=== PATIENT | female | born 1950 | race Hispanic/Latino ===

== ENCOUNTER 2019-05-23 19:40 | Emergency (ER) | payer OTHER ==
--- OUTSIDE RECORDS SUMMARY | 2019-05-23 19:45 | XMS REPORT | Summary of Care ---
:1950 Author Organization [facility] - Health Address [address] [place] [address] Care Team Providers Name Role Phone Clifford Quinones Primary Care Provider Reason for Referral (DALY) Status Reason Specialty Diagnoses / Referred By Referred To Procedures Contact Contact Closed Vascular Sonography Diagnoses Renal artery stenosis Essential hypertension Carotid stenosis, asymptomatic, bilateral I70.1 (ICD-10-CM) - Renal artery stenosis I10 (ICD-10-CM) - Essential hypertension I65.23 (ICD-10-CM) - Carotid stenosis, asymptomatic, bilateral Consuelo, Trina, Procedures RENAL ARTERY DUPLEX BY VASCULAR LAB [id number] - RENAL ARTERY DUPLEX BY VASCULAR LAB [address] [place] [phone] (DALY) Status Reason Specialty Diagnoses / Referred By Referred To Procedures Contact Contact Closed Vascular Sonography Diagnoses Renal artery stenosis Essential hypertension Carotid stenosis, asymptomatic, bilateral I70.1 (ICD-10-CM) - Renal artery stenosis I10 (ICD-10-CM) - Essential hypertension I65.23 (ICD-10-CM) - Carotid stenosis, asymptomatic, bilateral Kelly Corderofer, Procedures RENAL ARTERY DUPLEX BY VASCULAR LAB [id number] - RENAL ARTERY DUPLEX BY VASCULAR LAB [address] [place] [phone] Reason for Visit (DALY) Status Reason Specialty Diagnoses / Referred By Referred To Procedures Contact Contact Closed Vascular Sonography Diagnoses Renal artery stenosis Essential hypertension Carotid stenosis, asymptomatic, bilateral I70.1 (ICD-10-CM) - Renal artery stenosis I10 (ICD-10-CM) - Essential hypertension I65.23 (ICD-10-CM) - Carotid stenosis, asymptomatic, bilateral Trina Cordero, Procedures RENAL ARTERY DUPLEX BY VASCULAR LAB [id number] - RENAL ARTERY DUPLEX BY VASCULAR LAB [address] [place] [phone] Encounter Details Date Type Department Care Team Description 02/01/2019 Hospital Encounter [facility] Henna Marquis MD [address] [place] [address] [facility], [facility] Cardio Vascular [address] [facility] [place] [address] Allergies Active Allergy Reactions Severity Noted Date Comments Atorvastatin Calcium Unknown - See comments 12/07/2016 myalgia documented as of this encounter (statuses as of 02/02/2019) Medications Medication Sig Dispensed Refills Start Date End Date Status DEXILANT 60 mg CpDM Take 60 mg by 0 01/27/2015 Active mouth daily. nitroglycerin Place 1 Tab under 1 Bottle 3 10/06/2015 Active (NITROSTAT) 0.4 mg the tongue every sublingual tablet 5 (five) minutes as needed for Chest pain. ALPRAZolam (XANAX) 0.25 Take 0.25 mg by 0 Active mg tablet mouth at bedtime. Insulin Asp Prt-Insulin inject 20 Units 45 mL 1 01/09/2017 Active Aspart (NOVOLOG MIX under the skin 2 70-30) 100 unit/mL (two) times (70-30) injection daily. temazepam (RESTORIL) 15 Take 15 mg by 0 Active mg capsule mouth at bedtime. TRAMADOL HCL (TRAMADOL Take by mouth as 0 Active ORAL) needed. aspirin 81 mg EC tablet Take 1 tablet by 0 06/07/2017 Active mouth daily. losartan 50 mg Take 1 tablet by 30 tablet 2 11/07/2018 Active tabletIndications: mouth daily. Fluctuating blood pressure carvedilol 25 mg tablet Take 1 tablet by 180 tablet 1 11/07/2018 Active mouth 2 (two) times daily with meals. topiramate 50 mg tablet Take 50 mg by 0 Active mouth. hydroCHLOROthiazide 12.5 0 10/23/2018 Active mg tablet gabapentin 300 mg 0 09/21/2018 Active capsule dextromethorphan Nuedexta 0 Active Hbr/quinidine (NUEDEXTA ORAL) pantoprazole 40 mg EC pantoprazole 40 0 Active tablet mg tablet,delayed release insulin degludec Tresiba FlexTouch 0 Active (TRESIBA FLEXTOUCH U-100 U-100 SC) nitroglycerin 0.[address] 1 tablet 1 Bottle 1 12/18/2018 Active sublingual tablet under the tongue every 5 (five) minutes as needed for Chest pain. evolocumab (REPATHA inject 140 mg 4 Syringe 3 01/12/2019 Active SURECLICK) 140 mg/mL under the skin PnIjIndications: every 2 (two) Coronary artery disease weeks. involving [place] coronary artery of [place] heart without angina pectoris, Hyperlipidemia, unspecified hyperlipidemia type documented as of this encounter (statuses as of 02/02/2019) Active Problems Problem Noted Date History of stroke 07/14/2015 History of total hysterectomy with bilateral salpingo-oophorectomy (BSO) 07/14 Decreased libido 07/14/2015 Essential hypertension 02/18/2015 HLD (hyperlipidemia) 02/18/2015 Postmenopause 02/18/2015 Diabetes mellitus type 2, uncontrolled, without complications 02/18/2015 Overview: ICD10 Diagnosis Term Cleaner And Trimmer Utility Neuropathy 02/18/2015 documented as of this encounter (statuses as of 02/02/2019) Social History Tobacco Use Types Packs/Day Years Used Date Former Smoker Smokeless Tobacco: Never Used Alcohol Use Drinks/Week oz/Week Comments No 0 Standard drinks or equivalent 0.0 Sex Assigned at Date Recorded Not on file Job Start Date Occupation Industry Not on file Not on file Not on file Travel History Travel Start Travel End No recent travel history available. documented as of this encounter Last Filed Vital Signs Not on filedocumented in this encounter Plan of Treatment Date Type Specialty Care Team Description 02/26/2019 Office Visit Vascular Surgery Trina Cordero MD [address] [place] [phone] 04/09/2019 Office Visit Cardiology Henna Marquis MD [address] [place] [address] [address] [place] [address] [phone] Health Maintenance Due Date Last Done Comments HEPATITIS C (HCV) SCREEN 1950 EYE EXAM 1959 DTaP,Tdap,and Td Vaccines (1 - 1968 Tdap) COLONOSCOPY 1999 Zoster Recombinant Vaccine 1999 (SHINGRIX) (1 of 2) LUNG CANCER SCREEN: Recommended 2004 for age 55-80 with 30 + pack year history Medicare Wellness Visit 2014 Osteoporosis Screening 2014 PNEUMOCOCCAL VACCINES 65+ (1 of 2 2014 - PCV13) URINE MICROALBUMIN 03/30/2016 03/30/2015 MAMMOGRAM 07/16/2016 07/16/2015 FOOT EXAM 01/04/2018 01/04/2017, 01/04/2017 INFLUENZA VACCINE 03/03/2019 HgA1C 06/15/2019 12/14/2018, 01/04/2017, 09/28/2015, Additional history exists CREATININE (SERUM) 01/08/2020 01/07/2019, 12/14/2018, 10/28/2016, Additional history exists LDL-C 01/08/2020 01/07/2019, 03/30/2015 documented as of this encounter Implants Implanted Type Area Director Of Strategic Communications Device Shelf Model / Serial Identifier Expiration / Lot Date Lens LENS Right: Raúl 06/01/2020 [id number] / Implanted: Qty: 1 on 09/24/2015 by Ramesh Martinez MD at [facility] Eye [id number] / [id number] Lens LENS Left: Eye Raúl 08/02/2020 [id number] / Implanted: Qty: 1 on 11/12/2015 by Ramesh Martinez MD at [facility] [id number] / [id number] documented as of this encounter Procedures Procedure Name Priority Date/Time Associated Diagnosis Comments RENAL ARTERY DUPLEX BY DALY 02/01/2019 10:06 AM Renal artery stenosis VASCULAR LAB CDT Essential hypertension Carotid stenosis, asymptomatic, bilateral documented in this encounter Results Not on filedocumented in this encounter Visit Diagnoses Diagnosis Renal artery stenosis Atherosclerosis of renal artery Essential hypertension Unspecified essential hypertension Carotid stenosis, asymptomatic, bilateral documented in this encounter Insurance Payer Benefit Plan / Subscriber ID Effective Dates Phone Address Type Group MEDICARE MEDICARE PART xxxxxxxxxxx 2014-Tova [phone] [id number] [place] [address] documented as of this encounter
--- OUTSIDE RECORDS SUMMARY | 2019-05-23 19:45 | XMS REPORT | Summary of Care ---
:1950 Author Organization [facility] - [facility] Address [address] [place] [address] Care Team Providers Name Role Phone Clifford Quinones Primary Care Provider Reason for Visit Reason Comments Results Encounter Details Date Type Department Care Team Description 02/26/2019 Office Visit [facility] Vascular Trina Cordero, Renal artery stenosis Surgery- Ct MATIAS (Primary Dx) [address] [address] [place], [place] [phone] [address] [phone] Allergies Active Allergy Reactions Severity Noted Date Comments Atorvastatin Calcium Unknown - See comments 12/07/2016 myalgia documented as of this encounter (statuses as of 02/26/2019) Medications Medication Sig Dispensed Refills Start Date [...] tablet by 0 06/07/2017 Active mouth daily. carvedilol 25 mg tablet Take 1 tablet [...] 2 (two) Coronary artery disease weeks. involving [place] coronary artery of [place] heart without angina pectoris, Hyperlipidemia, unspecified hyperlipidemia type losartan 50 mg Take 1 tablet by 30 tablet 2 02/07/2019 Active tabletIndications: mouth daily. Fluctuating blood pressure documented as of this encounter (statuses as of 02/26/2019) Active Problems Problem Noted Date History of stroke 07/14/2015 History of total hysterectomy with bilateral salpingo-oophorectomy (BSO) 07/14 Decreased libido 07/14/2015 Essential hypertension 02/18/2015 HLD (hyperlipidemia) 02/18/2015 Postmenopause 02/18/2015 Diabetes mellitus type 2, uncontrolled, without complications 02/18/2015 Overview: ICD10 Diagnosis Term Lead Recreation Assistant Utility Neuropathy 02/18/2015 documented as of this encounter (statuses as of 02/26/2019) Social History Tobacco Use Types Packs/Day Years [...] of this encounter Last Filed Vital Signs Vital Sign Reading Time Taken Comments Blood Pressure 151/82 02/26/2019 10:44 Took BP Rx not long AM CDT ago. Pulse 78 02/26/2019 10:44 AM CDT Temperature 36 C (96.8 F) 02/26/2019 10:44 AM CDT Respiratory Rate - - Oxygen Saturation - - Inhaled Oxygen - - Concentration Weight 81.4 kg (179 lb 6.4 02/26/2019 10:44 oz) AM CDT Height 152.4 cm (5') 02/26/2019 10:44 AM CDT Body Mass Index 35.04 02/26/2019 10:44 AM CDT documented in this encounter Progress Notes Trina Cordero MD - 02/26/2019 10:30 AM CDT Vascular Surgery Clinic Note Date of Service: 02/26/2019 HISTORY OF PRESENT ILLNESS: This 68 year old year old female patient presents for follow-up of renal artery stenosis, carotid artery stenosis s/p left carotid stenting in 2016, and left thigh pain. Since last visit, she was started on losartan with much improved HTN control. She continues on aspirin and beta flor and has an allergy to statin. Her carotid duplex is WNL and the right CHARITO is 0.93 with left CHARITO of 0.95. She ntoes that the left thigh pain is mainly over the previous GSV harvest site for her CABG and started around that time. She also has a history of sciatica which was treated by her pain doctor in the past buthas not seen a back surgeon. She is otherwise doing well. Interval update (02/26/2019): Patient is doing well and states that her BP is much better controlled with the losartan. She reports a UTI about 3 weeks ago which resolved with antibiotics. PAST MEDICAL HISTORY: Past Medical History: Diagnosis Date Abnormal uterine bleeding Bilateral carotid artery stenosis L stent 10/2014 in [facility] CVA (cerebral infarction) 10/2014 Depression DM2 (diabetes mellitus, type 2) age 45 HLD (hyperlipidemia) Hypertension Leiomyoma of uterus Wears dentures non-contributory for this patient presenting symptoms Past Surgical History: Procedure Laterality Date CAROTID STENTING SECTION COLONOSCOPY HYSTERECTOMY MYOMECTOMY (SHX) PHACOEMULSIFICATION OF CATARACT WITH INTRAOCULAR LENS IMPLANT Right 2015 Surgeon: Ramesh Martinez MD; Location: [facility] OR [facility] PHACOEMULSIFICATION OF CATARACT WITH INTRAOCULAR LENS IMPLANT Left 11/12/2015 Surgeon: Ramesh Martinez MD; Location: [facility] OR Location STENT PLACEMENT (SHX) Medications: Current Outpatient Medications on File Prior to Visit Medication Sig Dispense Refill evolocumab (REPATHA SURECLICK) 140 mg/mL PnIj inject 140 mg under the skin every 2 (two) weeks. 4 Syringe 3 nitroglycerin 0.[address] 1 tablet under the tongue every 5 (five) minutes as needed for Chest pain. 1 Bottle 1 dextromethorphan Hbr/quinidine (NUEDEXTA ORAL) Nuedexta gabapentin 300 mg capsule 0 hydroCHLOROthiazide 12.5 mg tablet 0 insulin degludec (TRESIBA FLEXTOUCH U-100 SC) Tresiba FlexTouch U-100 pantoprazole 40 mg EC tablet pantoprazole 40 mg tablet,delayed release topiramate 50 mg tablet Take 50 mg by mouth. carvedilol 25 mg tablet Take 1 tablet by mouth 2 (two) times daily with meals. 180 tablet 1 losartan 50 mg tablet Take 1 tablet by mouth daily. 30 tablet 2 aspirin 81 mg EC tablet Take 1 tablet by mouth daily. temazepam (RESTORIL) 15 mg capsule Take 15 mg by mouth at bedtime. TRAMADOL HCL (TRAMADOL ORAL) Take by mouth as needed. Insulin Asp Prt-Insulin Aspart (NOVOLOG MIX 70-30) 100 unit/mL (70-30) injection inject 20 Unitsunder the skin 2 (two) times daily. 45 mL 1 ALPRAZolam (XANAX) 0.25 mg tablet Take 0.25 mg by mouth at bedtime. nitroglycerin (NITROSTAT) 0.[address] 1 Tab under the tongue every 5 (five) minutes as needed for Chest pain. 1 Bottle 3 DEXILANT 60 mg CpDM Take 60 mg by mouth daily. No current facility-administered medications on file prior to visit. I have reviewed the social history, it is non-contributory. I have reviewed the family history, it is non-contributory. Allergies: Allergies Allergen Reactions Lipitor [Atorvastatin Calcium] Unknown - See comments myalgia Make sure patient is not allergic to Contrast (Iodine): No Review of Systems: (-)=Negative,(+)=Positive Constitutional: (-) fever, (-) chills Eyes: (-) Amarosis fugax Mouth/Throat: (-) facial droop Cardiovascular: (-) chest pain, (-) palpitations Respiratory: (-) cough, (-) shortness of breath, (-) dyspnea on exertion Endocrine: (+) diabetes, (+) renal insufficiency Musculoskeletal: (-) claudication Integumentary: (-) swelling Hematologic: (-) DVT Infectious Disease: (-) Neuro: (-) TIAs/ Stroke Physical Exam: BP: (151)/(82) Temp: [36 C (96.8 F)] Temp source: -- Pulse: [78] Resp: -- SpO2: -- Height: [152.4 cm (5')] Weight: [81.4 kg (179 lb 6.4 oz)] BMI (calculated): [35.04] Constitutional: alert, healthy and no acute distress Facial Droop: No Eyes: extra ocular movements intact Head: normal Respiratory: breathing comfortably on room air Cardio: regular rate Extremities: no clubbing, cyanosis, or edema Neurologic: alert and oriented x 3 Psychiatric: alert, with appropriate affect Hematologic: (-) bruises and (-) hematoma Labs: No new labs. Imaging: No new Radiology. Vascular Labs: See HPI for results Diagnosis: Isidra Neff is a 68 year old female with possible left renal artery stenosis. Her left kidney is smaller than the right, around 9 cm and there were no EDV recorded to calculate resistive indexes. Her HTN is now better controlled. Again there were no EDVs recorded on the duplex scan therefore will see if BP controlled prior to considering intervention. Renal artery stenosis - Continue current medications but will need to record her home BPs - return in 3-4 weeks with new BMP and home BP recordings HTN - management per cardiology Leg/back pain - Ambulation as tolerated - Would consider referral to Neurosurgery if her sciatica worsens Carotid artery stenosis - Repeat carotid duplex in 1 year - Continue aspirin Trina Cordero MD, [facility] Vascular Surgery Radha Hilliard - 02/26/2019 10:30 AM CDT Isidra Neff is a 68 year old female Chief Complaint Patient presents with Results Vitals: 02/26/19 1044 BP: (!) 151/82 Pulse: 78 Temp: 36 C (96.8 F) Weight: 81.4 kg (179 lb 6.4 oz) Height: 60" (152.4 cm) [facility] [address] [place] [address] [address] [facility] FOLLOW-UP for US results on kidney - available in chart. All Vitals taken, allergies and all medications reviewed, fall risk assessed. Pain level 8. Radha Huff 02/26/2019 10:45 AM documented in this encounter Plan of Treatment Date Type Specialty Care Team Description 03/26/2019 Office Visit Vascular Surgery Trina Cordero MD [address] [place] [phone] 04/09/2019 Office Visit Cardiology Henna Marquis MD [address] [place] [address] [place] [address] Name Type Priority Associated Diagnoses Order Schedule BASIC METABOLIC PANEL LAB Routine Renal artery stenosis Expected: 2018, Expires: 06/28/2019 Health Maintenance Due Date Last Done Comments [...] FOOT EXAM 01/04/2018 01/04/2017, 01/04/2017 INFLUENZA VACCINE (#1) 2019 04/23/2017 HgA1C 06/15/2019 12/14/2018, 01/04/2017, 09/28/2015, Additional history exists CREATININE (SERUM) 01/08/2020 01/07/2019, 12/14/2018, 10/28/2016, Additional history exists LDL-C 01/08/2020 01/07/2019, 03/30/2015 documented as of this encounter Implants Implanted Type Area Supervisor Prep Device Shelf Model / Serial Identifier Expiration / Lot Date Lens LENS Right: Raúl 06/01/2020 SN60WF / Implanted: Qty: 1 on 09/24/2015 by Ramesh Martinez MD at [facility] [id number] / [id number] Lens LENS Left: Eye Raúl 08/02/2020 [id number] / Implanted: Qty: 1 on 11/12/2015 by Ramesh Martinez MD at [facility] [id number] / [id number] documented as of this encounter Results Not on filedocumented in this encounter Visit Diagnoses Diagnosis Renal artery stenosis - Primary Atherosclerosis of renal artery documented in this encounter Insurance Payer Benefit Plan / Subscriber ID Effective Dates Phone Address Type Group MEDICARE MEDICARE PART xxxxxxxxxxx 2014-Tova [phone] Medicare A [place] [address] [place] [id number] [place] [id number] documented as of this encounter
--- OUTSIDE RECORDS SUMMARY | 2019-05-23 19:45 | XMS REPORT | Summary of Care ---
:1950 Author Organization [address] [address] Care Team Providers Name Role Phone Clifford Quinones Primary Care Provider Reason for Visit Reason Comments Results Vascular Study Encounter Details Date Type Department Care Team Description 02/05/[address] [facility] Vascular Trina Cordero MD Results (Vascular Surgery- [address]) [address] [place], [place] [address] [address] [place], [place] [phone] [address] [phone] Allergies Active Allergy Reactions Severity Noted Date Comments Atorvastatin Calcium Unknown - See comments 12/07/2016 myalgia documented as of this encounter (statuses as of 02/05/2019) Medications Medication Sig Dispensed Refills Start Date [...] 2 (two) Coronary artery disease weeks. involving [place] coronary artery of [place] heart without angina pectoris, Hyperlipidemia, unspecified hyperlipidemia type documented as of this encounter (statuses as of 02/05/2019) Active Problems Problem Noted Date History of stroke 07/14/2015 History of total hysterectomy with bilateral salpingo-oophorectomy (BSO) 07/14 Decreased libido 07/14/2015 Essential hypertension 02/18/2015 HLD (hyperlipidemia) 02/18/2015 Postmenopause 02/18/2015 Diabetes mellitus type 2, uncontrolled, without complications 02/18/2015 Overview: ICD10 Diagnosis Term Automatic Wheel Line Operator Utility Neuropathy 02/18/2015 documented as of this encounter (statuses as of 02/05/2019) Social History Tobacco Use Types Packs/Day Years [...] Office Visit Vascular Surgery Trina Cordero MD [address] [place] [phone] 04/09/2019 Office Visit Cardiology Henna Marquis MD [address] [place] [address] [address] [place] [address] Health Maintenance Due Date Last Done Comments [...] EXAM 01/04/2018 01/04/2017, 01/04/2017 INFLUENZA VACCINE 03/03/2019 04/23/2017 HgA1C 06/15/2019 12/14/2018, 01/04/2017, 09/28/2015, Additional history exists CREATININE (SERUM) 01/08/2020 01/07/2019, 12/14/2018, 10/28/2016, Additional history exists LDL-C 01/08/2020 01/07/2019, 03/30/2015 documented as of this encounter Implants Implanted Type Area Granulator Operator Device Shelf Model / Serial Identifier Expiration / Lot Date Lens LENS Right: Raúl 06/01/2020 SN60WF / Implanted: Qty: 1 on 09/24/2015 by Ramesh Martinez MD at [facility] [id number] / [id number] Lens LENS Left: Eye Raúl 08/02/2020 [id number] / Implanted: Qty: 1 on 11/12/2015 by Ramesh Martinez MD at [facility] [id number] / [id number] documented as of this encounter Results Not on filedocumented in this encounter Insurance Payer Benefit Plan / Subscriber ID Effective Dates Phone Address Type Group MEDICARE MEDICARE PART xxxxxxxxxxx 2014-Tova [phone] [address] Medicare A & B nt [id number] [place] [phone] documented as of this encounter
--- OUTSIDE RECORDS SUMMARY | 2019-05-23 19:45 | XMS REPORT ---
:1950 [facility] Address [address] [place] [address] Care Team Providers Name Role Phone VANDA PALMA Unavailable Unavailable Problems This patient has no known problems. Allergies, Adverse Reactions, Alerts This patient has no known allergies or adverse reactions. Medications This patient has no known medications. Results Test Description Test Time Test Comments Text Results Atomic Results Result Comments POCT-GLUCOSE METER 2017-09-06 12:41:00 Test Item Value Reference Range Comments POC-GLUCOSE METER (BEAKER) (test 181 mg/dL 70-110 TESTED AT [address] ceox=0688) [facility] [address] POCT-GLUCOSE [id number] 07:49:00 Test Item Value Reference Range Comments POC-GLUCOSE METER (BEAKER) 231 mg/dL 70-110 TESTED AT [address] (test koye=9052) [facility] [address] POCT-GLUCOSE [id number] 21:02:00 Test Item Value Reference Range Comments POC-GLUCOSE METER (BEAKER) 181 mg/dL 70-110 TESTED AT [address] (test bhfn=9723) [facility] [address] POCT-GLUCOSE [id number] 17:48:00 Test Item Value Reference Range Comments POC-GLUCOSE METER (BEAKER) 111 mg/dL 70-110 TESTED AT [address] (test asmy=4438) [facility] [address] POCT-GLUCOSE [id number] 11:51:00 Test Item Value Reference Range Comments POC-GLUCOSE METER (BEAKER) 222 mg/dL 70-110 TESTED AT [address] (test tnyb=2905) [facility] [address] POCT-GLUCOSE [id number] 08:42:00 Test Item Value Reference Range Comments POC-GLUCOSE METER (BEAKER) 193 mg/dL 70-110 TESTED AT [address] (test ybtq=6924) [facility] [address] BASIC METABOLIC [id number] 04:35:00 Test Item Value Reference Range Comments SODIUM (BEAKER) (test 140 meq/L 136-145 lmth=964) POTASSIUM (BEAKER) (test 4.2 meq/L 3.5-5.1 dhsr=033) CHLORIDE (BEAKER) (test 104 meq/L 98-107 klur=598) CO2 (BEAKER) (test 28 meq/L 22-29 ubkv=234) BLOOD UREA NITROGEN 17 mg/dL 7-21 (BEAKER) (test tsad=180) CREATININE (BEAKER) (test 0.83 mg/dL 0.57-1.25 ldnp=574) GLUCOSE RANDOM (BEAKER) 138 mg/dL 70-105 (test yytj=633) CALCIUM (BEAKER) (test 8.5 mg/dL 8.4-10.2 xshs=307) EGFR (BEAKER) (test mL/min/1.73 sq m INSUFFICIENT CLINICAL DATA mgjm=5351) TO CALCULATE ESTIMATED GFR. [id number] 04:34:00 Test Item Value Reference Range Comments MAGNESIUM (BEAKER) (test lfuf=589) 1.9 mg/dL 1.6-2.6 POCT-GLUCOSE [id number] 21:13:00 Test Item Value Reference Range Comments POC-GLUCOSE METER (BEAKER) 184 mg/dL 70-110 TESTED AT [address] (test lagy=5221) [facility] [address] POCT-GLUCOSE [id number] 17:13:00 Test Item Value Reference Range Comments POC-GLUCOSE METER (BEAKER) 110 mg/dL 70-110 TESTED AT [address] (test afxq=8675) [facility] [address] POCT-GLUCOSE [id number] 12:35:00 Test Item Value Reference Range Comments POC-GLUCOSE METER (BEAKER) 186 mg/dL 70-110 TESTED AT [address] (test hvbx=4260) [facility] [address] POCT-GLUCOSE [id number] 07:40:00 Test Item Value Reference Range Comments POC-GLUCOSE METER (BEAKER) 140 mg/dL 70-110 TESTED AT [address] (test jgfa=0830) [place] [address] POCT-GLUCOSE [id number] 21:16:00 Test Item Value Reference Range Comments POC-GLUCOSE METER (BEAKER) 140 mg/dL 70-110 TESTED AT [address] (test iycu=3143) [place] [address] POCT-GLUCOSE [id number] 17:20:00 Test Item Value Reference Range Comments POC-GLUCOSE METER (BEAKER) 188 mg/dL 70-110 TESTED AT [address] (test lbbb=9140) [place] [address] POCT-GLUCOSE [id number] 11:50:00 Test Item Value Reference Range Comments POC-GLUCOSE METER (BEAKER) 173 mg/dL 70-110 TESTED AT [address] (test fubi=3942) [place] [address] POCT-GLUCOSE [id number] 08:52:00 Test Item Value Reference Range Comments POC-GLUCOSE METER (BEAKER) 203 mg/dL 70-110 TESTED AT [address] (test nstu=9896) [place] [address] RAD, CHEST, 1 VIEW, NON [id number] 08:42:00Reason for exam:->eval pulmonary congestionShould this be performed at the bedside?->YesFINAL REPORT Chest dated 09/03/2017 COMPARISON: September 02, 2017 Clinical Information: eval pulmonary congestion Comment: Since proximal impression, there is interval removal of the mediastinal tube and left chest tube. No pneumothorax is noted. Heart is comment size. Pulmonary vasculature is indistinct. Interstitial disease is seen bilaterally suggestive of vascular congestion or pulmonary edema. No pleural effusion is seen. Signed: María Taveraseport Verified Date/Time: 09/03/2017 08:42:41 Reading Location: [facility] B1 C013Y CT Body Reading Room POCT-GLUCOSE [id number] 07:51:00 Test Item Value Reference Range Comments POC-GLUCOSE METER (BEAKER) 209 mg/dL 70-110 TESTED AT [address] (test mohy=3081) [place] [address] BASIC METABOLIC [id number] 06:14:00 Test Item Value Reference Range Comments SODIUM (BEAKER) (test 138 meq/L 136-145 sqbj=971) POTASSIUM (BEAKER) (test 3.7 meq/L 3.5-5.1 msrr=735) CHLORIDE (BEAKER) (test 101 meq/L 98-107 dtzu=722) CO2 (BEAKER) (test 26 meq/L 22-29 xmov=213) BLOOD UREA NITROGEN 22 mg/dL 7-21 (BEAKER) (test eljp=572) CREATININE (BEAKER) (test 0.92 mg/dL 0.57-1.25 htzl=271) GLUCOSE RANDOM (BEAKER) 141 mg/dL 70-105 (test qich=278) CALCIUM (BEAKER) (test 8.3 mg/dL 8.4-10.2 gkre=542) EGFR (BEAKER) (test mL/min/1.73 sq m INSUFFICIENT CLINICAL DATA uflf=3975) TO CALCULATE ESTIMATED GFR. CBC W/PLT COUNT & AUTO [id number] 05:51:00 Test Item Value Reference Range Comments WHITE BLOOD CELL COUNT (BEAKER) (test hajs=006) 8.9 K/ L 3.5-10.5 RED BLOOD CELL COUNT (BEAKER) (test erix=871) 3.31 M/ L 3.93-5.22 HEMOGLOBIN (BEAKER) (test bpub=553) 9.5 GM/DL 11.2-15.7 HEMATOCRIT (BEAKER) (test uuht=119) 29.5 % 34.1-44.9 MEAN CORPUSCULAR VOLUME (BEAKER) (test ifgc=213) 89.1 fL 79.4-94.8 MEAN CORPUSCULAR HEMOGLOBIN (BEAKER) (test 28.7 pg 25.6-32.2 rtai=898) MEAN CORPUSCULAR HEMOGLOBIN CONC (BEAKER) (test 32.2 GM/DL 32.2-35.5 wvdg=747) RED CELL DISTRIBUTION WIDTH (BEAKER) (test 14.6 % 11.7-14.4 ssqa=743) PLATELET COUNT (BEAKER) (test nfrv=028) 233 K/CU MM 150-450 MEAN PLATELET VOLUME (BEAKER) (test xawd=617) 10.8 fL 9.4-12.3 NUCLEATED RED BLOOD CELLS (BEAKER) (test 0 /100 WBC 0-0 miij=957) NEUTROPHILS RELATIVE PERCENT (BEAKER) (test 68 % nhcn=119) LYMPHOCYTES RELATIVE PERCENT (BEAKER) (test 19 % buaq=541) MONOCYTES RELATIVE PERCENT (BEAKER) (test 12 % ffzo=720) EOSINOPHILS RELATIVE PERCENT (BEAKER) (test 1 % uzaa=044) BASOPHILS RELATIVE PERCENT (BEAKER) (test 0 % tlvp=000) NEUTROPHILS ABSOLUTE COUNT (BEAKER) (test 5.99 K/ L 1.56-6.13 rilu=544) LYMPHOCYTES ABSOLUTE COUNT (BEAKER) (test 1.72 K/ L 1.18-3.74 gmyz=718) MONOCYTES ABSOLUTE COUNT (BEAKER) (test 1.07 K/ L 0.24-0.36 twbl=699) EOSINOPHILS ABSOLUTE COUNT (BEAKER) (test 0.05 K/ L 0.04-0.36 yjka=124) BASOPHILS ABSOLUTE COUNT (BEAKER) (test 0.02 K/ L 0.01-0.08 knab=719) IMMATURE GRANULOCYTES-RELATIVE PERCENT (BEAKER) 0 % 0-1 (test ckhu=1581) POCT-GLUCOSE [id number] 22:29:00 Test Item Value Reference Range Comments POC-GLUCOSE METER (BEAKER) 124 mg/dL 70-110 TESTED AT [address] (test yqbs=8903) [place] [address] POCT-GLUCOSE [id number] 21:47:00 Test Item Value Reference Range Comments POC-GLUCOSE METER (BEAKER) 51 mg/dL 70-110 Notified ARYAN MATIAS/TESTED AT [facility] (test wzlr=7466) [address] [place] [address] POCT-GLUCOSE [id number] 17:23:00 Test Item Value Reference Range Comments POC-GLUCOSE METER (BEAKER) 86 mg/dL 70-110 TESTED AT [address] (test ftwm=9992) [place] [address] [id number] 16:25:00 Test Item Value Reference Range Comments MAGNESIUM (BEAKER) (test 2.3 mg/dL 1.6-2.6 Specimen slightly hemolyzed whhj=754) [id number] 16:25:00 Test Item Value Reference Range Comments POTASSIUM (BEAKER) (test 4.4 meq/L 3.5-5.1 Specimen slightly hemolyzed zsam=500) POCT-GLUCOSE [id number] 12:44:00 Test Item Value Reference Range Comments POC-GLUCOSE METER (BEAKER) 95 mg/dL 70-110 TESTED AT [facility] [address] [facility] (test sczb=7346) [facility] [address] POCT-LACTIC ACID, [id number] 12:35:00 Test Item Value Reference Range Comments POC-LACTIC ACID, VENOUS 1.1 mmol/L 0.9-1.7 TESTED AT [place] [id number] [facility] (BEAKER) (test bfxy=0990) [place] [address] BASIC METABOLIC [id number] 10:55:00 Test Item Value Reference Range Comments SODIUM (BEAKER) (test 142 meq/L 136-145 hlsz=841) POTASSIUM (BEAKER) (test 3.4 meq/L 3.5-5.1 mfpk=050) CHLORIDE (BEAKER) (test 105 meq/L 98-107 iwbr=441) CO2 (BEAKER) (test 27 meq/L 22-29 cbin=172) BLOOD UREA NITROGEN 16 mg/dL 7-21 (BEAKER) (test iawi=914) CREATININE (BEAKER) (test 0.83 mg/dL 0.57-1.25 dcqh=579) GLUCOSE RANDOM (BEAKER) 121 mg/dL 70-105 (test mmtc=534) CALCIUM (BEAKER) (test 8.4 mg/dL 8.4-10.2 htjg=703) EGFR (BEAKER) (test mL/min/1.73 sq m INSUFFICIENT CLINICAL DATA lrnz=0399) TO CALCULATE ESTIMATED GFR. [id number] 10:48:00 Test Item Value Reference Range Comments MAGNESIUM (BEAKER) (test lnko=632) 1.5 mg/dL 1.6-2.6 RAD, CHEST, 1 VIEW, NON [id number] 08:27:00Reason for exam:->eval pulmonary congestionShould this be performed at the bedside?->YesFINAL REPORT Chest one view compared to September 01 Discussion: Mild pulmonary congestion is again noted. Drainage tubes in place. No effusion or pneumothorax. IMPRESSIONS: Unchangedcardiopulmonary appearance. Signed: Lorraine Lane Verified Date/Time: 09/02/2017 08:27:08 Reading Location : [address] Reading Room POCT-GLUCOSE [id number] 07:39:00 Test Item Value Reference Range Comments POC-GLUCOSE METER (BEAKER) 135 mg/dL 70-110 TESTED AT [facility] [address] [facility] (test zfhb=3965) [facility] [address] CBC W/PLT COUNT & AUTO [id number] 05:35:00 Test Item Value Reference Range Comments WHITE BLOOD CELL COUNT (BEAKER) (test vcic=047) 10.5 K/ L 3.5-10.5 RED BLOOD CELL COUNT (BEAKER) (test fflf=505) 3.59 M/ L 3.93-5.22 HEMOGLOBIN (BEAKER) (test wbmn=487) 10.2 GM/DL 11.2-15.7 HEMATOCRIT (BEAKER) (test gndy=778) 31.1 % 34.1-44.9 MEAN CORPUSCULAR VOLUME (BEAKER) (test pflg=154) 86.6 fL 79.4-94.8 MEAN CORPUSCULAR HEMOGLOBIN (BEAKER) (test 28.4 pg 25.6-32.2 skph=079) MEAN CORPUSCULAR HEMOGLOBIN CONC (BEAKER) (test 32.8 GM/DL 32.2-35.5 gacd=462) RED CELL DISTRIBUTION WIDTH (BEAKER) (test 14.7 % 11.7-14.4 ttdw=783) PLATELET COUNT (BEAKER) (test wwqo=106) 291 K/CU MM 150-450 MEAN PLATELET VOLUME (BEAKER) (test jlia=380) 11.0 fL 9.4-12.3 NUCLEATED RED BLOOD CELLS (BEAKER) (test 0 /100 WBC 0-0 zxnl=949) NEUTROPHILS RELATIVE PERCENT (BEAKER) (test 64 % isdz=973) LYMPHOCYTES RELATIVE PERCENT (BEAKER) (test 20 % pauy=512) MONOCYTES RELATIVE PERCENT (BEAKER) (test 15 % blzt=361) EOSINOPHILS RELATIVE PERCENT (BEAKER) (test 1 % zffq=196) BASOPHILS RELATIVE PERCENT (BEAKER) (test 0 % gsiv=050) NEUTROPHILS ABSOLUTE COUNT (BEAKER) (test 6.73 K/ L 1.56-6.13 huwz=590) LYMPHOCYTES ABSOLUTE COUNT (BEAKER) (test 2.14 K/ L 1.18-3.74 vkpu=115) MONOCYTES ABSOLUTE COUNT (BEAKER) (test 1.55 K/ L 0.24-0.36 nvbm=736) EOSINOPHILS ABSOLUTE COUNT (BEAKER) (test 0.05 K/ L 0.04-0.36 qkfd=526) BASOPHILS ABSOLUTE COUNT (BEAKER) (test 0.03 K/ L 0.01-0.08 vwfa=509) IMMATURE GRANULOCYTES-RELATIVE PERCENT (BEAKER) 0 % 0-1 (test jvpx=7771) POCT-GLUCOSE [id number] 01:26:00 Test Item Value Reference Range Comments POC-GLUCOSE METER (BEAKER) 117 mg/dL 70-110 TESTED AT [address] (test sxit=3101) [place] [address] POCT-GLUCOSE [id number] 20:32:00 Test Item Value Reference Range Comments POC-GLUCOSE METER (BEAKER) 238 mg/dL 70-110 TESTED AT [address] (test amyl=2629) [place] [address] POCT-GLUCOSE [id number] 20:23:00 Test Item Value Reference Range Comments POC-GLUCOSE METER (BEAKER) 211 mg/dL 70-110 TESTED AT [address] (test wlxi=2927) [place] [address] POCT-GLUCOSE [id number] 18:41:00 Test Item Value Reference Range Comments POC-GLUCOSE METER (BEAKER) 197 mg/dL 70-110 TESTED AT [address] (test yufz=0099) [facility] [address] CBC W/PLT COUNT & AUTO [id number] 10:27:00 Test Item Value Reference Range Comments WHITE BLOOD CELL COUNT (BEAKER) (test ddjr=134) 11.0 K/ L 3.5-10.5 RED BLOOD CELL COUNT (BEAKER) (test zqzv=559) 3.50 M/ L 3.93-5.22 HEMOGLOBIN (BEAKER) (test hzyq=817) 10.1 GM/DL 11.2-15.7 HEMATOCRIT (BEAKER) (test qkkf=885) 29.9 % 34.1-44.9 MEAN CORPUSCULAR VOLUME (BEAKER) (test ikqi=994) 85.4 fL 79.4-94.8 MEAN CORPUSCULAR HEMOGLOBIN (BEAKER) (test 28.9 pg 25.6-32.2 pgfb=741) MEAN CORPUSCULAR HEMOGLOBIN CONC (BEAKER) (test 33.8 GM/DL 32.2-35.5 morj=990) RED CELL DISTRIBUTION WIDTH (BEAKER) (test 14.6 % 11.7-14.4 silg=318) PLATELET COUNT (BEAKER) (test abzz=035) 296 K/CU MM 150-450 MEAN PLATELET VOLUME (BEAKER) (test uokf=000) 11.1 fL 9.4-12.3 NUCLEATED RED BLOOD CELLS (BEAKER) (test 0 /100 WBC 0-0 myci=891) NEUTROPHILS RELATIVE PERCENT (BEAKER) (test 76 % rcih=018) LYMPHOCYTES RELATIVE PERCENT (BEAKER) (test 9 % plic=489) MONOCYTES RELATIVE PERCENT (BEAKER) (test 14 % fdoh=193) EOSINOPHILS RELATIVE PERCENT (BEAKER) (test 0 % iyia=873) BASOPHILS RELATIVE PERCENT (BEAKER) (test 0 % rwxk=426) NEUTROPHILS ABSOLUTE COUNT (BEAKER) (test 8.36 K/ L 1.56-6.13 eyky=199) LYMPHOCYTES ABSOLUTE COUNT (BEAKER) (test 1.00 K/ L 1.18-3.74 zxew=562) MONOCYTES ABSOLUTE COUNT (BEAKER) (test 1.50 K/ L 0.24-0.36 tofy=806) EOSINOPHILS ABSOLUTE COUNT (BEAKER) (test 0.01 K/ L 0.04-0.36 bpkv=837) BASOPHILS ABSOLUTE COUNT (BEAKER) (test 0.03 K/ L 0.01-0.08 ycef=668) IMMATURE GRANULOCYTES-RELATIVE PERCENT (BEAKER) 1 % 0-1 (test kfik=2552) BASIC METABOLIC [id number] 09:52:00 Test Item Value Reference Range Comments SODIUM (BEAKER) (test 145 meq/L 136-145 zqkd=157) POTASSIUM (BEAKER) (test 3.4 meq/L 3.5-5.1 zysz=967) CHLORIDE (BEAKER) (test 109 meq/L 98-107 qrkk=211) CO2 (BEAKER) (test 25 meq/L 22-29 giug=215) BLOOD UREA NITROGEN 8 mg/dL 7-21 (BEAKER) (test zdcr=117) CREATININE (BEAKER) (test 0.71 mg/dL 0.57-1.25 ueqk=793) GLUCOSE RANDOM (BEAKER) 123 mg/dL 70-105 (test pyjv=685) CALCIUM (BEAKER) (test 8.4 mg/dL 8.4-10.2 wvtk=833) EGFR (BEAKER) (test mL/min/1.73 sq m INSUFFICIENT CLINICAL DATA hfej=1681) TO CALCULATE ESTIMATED GFR. [id number] 09:47:00 Test Item Value Reference Range Comments PHOSPHORUS (BEAKER) (test kqtw=001) 3.2 mg/dL 2.3-4.7 [id number] 09:47:00 Test Item Value Reference Range Comments MAGNESIUM (BEAKER) (test oacf=297) 1.5 mg/dL 1.6-2.6 CALCIUM, [id number] 09:29:00 Test Item Value Reference Range Comments CALCIUM IONIZED (BEAKER) (test fxbr=307) 1.07 mmol/L 1.12-1.27 PH, BLOOD (BEAKER) (test xomz=2984) 7.46 BLOOD GAS, [id number] 09:29:00 Test Item Value Reference Range Comments PH ARTERIAL (BEAKER) (test nnig=177) 7.44 7.35-7.45 PCO2 ARTERIAL (BEAKER) (test lavl=924) 42 mmHg 35-45 PO2 ARTERIAL (BEAKER) (test paac=423) 118 mmHg 80-90 O2 SATURATION ARTERIAL (BEAKER) (test veph=066) 98.2 % 96.0-97.0 HCO3 ARTERIAL (BEAKER) (test olbp=115) 28 mmol/L 21-29 BASE EXCESS ARTERIAL (BEAKER) (test jgcn=768) 3.6 mmol/L -2.0-3.0 PATIENT TEMPERATURE (BEAKER) (test zfyf=9767) 38.2 C FIO2 (BEAKER) (test mfvg=9845) 40.0 % PLATELET AGGREGATION: FUNCTION [id number] 09:27:00 Test Item Value Reference Range Comments WEAK ADP RESULT(BEAKER) (test 90 % 60-91 wqlk=2937) PLATELET FUNCTION SCREEN 60-100% indicates normal INTERP (BEAKER) (test platelet function sotr=6999) [id number] (BEAKER) Silvia Marquez MD (test wigw=5309) (electronic signature) PLATELET COUNT AGG (BEAKER) 204 K/CU MM 150-450 (test mhti=4376) CALCIUM, [id number] 08:58:00 Test Item Value Reference Range Comments CALCIUM IONIZED (BEAKER) (test ifcy=418) 1.09 mmol/L 1.12-1.27 PH, BLOOD (BEAKER) (test zpqg=9449) 7.40 OXYGEN SATURATION, [id number] 08:57:00 Test Item Value Reference Range Comments O2 SATURATION (MEASURED) (BEAKER) (test arbz=0195) 70.2 % POCT-GLUCOSE [id number] 07:53:00 Test Item Value Reference Range Comments POC-GLUCOSE METER (BEAKER) 133 mg/dL 70-110 TESTED AT [facility] [address] [facility] (test hvpg=5763) [facility] [address] LACTIC ACID, ARTERIAL, WHOLE [id number] 07:50:00 Test Item Value Reference Range Comments LACTATE BLOOD ARTERIAL (2) (BEAKER) (test 0.9 mmol/L 0.5-2.2 qmtr=7395) Effective 11/04/2015: Units/Reference Range ChangeNew: 0.5-2.2 mmol/L Previous: 5 -20 mg/dLRAD, CHEST, 1 VIEW, NON [id number] 07:36:00Reason for exam:-> eval pulmonary congestionShould this be performed at the bedside?->YesFINAL REPORT HISTORY : eval pulmonary congestion. Comparison: Comment: Single portable view of the chest was obtained. The cardiac silhouette size is enlarged. There iswidening of the mediastinum. There has been interval removal of the endotracheal and nasogastric tubes. The remainder of the support lines and tubes are otherwise unchanged. There are findings of pulmonary venous congestion. There is some interstitial prominence that may represent interstitial edema. There is some left basilar airspace disease. There may be a small left-sided pleural effusion. There is a tiny suspected right apical pneumothorax. Signed: Sarna, Achal MDReport Verified Date/Time: 07:36:22 Reading Location: [facility] Diagnostic Imaging Reading Room - [place] [address] 1120 07 :36 AMPOCT-GLUCOSE [id number] 07:25:00 Test Item Value Reference Range Comments POC-GLUCOSE METER (BEAKER) 158 mg/dL 70-110 TESTED AT [address] (test yktq=9288) [facility] [address] POCT-GLUCOSE [id number] 07:14:00 Test Item Value Reference Range Comments POC-GLUCOSE METER (BEAKER) 120 mg/dL 70-110 TESTED AT [address] (test utkn=7616) [facility] [address] POCT-GLUCOSE [id number] 07:14:00 Test Item Value Reference Range Comments POC-GLUCOSE METER (BEAKER) 106 mg/dL 70-110 TESTED AT [address] (test wjkq=7422) [facility] [address] POCT-GLUCOSE [id number] 07:14:00 Test Item Value Reference Range Comments POC-GLUCOSE METER (BEAKER) 116 mg/dL 70-110 TESTED AT [address] (test jmaf=0404) [place] [address] POCT-GLUCOSE [id number] 02:19:00 Test Item Value Reference Range Comments POC-GLUCOSE METER (BEAKER) 108 mg/dL 70-110 TESTED AT [address] (test yhac=6546) [facility] [address] POCT-GLUCOSE [id number] 02:19:00 Test Item Value Reference Range Comments POC-GLUCOSE METER (BEAKER) 178 mg/dL 70-110 TESTED AT [address] (test dqrr=9884) [place] [address] POCT-GLUCOSE [id number] 02:19:00 Test Item Value Reference Range Comments POC-GLUCOSE METER (BEAKER) 176 mg/dL 70-110 TESTED AT [address] (test askj=6472) [facility] [address] BLOOD GAS, [id number] 00:14:00 Test Item Value Reference Range Comments PH ARTERIAL (BEAKER) (test zrny=518) 7.44 7.35-7.45 PCO2 ARTERIAL (BEAKER) (test bijc=921) 40 mmHg 35-45 PO2 ARTERIAL (BEAKER) (test qqqj=079) 87 mmHg 80-90 O2 SATURATION ARTERIAL (BEAKER) (test gtkf=076) 96.4 % 96.0-97.0 HCO3 ARTERIAL (BEAKER) (test giee=089) 26 mmol/L 21-29 BASE EXCESS ARTERIAL (BEAKER) (test aoip=742) 2.0 mmol/L -2.0-3.0 PATIENT TEMPERATURE (BEAKER) (test zwxd=1115) 38.2 C FIO2 (BEAKER) (test wosi=1338) 40.0 % POCT-GLUCOSE [id number] 23:18:00 Test Item Value Reference Range Comments POC-GLUCOSE METER (BEAKER) 164 mg/dL 70-110 TESTED AT [address] (test egvg=2384) [place] [address] POCT-GLUCOSE [id number] 23:18:00 Test Item Value Reference Range Comments POC-GLUCOSE METER (BEAKER) 169 mg/dL 70-110 TESTED AT [address] (test glpu=8226) [place] [address] POCT-GLUCOSE [id number] 23:18:00 Test Item Value Reference Range Comments POC-GLUCOSE METER (BEAKER) 162 mg/dL 70-110 TESTED AT [address] (test laan=1950) [facility] [id number] THROMBOELASTOGRAPH (TEG)2017-08-31 19:02:00 Test Item Value Reference Range Comments TEG ACTIVATED CLOTTING TIME (BEAKER) (test 5.6 minutes 4.0-7.0 xkjg=6621) TEG FIBRINOGEN ACTIVITY (BEAKER) (test 73.5 degrees 61.0-73.0 rhou=1072) TEG PLT. AGGREGATION (BEAKER) (test agpf=7274) 69.4 MM 55.0-65.0 TEG FIBRINOLYSIS (BEAKER) (test cwpd=8915) 0.0 % 0.0-5.0 [facility] ACTIVATED CLOTTING TIME (BEAKER) (test 5.8 minutes 4.0-7.0 xkcm=4719) [facility] FIBRINOGEN ACTIVITY (BEAKER) (test 72.2 degrees 61.0-73.0 qnwq=9792) [facility] PLT. AGGREGATION (BEAKER) (test ojsj=1981) 61.4 MM 55.0-65.0 [facility] FIBRINOLYSIS (BEAKER) (test smft=2017) 0.0 % 0.0-5.0 POCT-GLUCOSE [id number] 18:54:00 Test Item Value Reference Range Comments POC-GLUCOSE METER (BEAKER) 184 mg/dL 70-110 TESTED AT [facility] [address] (test uzdl=3555) [facility] [address] RAD, CHEST, 1 VIEW, NON [id number] 18:42:00Reason for exam:->sp cardiac surgeryShould this be performed at the bedside?->YesFINAL REPORT INDICATION: sp cardiac surgery COMPARISON: August 29, 2017 TECHNIQUE: Chest radiograph, single view, portable technique. FINDINGS / IMPRESSION: Endotracheal tube terminates in low position 1.5 cm above the jacek. Recommend withdrawing the tube 2 cm. Multilumen right internal jugular line terminates in the mid SVC. One left apical chest tube and one left mediastinal versus second pleural tube. Nasogastric tube noted. Surgical clips project over the descending thoracic aorta and heart. There is moderate pulmonary venous congestion. No apical cap or pneumothorax.Median sternotomy wires are intact. In summary, postoperative pulmonary venous congestion and low position of endotracheal tube. Signed: N[facility] Woody [facility] Ver[facility] Date/ Time: 08/31/2017 18:42:27 Reading Location: [facility] C013W Consult Reading Room THROMBOELASTOGRAPH (TEG)2017-08-31 18:37:00 Test Item Value Reference Range Comments TEG ACTIVATED CLOTTING TIME (BEAKER) (test 6.2 minutes 4.0-7.0 vtlg=4956) TEG FIBRINOGEN ACTIVITY (BEAKER) (test 68.9 degrees 61.0-73.0 xgcg=9142) TEG PLT. AGGREGATION (BEAKER) (test cbym=4813) 65.5 MM 55.0-65.0 TEG FIBRINOLYSIS (BEAKER) (test vqou=3383) 0.0 % 0.0-5.0 [facility] ACTIVATED CLOTTING TIME (BEAKER) (test 6.0 minutes 4.0-7.0 fnzp=7121) [facility] FIBRINOGEN ACTIVITY (BEAKER) (test 73.3 degrees 61.0-73.0 bgih=2311) [facility] PLT. AGGREGATION (BEAKER) (test cgch=3529) 67.0 MM 55.0-65.0 [facility] FIBRINOLYSIS (BEAKER) (test ylvu=3921) 0.0 % 0.0-5.0 BASIC METABOLIC [id number] 18:21:00 Test Item Value Reference Range Comments SODIUM (BEAKER) (test 142 meq/L 136-145 kucv=940) POTASSIUM (BEAKER) (test 3.7 meq/L 3.5-5.1 pmkc=635) CHLORIDE (BEAKER) (test 108 meq/L 98-107 hihv=396) CO2 (BEAKER) (test 27 meq/L 22-29 yfvc=765) BLOOD UREA NITROGEN 9 mg/dL 7-21 (BEAKER) (test sepc=012) CREATININE (BEAKER) (test 0.72 mg/dL 0.57-1.25 xaob=388) GLUCOSE RANDOM (BEAKER) 179 mg/dL 70-105 (test qkfp=889) CALCIUM (BEAKER) (test 10.0 mg/dL 8.4-10.2 rase=210) EGFR (BEAKER) (test mL/min/1.73 sq m INSUFFICIENT CLINICAL DATA aulg=2410) TO CALCULATE ESTIMATED GFR. [id number] 18:20:00 Test Item Value Reference Range Comments POTASSIUM (BEAKER) (test jkyq=827) 3.7 meq/L 3.5-5.1 [id number] 18:20:00 Test Item Value Reference Range Comments MAGNESIUM (BEAKER) (test wnsi=762) 1.7 mg/dL 1.6-2.6 [id number] 18:20:00 Test Item Value Reference Range Comments GLUCOSE RANDOM (BEAKER) (test ddxp=927) 179 mg/dL 70-105 LACTIC ACID, ARTERIAL, WHOLE [id number] 18:19:00 Test Item Value Reference Range Comments LACTATE BLOOD ARTERIAL (2) 1.1 mmol/L 0.5-2.2 Specimen slightly hemolyzed (BEAKER) (test fpcz=9184) Effective 11/04/2015: Units/Reference Range ChangeNew: 0.5-2.2 mmol/L Previous: 5 -20 mg/dLPROTHROMBIN [id number] 18:12:00 Test Item Value Reference Range Comments PROTIME (BEAKER) (test dwmv=353) 16.4 seconds 11.7-14.7 INR (BEAKER) (test mtol=005) 1.3 <=5.9 RECOMMENDED COUMADIN/WARFARIN INR THERAPY RANGESSTANDARD DOSE: 2.0 - 3.0 Includes: PROPHYLAXIS forvenous thrombosis, systemic embolization; TREATMENT for venous thrombosis and/or pulmonary embolus.HIGH RISK: Target INR is 2.5-3.5 for patients with mechanical heart valves.[id number] 18:12:00 Test Item Value Reference Range Comments FIBRINOGEN LEVEL (BEAKER) (test brfu=541) 409 mg/dl 225-434 [id number] 18:12:00 Test Item Value Reference Range Comments PARTIAL THROMBOPLASTIN TIME (BEAKER) (test 30.6 seconds 22.5-36.0 fhek=166) PLATELET [id number] 17:57:00 Test Item Value Reference Range Comments PLATELET COUNT (BEAKER) (test lsdd=224) 268 K/CU MM 150-450 CBC (HEMOGRAM ONLY)2017-08-31 17:57:00 Test Item Value Reference Range Comments WHITE BLOOD CELL COUNT (BEAKER) (test tuoo=035) 9.8 K/ L 3.5-10.5 RED BLOOD CELL COUNT (BEAKER) (test gpzq=222) 3.29 M/ L 3.93-5.22 HEMOGLOBIN (BEAKER) (test hfxx=686) 9.6 GM/DL 11.2-15.7 HEMATOCRIT (BEAKER) (test nsbv=999) 27.7 % 34.1-44.9 MEAN CORPUSCULAR VOLUME (BEAKER) (test dbrj=540) 84.2 fL 79.4-94.8 MEAN CORPUSCULAR HEMOGLOBIN (BEAKER) (test 29.2 pg 25.6-32.2 hlib=191) MEAN CORPUSCULAR HEMOGLOBIN CONC (BEAKER) (test 34.7 GM/DL 32.2-35.5 vdzx=925) RED CELL DISTRIBUTION WIDTH (BEAKER) (test 13.8 % 11.7-14.4 uqdx=372) PLATELET COUNT (BEAKER) (test xlfu=323) 268 K/CU MM 150-450 MEAN PLATELET VOLUME (BEAKER) (test rwfd=730) 9.5 fL 9.4-12.3 NUCLEATED RED BLOOD CELLS (BEAKER) (test 0 /100 WBC 0-0 gztl=627) OXYGEN SATURATION, [id number] 17:53:00 Test Item Value Reference Range Comments O2 SATURATION (MEASURED) (BEAKER) (test plve=4542) 74.6 % BLOOD GAS, [id number] 17:52:00 Test Item Value Reference Range Comments PH ARTERIAL (BEAKER) (test fjkb=319) 7.45 7.35-7.45 PCO2 ARTERIAL (BEAKER) (test ggdp=813) 41 mmHg 35-45 PO2 ARTERIAL (BEAKER) (test lwzm=000) 140 mmHg 80-90 O2 SATURATION ARTERIAL (BEAKER) (test lfce=005) 98.9 % 96.0-97.0 HCO3 ARTERIAL (BEAKER) (test mnpq=974) 27 mmol/L 21-29 BASE EXCESS ARTERIAL (BEAKER) (test qozg=374) 3.0 mmol/L -2.0-3.0 PATIENT TEMPERATURE (BEAKER) (test qzgj=5928) 37.0 C GLUCOSE-STAT [id number] 17:52:00 Test Item Value Reference Range Comments GLUCOSE RANDOM (BEAKER) (test mdek=888) 172 mg/dL 70-110 HGB/HCT (H&H) - STAT [id number] 17:52:00 Test Item Value Reference Range Comments HEMOGLOBIN (BEAKER) (test hizf=277) 10.3 g/dL 12.0-15.0 HEMATOCRIT (BEAKER) (test pvyv=599) 30.0 % 36.0-45.0 SODIUM NA-STAT [id number] 17:51:00 Test Item Value Reference Range Comments SODIUM (BEAKER) (test pihc=056) 140 meq/L 135-148 POTASSIUM-STAT [id number] 17:51:00 Test Item Value Reference Range Comments POTASSIUM (BEAKER) (test bbfi=475) 3.6 meq/L 3.6-5.5 CALCIUM, [id number] 17:51:00 Test Item Value Reference Range Comments CALCIUM IONIZED (BEAKER) (test rcml=978) 1.22 mmol/L 1.12-1.27 PH, BLOOD ([facility]) (test lyiw=5882) 7.45 [id number] 17:48:00 Test Item Value Reference Range Comments ACTIVATED CLOTTING TIME 109 sec TESTED AT [address] ([facility]) (test ulmg=689) [place] [address] [id number] 17:48:00 Test Item Value Reference Range Comments ACTIVATED CLOTTING TIME 538 sec TESTED AT [address] ([facility]) (test bfsy=907) [place] [address] [id number] 17:48:00 Test Item Value Reference Range Comments ACTIVATED CLOTTING TIME 516 sec TESTED AT [address] ([facility]) (test bzce=349) [place] [address] [id number] 17:48:00 Test Item Value Reference Range Comments ACTIVATED CLOTTING TIME 450 sec TESTED AT [address] ([facility]) (test eskv=182) [place] [address] [id number] 17:17:00 Test Item Value Reference Range Comments FIBRINOGEN LEVEL ([facility]) (test gtey=631) 290 mg/dl 225-434 [id number] 17:17:00 Test Item Value Reference Range Comments PARTIAL THROMBOPLASTIN TIME ([facility]) (test 32.4 seconds 22.5-36.0 ertu=132) PROTHROMBIN [id number] 17:16:00 Test Item Value Reference Range Comments PROTIME ([facility]) (test xfjq=726) 18.3 seconds 11.7-14.7 INR ([facility]) (test xuju=781) 1.5 <=5.9 RECOMMENDED COUMADIN/WARFARIN INR THERAPY RANGESSTANDARD DOSE: 2.0 - 3.0 Includes: PROPHYLAXIS forvenous thrombosis, systemic embolization; TREATMENT for venous thrombosis and/or pulmonary embolus.HIGH RISK: Target INR is 2.5-3.5 for patients with mechanical heart valves.PLATELET [id number] 16:56:00 Test Item Value Reference Range Comments PLATELET COUNT ([facility]) (test rynz=391) 260 K/CU MM 150-450 CALCIUM, [id number] 16:47:00 Test Item Value Reference Range Comments CALCIUM IONIZED (BEAKER) (test xdwc=925) 1.15 mmol/L 1.12-1.27 PH, BLOOD (BEAKER) (test viis=5793) 7.44 SODIUM NA-STAT [id number] 16:46:00 Test Item Value Reference Range Comments SODIUM (BEAKER) (test rvwi=757) 139 meq/L 135-148 POTASSIUM-STAT [id number] 16:46:00 Test Item Value Reference Range Comments POTASSIUM (BEAKER) (test evtb=625) 3.5 meq/L 3.6-5.5 BLOOD GAS, [id number] 16:46:00 Test Item Value Reference Range Comments PH ARTERIAL (BEAKER) (test nbtv=564) 7.44 7.35-7.45 PCO2 ARTERIAL (BEAKER) (test mnpd=972) 41 mmHg 35-45 PO2 ARTERIAL (BEAKER) (test kufe=010) 307 mmHg 80-90 O2 SATURATION ARTERIAL (BEAKER) (test rddh=117) 99.7 % 96.0-97.0 HCO3 ARTERIAL (BEAKER) (test ncrz=331) 28 mmol/L 21-29 BASE EXCESS ARTERIAL (BEAKER) (test wqzp=925) 2.6 mmol/L -2.0-3.0 PATIENT TEMPERATURE (BEAKER) (test yvwi=8826) 35.1 C FIO2 (BEAKER) (test lmaz=4328) 100.0 % GLUCOSE-STAT [id number] 16:46:00 Test Item Value Reference Range Comments GLUCOSE RANDOM (BEAKER) (test jwdr=566) 185 mg/dL 70-110 HGB/HCT (H&H) - STAT [id number] 16:46:00 Test Item Value Reference Range Comments HEMOGLOBIN (BEAKER) (test jhws=242) 9.3 g/dL 12.0-15.0 HEMATOCRIT (BEAKER) (test trhw=043) 27.0 % 36.0-45.0 [id number] 16:33:00 Test Item Value Reference Range Comments FIBRINOGEN LEVEL (BEAKER) (test avdo=139) 163 mg/dl 225-434 THROMBOELASTOGRAPH (TEG)[id number] 16:22:00 Test Item Value Reference Range Comments TEG ACTIVATED CLOTTING TIME (BEAKER) (test 7.4 minutes 4.0-7.0 jsbn=4821) TEG FIBRINOGEN ACTIVITY (BEAKER) (test 63.1 degrees 61.0-73.0 oxlu=6414) TEG PLT. AGGREGATION (BEAKER) (test jutm=9345) 53.7 MM 55.0-65.0 TEG FIBRINOLYSIS (BEAKER) (test bpip=6814) 0.0 % 0.0-5.0 TGH ACTIVATED CLOTTING TIME (BEAKER) (test 7.5 minutes 4.0-7.0 wscm=7564) TGH FIBRINOGEN ACTIVITY (BEAKER) (test 59.5 degrees 61.0-73.0 kthr=3249) TGH PLT. AGGREGATION (BEAKER) (test lmxn=9814) 47.1 MM 55.0-65.0 TGH FIBRINOLYSIS (BEAKER) (test zwow=5329) 0.0 % 0.0-5.0 SODIUM NA-STAT [id number] 16:07:00 Test Item Value Reference Range Comments SODIUM (BEAKER) (test kgsc=123) 138 meq/L 135-148 POTASSIUM-STAT [id number] 16:07:00 Test Item Value Reference Range Comments POTASSIUM (BEAKER) (test wnos=471) 3.7 meq/L 3.6-5.5 BLOOD GAS, [id number] 16:07:00 Test Item Value Reference Range Comments PH ARTERIAL (BEAKER) (test chbf=619) 7.43 7.35-7.45 PCO2 ARTERIAL (BEAKER) (test sgnj=307) 38 mmHg 35-45 PO2 ARTERIAL (BEAKER) (test mlnz=442) 228 mmHg 80-90 O2 SATURATION ARTERIAL (BEAKER) (test mrjt=399) 99.5 % 96.0-97.0 HCO3 ARTERIAL (BEAKER) (test ebuq=638) 25 mmol/L 21-29 BASE EXCESS ARTERIAL (BEAKER) (test swql=122) 0.2 mmol/L -2.0-3.0 PATIENT TEMPERATURE (BEAKER) (test chco=5669) 34.9 C FIO2 (BEAKER) (test uxfb=9694) 100.0 % GLUCOSE-STAT [id number] 16:07:00 Test Item Value Reference Range Comments GLUCOSE RANDOM (BEAKER) (test cbzo=722) 182 mg/dL 70-110 HGB/HCT (H&H) - STAT [id number] 16:07:00 Test Item Value Reference Range Comments HEMOGLOBIN (BEAKER) (test fpfr=796) 8.5 g/dL 12.0-15.0 HEMATOCRIT (BEAKER) (test bkzv=523) 25.0 % 36.0-45.0 PROTHROMBIN [id number] 15:59:00 Test Item Value Reference Range Comments PROTIME (BEAKER) (test glam=133) 27.3 seconds 11.7-14.7 INR (BEAKER) (test xvqm=193) 2.5 <=5.9 RECOMMENDED COUMADIN/WARFARIN INR THERAPY RANGESSTANDARD DOSE: 2.0 - 3.0 Includes: PROPHYLAXIS forvenous thrombosis, systemic embolization; TREATMENT for venous thrombosis and/or pulmonary embolus.HIGH RISK: Target INR is 2.5-3.5 for patients with mechanical heart valves.[id number] 15:59:00 Test Item Value Reference Range Comments PARTIAL THROMBOPLASTIN TIME (BEAKER) (test 31.4 seconds 22.5-36.0 vdko=680) PLATELET [id number] 15:54:00 Test Item Value Reference Range Comments PLATELET COUNT (BEAKER) (test lxym=245) 73 K/CU MM 150-450 BLOOD GAS, [id number] 15:41:00 Test Item Value Reference Range Comments PH ARTERIAL (BEAKER) (test otlk=553) 7.40 7.35-7.45 PCO2 ARTERIAL (BEAKER) (test nndr=654) 37 mmHg 35-45 PO2 ARTERIAL (BEAKER) (test fbus=301) 172 mmHg 80-90 O2 SATURATION ARTERIAL (BEAKER) (test vdde=821) 99.2 % 96.0-97.0 HCO3 ARTERIAL (BEAKER) (test kblg=760) 23 mmol/L 21-29 BASE EXCESS ARTERIAL (BEAKER) (test ejes=692) -2.2 mmol/L -2.0-3.0 PATIENT TEMPERATURE (BEAKER) (test fjar=8420) 35.3 C FIO2 (BEAKER) (test esaf=0350) 100.0 % GLUCOSE-STAT [id number] 15:41:00 Test Item Value Reference Range Comments GLUCOSE RANDOM (BEAKER) (test ourq=632) 174 mg/dL 70-110 HGB/HCT (H&H) - STAT [id number] 15:41:00 Test Item Value Reference Range Comments HEMOGLOBIN (BEAKER) (test zxhc=838) 8.5 g/dL 12.0-15.0 HEMATOCRIT (BEAKER) (test fgoo=932) 25.0 % 36.0-45.0 CALCIUM, [id number] 15:41:00 Test Item Value Reference Range Comments CALCIUM IONIZED (BEAKER) (test pcgm=151) 0.90 mmol/L 1.12-1.27 PH, BLOOD (BEAKER) (test mcxy=1888) 7.40 SODIUM NA-STAT [id number] 15:40:00 Test Item Value Reference Range Comments SODIUM (BEAKER) (test zwxd=910) 136 meq/L 135-148 POTASSIUM-STAT [id number] 15:40:00 Test Item Value Reference Range Comments POTASSIUM (BEAKER) (test fnsg=325) 3.9 meq/L 3.6-5.5 SODIUM NA-STAT [id number] 15:05:00 Test Item Value Reference Range Comments SODIUM (BEAKER) (test ynbi=366) 137 meq/L 135-148 POTASSIUM-STAT [id number] 15:05:00 Test Item Value Reference Range Comments POTASSIUM (BEAKER) (test sbdb=455) 4.3 meq/L 3.6-5.5 BLOOD GAS, [id number] 15:05:00 Test Item Value Reference Range Comments PH ARTERIAL (BEAKER) (test kxgx=405) 7.42 7.35-7.45 PCO2 ARTERIAL (BEAKER) (test ihnr=292) 42 mmHg 35-45 PO2 ARTERIAL (BEAKER) (test bamw=552) 444 mmHg 80-90 O2 SATURATION ARTERIAL (BEAKER) (test tlhg=086) 99.8 % 96.0-97.0 HCO3 ARTERIAL (BEAKER) (test kwim=047) 29 mmol/L 21-29 BASE EXCESS ARTERIAL (BEAKER) (test uixr=231) 2.4 mmol/L -2.0-3.0 PATIENT TEMPERATURE (BEAKER) (test ehst=1043) 31.7 C FIO2 (BEAKER) (test eona=7839) 80.0 % GLUCOSE-STAT [id number] 15:05:00 Test Item Value Reference Range Comments GLUCOSE RANDOM (BEAKER) (test nptt=646) 203 mg/dL 70-110 HGB/HCT (H&H) - STAT [id number] 15:05:00 Test Item Value Reference Range Comments HEMOGLOBIN (BEAKER) (test pxaf=423) 7.1 g/dL 12.0-15.0 HEMATOCRIT (BEAKER) (test hadb=961) 21.0 % 36.0-45.0 HGB/HCT (H&H) - STAT [id number] 14:55:00 Test Item Value Reference Range Comments HEMOGLOBIN (BEAKER) (test vmxe=257) 5.0 g/dL 12.0-15.0 HEMATOCRIT (BEAKER) (test duvm=079) 15.0 % 36.0-45.0 BLOOD GAS, [id number] 14:50:00 Test Item Value Reference Range Comments PH ARTERIAL (BEAKER) (test ywch=820) 7.43 7.35-7.45 PCO2 ARTERIAL (BEAKER) (test qhzz=229) 31 mmHg 35-45 PO2 ARTERIAL (BEAKER) (test jeme=113) 425 mmHg 80-90 O2 SATURATION ARTERIAL (BEAKER) (test qoie=326) 99.8 % 96.0-97.0 HCO3 ARTERIAL (BEAKER) (test rief=750) 22 mmol/L 21-29 BASE EXCESS ARTERIAL (BEAKER) (test kgqw=168) -4.2 mmol/L -2.0-3.0 PATIENT TEMPERATURE (BEAKER) (test atqy=6350) 29.6 C FIO2 (BEAKER) (test bdqj=1764) 80.0 % SODIUM NA-STAT [id number] 14:50:00 Test Item Value Reference Range Comments SODIUM (BEAKER) (test ihra=317) 132 meq/L 135-148 GLUCOSE-STAT [id number] 14:50:00 Test Item Value Reference Range Comments GLUCOSE RANDOM (BEAKER) (test grvw=614) 187 mg/dL 70-110 POTASSIUM-STAT [id number] 14:49:00 Test Item Value Reference Range Comments POTASSIUM (BEAKER) (test qbam=134) 3.9 meq/L 3.6-5.5 SODIUM NA-STAT [id number] 12:51:00 Test Item Value Reference Range Comments SODIUM (BEAKER) (test kvbw=851) 135 meq/L 135-148 POTASSIUM-STAT [id number] 12:51:00 Test Item Value Reference Range Comments POTASSIUM (BEAKER) (test ydnb=654) 4.1 meq/L 3.6-5.5 HGB/HCT (H&H) - STAT [id number] 12:51:00 Test Item Value Reference Range Comments HEMOGLOBIN (BEAKER) (test noli=551) 12.7 g/dL 12.0-15.0 HEMATOCRIT (BEAKER) (test lemb=921) 37.0 % 36.0-45.0 BLOOD GAS, [id number] 12:51:00 Test Item Value Reference Range Comments PH ARTERIAL (BEAKER) (test ceeg=420) 7.47 7.35-7.45 PCO2 ARTERIAL (BEAKER) (test azlb=896) 32 mmHg 35-45 PO2 ARTERIAL (BEAKER) (test gqbf=156) 419 mmHg 80-90 O2 SATURATION ARTERIAL (BEAKER) (test akvl=852) 99.9 % 96.0-97.0 HCO3 ARTERIAL (BEAKER) (test qrzj=549) 23 mmol/L 21-29 BASE EXCESS ARTERIAL (BEAKER) (test rdej=572) 0.0 mmol/L -2.0-3.0 PATIENT TEMPERATURE (BEAKER) (test vmyx=8427) 36.0 C FIO2 (BEAKER) (test zeil=6069) 100.0 % GLUCOSE-STAT [id number] 12:51:00 Test Item Value Reference Range Comments GLUCOSE RANDOM (BEAKER) (test ejes=992) 268 mg/dL 70-110 CALCIUM, [id number] 12:51:00 Test Item Value Reference Range Comments CALCIUM IONIZED (BEAKER) (test cfmo=012) 1.06 mmol/L 1.12-1.27 PH, BLOOD (BEAKER) (test frfh=3627) 7.46 POCT-GLUCOSE [id number] 09:19:00 Test Item Value Reference Range Comments POC-GLUCOSE METER (BEAKER) 277 mg/dL 70-110 TESTED AT [address] (test taga=5995) [facility] [address] POCT-GLUCOSE [id number] 09:02:00 Test Item Value Reference Range Comments POC-GLUCOSE METER (BEAKER) 273 mg/dL 70-110 TESTED AT [address] (test pguc=3884) [facility] [address] [id number] 06:23:00 Test Item Value Reference Range Comments PARTIAL THROMBOPLASTIN TIME (BEAKER) (test 25.8 seconds 22.5-36.0 jybk=837) PROTHROMBIN TIME/[id number] 06:22:00 Test Item Value Reference Range Comments PROTIME (BEAKER) (test tllp=916) 18.0 seconds 11.7-14.7 INR (BEAKER) (test shzw=661) 1.5 <=5.9 RECOMMENDED COUMADIN/WARFARIN INR THERAPY RANGESSTANDARD DOSE: 2.0 - 3.0 Includes: PROPHYLAXIS forvenous thrombosis, systemic embolization; TREATMENT for venous thrombosis and/or pulmonary embolus.HIGH RISK: Target INR is 2.5-3.5 for patients with mechanical heart valves.[id number] 06:22:00 Test Item Value Reference Range Comments FIBRINOGEN LEVEL (BEAKER) (test nkds=340) 453 mg/dl 225-434 PLATELET [id number] 06:03:00 Test Item Value Reference Range Comments PLATELET COUNT (BEAKER) (test icrl=199) 204 K/CU MM 150-450 POCT-GLUCOSE [id number] 21:04:00 Test Item Value Reference Range Comments POC-GLUCOSE METER (BEAKER) 246 mg/dL 70-110 TESTED AT [address] (test mian=7017) [facility] [address] HEMOGLOBIN [id number] 20:48:00 Test Item Value Reference Range Comments HEMOGLOBIN A1C (BEAKER) (test bnej=403) 9.6 % 4.3-6.1 POCT-GLUCOSE [id number] 17:25:00 Test Item Value Reference Range Comments POC-GLUCOSE METER (BEAKER) 283 mg/dL 70-110 TESTED AT [address] (test geju=7271) [facility] [address] PLATELET AGGREGATION: FUNCTION [id number] 12:48:00 Test Item Value Reference Range Comments WEAK ADP RESULT(BEAKER) (test 42 % 60-91 cora=8831) PLATELET FUNCTION SCREEN 40-49% indicates moderate INTERP (BEAKER) (test platelet dysfunction xcgn=3725) [id number] Jose Roberto Tavares MD (electronic (BEAKER) (test tkzj=5043) signature) PLATELET COUNT AGG (BEAKER) 217 K/CU MM 150-450 (test rkuf=5388) PLATELET AGGREGATION: FUNCTION [id number] 12:48:00 Test Item Value Reference Range Comments WEAK ADP RESULT(BEAKER) (test 46 % 60-91 nbvj=7408) PLATELET FUNCTION SCREEN 40-49% indicates moderate INTERP (BEAKER) (test platelet dysfunction wjuc=6028) [id number] Jose Roberto Tavares MD (electronic (BEAKER) (test jmhe=0987) signature) PLATELET COUNT AGG (BEAKER) 212 K/CU MM 150-450 (test cewf=2174) for patients on clopidogrel in past two weeksPOCT-GLUCOSE [id number] 11:53: 00 Test Item Value Reference Range Comments POC-GLUCOSE METER (BEAKER) 288 mg/dL 70-110 TESTED AT [address] (test njgg=5605) [place] [id number] POCT-GLUCOSE [id number] 08:01:00 Test Item Value Reference Range Comments POC-GLUCOSE METER (BEAKER) 277 mg/dL 70-110 TESTED AT [address] (test nojh=9599) [place] [id number] HEMOGLOBIN [id number] 06:48:00 Test Item Value Reference Range Comments HEMOGLOBIN A1C (BEAKER) (test vwwa=530) 10.0 % 4.3-6.1 COMPREHENSIVE METABOLIC [id number] 00:44:00 Test Item Value Reference Range Comments TOTAL PROTEIN (BEAKER) 6.8 gm/dL 6.0-8.3 (test lpca=547) ALBUMIN (BEAKER) (test 3.8 g/dL 3.5-5.0 ksjy=9302) ALKALINE PHOSPHATASE 134 U/L 40-150 (BEAKER) (test gmbv=667) BILIRUBIN TOTAL (BEAKER) 0.4 mg/dL 0.2-1.2 (test miqy=151) SODIUM (BEAKER) (test 139 meq/L 136-145 tgqr=812) POTASSIUM (BEAKER) (test 4.0 meq/L 3.5-5.1 wejt=146) CHLORIDE (BEAKER) (test 105 meq/L 98-107 pfaf=868) CO2 (BEAKER) (test 23 meq/L 22-29 fuzc=821) BLOOD UREA NITROGEN 9 mg/dL 7-21 (BEAKER) (test ikwc=382) CREATININE (BEAKER) (test 0.82 mg/dL 0.57-1.25 vebu=415) GLUCOSE RANDOM (BEAKER) 225 mg/dL 70-105 (test ndsx=680) CALCIUM (BEAKER) (test 8.8 mg/dL 8.4-10.2 xdom=070) AST (SGOT) (BEAKER) (test 19 U/L 5-34 tmwa=995) ALT (SGPT) (BEAKER) (test 15 U/L 6-55 zeaq=636) EGFR (BEAKER) (test mL/min/1.73 sq m INSUFFICIENT CLINICAL DATA qvve=4978) TO CALCULATE ESTIMATED GFR. PROTHROMBIN [id number] 00:34:00 Test Item Value Reference Range Comments PROTIME (BEAKER) (test tooi=261) 18.0 seconds 11.7-14.7 INR (BEAKER) (test ppgg=118) 1.5 <=5.9 RECOMMENDED COUMADIN/WARFARIN INR THERAPY RANGESSTANDARD DOSE: 2.0 - 3.0 Includes: PROPHYLAXIS forvenous thrombosis, systemic embolization; TREATMENT for venous thrombosis and/or pulmonary embolus.HIGH RISK: Target INR is 2.5-3.5 for patients with mechanical heart valves.[id number] 00:34:00 Test Item Value Reference Range Comments PARTIAL THROMBOPLASTIN TIME (BEAKER) (test 28.0 seconds 22.5-36.0 fwdq=936) CBC W/PLT COUNT & AUTO [id number] 00:14:00 Test Item Value Reference Range Comments WHITE BLOOD CELL COUNT (BEAKER) (test qkhz=139) 5.6 K/ L 3.5-10.5 RED BLOOD CELL COUNT (BEAKER) (test ojpp=296) 4.48 M/ L 3.93-5.22 HEMOGLOBIN (BEAKER) (test yfjo=130) 12.0 GM/DL 11.2-15.7 HEMATOCRIT (BEAKER) (test slnd=521) 37.6 % 34.1-44.9 MEAN CORPUSCULAR VOLUME (BEAKER) (test tdlm=164) 83.9 fL 79.4-94.8 MEAN CORPUSCULAR HEMOGLOBIN (BEAKER) (test 26.8 pg 25.6-32.2 wqln=026) MEAN CORPUSCULAR HEMOGLOBIN CONC (BEAKER) (test 31.9 GM/DL 32.2-35.5 grir=384) RED CELL DISTRIBUTION WIDTH (BEAKER) (test 13.5 % 11.7-14.4 rzxj=932) PLATELET COUNT (BEAKER) (test yptc=005) 216 K/CU MM 150-450 MEAN PLATELET VOLUME (BEAKER) (test kgyg=738) 10.5 fL 9.4-12.3 NUCLEATED RED BLOOD CELLS (BEAKER) (test 0 /100 WBC 0-0 pqqn=424) NEUTROPHILS RELATIVE PERCENT (BEAKER) (test 58 % kuth=323) LYMPHOCYTES RELATIVE PERCENT (BEAKER) (test 31 % nikx=392) MONOCYTES RELATIVE PERCENT (BEAKER) (test 11 % igiu=350) EOSINOPHILS RELATIVE PERCENT (BEAKER) (test 1 % xrgj=611) BASOPHILS RELATIVE PERCENT (BEAKER) (test 1 % swlc=527) NEUTROPHILS ABSOLUTE COUNT (BEAKER) (test 3.21 K/ L 1.56-6.13 isny=837) LYMPHOCYTES ABSOLUTE COUNT (BEAKER) (test 1.70 K/ L 1.18-3.74 yizr=872) MONOCYTES ABSOLUTE COUNT (BEAKER) (test 0.59 K/ L 0.24-0.36 wbda=519) EOSINOPHILS ABSOLUTE COUNT (BEAKER) (test 0.03 K/ L 0.04-0.36 hgcq=928) BASOPHILS ABSOLUTE COUNT (BEAKER) (test 0.03 K/ L 0.01-0.08 fdhf=122) IMMATURE GRANULOCYTES-RELATIVE PERCENT (BEAKER) 0 % 0-1 (test vnkw=7764) POCT-GLUCOSE [id number] 00:06:00 Test Item Value Reference Range Comments POC-GLUCOSE METER (BEAKER) 229 mg/dL 70-110 TESTED AT [facility] [address] (test ussa=3117) [place] [address] RAD, CHEST, 2 [id number] 22:50:00Reason for exam:->pre opShould this be performed at the bedside?->YesFINAL REPORT HISTORY : pre op. Comparison: None Comment: Two views of the chest, PA and lateral, were obtained. The cardiac silhouette is within normal limits. No pneumothorax orpleural effusion is seen. There is some minimal patchy right basilar airspace disease that may represent atelectasis. Pneumonitis or aspiration cannot be excluded. No lytic or blastic abnormalities. Multilevel degenerative disc changes of the thoracic spine are seen. There is a tortuous/ectatic thoracic aorta. Signed: Faby Ackerman [facility] Verified Date/Time: 08/29/2017 22:50:48 Reading Location: [facility] C0[facility] Consult Reading Room
--- OUTSIDE RECORDS SUMMARY | 2019-05-23 19:45 | XMS REPORT | Summary of Care ---
:1950 Author Organization [facility] - Health Address [address] [place] [address] Care Team Providers Name Role Phone Clifford Quinones Primary Care Provider Encounter Details Date Type Department Care Team Description 02/01/2019 Orders Only [facility] Doctor Unassigned, No [address] [facility] [place] [address] Allergies Active Allergy Reactions Severity Noted Date Comments Atorvastatin Calcium Unknown - See comments 12/07/2016 myalgia documented as of this encounter (statuses as of 02/01/2019) Medications Medication Sig Dispensed Refills Start Date [...] 2 (two) Coronary artery disease weeks. involving [place] coronary artery of [place] heart without angina pectoris, Hyperlipidemia, unspecified hyperlipidemia type documented as of this encounter (statuses as of 02/01/2019) Active Problems Problem Noted Date History of stroke 07/14/2015 History of total hysterectomy with bilateral salpingo-oophorectomy (BSO) 07/14 Decreased libido 07/14/2015 Essential hypertension 02/18/2015 HLD (hyperlipidemia) 02/18/2015 Postmenopause 02/18/2015 Diabetes mellitus type 2, uncontrolled, without complications 02/18/2015 Overview: ICD10 Diagnosis Term Supervisor Shearing Utility Neuropathy 02/18/2015 documented as of this encounter (statuses as of 02/01/2019) Social History Tobacco Use Types Packs/Day Years [...] Office Visit Vascular Surgery Trina Cordero MD [address] [place] [phone] 04/09/2019 Office Visit Cardiology Henna Marquis MD [address] [place] [address] [address] [place] [address] Health Maintenance Due Date Last [...] of this encounter Implants Implanted Type Area Supplier Quality Device Shelf Model / Serial Identifier Expiration / Lot Date Lens LENS Right: Raúl 06/01/2020 [id number] / Implanted: Qty: 1 on 09/24/2015 by Ramesh Martinez MD at [facility] [id number] / [id number] Lens LENS Left: Eye Raúl 08/02/2020 [id number] / Implanted: Qty: 1 on 11/12/2015 by Ramesh Martinez MD at [facility] [id number] / [id number] documented as of this encounter Procedures Procedure Name Priority Date/Time Associated Diagnosis Comments ASSIGNMENT OF BENEFITS Routine 02/01/2019 9:20 AM CDT documented in this encounter Results Not on filedocumented in this encounter Insurance Payer Benefit Plan / Subscriber ID Effective Dates Phone Address Type Group MEDICARE MEDICARE PART xxxxxxxxxxx 2014-Tova [phone] [address] Medicare A & B nt [id number] [id number] documented as of this encounter
--- OUTSIDE RECORDS SUMMARY | 2019-05-23 19:45 | XMS REPORT | Summary of Care ---
:1950 Author Organization [facility] - [facility] Address [address] [place] [address] Care Team Providers Name Role Phone Clifford Quinones Primary Care Provider Reason for Visit Reason Comments Refill Request losartan Encounter Details Date Type Department Care Team Description 02/07/2019 Telephone [facility] Henna Marquis MD Refill Request Cardiology- [address] (losartan) [address] [place] [address], [address] [place] [phone] Allergies Active Allergy Reactions Severity Noted Date Comments Atorvastatin Calcium Unknown - See comments 12/07/2016 myalgia documented as of this encounter (statuses as of 02/07/2019) Medications Medication Sig Dispensed Refills Start End Status Date Date DEXILANT 60 mg CpDM Take 60 mg by 0 01/28/20 Active mouth daily. [address] 1 Tab 1 Bottle 3 10/06/19 Active (NITROSTAT) 0.4 mg under the 16 sublingual tablet tongue every 5 (five) minutes as needed for Chest pain. ALPRAZolam (XANAX) 0.25 Take 0.25 mg by 0 Active mg tablet mouth at bedtime. Insulin Asp Prt-Insulin inject 20 Units 45 mL 1 01/10/20 Active Aspart (NOVOLOG MIX under the skin 17 70-30) 100 unit/mL 2 (two) times (70-30) injection daily. temazepam (RESTORIL) 15 Take 15 mg by 0 Active mg capsule mouth at bedtime. TRAMADOL HCL (TRAMADOL Take by mouth 0 Active ORAL) as needed. aspirin 81 mg EC tablet Take 1 tablet 0 06/07/20 Active by mouth daily. 17 carvedilol 25 mg tablet Take 1 tablet 180 tablet 1 11/08/19 Active by mouth 2 19 (two) times daily with meals. topiramate 50 mg tablet Take 50 mg by 0 Active mouth. hydroCHLOROthiazide 0 10/24/19 Active 12.5 mg tablet 19 gabapentin 300 mg 0 09/22/19 Active capsule 19 dextromethorphan Nuedexta 0 Active Hbr/quinidine (NUEDEXTA ORAL) pantoprazole 40 mg EC pantoprazole 40 0 Active tablet mg tablet,delayed release insulin degludec Tresiba 0 Active (TRESIBA FLEXTOUCH FlexTouch U-100 U-100 SC) nitroglycerin 0.[address] 1 tablet 1 Bottle 1 12/19/19 Active sublingual tablet under the 19 tongue every 5 (five) minutes as needed for Chest pain. evolocumab (REPATHA inject 140 mg 4 Syringe 3 01/13/20 Active SURECLICK) 140 mg/mL under the skin 19 PnIjIndications: every 2 (two) Coronary artery disease weeks. involving [place] coronary artery of [place] heart without angina pectoris, Hyperlipidemia, unspecified hyperlipidemia type losartan 50 mg Take 1 tablet 30 tablet 2 02/08/20 Active tabletIndications: by mouth daily. 19 Fluctuating blood pressure losartan 50 mg Take 1 tablet 30 tablet 2 11/08/19 Discontinued tabletIndications: by mouth daily. 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 Neuropathy 02/18/2015 documented as of this encounter (statuses as of 02/07/2019) Social History Tobacco Use Types Packs/Day Years [...] Office Visit Vascular Surgery Trina Cordero MD [address] [place] [phone] 04/09/2019 Office Visit Cardiology Henna Marquis MD [address] [place] [address] [place] [phone] Health Maintenance Due Date Last Done [...] of this encounter Implants Implanted Type Area Foreign Languages Department Chair Device Shelf Model / Serial Identifier Expiration / Lot Date Lens LENS Right: Raúl 06/01/2020 [id number] / Implanted: Qty: 1 on 09/24/2015 by Ramesh Martinez MD at [facility] [id number] / [id number] Lens LENS Left: Eye Raúl 08/02/2020 [id number] / Implanted: Qty: 1 on 11/12/2015 by Ramesh Martinez MD at [facility] [id number] / [id number] documented as of this encounter Results Not on filedocumented in this encounter Visit Diagnoses Diagnosis Fluctuating blood pressure Other abnormal clinical finding documented in this encounter Insurance Payer Benefit Plan / Subscriber ID Effective Dates Phone Address Type Group MEDICARE MEDICARE PART xxxxxxxxxxx 2014-Tova [phone] Medicare A & B [place] 2 [id number] [place] [id number] documented as of this encounter
--- OUTSIDE RECORDS SUMMARY | 2019-05-23 19:46 | XMS REPORT | Summary of Care ---
:1950 Author Organization [facility] - [facility] Address [address] [place] [address] Care Team Providers Name Role Phone Clifford Quinones Primary Care Provider Reason for Visit Reason Comments Results Encounter Details Date Type Department Care Team Description 02/26/2019 Office Visit [facility] Vascular Trina Cordero, Renal artery stenosis Surgery- Ct [facility] (Primary Dx) [phone] [place], [place] [phone] [phone] Allergies Active Allergy Reactions Severity Noted Date [...] 2 (two) Coronary artery disease weeks. 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 Neuropathy 02/18/2015 documented as of this [...] carotid artery stenosis L stent 10/2014 in [facility] CVA (cerebral infarction) 10/2014 Depression DM2 (diabetes mellitus, type 2) age 45 HLD (hyperlipidemia) Hypertension Leiomyoma of uterus Wears dentures non-contributory for this patient presenting symptoms Past Surgical History: Procedure Laterality Date CAROTID STENTING SECTION COLONOSCOPY HYSTERECTOMY MYOMECTOMY (SHX) PHACOEMULSIFICATION OF CATARACT WITH INTRAOCULAR LENS IMPLANT Right 2015 Surgeon: Ramesh Martinez MD; Location: [facility] OR [facility] PHACOEMULSIFICATION OF CATARACT WITH INTRAOCULAR LENS IMPLANT Left 11/12/2015 Surgeon: Ramesh Martinez MD; Location: [facility] OR Location STENT PLACEMENT (SHX) Medications: Current [...] - Continue aspirin Trina Cordero MD, VI [facility] Vascular Surgery Radha Hilliard - 02/26/2019 10:30 AM CDT Isidra Neff is a 68 year old female Chief Complaint Patient presents with Results Vitals: 02/26/19 1044 BP: (!) 151/82 Pulse: 78 Temp: 36 C (96.8 F) Weight: 81.4 kg (179 lb 6.4 oz) Height: 60" (152.4 cm) [facility] [address] [place] [address] [address] [facility] FOLLOW-UP for US results on kidney - available in chart. All Vitals taken, allergies and all medications reviewed, fall risk assessed. Pain level 8. Radha Huff 02/26/2019 10:45 AM documented in this encounter Plan of Treatment Date Type Specialty Care Team Description 03/26/2019 Office Visit Vascular Surgery Trina Cordero MD [address] [place] [phone] 04/09/2019 Office Visit Cardiology Henna Marquis MD [address] [place] [address] [place] [address] Name Type Priority Associated Diagnoses Order [...] of this encounter Implants Implanted Type Area Steam Table Associate Device Shelf Model / Serial Identifier Expiration / Lot Date Lens LENS Right: Raúl 06/01/2020 SN60WF / Implanted: Qty: 1 on 09/24/2015 by Ramesh Martinez MD at [facility] [id number] / [id number] Lens LENS Left: Eye Raúl 08/02/2020 SN60WF / Implanted: Qty: 1 on 11/12/2015 by Ramesh Martinez MD at [facility] [id number] / [id number] documented as of this encounter Results Not on filedocumented in this encounter Visit Diagnoses Diagnosis Renal artery stenosis - Primary Atherosclerosis of renal artery documented in this encounter Insurance Payer Benefit Plan / Subscriber ID Effective Dates Phone Address Type Group MEDICARE MEDICARE PART xxxxxxxxxxx 2014-[employer]ova [phone] [address] Medicare A & B nt 2 [id number] [place] [id number] documented as of this encounter
--- NOTE | 2019-05-23 20:29 | RAD REPORT ---
EXAM DESCRIPTION: CT - Head Brain Wo Cont - 05/23/2019 8:23 pm CLINICAL HISTORY: CVA/weakness COMPARISON: 2018 TECHNIQUE: Computed axial tomography of the head was obtained. IV contrast was not requested. All CT scans are performed using dose optimization technique as appropriate and may include automated exposure control or mA/KV adjustment according to patient size. FINDINGS: An intracranial bleed is not seen . Low-density area within the left thalamus is compatib le with an old infarct. The ventricles are normal in caliber. No extra-axial fluid collection is noted. Mild to moderate low-density areas within periventricular, deep and subcortical white matter likely r epresent ischemic changes secondary to small vessel disease. Fluid within the sinuses/ mastoids is not seen. IMPRESSION: No acute intracranial abnormality is seen. If patient's symptoms persist MRI of the bra in would be recommended.
[2019-05-23] MEDS ORDERED: NA CHLORIDE 0.9% 1,000 ML ONE (20:41)
[2019-05-23 20:48] LABS: Absolute Lymphocytes (CBC) 1.6 K/uL (0.7-4.9); Basophils % 0.2 % (0-1.3); Lymphocytes % 19.3 % (15.3-44.8); MPV 9.4 fL (7.6-11.3); RBC Red Blood Cell Count 4.34 M/uL (3.86-4.86)
[2019-05-23 20:50] LABS: Protime INR 1.77
--- NOTE | 2019-05-23 20:55 | ER ---
Nurse's Notes [facility] Name: Isidra Neff Age: 69 yrs Sex: Female : 1950 Arrival Date: 05/23/2019 Time: 19:44 Bed 24 Private MD: Diagnosis: Cholelithiasis-choledocholithiasis;Weakness;Type 2 diabetes mellitus;Abdominal tenderness Presentation: 05/23 20:14 Presenting complaint: Family members states patient was last acting like herself the ae4 previous day at about 1600, and today "wasn't acting like herself today" Patient fell and struck her head on the counter. Transition of care: patient was not received from another setting of care. Onset of symptoms was May 22, 2019 at 16:30. Risk Assessment: Do you want to hurt yourself or someone else? Patient reports no desire to harm self or others. 20:14 Method Of Arrival: Wheelchair ae4 20:14 Acuity: CL 2 ae4 23:17 No acute neurological deficit is noted. Pre-hospital glucose is not applicable to this mg2 patient. Initial Sepsis Screen: Does the patient meet any 2 criteria? No. Patient's initial sepsis screen is negative. Does the patient have a suspected source of infection? No. Patient's initial sepsis screen is negative. Care prior to arrival: None. Triage Assessment: 05/24 00:27 The onset of the patients symptoms was. General: Appears in no apparent distress. mg2 comfortable, Behavior is calm, cooperative. Stroke Activation: Physician: Stroke Attending; Name: ; Notified At: ; Arrived At: Physician: Chief Stroke Resident; Name: ; Notified At: ; Arrived At: Physician: Stroke Resident; Name: ; Notified At: ; Arrived At: Physician: ED Attending; Name: ; Notified At: ; Arrived At: Physician: ED Resident; Name: ; Notified At: ; Arrived At: 05/23 20:14 LSN was the previous day at about 1600 ae4 Historical: - Allergies: 05/24 00:26 NKA; mg2 - Home Meds: 00:26 carvedilol 6.25 mg Oral tab 1 tab 2 times per day [Active]; Nuedexta 20-10 mg Oral cap mg2 1 cap daily [Active]; novalog [Active]; trazeba [Active]; gabapentin oral oral [Active]; losartan oral oral [Active]; - PMHx: 00:26 CVA; Diabetes; Hypertension; mg2 - PSHx: 00:26 ; Hysterectomy; mg2 00:31 triple bypass; mg2 - Immunization history:: Flu vaccine status is unknown. - Family history:: not pertinent. - Social history:: Smoking status: unknown. - Ebola Screening: : No symptoms or risks identified at this time. Screenin/21 23:16 Abuse screen: Denies threats or abuse. Denies injuries from another. Nutritional mg2 screening: No deficits noted. Tuberculosis screening: No symptoms or risk factors identified. Fall Risk IV access (20 points). Assessment: 23:09 VAN Scoring: Arm Drift: Patients demonstrates NO arm weakness. Patient is VAN Negative. mg2 Patient has been NPO before screening. The patient is alert, and able to follow commands. The patient does not exhibit slurred or garbled speech. The patient is not exhibiting difficulty speaking. The patient is exhibiting difficulty understanding words. The patient is able to swallow own secretions with no drooling or need for suction. Patient tolerated one teaspoon of water. No drooling, immediate coughing, gurgling, or clearing of the throat was noted. The patient tolerated 90mL of water. No drooling, immediate coughing, gurgling, or clearing of the throat was noted. The patient passed the bedside swallow screening. Oral medications may be given as ordered. Contact Physician for further diet orders. Provider notified of bedside swallow screening results: Vinod Pedro MD. Pain: Denies pain. Neuro: Level of Consciousness is awake, alert, obeys commands, Oriented to person, place, situation, Engine Cleaner are equal bilaterally. Cardiovascular: Capillary refill < 3 seconds Patient's skin is warm and dry. Respiratory: Airway is patent Respiratory effort is even, unlabored, Respiratory pattern is regular, symmetrical. GI: No signs and/or symptoms were reported involving the gastrointestinal system. : No signs and/or symptoms were reported regarding the genitourinary system. EENT: No signs and/or symptoms were reported regarding the EENT system. Derm: Skin is intact, is healthy with good turgor, Skin is pink, warm \\T\\ dry. normal. Musculoskeletal: Circulation, motion, and sensation intact. Capillary refill < 3 seconds. 05/24 00:26 T-PA (Activase) Screening: Contraindications: Rapidly improving condition or minor mg2 deficit:. 00:45 Reassessment: Patient appears in no apparent distress at this time. No changes from aj1 previously documented assessment. Patient and/or family updated on plan of care and expected duration. Pain level reassessed. Patient is alert, oriented x 3, equal unlabored respirations, skin warm/dry/pink. 01:42 Reassessment: Patient appears in no apparent distress at this time. No changes from aj1 previously documented assessment. Patient and/or family updated on plan of care and expected duration. Pain level reassessed. Patient is alert, oriented x 3, equal unlabored respirations, skin warm/dry/pink. Vital Signs: 05/23 20:13 BP 120 / 51; Pulse 76; Resp 17; Temp 98.36; Pulse Ox 99% on R/A; ae4 21:00 BP 119 / 72; Pulse 70; Resp 18; Pulse Ox 100% on R/A; mg2 22:00 BP 147 / 82; Pulse 70; Resp 18; Pulse Ox 100% on R/A; mg2 23:13 BP 154 / 97; Pulse 71; Resp 18; Pulse Ox 99% on R/A; mg2 05/24 00:29 Pulse 72; Resp 18; Pulse Ox 100% on R/A; mg2 00:45 BP 133 / 87; Pulse 72; Resp 18; Pulse Ox 99% on R/A; aj1 01:43 BP 121 / 64; Pulse 68; Resp 14; Pulse Ox 97% on R/A; aj1 02:19 BP 114 / 54; Pulse 70; Resp 16; Pulse Ox 97% on R/A; aj1 NIH Stroke Scale Scores: 00:26 NIHSS Score: 0 mg2 ED Course: 05/23 19:44 Patient arrived in ED. cl3 19:52 Vinod Pedro MD is Attending Physician. lily 20:07 Grover Romero, ARYAN is Primary Nurse. mg2 20:10 Inserted saline lock: 20 gauge in right antecubital area, using aseptic technique. jp3 Blood collected. Patient maintains SpO2 saturation greater than 95% on room air. 20:10 Initial lab(s) drawn, by me, sent to lab. jp3 20:17 Triage completed. ae4 20:19 Placed in gown. Bed in low position. Call light in reach. Side rails up X 1. Verbal jp3 reassurance given. Pulse ox on. NIBP on. 20:23 CT Head Brain wo Cont In Process Unspecified. EDMS 20:31 XRAY Chest (1 view) In Process Unspecified. EDMS 20:35 C Spine Wo Con In Process Unspecified. EDMS 20:50 Rosibel Zarate MD is Hospitalizing Provider. lily 22:55 US Abdomen Limited In Process Unspecified. EDMS 23:00 AMMONIA Sent. jp3 23:00 Lipase Sent. jp3 23:00 Lipase Sent. jp3 05/24 00:23 CT Abd/Pelvis - Without Cont (PO Contrast Only) In Process Unspecified. EDMS 00:28 No provider procedures requiring assistance completed. Patient admitted, IV remains in mg2 place. 00:28 Arm band placed on. mg2 00:30 Report received from ARYAN Ness. aj1 02:18 Report given to ARYAN Tran at [facility]. aj1 Administered Medications: 05/23 20:58 Drug: NS 0.9% 500 ml Route: IV; Rate: bolus; Site: right antecubital; mg2 21:26 Follow up: Response: No adverse reaction; IV Status: Completed infusion; IV Intake: mg2 500ml 21:26 Drug: NS 0.9% 1000 ml Route: IV; Rate: 125 ml/hr; Site: right antecubital; mg2 05/24 01:48 Follow up: IV Status: Completed infusion; IV Intake: 500ml aj1 05/23 21:26 Drug: foLIC Acid 1 mg Route: IVPB; Site: right antecubital; mg2 23:16 Follow up: Response: No adverse reaction; IV Status: Completed infusion mg2 21:27 Drug: Aspirin Chewable Tablet 324 mg Route: PO; mg2 23:15 Follow up: Response: No adverse reaction mg2 05/24 00:22 Drug: Rocephin 1 grams Route: IV; Rate: per protocol; Site: right antecubital; mg2 01:47 Follow up: Response: No adverse reaction; IV Status: Completed infusion aj1 Point of Care Testing: Blood Glucose: 05/23 20:13 Blood Glucose: 107 mg/dL; ae4 Ranges: Intake: 21:26 IV: 500ml; Total: 500ml. mg2 05/24 01:48 IV: 500ml; Total: 1000ml. aj1 Outcome: 05/23 20:53 Decision to Hospitalize by Provider. [facility] 05/24 01:01 ER care complete, transfer ordered by . [facility] 02:45 Transferred by ground EMS to [facility], Transfer form completed. aj1 02:45 Condition: stable 02:45 Discharge instructions given to patient, family, Instructed on the need for transfer, Demonstrated understanding of instructions. 02:46 Patient left the ED. aj1 NIH Stroke Scale - NIH Stroke Score Date: 05/24/2019 Time: 00:26 Total Score = 0 1a. Level of Consciousness (LOC) - 0(Alert) 1b. Level of Consciousness (LOC) (Year \\T\\ Age) - 0(Both) 1c. LOC Commands (Open \\T\\ Closes Eyes/Drum Maker) - 0(Both) 2. Best Gaze (Lateral Gaze Paresis) - 0(Normal) 3. Visual Field Loss - 0(No visual loss) 4. Facial Palsy - 0(Normal) 5a. Left Arm: Motor (10-second hold) - 0(No drift) 5b. Right Arm: Motor (10-second hold) - 0(No drift) 6a. Left Leg: Motor (5-second hold - always test supine) - 0(No drift) 6b. Right Leg: Motor (5-second hold - always test supine) - 0(No drift) 7. Limb Ataxia (finger/nose \\T\\ heel/ribeiro - test with eyes open) - 0(Absent) 8. Sensory Loss (pinprick arms/legs/face) - 0(Normal) 9. Best Language: Aphasia (description/naming/reading) - 0(No aphasia) 10. Dysarthria (speech clarity - read or repeat words) - 0(Normal) 11. Extinction and Inattention (visual/tactile/auditory/spatial/personal) - 0(No abnormality) Initials: mg2 Signatures: Dispatcher [employer] Jordyn Sandhu RN RN aj1 Vinod Pedro MD MD cha Gardose, Michele RN RN mg2 Alvaro Mcgill jp3 Peter Watson RN RN ae4 Manny Garcia cl3
--- NOTE | 2019-05-23 20:55 | EDPHYS ---
Physician Documentation [facility] Name: Isidra Neff Age: 69 yrs Sex: Female : 1950 Arrival Date: 05/23/2019 Time: 19:44 Bed 24 Private MD: ED Physician Vinod Pedro HPI: 05/23 20:21 This 69 yrs old Female presents to ER via Wheelchair with complaints of S/S of lily Possible Stroke. 20:21 The patient's problem is reported as weakness. Onset: The symptoms/episode lily began/occurred yesterday, 1 day(s) ago. Duration: The episode is continuous. Context: the episode(s) was witnessed, by family. Historical: - Allergies: 05/24 00:26 NKA; mg2 - Home Meds: 00:26 carvedilol 6.25 mg Oral tab 1 tab 2 times per day [Active]; Nuedexta 20-10 mg Oral cap mg2 1 cap daily [Active]; novalog [Active]; trazeba [Active]; gabapentin oral oral [Active]; losartan oral oral [Active]; - PMHx: 00:26 CVA; Diabetes; Hypertension; mg2 - PSHx: 00:26 ; Hysterectomy; mg2 00:31 triple bypass; mg2 - Immunization history:: Flu vaccine status is unknown. - Family history:: not pertinent. - Social history:: Smoking status: unknown. - Ebola Screening: : No symptoms or risks identified at this time. ROS: 05/23 20:24 Constitutional: Negative for fever, chills, and weight loss, Eyes: Negative for injury, lily pain, redness, and discharge, ENT: Negative for injury, pain, and discharge, Neck: Negative for injury, pain, and swelling, Cardiovascular: Negative for chest pain, palpitations, and edema, Respiratory: Negative for shortness of breath, cough, wheezing, and pleuritic chest pain, Abdomen/GI: Negative for abdominal pain, nausea, vomiting, diarrhea, and constipation, Back: Negative for injury and pain, : Negative for injury, bleeding, discharge, and swelling, MS/Extremity: Negative for injury and deformity, Skin: Negative for injury, rash, and discoloration, Psych: Negative for depression, anxiety, suicide ideation, homicidal ideation, and hallucinations, Allergy/Immunology: Negative for hives, rash, and allergies, Endocrine: Negative for neck swelling, polydipsia, polyuria, polyphagia, and marked weight changes, Hematologic/Lymphatic: Negative for swollen nodes, abnormal bleeding, and unusual bruising. Neuro: Positive for headache, weakness. Exam: 20:24 Constitutional: This is a well developed, well nourished patient who is awake, alert, lily and in no acute distress. Head/Face: Normocephalic, atraumatic. Eyes: Pupils equal round and reactive to light, extra-ocular motions intact. Lids and lashes normal. Conjunctiva and sclera are non-icteric and not injected. Cornea within normal limits. Periorbital areas with no swelling, redness, or edema. ENT: Nares patent. No nasal discharge, no septal abnormalities noted. Tympanic membranes are normal and external auditory canals are clear. Oropharynx with no redness, swelling, or masses, exudates, or evidence of obstruction, uvula midline. Mucous membranes moist. Neck: Trachea midline, no thyromegaly or masses palpated, and no cervical lymphadenopathy. Supple, full range of motion without nuchal rigidity, or vertebral point tenderness. No Meningismus. Chest/axilla: Normal chest wall appearance and motion. Nontender with no deformity. No lesions are appreciated. Cardiovascular: Regular rate and rhythm with a normal S1 and S2. No gallops, murmurs, or rubs. Normal PMI, no JVD. No pulse deficits. Respiratory: Lungs have equal breath sounds bilaterally, clear to auscultation and percussion. No rales, rhonchi or wheezes noted. No increased work of breathing, no retractions or nasal flaring. Abdomen/GI: Soft, non-tender, with normal bowel sounds. No distension or tympany. No guarding or rebound. No evidence of tenderness throughout. Back: No spinal tenderness. No costovertebral tenderness. Full range of motion. Skin: Warm, dry with normal turgor. Normal color with no rashes, no lesions, and no evidence of cellulitis. MS/ Extremity: Pulses equal, no cyanosis. Neurovascular intact. Full, normal range of motion. Neuro: Awake and alert, GCS 15, oriented to person, place, time, and situation. Cranial nerves II-XII grossly intact. Motor strength 5/5 in all extremities. Sensory grossly intact. Cerebellar exam normal. Normal gait. Psych: Awake, alert, with orientation to person, place and time. Behavior, mood, and affect are within normal limits. 20:26 Radiologist reports: see report [facility] Vital Signs: 20:13 BP 120 / 51; Pulse 76; Resp 17; Temp 98.36; Pulse Ox 99% on R/A; ae4 21:00 BP 119 / 72; Pulse 70; Resp 18; Pulse Ox 100% on R/A; mg2 22:00 BP 147 / 82; Pulse 70; Resp 18; Pulse Ox 100% on R/A; mg2 23:13 BP 154 / 97; Pulse 71; Resp 18; Pulse Ox 99% on R/A; mg2 05/24 00:29 Pulse 72; Resp 18; Pulse Ox 100% on R/A; mg2 00:45 BP 133 / 87; Pulse 72; Resp 18; Pulse Ox 99% on R/A; aj1 01:43 BP 121 / 64; Pulse 68; Resp 14; Pulse Ox 97% on R/A; aj1 02:19 BP 114 / 54; Pulse 70; Resp 16; Pulse Ox 97% on R/A; aj1 NIH Stroke Scale Scores: 00:26 NIHSS Score: 0 mg2 MDM: 05/23 19:52 Patient medically screened. [facility] 20:26 Data reviewed: vital signs, nurses notes, lab test result(s), EKG, radiologic studies, [facility] CT scan, plain films. 05/23 20:06 Order name: Basic Metabolic Panel; Complete Time: 22:11 [facility] 05/23 20:06 Order name: CBC with Diff; Complete Time: 22:11 [facility] 05/23 20:06 Order name: LFT's; Complete Time: 22:11 [facility] 05/23 20:06 Order name: Magnesium; Complete Time: 22:11 [facility] 05/23 20:06 Order name: NT PRO-BNP; Complete Time: 22:11 [facility] 05/23 20:06 Order name: PT-INR; Complete Time: 22:11 [facility] 05/23 20:06 Order name: Troponin (emerg Dept Use Only); Complete Time: 22:11 [facility] 05/23 20:06 Order name: Urine Culture [facility] 05/23 20:06 Order name: Sed Rate; Complete Time: 22:11 [facility] 05/23 20:06 Order name: CRP; Complete Time: 22:11 [facility] 05/23 20:16 Order name: Glucose, Ancillary Testing; Complete Time: 20:49 EDMS 05/23 22:12 Order name: AMMONIA; Complete Time: 23:47 [facility] 05/23 22:15 Order name: Lipase [facility] 05/23 22:16 Order name: Lipase; Complete Time: 23:47 EDMS 05/23 20:06 Order name: XRAY Chest (1 view); Complete Time: 22:11 [facility] 05/23 20:06 Order name: EKG; Complete Time: 20:07 [facility] 05/23 20:06 Order name: Cardiac monitoring; Complete Time: 00:36 [facility] 05/23 20:06 Order name: EKG - Nurse/Tech; Complete Time: 00:36 [facility] 05/23 20:06 Order name: CT Head Brain wo Cont; Complete Time: 20:49 [facility] 05/23 20:30 Order name: C Spine Wo Con; Complete Time: 22:11 EDMS 05/23 22:15 Order name: CT Abd/Pelvis - Without Cont (PO Contrast Only) [facility] 05/23 22:32 Order name: US Abdomen Limited [facility] 05/23 23:44 Order name: Urine Dipstick--Ancillary (enter results); Complete Time: 01:01 [facility] 05/23 20:06 Order name: IV Saline Lock; Complete Time: 20:19 [facility] 05/23 20:06 Order name: Labs collected and sent; Complete Time: 20:19 [facility] 05/23 20:06 Order name: O2 Per Protocol; Complete Time: 20:19 [facility] 05/23 20:06 Order name: O2 Sat Monitoring; Complete Time: 01:16 [facility] 05/23 20:06 Order name: Urine Dipstick-Ancillary (obtain specimen); Complete Time: 00:41 [facility] Administered Medications: 20:58 Drug: NS 0.9% 500 ml Route: IV; Rate: bolus; Site: right antecubital; mg2 21:26 Follow up: Response: No adverse reaction; IV Status: Completed infusion; IV Intake: mg2 500ml 21:26 Drug: NS 0.9% 1000 ml Route: IV; Rate: 125 ml/hr; Site: right antecubital; mg2 05/24 01:48 Follow up: IV Status: Completed infusion; IV Intake: 500ml aj1 05/23 21:26 Drug: foLIC Acid 1 mg Route: IVPB; Site: right antecubital; mg2 23:16 Follow up: Response: No adverse reaction; IV Status: Completed infusion mg2 21:27 Drug: Aspirin Chewable Tablet 324 mg Route: PO; mg2 23:15 Follow up: Response: No adverse reaction mg2 05/24 00:22 Drug: Rocephin 1 grams Route: IV; Rate: per protocol; Site: right antecubital; mg2 01:47 Follow up: Response: No adverse reaction; IV Status: Completed infusion aj1 Point of Care Testing: Blood Glucose: 05/23 20:13 Blood Glucose: 107 mg/dL; ae4 Ranges: Critical Glucose Levels:Adult <50 mg/dl or >400 mg/dl <40 mg/dl or >180 mg/dl Disposition: 05/24/19 01:01 Transfer ordered to [facility]. Diagnosis are Cholelithiasis - choledocholithiasis, Weakness, Type 2 diabetes mellitus, Abdominal tenderness. - Reason for transfer: Higher level of care. - Accepting physician is to [facility]. - Condition is Fair. - Problem is new. - Symptoms have improved. NIH Stroke Scale - NIH Stroke Score Date: 05/24/2019 Time: 00:26 Total Score = 0 1a. Level of Consciousness (LOC) - 0(Alert) 1b. Level of Consciousness (LOC) (Year \T\ Age) - 0(Both) 1c. LOC Commands (Open \T\ Closes Eyes/Shear Assembler) - 0(Both) 2. Best Gaze (Lateral Gaze Paresis) - 0(Normal) 3. Visual Field Loss - 0(No visual loss) 4. Facial Palsy - 0(Normal) 5a. Left Arm: Motor (10-second hold) - 0(No drift) 5b. Right Arm: Motor (10-second hold) - 0(No drift) 6a. Left Leg: Motor (5-second hold - always test supine) - 0(No drift) 6b. Right Leg: Motor (5-second hold - always test supine) - 0(No drift) 7. Limb Ataxia (finger/nose \T\ heel/ribeiro - test with eyes open) - 0(Absent) 8. Sensory Loss (pinprick arms/legs/face) - 0(Normal) 9. Best Language: Aphasia (description/naming/reading) - 0(No aphasia) 10. Dysarthria (speech clarity - read or repeat words) - 0(Normal) 11. Extinction and Inattention (visual/tactile/auditory/spatial/personal) - 0(No abnormality) Initials: mg2 Signatures: Dispatcher [employer] EDCO Jordyn Martin RN RN aj1 Vinod Pedro MD MD cha Gardose, Michele, RN RN mg2 Corrections: (The following items were deleted from the chart) 20:29 20:28 Head C Spine Mpr Wo Con ordered. EDCO EDCO 20:30 20:27 Head C Spine MPR Wo Con+CT.RAD.BRZ ordered. [facility] EDCO 05/24 00:59 05/23 20:53 Hospitalization Ordered by Rosibel Zarate MD for Observation. [facility] Preliminary diagnosis is Weakness; Altered mental status, unspecified. Bed requested for Telemetry/MedSurg (observation). Status is Observation. Condition is Stable. Problem is new. Symptoms have improved. UTI on Admission? No. [facility] 05/24 01:03 01:01 05/24/2019 01:01 Transfer ordered to [facility]. [facility] Diagnosis is Cholelithiasis - choledocholithiasis; Weakness. Reason for transfer: Higher level of care. Accepting physician is to [facility]. Condition is Fair. Problem is new. Symptoms have improved. [facility] 01:05 01:03 05/24/2019 01:01 Transfer ordered to [facility]. lily Diagnosis is Cholelithiasis - choledocholithiasis; Weakness; Type 2 diabetes mellitus. Reason for transfer: Higher level of care. Accepting physician is to [facility]. Condition is Fair. Problem is new. Symptoms have improved. [facility] 02:46 01:05 05/24/2019 01:01 Transfer ordered to [facility]. aj1 Diagnosis is Cholelithiasis - choledocholithiasis; Weakness; Type 2 diabetes mellitus; Abdominal tenderness. Reason for transfer: Higher level of care. Accepting physician is to [facility]. Condition is Fair. Problem is new. Symptoms have improved. lily
--- NOTE | 2019-05-23 20:56 | RAD REPORT ---
EXAM DESCRIPTION: CT - C Spine Wo Con - 05/23/2019 8:33 pm CLINICAL HISTORY: Radiculopathy COMPARISON: 2017 TECHNIQUE: Computed axial tomography of the cervical spine were obtained with sagittal and coronal r econstruction images generated and reviewed. All CT scans are performed using dose optimization technique as appropriate and may include automated exposure control or mA/KV adjustment according to patient size. FINDINGS: A cervical fracture is not seen. Slight anterior subluxation C3 on C4. Spondylosis results in mild narrowing of the left neural forami na Spondylosis C4-5 results in mild right foraminal stenosis. A small left posterior-lateral disc hernia tion suspected Spondylosis C5-6 results in mild central spinal stenosis. Mild to moderate right foraminal stenosis Small left paracentral disc herniation suspected C6-7 A left carotid stent is in place IMPRESSION: A cervical fracture is not seen. Small left posterior-lateral disc herniation C4-5 Spondylosis C5-6 resulting in mild central spinal stenosis and mild to moderate right foraminal steno sis Spondylosis C3-4 and C4-5 resulting in mild foraminal stenosis. Small left paracentral disc herniation suspected C6-7 If the patient continues have symptoms to suggest spinal cord/spinal canal pathology then MRI would b e recommended.
--- NOTE | 2019-05-23 21:07 | RAD REPORT ---
EXAM DESCRIPTION: Elaine Single View05/23/2019 8:30 pm CLINICAL HISTORY: Chest pain COMPARISON: 2018 FINDINGS: The lungs appear clear of acute infiltrate. The heart is mildly enlarged. Postsurgical changes involve the chest. IMPRESSION: No acute abnormalities displayed
[2019-05-23 21:18] LABS: AST/SGOT 287 U/L (15-37); Albumin 3.3 g/dL (3.4-5.0); Alkaline Phosphatase 244 U/L (45-117); BUN Blood Urea Nitrogen 30 mg/dL (7-18); Bicarbonate 26 mmol/L (21-32); Bilirubin Direct 3.5 mg/dL (0-0.2); Bilirubin Total 4.1 mg/dL (0.2-1.0); Glucose Level 107 mg/dL (74-106); Magnesium 2.4 mg/dL (1.8-2.4); NT PRO-BNP 1233 pg/mL (<125); Potassium 4.2 mmol/L (3.5-5.1); Protein, Total 6.8 g/dL (6.4-8.2); Sodium Level 137 mmol/L (136-145); Troponin (Emerg Dept Use Only) < 0.02 ng/mL (0.0-0.045)
[2019-05-23] MEDS ORDERED: ASPIRIN 81 MG CHEWABLE TABLET ONE (21:22)
[2019-05-23] MEDS ORDERED: FOLIC ACID 5 MG/ML VIAL ONE (21:23)
[2019-05-23 21:28] LABS: ALT/SGPT 415 U/L (12-78)
[2019-05-24] MEDS ORDERED: CEFTRIAXONE/SWI 1gm 1 GM/10 ML SYR ONE (00:08)
[2019-05-24 00:38] LABS: Urine Blood NEGATIVE (NEG); Urine Glucose NEGATIVE (NEG); Urine Protein NEGATIVE (NEG); Urine Specific Gravity <1.005 (1.005-1.030); Urine pH 5.5 (5.0-7.0)
[2019-05-24 03:42] VITALS: O2SAT 97
[2019-05-24 03:43] VITALS: BP 114/54
--- NOTE | 2019-05-24 09:44 | RAD REPORT ---
EXAM DESCRIPTION: US - Abdomen Exam Limited - 05/23/2019 10:54 pm CLINICAL HISTORY: Abdominal pain. COMPARISON: 2017 FINDINGS: Small amount of echogenic material is present within the gallbladder. Posterior shadowing is not visualized. The gallbladder wall is normal thickness Common bile duct measures 7 millimeters IMPRESSION: Small amount of echogenic material within the gallbladder probably represents sludge. Borderline dilatation of the common bile duct could be secondary to debris within the duct, a small s tone or be normal finding for this patient
--- NOTE | 2019-05-24 11:47 | RAD REPORT ---
EXAM DESCRIPTION: CT - Abdomen Pelvis Wo Contrast - 05/24/2019 1:32 am CLINICAL HISTORY: ABD PAIN TECHNIQUE: Contiguous axial images obtained through the abdomen and pelvis without IV contrast. Harshad nal and sagittal reformatted images were provided. This exam was performed according to our departmental dose-optimization program, which includes autom ated exposure control, adjustment of the mA and/or kV according to patient size and/or use of iterati ve reconstruction technique. COMPARISON: None available for comparison. FINDINGS: Lung bases: Bibasilar subsegmental atelectasis/pleural parenchymal scar. The heart is mild ly enlarged. Coronary artery calcification. Liver: Scattered parenchymal calcifications compatible with remote granulomatous organism exposure. Gallbladder and biliary system: Gallstones within a distended gallbladder. The gallbladder wall is to p normal in thickness. Mild extrahepatic biliary dilatation. The common duct measures 8 mm in maximum diameter. Subtle hyperdense foci in the region of the distal common bile duct (series 202 image 43). Pancreas: Mild to moderate pancreatic parenchymal atrophy. Spleen: Grossly unremarkable Adrenals: Unremarkable Kidneys: Mild bilateral perinephric stranding. Mild right hydroureteronephrosis. No renal or ureteral calculi. Bowel: No obstruction. No appreciable mucosal thickening. Appendix: Normal caliber appendix. No findings to suggest acute appendicitis. Urinary bladder: Unremarkable Reproductive: There has been a hysterectomy. No adnexal cysts or masses are identified. Lymph nodes: No pathologically enlarged lymph nodes. Peritoneum: No focal fluid collection. No free air. Vessels: Moderate atherosclerotic disease. No abdominal aortic aneurysm. Abdominal wall: Small fat-containing umbilical hernia. Bones: Prior median sternotomy. Multilevel spondylosis. No acute fracture. IMPRESSION: 1. Cholelithiasis. Top normal gallbladder wall thickness. Suggestion for choledocholit hiasis. 2. Mild right hydroureteronephrosis. No renal, ureteral or bladder calculi. A recently passed calcu jaja may be considered. Please correlate clinically for urinary tract infection. 3. Other findings as above. Electronically signed by: Terry Avalos MD 05/24/2019 12:36 AM BULK COOLER INSTALLER Due to temporary technical issues with the PACS/Fluency reporting system, reports are being signed by the in house radiologist as a courtesy to ensure prompt reporting. The interpreting radiologist is f ully responsible for the content of the report.
--- NOTE | 2019-05-24 11:58 | EKG ---
Test Date: 2019-05-23 Test Time: 20:45:48 Luncheonette Operator: MEASUREMENT RESULTS: Intervals: Rate: 70 DC: 176 QRSD: 88 QT: 406 QTc: 438 [place]: P: 15 DC: 176 QRS: -24 T: 38 INTERPRETIVE STATEMENTS: Normal sinus rhythm Anterior infarct, age undetermined Abnormal ECG Compared to ECG 08/28/2017 14:11:02 Myocardial infarct finding now present Electronically Signed On 05-24-19 11:56:54 [employer] HELPER by Michoacano Sharif
== END 2019-05-24 02:46 | disposition short-term general hospital (02) ==
LOC: ER 19:40
DX: K80.50 Calculus of bile duct without cholangitis or cholecystitis without obstruction (principal); E11.9 Type 2 diabetes mellitus without complications; R10.819 Abdominal tenderness, unspecified site; I10 Essential (primary) hypertension; Z95.1 Presence of aortocoronary bypass graft
CPT/HCPCS: 96365; 96367; 96361; 93005; 87088; 85025; 87086; 80048; 36415; 82140; 83735; 85610; 82947; 80076; 85652; 81003; 84484; 83690; 83880; 86140; 70450; 72125; 74176; 71045; 76705; 99285; 96366; J0696; J7030

== ENCOUNTER 2020-05-02 15:48 | Observation (INO) | payer OTHER ==
--- OUTSIDE RECORDS SUMMARY | 2020-05-02 15:53 | XMS REPORT | Clinical Summary ---
:1950 Author Organization [facility] Address [address] [place] [address] Care Team Providers Name Role Phone Sharpless Primary Care Provider Pcp Primary Care Provider Unavailable Allergies No Known Allergies Medications Medication Sig Dispensed Refills Start Date End Date Status temazepam (RESTORIL) Take 30 mg by mouth 0 Active 30 mg capsule every night as needed for Sleep. folic acid (FOLVITE) Take 1 mg by mouth 0 Active 1 MG tablet daily. atorvastatin Take 20 mg by mouth 0 Active (LIPITOR) 20 MG daily. tablet ezetimibe (ZETIA) 10 Take 10 mg by mouth 0 Active mg tablet daily. dexlansoprazole 60 mg Take 60 mg by mouth 0 Active capsule daily. topiramate (TOPAMAX) Take 50 mg by mouth 0 Active 50 MG tablet daily. aspirin 81 MG EC Take 81 mg by mouth 0 Active tablet daily. enoxaparin (LOVENOX) Inject 0.4 mLs (40 0 09/06/2017 Active 40 mg/0.4 mL Syrg mg total) subcutaneously daily. insulin detemir Inject 24 Units 10 mL 2 09/06/2017 Active (LEVEMIR) 100 unit/mL subcutaneously injection nightly. gabapentin Take 300 mg by 0 Acti ve (NEURONTIN) 300 MG mouth daily. capsule carvedilol (COREG) 25 Take 25 mg by mouth 0 Active MG tablet 2 (two) times daily with breakfast and dinner. losartan (COZAAR) 50 Take 50 mg by mouth 0 Active MG tablet nightly. insulin degludec Inject 40 Units 0 Active (TRESIBA FLEXTOUCH subcutaneously U-100) 100 unit/mL (3 nightly. mL) InPn insulin aspart U-100 Inject 10 Units 0 Active (NOVOLOG) 100 unit/mL subcutaneously 3 (3 mL) InPn (three) times daily before meals. evolocumab (REPATHA Inject 140 mg 0 Active SURECLICK) 140 mg/mL subcutaneously once PnIjIndications: take every 2 weeks. at nite ALPRAZolam (XANAX) Take 0.25 mg by 0 Active 0.25 MG tablet mouth every night as needed for Anxiety. Missing or Take 20 mg by mouth 0 Active Non-Formulary daily. MedicationIndications : nudexta 20 mg daily traMADol (ULTRAM) 50 Take 1 tablet (50 60 tablet 0 06/07/2019 Active mg tablet mg total) by mouth 0 every 6 (six) hours as needed for Pain. Max Daily Amount: 200 mg fluconazole Take 2 tablets (200 14 tablet 0 06/07/2019 01 (DIFLUCAN) 100 MG mg total) by mouth 9 tablet daily for 10 days. amoxicillin-clavulana Take 1 tablet by 20 tablet 0 06/07/2019 te (AUGMENTIN) mouth every 12 9 875-125 mg per tablet (twelve) hours for 10 days. traMADol (ULTRAM) 50 Take 1 tablet (50 20 tablet 0 06/07/2019 mg tablet mg total) by mouth 0 every 6 (six) hours as needed for Pain for up to 40 days. Max Daily Amount: 200 mg Active Problems Problem Noted Date Choledocholithiasis 05/24/2019 Common bile duct (CBD) obstruction 05/24/2019 Overview: Added automatically from request for alysha dickersony [id number] S/P coronary artery bypass graft x 3 09/06/2017 Respiratory insufficiency 09/01/2017 DM2 (diabetes mellitus, type 2) 08/31/2017 HTN (hypertension) 08/31/2017 HLD (hyperlipidemia) 08/31/2017 H/O: CVA (cerebrovascular accident) 08/31/2017 Coronary artery disease 08/29/2017 Encounters Date Type Specialty Care Team Description 06/03/2019 Anesthesia Event Earl Jacome MD 06/03/2019 Surgery Rj, LAPAROSCOPY,CHO ALEXIA Jiménez MD 05/27/2019 Anesthesia Event Earl Jacome MD 05/27/2019 Surgery Mina Greene MD 05/24/2019 - Hospital Encounter General Internal Rainer Trevizo mmon bile duct 06/07/2019 Medicine MD Margy (CBD) obstruct ion 05/24/2019 Travel 05/24/2019 Orders Only Pedro Turner RN after 05/02/2019 Family History Medical History Relation Name Comments Heart disease Brother Stroke Brother Diabetes Mother Heart disease Mother Hypertension Mother Heart disease Sister Relation Name Status Comments Brother Mother Sister Social History Tobacco Use Types Packs/Day Years Used Date Never Smoker Smokeless Tobacco: Never Used Alcohol Use Drinks/Week oz/Week Comments No Sex Assigned at Date Recorded Not on file Last Filed Vital Signs Vital Sign Reading Time Taken Comments Blood Pressure 102/60 06/07/2019 4:59 PM [employer] Pulse 81 06/07/2019 4:59 PM [employer] Temperature 36.3 C (97.4 F) 06/07/2019 4:59 PM [employer] Respiratory Rate 18 06/07/2019 4:59 PM [employer] Oxygen Saturation 99% 06/07/2019 4:59 PM [employer] Inhaled Oxygen Concentration 21% 06/04/2019 8:10 AM [employer] Weight 77.3 kg (170 lb 6.4 oz) 06/05/2019 5:41 AM [employer] Height 152.4 cm (5') 05/24/2019 4:51 AM [employer] Body Mass Index 33.28 05/24/2019 4:51 AM [employer] Plan of Treatment Health Maintenance Due Date Last Done Comments BREAST CANCER SCREENING 1950 COLON CANCER SCREENING COLONOSCOPY 1950 DIABETIC EYE EXAM 1959 DIABETIC FOOT EXAM 1959 URINE MICROALBUMIN 1959 PNEUMOCOCCAL 65+ YRS (1 of 1 - 2014 [id number]) MEDICARE ANNUAL WELLNESS (YEAR 2 or 04/03/2015 FIRST YEAR if no IPPE) HEMOGLOBIN A1C 11/23/2019 05/25/2019, 08/30/2017, 08/30/2017 INFLUENZA VACCINE (#1) 2020 04/09/2019, 04/23/2017 Procedures Procedure Name Priority Date/Time Associated Comments Diagnosis REPORT OF PROCEDURE - 06/11/2019 10:00 ENDOSCOPY SCAN AM [employer] RHYTHM STRIP - SCAN 06/11/2019 10:00 AM [employer] RHYTHM STRIP - SCAN 06/11/2019 10:00 AM [employer] CARDIAC CATH REPORT - 06/11/2019 10:00 SCAN AM [employer] POCT-GLUCOSE METER Routine 06/07/2019 4:58 Resul ts for this PM [employer] procedure are i n the results section. POCT-GLUCOSE METER Routine 06/07/2019 12:55 Resul ts for this PM [employer] procedure are i n the results section. CBC W/PLT COUNT & AUTO Routine 06/07/2019 8:30 R esults for this DIFFERENTIAL AM [employer] procedure are i n the results section. CBC W/PLT COUNT & AUTO Routine 06/07/2019 8:30 R esults for this DIFFERENTIAL AM [employer] procedure are i n the results section. PHOSPHORUS Routine 06/07/2019 8:29 Results for this AM [employer] procedure are i n the results section. MAGNESIUM Routine 06/07/2019 8:29 Results for this AM [employer] procedure are i n the results section. COMPREHENSIVE METABOLIC Routine 06/07/2019 8:29 Results for this PANEL AM [employer] procedure are i n the results section. POCT-GLUCOSE METER Routine 06/07/2019 8:06 Resul ts for this AM [employer] procedure are i n the results section. POCT-GLUCOSE METER Routine 06/07/2019 6:20 Resul ts for this AM [employer] procedure are i n the results section. POCT-GLUCOSE METER Routine 06/06/2019 11:37 Resul ts for this PM [employer] procedure are i n the results section. CBC (HEMOGRAM ONLY) Routine 06/06/2019 5:41 Resu lts for this AM [employer] procedure are i n the results section. PHOSPHORUS Routine 06/06/2019 5:41 Results for this AM [employer] procedure are i n the results section. MAGNESIUM Routine 06/06/2019 5:41 Results for this AM [employer] procedure are i n the results section. HEPATIC FUNCTION PANEL Routine 06/06/2019 5:41 R esults for this AM [employer] procedure are i n the results section. BASIC METABOLIC PANEL Routine 06/06/2019 5:41 Re sults for this (7) AM [employer] procedure are i n the results section. POCT-GLUCOSE METER Routine 06/06/2019 5:19 Resul ts for this AM [employer] procedure are i n the results section. POCT-GLUCOSE METER Routine 06/06/2019 12:15 Resul ts for this AM [employer] procedure are i n the results section. POCT-GLUCOSE METER Routine 06/05/2019 4:44 Resul ts for this PM [employer] procedure are i n the results section. RHYTHM STRIP - SCAN 06/05/2019 1:41 PM [employer] POCT-GLUCOSE METER Routine 06/05/2019 10:55 Resul ts for this AM [employer] procedure are i n the results section. CBC (HEMOGRAM ONLY) Routine 06/05/2019 5:39 Resu lts for this AM [employer] procedure are i n the results section. PHOSPHORUS Routine 06/05/2019 5:39 Results for this AM [employer] procedure are i n the results section. MAGNESIUM Routine 06/05/2019 5:39 Results for this AM [employer] procedure are i n the results section. HEPATIC FUNCTION PANEL Routine 06/05/2019 5:39 R esults for this AM [employer] procedure are i n the results section. BASIC METABOLIC PANEL Routine 06/05/2019 5:39 Re sults for this (7) AM [employer] procedure are i n the results section. POCT-GLUCOSE METER Routine 06/05/2019 5:24 Resul ts for this AM [employer] procedure are i n the results section. POCT-GLUCOSE METER Routine 06/04/2019 11:22 Resul ts for this PM [employer] procedure are i n the results section. ECHOCARDIOGRAM REPORT - 06/04/2019 9:22 SCAN PM [employer] POCT-GLUCOSE METER Routine 06/04/2019 4:41 Resul ts for this PM [employer] procedure are i n the results section. POCT-GLUCOSE METER Routine 06/04/2019 12:06 Resul ts for this PM [employer] procedure are i n the results section. CBC (HEMOGRAM ONLY) Routine 06/04/2019 6:04 Resu lts for this AM [employer] procedure are i n the results section. PHOSPHORUS Routine 06/04/2019 6:04 Results for this AM [employer] procedure are i n the results section. MAGNESIUM Routine 06/04/2019 6:04 Results for this AM [employer] procedure are i n the results section. HEPATIC FUNCTION PANEL Routine 06/04/2019 6:04 R esults for this AM [employer] procedure are i n the results section. BASIC METABOLIC PANEL Routine 06/04/2019 6:04 Re sults for this (7) AM [employer] procedure are i n the results section. POCT-GLUCOSE METER Routine 06/04/2019 4:47 Resul ts for this AM [employer] procedure are i n the results section. POCT-GLUCOSE METER Routine 06/03/2019 11:49 Resul ts for this PM [employer] procedure are i n the results section. POCT-GLUCOSE METER Routine 06/03/2019 3:15 Resul ts for this PM [employer] procedure are i n the results section. POCT-GLUCOSE METER Routine 06/03/2019 12:16 Resul ts for this PM [employer] procedure are i n the results section. LAPAROSCOPY,CHOLECYSTEC 06/03/2019 10:47 Gall stones RANDA AM [employer] ECG 12-LEAD Routine 06/03/2019 9:25 AM [employer] Procedure Note - Interface, External Ris In - 07/15/2019 1:16 PM [employer] Ventricular Rate 72 BPM Atrial Rate 72 BPM P-R Interval 170 ms QRS Duration 88 ms Q-T Interval 400 ms QTC Calculation(Bazett) 438 ms P Avenel 37 degrees R Avenel 37 degrees T Avenel 40 degrees Normal sinus rhythm Possible Left atrial enlarge ment Anterolateral infarct , age undetermined Abnormal ECG No previous ECGs available TISSUE EXAM AP Routine 06/03/2019 9:23 Results for this AM [employer] procedure are i n the results section. POCT-GLUCOSE METER Routine 06/03/2019 6:55 Resul ts for this AM [employer] procedure are i n the results section. CBC W/PLT COUNT & Routine 06/03/2019 5:43 Result s for this AUTO DIFFERENTIAL AM [employer] procedure are in the results section. PHOSPHORUS Routine 06/03/2019 5:43 Results for this AM [employer] procedure are i n the results section. MAGNESIUM Routine 06/03/2019 5:43 Results for this AM [employer] procedure are i n the results section. CBC W/PLT COUNT & Routine 06/03/2019 5:43 Result s for this AUTO DIFFERENTIAL AM [employer] procedure are in the results section. COMPREHENSIVE Routine 06/03/2019 5:43 Results fo r this METABOLIC PANEL AM [employer] procedure ar e in the results section. POCT-GLUCOSE METER Routine 06/03/2019 12:39 Resul ts for this AM [employer] procedure are i n the results section. POCT-GLUCOSE METER Routine 06/02/2019 6:32 Resul ts for this PM [employer] procedure are i n the results section. POCT-GLUCOSE METER Routine 06/02/2019 11:36 Resul ts for this AM [employer] procedure are i n the results section. POCT-GLUCOSE METER Routine 06/02/2019 5:51 Resul ts for this AM [employer] procedure are i n the results section. POCT-GLUCOSE METER Routine 06/02/2019 12:49 Resul ts for this AM [employer] procedure are i n the results section. POCT-GLUCOSE METER Routine 06/01/2019 7:35 Resul ts for this PM [employer] procedure are i n the results section. POCT-GLUCOSE METER Routine 06/01/2019 6:25 Resul ts for this PM [employer] procedure are i n the results section. POCT-GLUCOSE METER Routine 06/01/2019 11:55 Resul ts for this AM [employer] procedure are i n the results section. CBC W/PLT COUNT & Routine 06/01/2019 5:11 Result s for this AUTO DIFFERENTIAL AM [employer] procedure are in the results section. PHOSPHORUS Routine 06/01/2019 5:11 Results for this AM [employer] procedure are i n the results section. MAGNESIUM Routine 06/01/2019 5:11 Results for this AM [employer] procedure are i n the results section. CBC W/PLT COUNT & Routine 06/01/2019 5:11 Result s for this AUTO DIFFERENTIAL AM [employer] procedure are in the results section. BASIC METABOLIC PANEL Routine 06/01/2019 5:11 Re sults for this (7) AM [employer] procedure are i n the results section. POCT-GLUCOSE METER Routine 05/31/2019 8:29 Resul ts for this PM [employer] procedure are i n the results section. POCT-GLUCOSE METER Routine 05/31/2019 4:28 Resul ts for this PM [employer] procedure are i n the results section. POCT-GLUCOSE METER Routine 05/31/2019 12:41 Resul ts for this PM [employer] procedure are i n the results section. CT ABDOMEN/PELVIS Routine 05/31/2019 9:51 Result s for this WITHOUT IV CONTRAST AM [employer] procedur e are in the results section. POCT-GLUCOSE METER Routine 05/31/2019 6:17 Resul ts for this AM [employer] procedure are i n the results section. CBC W/PLT COUNT & Routine 05/31/2019 4:43 Result s for this AUTO DIFFERENTIAL AM [employer] procedure are in the results section. PHOSPHORUS Routine 05/31/2019 4:43 Results for this AM [employer] procedure are i n the results section. MAGNESIUM Routine 05/31/2019 4:43 Results for this AM [employer] procedure are i n the results section. CBC W/PLT COUNT & Routine 05/31/2019 4:43 Result s for this AUTO DIFFERENTIAL AM [employer] procedure are in the results section. BASIC METABOLIC PANEL Routine 05/31/2019 4:43 Re sults for this (7) AM [employer] procedure are i n the results section. POCT-GLUCOSE METER Routine 05/30/2019 11:26 Resul ts for this PM [employer] procedure are i n the results section. POCT-GLUCOSE METER Routine 05/30/2019 6:19 Resul ts for this PM [employer] procedure are i n the results section. POCT-GLUCOSE METER Routine 05/30/2019 11:56 Resul ts for this AM [employer] procedure are i n the results section. XR CHEST 1 VIEW Routine 05/30/2019 6:11 Results for this PORTABLE/BEDSIDE AM [employer] procedure a re in the results section. XR ABDOMEN / KUB 1 Routine 05/30/2019 6:11 Resul ts for this VIEW AM [employer] procedure are i n the results section. CBC W/PLT COUNT & Routine 05/30/2019 5:48 Result s for this AUTO DIFFERENTIAL AM [employer] procedure are in the results section. CBC W/PLT COUNT & Routine 05/30/2019 5:48 Result s for this AUTO DIFFERENTIAL AM [employer] procedure are in the results section. POCT-GLUCOSE METER Routine 05/30/2019 5:17 Resul ts for this AM [employer] procedure are i n the results section. PHOSPHORUS Routine 05/30/2019 5:12 Results for this AM [employer] procedure are i n the results section. MAGNESIUM Routine 05/30/2019 5:12 Results for this AM [employer] procedure are i n the results section. BASIC METABOLIC PANEL Routine 05/30/2019 5:12 Re sults for this (7) AM [employer] procedure are i n the results section. POCT-GLUCOSE METER Routine 05/29/2019 11:45 Resul ts for this PM [employer] procedure are i n the results section. POCT-GLUCOSE METER Routine 05/29/2019 5:59 Resul ts for this PM [employer] procedure are i n the results section. POCT-GLUCOSE METER Routine 05/29/2019 11:41 Resul ts for this AM [employer] procedure are i n the results section. CBC W/PLT COUNT & Routine 05/29/2019 5:25 Result s for this AUTO DIFFERENTIAL AM [employer] procedure are in the results section. LIPASE Add-On 05/29/2019 5:25 Results for this AM [employer] procedure are i n the results section. AMYLASE Add-On 05/29/2019 5:25 Results for this AM [employer] procedure are i n the results section. PHOSPHORUS Routine 05/29/2019 5:25 Results for this AM [employer] procedure are i n the results section. MAGNESIUM Routine 05/29/2019 5:25 Results for this AM [employer] procedure are i n the results section. BASIC METABOLIC PANEL Routine 05/29/2019 5:25 Re sults for this (7) AM [employer] procedure are i n the results section. CBC W/PLT COUNT & Routine 05/29/2019 5:25 Result s for this AUTO DIFFERENTIAL AM [employer] procedure are in the results section. XR ABDOMEN / KUB 1 Routine 05/29/2019 4:46 Resul ts for this VIEW AM [employer] procedure are i n the results section. POCT-GLUCOSE METER Routine 05/28/2019 9:29 Resul ts for this PM [employer] procedure are i n the results section. IR PICC LINE Routine 05/28/2019 10:55 Results for this PLACEMENT OLDER THAN AM [employer] procedu re are in 5 YRS the results section. CBC W/PLT COUNT & Routine 05/28/2019 5:49 Result s for this AUTO DIFFERENTIAL AM [employer] procedure are in the results section. HEPATIC FUNCTION Routine 05/28/2019 5:49 Results for this PANEL AM [employer] procedure are i n the results section. AMYLASE Routine 05/28/2019 5:49 Results for this AM [employer] procedure are i n the results section. LIPASE Routine 05/28/2019 5:49 Results for this AM [employer] procedure are i n the results section. PHOSPHORUS Routine 05/28/2019 5:49 Results for this AM [employer] procedure are i n the results section. MAGNESIUM Routine 05/28/2019 5:49 Results for this AM [employer] procedure are i n the results section. BASIC METABOLIC PANEL Routine 05/28/2019 5:49 Re sults for this (7) AM [employer] procedure are i n the results section. CBC W/PLT COUNT & Routine 05/28/2019 5:49 Result s for this AUTO DIFFERENTIAL AM [employer] procedure are in the results section. XR ABDOMEN / KUB 1 STAT 05/28/2019 1:47 Resul ts for this VIEW AM [employer] procedure are i n the results section. CT ABDOMEN/PELVIS STAT 05/27/2019 10:25 Result s for this WITHOUT IV CONTRAST PM [employer] procedur e are in the results section. POCT-GLUCOSE METER Routine 05/27/2019 8:37 Resul ts for this PM [employer] procedure are i n the results section. XR ABDOMEN / KUB 1 STAT 05/27/2019 6:30 Resul ts for this VIEW PM [employer] procedure are i n the results section. HEMOGLOBIN AND Routine 05/27/2019 4:58 Results f or this HEMATOCRIT PM [employer] procedure are i n the results section. POCT-GLUCOSE METER Routine 05/27/2019 11:57 Resul ts for this AM [employer] procedure are i n the results section. FL ERCP Routine 05/27/2019 10:33 Results for this AM [employer] procedure are i n the results section. ERCP 05/27/2019 9:48 Common bile duct AM [employer] (CBD) obstruction CBC W/PLT COUNT & Routine 05/27/2019 5:05 Result s for this AUTO DIFFERENTIAL AM [employer] procedure are in the results section. VANCOMYCIN LEVEL, Timed 05/27/2019 5:05 Result s for this TROUGH AM [employer] procedure are i n the results section. PT/APTT Routine 05/27/2019 5:05 Results for this AM [employer] procedure are i n the results section. AMYLASE Routine 05/27/2019 5:05 Results for this AM [employer] procedure are i n the results section. HEPATIC FUNCTION Routine 05/27/2019 5:05 Results for this PANEL AM [employer] procedure are i n the results section. BASIC METABOLIC PANEL Routine 05/27/2019 5:05 Re sults for this (7) AM [employer] procedure are i n the results section. CBC W/PLT COUNT & Routine 05/27/2019 5:05 Result s for this AUTO DIFFERENTIAL AM [employer] procedure are in the results section. POCT-GLUCOSE METER Routine 05/27/2019 12:01 Resul ts for this AM [employer] procedure are i n the results section. POCT-GLUCOSE METER Routine 05/26/2019 6:01 Resul ts for this PM [employer] procedure are i n the results section. POCT-GLUCOSE METER Routine 05/26/2019 11:54 Resul ts for this AM [employer] procedure are i n the results section. AMYLASE Routine 05/26/2019 5:15 Results for this AM [employer] procedure are i n the results section. HEPATIC FUNCTION Routine 05/26/2019 5:15 Results for this PANEL AM [employer] procedure are i n the results section. BASIC METABOLIC PANEL Routine 05/26/2019 5:15 Re sults for this (7) AM [employer] procedure are i n the results section. CBC W/PLT COUNT & Routine 05/26/2019 5:13 Result s for this AUTO DIFFERENTIAL AM [employer] procedure are in the results section. CBC W/PLT COUNT & Routine 05/26/2019 5:13 Result s for this AUTO DIFFERENTIAL AM [employer] procedure are in the results section. CT/CTA CAROTID STAT 05/25/2019 11:10 Results f or this PM [employer] procedure are i n the results section. CTA BRAIN STAT 05/25/2019 11:10 Results for this PM [employer] procedure are i n the results section. POCT-GLUCOSE METER Routine 05/25/2019 8:05 Resul ts for this PM [employer] procedure are i n the results section. ECHO W CONTRAST & Routine 05/25/2019 2:30 Result s for this DOPPLER PM [employer] procedure are i n the results section. MRA NECK WITHOUT IV STAT 05/25/2019 12:43 Resu lts for this CONTRAST PM [employer] procedure are i n the results section. MRA HEAD WITHOUT IV STAT 05/25/2019 12:43 Resu lts for this CONTRAST PM [employer] procedure are i n the results section. MR BRAIN WITHOUT IV STAT 05/25/2019 12:20 Resu lts for this CONTRAST PM [employer] procedure are i n the results section. CT UPPER EXTREMITY STAT 05/25/2019 10:38 Resul ts for this WITHOUT IV CONTRAST AM [employer] procedur e are in RIGHT the results section. CBC W/PLT COUNT & Routine 05/25/2019 5:45 Result s for this AUTO DIFFERENTIAL AM [employer] procedure are in the results section. TSH/FREE T4 IF Routine 05/25/2019 5:45 Results f or this INDICATED AM ASSOCIATE [employer]OR [employer] ENGLISH procedure are i n the results section. LIPID PANEL Routine 05/25/2019 5:45 Results for this AM [employer]OCIATE [employer]OR [employer] ENGLISH procedure are i n the results section. HEMOGLOBIN A1C Routine 05/25/2019 5:45 Results f or this AM [employer]GL[employer] procedure are i n the results section. AMYLASE Routine 05/25/2019 5:45 Results for this AM [employer]GL[employer] procedure are i n the results section. HEPATIC FUNCTION Routine 05/25/2019 5:45 Results for this PANEL AM [employer]IATE [employer] ENGLISH procedure are i n the results section. BASIC METABOLIC PANEL Routine 05/25/2019 5:45 Re sults for this (7) AM [employer]IATE [employer] ENGLISH procedure are i n the results section. CBC W/PLT COUNT & Routine 05/25/2019 5:45 Result s for this AUTO DIFFERENTIAL AM [employer]OCIATE [employer] ENGLISH procedure are in the results section. CT BRAIN WITHOUT IV STAT 05/25/2019 12:17 Resu lts for this CONTRAST AM [employer] ENGLISH procedure are i n the results section. POCT-GLUCOSE METER Routine 05/24/2019 11:55 Resul ts for this PM [employer]GL[employer] procedure are i n the results section. POCT-GLUCOSE METER Routine 05/24/2019 8:31 Resul ts for this PM [employer]GL[employer] procedure are i n the results section. MR ABDOMEN WO STAT 05/24/2019 5:26 Results fo r this CONTRAST MRCP PM [employer] ENGL[employer] procedure are in the results section. POCT-GLUCOSE METER Routine 05/24/2019 4:12 Resul ts for this PM [employer] ENGLISH procedure are i n the results section. POCT-GLUCOSE METER Routine 05/24/2019 12:37 Resul ts for this PM [employer]GL[employer] procedure are i n the results section. CBC W/PLT COUNT & STAT 05/24/2019 11:29 Result s for this AUTO DIFFERENTIAL AM [employer] ENGL[employer] procedure are in the results section. CBC W/PLT COUNT & STAT 05/24/2019 11:29 Result s for this AUTO DIFFERENTIAL AM [employer]IATE [employer] ENGL[employer] procedure are in the results section. HEPATIC FUNCTION STAT Add-on 05/24/2019 8:54 Results for this PANEL AM [employer]OCIATE [employer] ENGLISH procedure are i n the results section. BASIC METABOLIC PANEL Routine 05/24/2019 8:54 Re sults for this (7) AM [employer]OCIATE [employer] ENGLISH procedure are i n the results section. POCT-GLUCOSE METER Routine 05/24/2019 5:43 Resul ts for this AM [employer]IATE [employer] ENGLISH procedure are i n the results section. after 05/02/2019 Results EKG-SCANNED (06/11/2019 10:00 AM ASSOCIATE PROFESSOR [employer] ENGLISH) Narrative Performed At This result has an attachment that is no t available. RHYTHM STRIP - SCAN (06/11/2019 10:00 AM ASSOCIATE PROFESSOR [employer] ENGLISH)Only the most recent of3 results within the time period is included. Narrative Performed At This result has an attachment that is no t available. CARDIAC CATH REPORT - SCAN (06/11/2019 10:00 AM ASSOCIATE PROFESSOR OF ENGLISH) Narrative Performed At This result has an attachment that is no t available. POC-Glucose meter (06/07/2019 4:58 PM ASSOCIATE PROFESSOR [employer] ENGLISH)Only the most recent of49 results within the time period is included. POC-Glucose Meter 134 (H)Comment: : 70 - [address] [facility] AT [facility] mg/dL [facility] [address] [facility] [id number]: Document Examiner/Technicia n ID = [id number] for Gee Pop Specimen Blood Performing Organization Address City/State/Zipcode Phone Number [facility] [address] [place] [address] CENTER CBC with platelet count + automated diff (06/07/2019 8:30 AM ASSOCIATE PROFESSOR OF ENGLISH)Only the most recent of11 resultswithin the time period is included. Pathologist Sig nature WBC 6.9 4.0 - 10.0 [place] K/L [facility] RBC 3.72 (L) 4.00 - 5.00 [place] M/L [facility] Hemoglobin 10.8 (L) 12.0 - 15.5 [place] GM/DL LAB[facility] Hematocrit 32.7 (L) 36.0 - 46.0 % [place] [facility] MCV 87.9 82.0 - 99.0 fL [place] [facility] MCH 29.0 27.0 - 33.0 pg [place] [facility] MCHC 33.0 32.0 - 36.0 [place] GM/DL LAB[facility] RDW 13.6 12.0 - 15.0 % [place] [facility] Platelets 352 150 - 430 K/CU [place] MM [facility] MPV 10.4 6.0 - 11.5 fL [place] [facility] nRBC 0 0 - 0 /100 WBC [place] [facility] % Neutros 57 % [place] [facility] % Lymphs 24 % [place] [facility] % Monos 14 % [place] [facility] % Eos 5 % [place] [facility] % Baso 1 % [place] [facility] # Neutros 3.90 1.80 - 8.00 [place] K/L LAB[facility] # Lymphs 1.66 1.48 - 4.50 [place] K/L [facility] # Monos 0.94 0.00 - 1.30 [place] K/L [facility] # Eos 0.32 0.00 - 0.50 [place] K/L LAB[facility] # Baso 0.05 0.00 - 0.20 [place] K/L [facility] Immature 0 0 - 0 % [place] Granulocytes-Relativ LABORATORY e Specimen Blood Performing Organization Address City/State/Zipcode Phone Number [facility] [address] [place], [place] [address] Phosphorus (06/07/2019 8:29 AM ASSOCIATE PROFESSOR OF ENGLISH)Only the most recent of10 resultswithin the time period is included. Pathologist Sig nature Phosphorus 3.0 2.5 - 4.5 mg/dL [place] [facility] Specimen Blood Performing Organization Address City/[facility]/Zipcode Phone Number [facility] [address] [place], [place] [address] Magnesium (06/07/2019 8:29 AM ASSOCIATE PROFESSOR OF ENGLISH)Only the most recent of10 resultswithin the time period is included. Pathologist Sig nature Magnesium 1.8 1.5 - 3.0 mg/dL [facility] LABORATORY Specimen Blood Performing Organization Address City/[facility] Phone Number [facility] [address] [place], [place] [address] Comprehensive metabolic panel (06/07/2019 8:29 AM ASSOCIATE PROFESSOR OF ENGLISH)Only the most recent of2 resultswithin the time period is included. Protein, Total 6.5 6.0 - 8.5 [place] gm/dL LAB[facility] Albumin 3.4 (L) 3.5 - 5.0 [place] g/dL [facility] Alkaline 123 (H) 30 - 115 U/L [place] Phosphatase LABORATORY Total Bilirubin 0.4 0.1 - 1.2 [place] mg/dL LAB[facility] Sodium 142 135 - 148 [place] meq/L LAB[facility] Potassium 3.7 3.6 - 5.5 [place] meq/L [facility] Chloride 109 (H) 98 - 106 [place] meq/L [facility] CO2 23 20 - 29 [place] meq/L [facility] BUN 20 10 - 26 [place] mg/dL [facility] Creatinine 1.48 (H) 0.50 - 1.20 [place] mg/dL [facility] Glucose 82 70 - 110 [place] mg/dL LAB[facility]ORY Calcium 9.1 8.5 - 10.5 [place] mg/dL LAB[facility]ORY AST 22 5 - 40 U/L [place] [facility] ALT 33 5 - 50 U/L [place] [facility] EGFR Comment: [place] INSUFFICIENT LAB[facility]ATORY CLINICAL DATA TO CALCULATE ESTIMATED GFR. Specimen Blood Performing Organization Address City/[facility]/Zipcode Phone Number [facility] [address] [place], [place] [address] CBC (Hemogram only) (06/06/2019 5:41 AM ASSOCIATE PROFESSOR OF ENGLISH)Only the most recent of3 results within the time period is included. Pathologist Sig nature WBC 4.7 4.0 - 10.0 K/L [facility] LABORATORY RBC 2.87 (L) 4.00 - 5.00 M/L [facility] LAB[facility] Hemoglobin 8.3 (L) 12.0 - 15.5 GM/DL [facility] Hematocrit 25.5 (L) 36.0 - 46.0 % [facility] MCV 88.9 82.0 - 99.0 fL [facility] MCH 28.9 27.0 - 33.0 pg [facility] MCHC 32.5 32.0 - 36.0 GM/DL [facility] RDW 13.2 12.0 - 15.0 % [facility] Platelets 241 150 - 430 K/CU MM [facility] MPV 10.9 6.0 - 11.5 fL [facility] nRBC 0 0 - 0 /100 WBC [facility] Specimen Blood Performing Organization Address City/[facility] Phone Number [facility] [address] [place], [place] [address] Hepatic function panel (06/06/2019 5:41 AM ASSOCIATE PROFESSOR OF ENGLISH)Only the most recent of8 results within the time period is included. Pathologist Sig nature Protein, Total 4.7 (L) 6.0 - 8.5 gm/dL [facility] Albumin 2.5 (L) 3.5 - 5.0 g/dL [facility] Total Bilirubin 0.3 0.1 - 1.2 mg/dL [facility] Bilirubin, Direct 0.3 0.0 - 0.4 mg/dL [facility] Alkaline Phosphatase 91 30 - 115 U/L [facility] AST 17 5 - 40 U/L [facility] ALT 29 5 - 50 U/L [facility] Specimen Blood Performing Organization Address City/[facility] Phone Number [facility] [address] [place], [place] [address] Basic Metabolic Panel (06/06/2019 5:41 AM ASSOCIATE PROFESSOR OF ENGLISH)Only the most recent of12 results within the time period is included. Sodium 144 135 - 148 [facility] meq/L LABORATORY Potassium 2.8 (L) 3.6 - 5.5 [facility] meq/L LABORATORY Chloride 116 (H) 98 - 106 meq/L [facility] CO2 21 20 - 29 meq/L [facility] LABOR[facility]ORY BUN 18 10 - 26 mg/dL [facility] Creatinine 0.98 0.50 - 1.20 [facility] mg/dL [facility] Glucose 156 (H) 70 - 110 mg/dL [facility] LABOR[facility]ORY Calcium 6.9 (L) 8.5 - 10.5 [place] mg/dL LAB[facility]ATORY EGFR Comment: INSUFFICIENT [facility] CLINICAL DATA TO LABORATORY CALCULATE ESTIMATED GFR. Specimen Blood Performing Organization Address City/State/Zipcode Phone Number [facility] [address] [place], [place] [address] ECHOCARDIOGRAM REPORT - SCAN (06/04/2019 9:22 PM ASSOCIATE PROFESSOR OF ENGLISH) Narrative Performed At This result has an attachment that is no t available. Tissue Exam (06/03/2019 9:23 AM ASSOCIATE PROFESSOR OF ENGLISH) Case Report Surgical Pathology Report Case: [id number] [facility] Authorizing Provider: Ramesh Adkins, Collected: 06/03/2019 0923 LABORATORY MD Ordering Location: [facility] Med Surg 5th Floor Received: 06/03/2019 1311 Pathologist: Lilian Arce MD Specimen: Gallbladder DIAGNOSIS GALLBLADDER, CHOLECYSTECTOMY: [facility] Electronically - CHRONIC CHOLECYSTITIS LABORATORY si gned by Claude, - CHOLELITHIASIS Lilian kent MD on 06/04/2019 at Signing Pathologist Direct Phone Line: 11:09 AM CPT Code(s) MG/ew [facility] [id number] LABORATORY CLINICAL HISTORY Gallstones [facility] SPECIMEN SOURCE Gallbladder [facility] GROSS DESCRIPTION Specimen is received [facility] without fixative and LABORATORY designated as "gallbladder", consists of a pink-gupta cholecystectomy specimen (6.5 x 3.5 x 3.0 cm). The gallbladder is filled with yellow-brown viscous bile and contains a few gallstones and gallstone fragments ranging in size from 0.5 to 0.7 cm in greatest dimension. The gallbladder mucosa is gupta and velvety with no discrete lesions identified. [employer] sections of the gallbladder mucosa and cystic duct are submitted into A1. MG/ew MICROSCOPIC Performed [facility] DESCRIPTION LABORATORY Gross assessment [facility] [place] was performed at [facility], Department LABORATORY of Pathology, [address] [place] [id number], Technical [facility] was [facility] [place], LABORATORY performed at Department of Pathology, [address] [place] [id number], [facility] [place] component was Hospital, Department LABORATORY performed at of Pathology, [address] [facility], [place] [address], Specimen Tissue - Gallbladder structure (body str ucture) Narrative Performed At This result has an attachment that is no t available. Performing Organization Address City/State/Zipcode Phone Number [facility] LABORATORY [address] [facility], [place] [address] CT abdomen/pelvis without iv contrast (05/31/2019 9:51 AM ASSOCIATE PROFESSOR OF ENGLISH)Only the most recent of2 resultswithin the time period is included. Specimen Narrative Performed At FINAL REPORT [facility] abdomen and pelvis without contrast History: Duodenal perforation Comparison: 05/27/2019 Technique: serial axial imaging was perf ormed without intravenous contrast as per departmental protocol. Multiplanar images are reconstructed and reviewed when indicate d. This CT examination is performed using o ne or more of the following dose reduction techniques: Automated exposure control, adjustment o f the mA and /or kV according to patient size, and/or use of iterative reconstruction technique. Findings: Evaluation limited by lack of intravenou s contrast. Interval placement of nasogastric tube, which terminates within the stomach. Again seen is significant right-sided pe ritoneal and retroperitoneal free air, with modest decrease from prio r examination. Again seen is pneumobilia, without gallb ladder wall thickening, pericholecystic fluid, or calcified gall stone. This is suggestive of recent sphincterotomy. Grossly unremarkable appearance of unenh anced liver, pancreas, spleen, and adrenal glands. No urinary calculus. No hydronephrosis . Leon catheter decompresses the bladder. No small or large bowel obstruction is d emonstrated. Contrast opacifies the entire colon as well as po rtions of the distal small bowel. No contrast extravasation is seen . No findings to indicate acute appendicitis. No free fluid or adenopathy. No aggressive osseous lesion. Impression: 1. The degree of right-sided peritoneal and retroperitoneal free air has modestly decreased from prior examin ation. 2. No extravasation of gastrointestinal tract contrast. Signed: Ant Mcclellan MD Report Verified Date/Time: 05/31/2019 10:15:21 Reading Location: [facility] Reading Room - [facility] F1 1129 Procedure Note Interface, External Ris In - 05/31/2019 10:17 AM ASSOCIATE PROFESSOR OF ENGLISH FINAL REPORT CT abdomen and pelvis without contrast History: Duodenal perforation Comparison: 05/27/2019 Technique: serial axial imaging was perf ormed without intravenous contrast as per departmental protocol. Multiplanar images are reconstructed and reviewed when indicate d. This CT examination is performed using o ne or more of the following dose reduction techniques: Automated exposure control, adjustment o f the mA and /or kV according to patient size, and/or use of iterative reconstruction technique. Findings: Evaluation limited by lack of intravenou s contrast. Interval placement of nasogastric tube, which terminates within the stomach. Again seen is significant right-sided pe ritoneal and retroperitoneal free air, with modest decrease from prio r examination. Again seen is pneumobilia, without gallb ladder wall thickening, pericholecystic fluid, or calcified gall stone. This is suggestive of recent sphincterotomy. Grossly unremarkable appearance of unenh anced liver, pancreas, spleen, and adrenal glands. No urinary calculus. No hydronephrosis. Leon catheter decompresses the bladder. No small or large bowel obstruction is d emonstrated. Contrast opacifies the entire colon as well as po rtions of the distal small bowel. No contrast extravasation is seen . No findings to indicate acute appendicitis. No free fluid or adenopathy. No aggressive osseous lesion. Impression: 1. The degree of right-sided peritoneal and retroperitoneal free air has modestly decreased from prior examin ation. 2. No extravasation of gastrointestinal tract contrast. Signed: Ant Mcclellan MD Report Verified Date/Time: 05/31/2019 1 0:15:21 Reading Location: [facility] Diagnostic Imagin g Reading Room - [facility] F1 1129 Performing Organization Address City/State/Zipcode Phone Number [facility] XR chest 1 view portable / bedside (05/30/2019 6:11 AM ASSOCIATE PROFESSOR OF ENGLISH) Specimen Narrative Performed At FINAL REPORT [facility] History: History of perforated viscus. Comparison: 09/03/2017 Findings: A single view of the chest is submitted. There is lucency at the inferior heart b order which may reflect free air under the diaphragm or pneumopericar dium. The cardiac silhouette is at the upper limits of normal for siz e but magnified by portable technique. Sternotomy wires are in place . The right hemidiaphragm is elevated. Patchy retrocardiac opacity in the left lung may reflect atelectasis but pneumonitis should be excluded clini lm. There is no acute bony abnormality. An enteric tube traverses examination to the upper abdomen. A right PICC line is in place. Signed: Virgilio Leggett MD Report Verified Date/Time: 05/30/2019 07:00:06 Procedure Note Interface, External Ris In - 05/30/2019 7:02 AM ASSOCIATE PROFESSOR OF ENGLISH FINAL REPORT History: History of perforated viscus. Comparison: 09/03/2017 Findings: A single view of the chest is submitted. There is lucency at the inferior heart b order which may reflect free air under the diaphragm or pneumopericar dium. The cardiac silhouette is at the upper limits of normal for siz e but magnified by portable technique. Sternotomy wires are in place . The right hemidiaphragm is elevated. Patchy retrocardiac opacity in the left lung may reflect atelectasis but pneumonitis should be excluded clini lm. There is no acute bony abnormality. An enteric tube traverses examination to the upper abdomen. A right PICC line is in place. Signed: Virgilio Leggett MD Report Verified Date/Time: 05/30/2019 0 7:00:06 Performing Organization Address City/State/Zipcode Phone Number [facility] XR abdomen / KUB 1 view (05/30/2019 6:11 AM ASSOCIATE PROFESSOR OF ENGLISH)Only the most recent of4 resultswithin the time period is included. Specimen Narrative Performed At FINAL REPORT [facility] CLINICAL HISTORY: Perforation of viscus COMPARISON: 05/29/2019 FINDINGS: 3 supine views of the abdomen are submit lanre. There is redemonstrated patchy free air overlying the right abdomen and epigastrium, similar to previous. Rosemary cency extends to the lower midline of the chest, possibly under the diaphragm or extending into the mediastinum/pericardial space. An enteric tube tip overlies the left up per quadrant. The abdominal bowel gas pattern is nonsp ecific. Signed: Virgilio Leggett MD Report Verified Date/Time: 05/30/2019 07:02:16 Procedure Note Interface, External Ris In - 05/30/2019 7:04 AM ASSOCIATE PROFESSOR OF ENGLISH FINAL REPORT CLINICAL HISTORY: Perforation of viscus COMPARISON: 05/29/2019 FINDINGS: 3 supine views of the abdomen are submit lanre. There is redemonstrated patchy free air overlying the right abdomen and epigastrium, similar to previous. Rosemary cency extends to the lower midline of the chest, possibly under the diaphragm or extending into the mediastinum/pericardial space. An enteric tube tip overlies the left up per quadrant. The abdominal bowel gas pattern is nonsp ecific. Signed: Virgilio Leggett MD Report Verified Date/Time: 05/30/2019 0 7:02:16 Performing Organization Address City/[facility]/Zipcode Phone Number [facility] Lipase (05/29/2019 5:25 AM ASSOCIATE PROFESSOR OF ENGLISH)Only the most recent of2 resultswithin the time period is included. Pathologist Sig nature Lipase 23 6 - 51 U/L [place] [facility] Specimen Blood Performing Organization Address [facility] Phone Number [facility] [address] [place], [place] [address] Amylase (05/29/2019 5:25 AM ASSOCIATE PROFESSOR OF ENGLISH)Only the most recent of5 resultswithin the time period is included. Pathologist Sig nature Amylase 36 30 - 110 U/L [place] [facility] Specimen Blood Performing Organization Address City/[facility]/Zipcode Phone Number [facility] [address] [place], [place] [address] IR PICC line placement older than 5 yrs (05/28/2019 10:55 AM ASSOCIATE PROFESSOR OF ENGLISH) Specimen Narrative Performed At FINAL REPORT [facility] PROCEDURE: PICC Placement CLINICAL HISTORY: long termed TPN MACHINE STRIPPER CUTTER: Lucas Interiano DO, JD ANESTHESIA: Local lidocaine. DEVICE: 5 Sinhala dual lumen power PICC DOSE INFORMATION - Ka,r: 17 mGy Estimated Blood Loss: < 5cc Samples: None. PROCEDURE: The risks, benefits, and alte rnatives to the procedure were discussed with the patient. All q uestions were answered and written informed consent was obtained. A universal timeout was performed prior to starting the procedur e. For Prevention of Central Venous Catheter (CVC)-Related Bloodstrea m Infections all elements of maximal sterile barrier technique, hand hygiene, skin preparation and sterile techniques were followed. Ultrasound of the right basilic vein dem onstrated a patent and compressible vessel. An ultrasound image of the vessel was obtained. After local anesthesia lidocaine, the ve in was accessed with a micropuncture needle under sonographic g uidance. Access needle was exchanged for a peel-away sheath over a 0.018-inch marking wire, which was used to measure appropriate ca theter length. The PICC was cut to length and inserted through the s shu into the right atrium. After confirming proper placement of the catheter tip in the right atrium under fluoroscopy with contrast i njection, the peel-away sheath was removed. The lumen(s) aspirat ed blood briskly and was flushed. Catheter was secured with a Sta tLock adhesive device and covered with a sterile dressing. The pat ient tolerated the procedure well without immediate complication and was transported back to the floor in stable condition. IMPRESSION: Successful placement of right basilic PI CC. Catheter is ready for immediate use. Signed: Lucas Interiano MD Report Verified Date/Time: 05/28/2019 10:47:21 Reading Location: [facility] Procedure Note Interface, External Ris In - 05/28/2019 10:58 AM ASSOCIATE PROFESSOR OF ENGLISH FINAL REPORT PROCEDURE: PICC Placement CLINICAL HISTORY: long termed TPN MACHINE STRIPPER CUTTER: Lucas Interiano DO, JD ANESTHESIA: Local lidocaine. DEVICE: 5 Sinhala dual lumen power PICC DOSE INFORMATION - Ka,r: 17 mGy Estimated Blood Loss: < 5cc Samples: None. PROCEDURE: The risks, benefits, and alte rnatives to the procedure were discussed with the patient. All qu estions were answered and written informed consent was obtained. A universal timeout was performed prior to starting the procedur e. For Prevention of Central Venous Catheter (CVC)-Related Bloodstrea m Infections all elements of maximal sterile barrier technique, hand hygiene, skin preparation and sterile techniques were followed. Ultrasound of the right basilic vein dem onstrated a patent and compressible vessel. An ultrasound image of the vessel was obtained. After local anesthesia lidocaine, the ve in was accessed with a micropuncture needle under sonographic g uidance. Access needle was exchanged for a peel-away sheath over a 0.018-inch marking wire, which was used to measure appropriate ca theter length. The PICC was cut to length and inserted through the s shu into the right atrium. After confirming proper placement of the catheter tip in the right atrium under fluoroscopy with contrast i njection, the peel-away sheath was removed. The lumen(s) aspirat ed blood briskly and was flushed. Catheter was secured with a Sta tLock adhesive device and covered with a sterile dressing. The pat ient tolerated the procedure well without immediate complication and was transported back to the floor in stable condition. IMPRESSION: Successful placement of right basilic PI CC. Catheter is ready for immediate use. Signed: Lucas Interiano MD Report Verified Date/Time: 05/28/2019 1 0:47:21 Reading Location: [facility] Performing Organization Address City/[facility]/Zipcode Phone Number [facility] Hemoglobin and hematocrit (05/27/2019 4:58 PM ASSOCIATE PROFESSOR OF ENGLISH) Pathologist [facility] nature Hemoglobin 12.0 12.0 - 15.5 GM/DL [place] Hematocrit 38.1 36.0 - 46.0 % [facility] Specimen Blood Performing Organization Address City/[facility]/Zipcode Phone Number [facility] [address] [place], [place] [address] [place] Endoscopic Retrograde Cholangiopancreatography (05/27/2019 10:33 AM ASSOCIATE PROFESSOR OF ENGLISH) Specimen Narrative Performed At FINAL REPORT [facility] ERCP, 05/27/2019 Clinical History: ERCP. Impression: Intraoperative images are obtained. The radiologist is not present during the procedure. Fluoroscopy was no t performed by the undersigned. Images are presented for interpretation at the completion of the procedure. There is contrast opacification of the common bile duct. Please refer to the pr ocedure report for more details. See fluoroscopic images for flu oroscopic dose information. Signed: Anastacio Osei MD Report Verified Date/Time: 05/27/2019 14:17:28 Reading Location: [facility] Radiology Readin Room Procedure Note Interface, External Ris In - 05/27/2019 2:19 PM ASSOCIATE PROFESSOR OF ENGLISH FINAL REPORT ERCP, 05/27/2019 Clinical History: ERCP. Impression: Intraoperative images are obtained. The radiologist is not present during the procedure. Fluoroscopy was no t performed by the undersigned. Images are presented for i nterpretation at the completion of the procedure. There is c ontrast opacification of the common bile duct. Please refer to the pr ocedure report for more details. See fluoroscopic images for flu oroscopic dose information. Signed: Anastacio Osei MD Report Verified Date/Time: 05/27/2019 1 4:17:28 Reading Location: [facility] Performing Organization Address City/State/Zipcode Phone Number RIS PT/aPTT (05/27/2019 5:05 AM ASSOCIATE PROFESSOR OF ENGLISH) Pathologist Sig nature Protime 14.0 (H) 9.3 - 12.0 sec [facility] LABORATORY INR 1.3 <=5.9 [facility] LABORATORY PTT 26.2 23.0 - 35.0 sec [facility] 2001 LABORATORY Specimen Blood Narrative Performed At RECOMMENDED COUMADIN/WARFARIN INR THERAP Y RANGES [facility] [employer] LABORATORY STANDARD DOSE: 2.0 - 3.0 Includes: PROPHYLAXIS for venous thrombosis, systemic embolization; TREATMENT for venou s thrombosis and/or pulmonary embolus. HIGH RISK: Target INR is 2.5-3.5 for patients with mec hanical heart valves. Final Information (Auto Output) Final Information (Auto Output) Final Information (Auto Output) Performing Organization Address City/State/Zipcode Phone Number [facility] [address] [place], [place] [address] Vancomycin level, trough (05/27/2019 5:05 AM ASSOCIATE PROFESSOR OF ENGLISH) Pathologist Sig nature Vancomycin Tr 1.8 (L) 10.0 - 20.0 ug/mL [facility] Specimen Blood Performing Organization Address City/State/Zipcode Phone Number [facility] [address] [place], [place] [address] CTA carotid (05/25/2019 11:10 PM ASSOCIATE PROFESSOR OF ENGLISH) Specimen Narrative Performed At FINAL REPORT [employer] [facility] EXAM: CT, CAROTID, ANGIO, CT, CTANGIO BRAIN CLINICAL INDICATION: Neuro deficit. Abno rmal MRA. TECHNIQUE: Helical CT of the head withou t IV contrast. Postcontrast CTA of the head and CTA of the neck with IV contrast. Multiplanar reconstructed images. 3D reconstructions with MIP images were performed. This exam was performed accor ding to our departmental dose-optimization program, which include s automated exposure control, adjustment of the mA and/or kV according to patient size and/or use of iterative reconstruction technique. COMPARISON: 05/25/2019 MRA FINDINGS: CT HEAD: Parenchyma: No acute infarction. Remote left thalamic lacunar infarction. No hemorrhage. No mass or ma ss effect. Patchy areas of hypoattenuation are present in the cereb ral white matter that are nonspecific but compatible with mild chr onic microvascular ischemic changes. Extra-axial Collection: None Ventricular System: Normal Dural Venous Sinuses: Normal Osseous Structures: Normal Paranasal Sinuses: Predominantly clear Tympanomastoid Cavities: Normal Other: None CTA HEAD: Anterior Circulation: Right intracranial internal carotid krishan ry (ICA): Moderate atherosclerotic narrowing of the caverno us and supraclinoid segments. Right anterior cerebral artery (PRAVEENA): No rmal Right middle cerebral artery (MCA): Norm al Left intracranial internal carotid arter y (ICA): Moderate atherosclerotic narrowing of the caverno us and supraclinoid segments. Left anterior cerebral artery (PRAVEENA): Nor mal Left middle cerebral artery (MCA): Bekah l Anterior communicating artery (AComm): P resent Posterior communicating arteries (PComm) : Not well-visualized bilaterally. Posterior Circulation: Right posterior cerebral artery (SVP OF DIGITAL): N ormal Left posterior cerebral artery (SVP OF DIGITAL): No rmal Right vertebral artery (VA): Normal Left vertebral artery (VA): Normal Basilar artery (BA): Normal Other: Normal Dural Venous Sinuses: Normal CTA NECK: Aortic arch and proximal great vessels: There are atherosclerotic changes resulting in mild narrowing of t he left subclavian origin. Right carotid arterial system: Mild (<50 %) internal carotid artery narrowing bifurcation. Left carotid arterial system: Atheroscle rotic calcifications with mild narrowing at the origin of the comm on carotid artery. There is a stent extending from the mid common esteban tid artery to the mid ICA. Lumen is patent. Right vertebral artery: Normal Left vertebral artery: Moderate atherosc lerotic narrowing at the origin with patent flow distally. Where applicable, evaluation of internal carotid artery (ICA) stenosis was performed using NASCET-like criteria, where the site of greatest stenosis is compared to the giana meter of the ICA distal to the stenosis at a point where the ICA wa lls become parallel. Neck Soft Tissues: Unremarkable. Osseous Structures: Unremarkable. Included Lung Apices: Unremarkable. IMPRESSION: 1. No acute intracranial abnormality. 2. Left extracranial carotid stent accou nts for abnormality on MRA of the neck. No acute vascular abnormality or flow-limiting stenosis on CTA of the head and neck. Multifocal mod erate atherosclerotic narrowing, as described. Signed: María Crum MD Report Verified Date/Time: 05/26/2019 00:09:22 Procedure Note Interface, External Ris In - 05/26/2019 12:12 AM ASSOCIATE PROFESSOR OF ENGLISH FINAL REPORT EXAM: CT, CAROTID, ANGIO, CT, CTANGIO B [facility] CLINICAL INDICATION: Neuro deficit. Abno rmal MRA. TECHNIQUE: Helical CT of the head withou t IV contrast. Postcontrast CTA of the head and CTA of the neck with IV contrast. Multiplanar reconstructed images. 3D reconstructions with MIP images were performed. This exam was performed accor ding to our departmental dose-optimization program, which include s automated exposure control, adjustment of the mA and/or kV according to patient size and/or use of iterative reconstruction technique. COMPARISON: 05/25/2019 MRA FINDINGS: CT HEAD: Parenchyma: No acute infarction. Remote left thalamic lacunar infarction. No hemorrhage. No mass or ma ss effect. Patchy areas of hypoattenuation are present in the cereb ral white matter that are nonspecific but compatible with mild chr onic microvascular ischemic changes. Extra-axial Collection: None Ventricular System: Normal Dural Venous Sinuses: Normal Osseous Structures: Normal Paranasal Sinuses: Predominantly clear Tympanomastoid Cavities: Normal Other: None CTA HEAD: Anterior Circulation: Right intracranial internal carotid krishan ry (ICA): Moderate atherosclerotic narrowing of the caverno us and supraclinoid segments. Right anterior cerebral artery (PRAVEENA): No rmal Right middle cerebral artery (MCA): Norm al Left intracranial internal carotid arter y (ICA): Moderate atherosclerotic narrowing of the caverno us and supraclinoid segments. Left anterior cerebral artery (PRAVEENA): Nor mal Left middle cerebral artery (MCA): Bekah l Anterior communicating artery (AComm): P resent Posterior communicating arteries (PComm) : Not well-visualized bilaterally. Posterior Circulation: Right posterior cerebral artery (SVP OF DIGITAL): N ormal Left posterior cerebral artery (SVP OF DIGITAL): No rmal Right vertebral artery (VA): Normal Left vertebral artery (VA): Normal Basilar artery (BA): Normal Other: Normal Dural Venous Sinuses: Normal CTA NECK: Aortic arch and proximal great vessels: There are atherosclerotic changes resulting in mild narrowing of t he left subclavian origin. Right carotid arterial system: Mild (<50 %) internal carotid artery narrowing bifurcation. Left carotid arterial system: Atheroscle rotic calcifications with mild narrowing at the origin of the comm on carotid artery. There is a stent extending from the mid common esteban tid artery to the mid ICA. Lumen is patent. Right vertebral artery: Normal Left vertebral artery: Moderate atherosc lerotic narrowing at the origin with patent flow distally. Where applicable, evaluation of internal carotid artery (ICA) stenosis was performed using NASCET-like criteria, where the site of greatest stenosis is compared to the giana meter of the ICA distal to the stenosis at a point where the ICA wa lls become parallel. Neck Soft Tissues: Unremarkable. Osseous Structures: Unremarkable. Included Lung Apices: Unremarkable. IMPRESSION: 1. No acute intracranial abnormality. 2. Left extracranial carotid stent accou nts for abnormality on MRA of the neck. No acute vascular abnormality or flow-limiting stenosis on CTA of the head and neck. Multifocal mod erate atherosclerotic narrowing, as described. Signed: María Crum MD Report Verified Date/Time: 05/26/2019 0 0:09:22 Performing Organization Address City/State/Zipcode Phone Number [facility] CTA brain (05/25/2019 11:10 PM ASSOCIATE PROFESSOR OF ENGLISH) Specimen Narrative Performed At FINAL REPORT [facility] EXAM: CT, CAROTID, ANGIO, CT, CTANGIO BRAIN CLINICAL INDICATION: Neuro deficit. Abno rmal MRA. TECHNIQUE: Helical CT of the head withou t IV contrast. Postcontrast CTA of the head and CTA of the neck with IV contrast. Multiplanar reconstructed images. 3D reconstructions with MIP images were performed. This exam was performed accor ding to our departmental dose-optimization program, which include s automated exposure control, adjustment of the mA and/or kV according to patient size and/or use of iterative reconstruction technique. COMPARISON: 05/25/2019 MRA FINDINGS: CT HEAD: Parenchyma: No acute infarction. Remote left thalamic lacunar infarction. No hemorrhage. No mass or ma ss effect. Patchy areas of hypoattenuation are present in the cereb ral white matter that are nonspecific but compatible with mild chr onic microvascular ischemic changes. Extra-axial Collection: None Ventricular System: Normal Dural Venous Sinuses: Normal Osseous Structures: Normal Paranasal Sinuses: Predominantly clear Tympanomastoid Cavities: Normal Other: None CTA HEAD: Anterior Circulation: Right intracranial internal carotid krishan ry (ICA): Moderate atherosclerotic narrowing of the caverno us and supraclinoid segments. Right anterior cerebral artery (PRAVEENA): No rmal Right middle cerebral artery (MCA): Norm al Left intracranial internal carotid arter y (ICA): Moderate atherosclerotic narrowing of the caverno us and supraclinoid segments. Left anterior cerebral artery (PRAVEENA): Nor mal Left middle cerebral artery (MCA): Bekah l Anterior communicating artery (AComm): P resent Posterior communicating arteries (PComm) : Not well-visualized bilaterally. Posterior Circulation: Right posterior cerebral artery (SVP OF DIGITAL): N ormal Left posterior cerebral artery (SVP OF DIGITAL): No rmal Right vertebral artery (VA): Normal Left vertebral artery (VA): Normal Basilar artery (BA): Normal Other: Normal Dural Venous Sinuses: Normal CTA NECK: Aortic arch and proximal great vessels: There are atherosclerotic changes resulting in mild narrowing of t he left subclavian origin. Right carotid arterial system: Mild (<50 %) internal carotid artery narrowing bifurcation. Left carotid arterial system: Atheroscle rotic calcifications with mild narrowing at the origin of the comm on carotid artery. There is a stent extending from the mid common esteban tid artery to the mid ICA. Lumen is patent. Right vertebral artery: Normal Left vertebral artery: Moderate atherosc lerotic narrowing at the origin with patent flow distally. Where applicable, evaluation of internal carotid artery (ICA) stenosis was performed using NASCET-like criteria, where the site of greatest stenosis is compared to the giana meter of the ICA distal to the stenosis at a point where the ICA wa lls become parallel. Neck Soft Tissues: Unremarkable. Osseous Structures: Unremarkable. Included Lung Apices: Unremarkable. IMPRESSION: 1. No acute intracranial abnormality. 2. Left extracranial carotid stent accou nts for abnormality on MRA of the neck. No acute vascular abnormality or flow-limiting stenosis on CTA of the head and neck. Multifocal mod erate atherosclerotic narrowing, as described. Signed: María Crum MD Report Verified Date/Time: 05/26/2019 00:09:22 Procedure Note Interface, External Ris In - 05/26/2019 12:12 AM ASSOCIATE PROFESSOR OF ENGLISH FINAL REPORT EXAM: CT, CAROTID, ANGIO, CT, CTANGIO B RAIN CLINICAL INDICATION: Neuro deficit. Abno rmal MRA. TECHNIQUE: Helical CT of the head withou t IV contrast. Postcontrast CTA of the head and CTA of the neck with IV contrast. Multiplanar reconstructed images. 3D reconstructions with MIP images were performed. This exam was performed accor ding to our departmental dose-optimization program, which include s automated exposure control, adjustment of the mA and/or kV according to patient size and/or use of iterative reconstruction technique. COMPARISON: 05/25/2019 MRA FINDINGS: CT HEAD: Parenchyma: No acute infarction. Remote left thalamic lacunar infarction. No hemorrhage. No mass or ma ss effect. Patchy areas of hypoattenuation are present in the cereb ral white matter that are nonspecific but compatible with mild chr onic microvascular ischemic changes. Extra-axial Collection: None Ventricular System: Normal Dural Venous Sinuses: Normal Osseous Structures: Normal Paranasal Sinuses: Predominantly clear Tympanomastoid Cavities: Normal Other: None CTA HEAD: Anterior Circulation: Right intracranial internal carotid krishan ry (ICA): Moderate atherosclerotic narrowing of the caverno us and supraclinoid segments. Right anterior cerebral artery (PRAVEENA): No rmal Right middle cerebral artery (MCA): Norm al Left intracranial internal carotid arter y (ICA): Moderate atherosclerotic narrowing of the caverno us and supraclinoid segments. Left anterior cerebral artery (PRAVEENA): Nor mal Left middle cerebral artery (MCA): Bekah l Anterior communicating artery (AComm): P resent Posterior communicating arteries (PComm) : Not well-visualized bilaterally. Posterior Circulation: Right posterior cerebral artery (SVP OF DIGITAL): N ormal Left posterior cerebral artery (SVP OF DIGITAL): No rmal Right vertebral artery (VA): Normal Left vertebral artery (VA): Normal Basilar artery (BA): Normal Other: Normal Dural Venous Sinuses: Normal CTA NECK: Aortic arch and proximal great vessels: There are atherosclerotic changes resulting in mild narrowing of t he left subclavian origin. Right carotid arterial system: Mild (<50 %) internal carotid artery narrowing bifurcation. Left carotid arterial system: Atheroscle rotic calcifications with mild narrowing at the origin of the comm on carotid artery. There is a stent extending from the mid common esteban tid artery to the mid ICA. Lumen is patent. Right vertebral artery: Normal Left vertebral artery: Moderate atherosc lerotic narrowing at the origin with patent flow distally. Where applicable, evaluation of internal carotid artery (ICA) stenosis was performed using NASCET-like criteria, where the site of greatest stenosis is compared to the giana meter of the ICA distal to the stenosis at a point where the ICA wa lls become parallel. Neck Soft Tissues: Unremarkable. Osseous Structures: Unremarkable. Included Lung Apices: Unremarkable. IMPRESSION: 1. No acute intracranial abnormality. 2. Left extracranial carotid stent accou nts for abnormality on MRA of the neck. No acute vascular abnormality or flow-limiting stenosis on CTA of the head and neck. Multifocal mod erate atherosclerotic narrowing, as described. Signed: Maraí Crum MD Report Verified Date/Time: 05/26/2019 0 0:09:22 Performing Organization Address City/State/Zipcode Phone Number RIS ECHO W CONTRAST & DOPPLER (05/25/2019 2:30 PM ASSOCIATE PROFESSOR OF ENGLISH) Pathologist Sig nature Ejection Fraction [facility] ECHO HEARTLAB [facility] Specimen Narrative Performed At Transthoracic Echocardiography Report (T TE) [facility] ECHO HEARTLAB [facility] Demographics Patient Name NEFF, ISIDRA Date of Study 05/25/2019 BONI Gender Female Visit Number [id number] Race Unknown Room Number A515 Number Date of 1950 Referring Physician Santhosh Ji Age 69 year(s) Damascener LIZETT Dickerson Interpreting Disha Arteaga MD. Physician Procedure Type of Study TTE procedure:2DECHO W/CONTRAST & DOPPLER (Routine) Indications:Suspected cardiac source of emboli. Clinical History CAD, DM, HTN, STROKE, ARTHRITIS. Height: 60 inches Weight: 80.74 kg (178 lbs) BSA: 1.78 m^2 BMI: 34.76 kg/m^2 HR: 70 bpm BP: 163/73 mmHg Summary Normal LV systolic function with an estimated LVEF of 60-64%. Grade 1 diastolic dysfunction. There is aortic valve sclerosis without evidence of stenosis. Moderate posterior mitral annular calcification with encroachment onto the posterior mitral valve leaflet. No evidence of pulmonary hypertension; estimated PA systolic pressure of 27 mm Hg, assuming an RA pressure of 3 mm Hg. No pericardial effusion. No previous study to compare from. When compared to the previous study dated; 08/30/2017, there are no significant differences. Signature Findings Left Ventricle The left ventricle is normal in size, wall thickness, and contractility. The visual ejection fraction was estimated 60-64 %. Grade 1 diastolic dysfunction (impaired relaxati on and low-normal LA pressure). Left Atrium The left atrium is not well visualized. The left atrium appears normal. Right Ventricle The right ventricular chamber size and systolic function are within normal limits. Right Atrium RA size is normal. Aortic Valve There is aortic valve sclerosis without evidence of sten osis. There is no aortic regurgitation. Mitral Valve Moderate posterior mitral annular calcification with encroachment onto the posterior mitral v alve leaf let. Tricuspid Valve TV structure is normal. A trace of tricuspid regurgitation. Estimated peak systolic PA pressure is 27 mmHg . Pulmonic Valve No evidence of pulmonary regurgitation. Aorta Aortic root size (SInus of Valsalva diameter) is norm al . Pericardium No pericardial effusion is visualized. IVC/SVC/PA/PV/Pleural The inferior vena cava size is normal . Chambers/Structures Left Atrium LA Dimension: 2.71 cm Left Ventricle LVIDd: 3.67 cm LVEDV:57.03 m l LVIDs: 2.54 cm LVESV:23.2 ml LV Septum Diastolic: 1.38 cm LV Septum Systolic: 1.97 cm LV PW Diastolic: 1.47 cm LV FS: 30.8 % LV PW Systolic: 1.42 cm LVOT Diameter: 1.69 cm LVEF: 59.3 % Right Atrium RA Systolic Pressure: 10 mmHg Right Ventricle RV Systolic Pressure: 25. 92 mmHg Aorta Ao Root S of An.: 2.39 cm Doppler/Quantitative Measurements Mitral Valve MV Peak E-Wave: 0.8 m/s MV Peak A-Wave: 1.21 m/s P1/2t: 65.5 msec E/A Ratio: 0.67 Peak Velocity: 1.21 m/s Peak Gradient: 2.59 mmHg Mean Velocity: 0.8 m/s Deceleration Time: 226.7 msec Mean Gradient: 2.86 mmHg Area (continuity): 1.44 cm^2 MV Area (PHT): 3.36 cm^2 MV VTI: 29.19 cm MV Scott. Peak: Aortic Valve Peak Velocity: 1.25 m/s Mean Velocity: 0.85 m/s Peak Gradient: 6.25 mmHg Mean Gradient: 3.14 mmHg AV Area (continuity): 1.66 cm^2 AV VTI: 25.37 cm Cusp Separation: 1.7 cm AV DVI: 0.74 LVOT Peak Velocity: 0.97 m/s Peak Gradient: 3.77 mmHg Mean Velocity: 0.71 m/s Mean Gradient: 2.2 mmHg LVOT Diameter: 1.69 cm LVOT VTI: 18.79 cm LVOT Area: 2.24 cm^2 LVOT SV:42.13 ml LVOT CO: 2.95 l/min LVOT CI: 1.66 l/min/m^2 Tricuspid Valve Estimated RVSP: 26.43 mmHg Estimated RAP: 10 mmHg TR Velocity: 1.99 m/s TR Gradient: 15.92 mmHg Pulmonic Valve Peak Velocity: 1.15 m/s Peak Gradient: 5.33 mmHg Mean Velocity: 0.74 m/s Mean Gradient: 2.18 mmHg Estimated PASP: 25.92 mmHg Procedure Note Interface, External Ris In - 06/04/2019 1:17 PM ASSOCIATE PROFESSOR OF ENGLISH Transthoracic Echocardiography Report (TTE) Demographics Patient Name ISIDRA NEFF Date of S derrick 05/25/2019 BONI Gender Female Visit Number [id number] Race Unknown Room Numb er A515 Number Date of 1950 Referring Physician Santhosh Ji Age 69 year(s) Sonograph er Nina Vasquez [facility] Interpret ing Disha Arteaga MD. Physician Procedure Type of Study TTE procedure:2DECHO W/CONTRA ST & DOPPLER (Routine) Indications:Suspected cardiac source of emboli. Clinical History CAD, DM, HTN, STROKE, ARTHRITIS. Height: 60 inches Weight: 80.74 kg (178 lbs) BSA: 1.78 m^2 BMI: 34.76 kg/m^2 HR: 70 bpm BP: 163/73 mmHg Summary Normal LV systolic function with an est imated LVEF of 60-64%. Grade 1 diastolic dysfunction. There is aortic valve sclerosis without evidence of stenosis. Moderate posterior mitral annular calci fication with encroachment onto the posterior mitral valve leaflet. No evidence of pulmonary hypertension; estimated PA systolic pressure of 27 mm Hg, assuming an RA pressure of 3 mm Hg. No pericardial effusion. No previous study to compare from. When compared to the previous study zack ed; 08/30/2017, there are no significant differences. Signature Findings Left Ventricle The left ventric le is normal in size, wall thickness, and c ontractility. The visual eject ion fraction was estimated 60-64 %. Grade 1 diastoli c dysfunction (impaired relaxation and low-normal L A pressure). Left Atrium The left atrium is not well visualized. The left atrium appears normal. Right Ventricle The right ventri cular chamber size and systolic function are wit hin normal limits. Right Atrium RA size is bekah l. Aortic Valve There is aortic valve sclerosis without evidence of stenosis. There is no aort ic regurgitation. Mitral Valve Moderate posteri or mitral annular calcification with encroachmen t onto the posterior mitral valve leaflet. Tricuspid Valve TV structure is normal. A trace of tricu spid regurgitation. Estimated peak s ystolic PA pressure is 27 mmHg . Pulmonic Valve No evidence of p ulmonary regurgitation. Aorta Aortic root size (SInus of Valsalva diameter) is normal . Pericardium No pericardial e ffusion is visualized. IVC/SVC/PA/PV/Pleural The inferior larry a cava size is normal . Chambers/Structures Left Atrium LA Dimension: 2.71 cm Left Ventricle LVIDd: 3.67 cm LVEDV:57.03 ml LVIDs: 2.54 cm LVESV:23.2 ml LV Septum Diastolic: 1.38 cm LV Septum Systolic: 1.97 cm LV PW Diastolic: 1.47 cm LV FS: 30.8 % LV PW Systolic: 1.42 cm LVOT Diameter: 1.69 cm LVEF: 59.3 % Right Atrium RA Systolic Pressure: 10 mmHg Right Ventricle RV Systolic Pressure: 25.92 mm Hg Aorta Ao Root S of An.: 2.39 cm Doppler/Quantitative Measurements Mitral Valve MV Peak E-Wave: 0.8 m/s MV Pe ak A-Wave: 1.21 m/s P1/2t: 65.5 msec E/A R atio: 0.67 Peak Velocity: 1.21 m/s Peak Gradient: 2.59 mmHg Mean Velocity: 0.8 m/s Decel eration Time: 226.7 msec Mean Gradient: 2.86 mmHg Area (continuity): 1.44 cm^2 MV Area (PHT): 3.36 cm^2 MV VT I: 29.19 cm MV Scott. Peak: Aortic Valve Peak Velocity: 1.25 m/s Mean Velocity: 0.85 m/s Peak Gradient: 6.25 mmHg Mean Gradient: 3.14 mmHg AV Area (continuity): 1.66 cm^2 AV VTI: 25.37 cm Cusp Separation: 1.7 cm AV DVI: 0.74 LVOT Peak Velocity: 0.97 m/s Pea k Gradient: 3.77 mmHg Mean Velocity: 0.71 m/s Caitlin n Gradient: 2.2 mmHg LVOT Diameter: 1.69 cm LVO T VTI: 18.79 cm LVOT Area: 2.24 cm^2 LVO T SV:42.13 ml LVOT CO: 2.95 l/min LVO T CI: 1.66 l/min/m^2 Tricuspid Valve Estimated RVSP: 26.43 mmHg Estimated RAP: 10 mmHg TR Velocity: 1.99 m/s TR Gradient: 15.92 mmHg Pulmonic Valve Peak Velocity: 1.15 m/s Peak Gradient: 5.33 mmHg Mean Velocity: 0.74 m/s Mean Gradient: 2.18 mmHg Estim ated PASP: 25.92 mmHg Performing Organization Address City/State/[facility] Phone Number [facility] MRA neck without IV contrast (05/25/2019 12:43 PM ASSOCIATE PROFESSOR [employer] ENGLISH) Specimen Narrative Performed At FINAL REPORT [facility] MR, MRA, NECK, WITHOUT IV CONTRAST, MR, MRA, BRAIN, WITHOUT CONTRAST INDICATION: Neuro deficit, acute, stroke suspected TECHNIQUE: Multiplanar, multisequence MR images of the brain. 3-D time of flight MRA of the cranial and ce rvical circulation. 2-D time of flight MRA of the neck. 3D MIP angiog raphic post-processing was performed. Stenosis evaluation utilized NASCET criteria. COMPARISON: Noncontrast brain CT of the same date FINDINGS: MRA BRAIN: Internal carotid arteries: Normal flow r elated enhancement without flow-limiting stenosis Middle cerebral arteries: Normal flow re lated enhancement within the bilateral MCA M1-M2 segments without gail w limiting stenosis Anterior cerebral arteries: Normal flow- related enhancement within the bilateral PRAVEENA A1-A2 segments without flow limiting stenosis Basilar system: Normal flow-related enha ncement within the bilateral V4 segments and the basilar artery wit hout flow-limiting stenosis Posterior cerebral arteries: Severe foca l stenosis of the left P2 and P2 three segments with lack of robust fl ow related enhancement in the aforementioned locations. Normal flow-re lated enhancement within the bilateral SVP OF DIGITAL P1-P2 segments without f low-limiting stenosis Additional findings: None. MRA NECK: Common carotid arteries: Lack of flow re lated enhancement within the left cervical common carotid artery and proximal left internal carotid artery with apparent reconstitut ion. Bifurcations: No flow-limiting stenosis on the right. Cervical internal carotid arteries: Lack of normal flow-related enhancement within the proximal left int ernal carotid artery as per above with apparent reconstitution intra cranially. No flow limiting stenosis on the right. Vertebral arteries: Origins are not well -seen. No flow limiting stenosis within the visualized cervical vertebral arterial segments. Limited assessment of the V3 segment sec ondary to noncontrast technique. IMPRESSION: Lack of normal flow-related enhancement within the distal cervical left common carotid artery and proximal left internal carotid artery with apparent reconstitution intracrania lly. It is unclear if this represents occlusion, severe stenosis an d/or vascular dissection. Recommend dedicated contrast enhanced CT angiogram for further evaluation. Signed: Howie Jurado MD Report Verified Date/Time: 05/25/2019 13:00:10 Reading Location: [address] Procedure Note Interface, External Ris In - 05/25/2019 1:02 PM ASSOCIATE PROFESSOR [employer] ENGLISH FINAL REPORT MR, MRA, NECK, WITHOUT IV CONTRAST, MR, MRA, BRAIN, WITHOUT CONTRAST INDICATION: Neuro deficit, acute, stroke suspected TECHNIQUE: Multiplanar, multisequence MR images of the brain. 3-D time of flight MRA of the cranial and ce rvical circulation. 2-D time of flight MRA of the neck. 3D MIP angiog raphic post-processing was performed. Stenosis evaluation utilized NASCET criteria. COMPARISON: Noncontrast brain CT of the same date FINDINGS: MRA BRAIN: Internal carotid arteries: Normal flow r elated enhancement without flow-limiting stenosis Middle cerebral arteries: Normal flow re lated enhancement within the bilateral MCA M1-M2 segments without gail w limiting stenosis Anterior cerebral arteries: Normal flow- related enhancement within the bilateral PRAVEENA A1-A2 segments without flow limiting stenosis Basilar system: Normal flow-related enha ncement within the bilateral V4 segments and the basilar artery with out flow-limiting stenosis Posterior cerebral arteries: Severe foca l stenosis of the left P2 and P2 three segments with lack of robust fl ow related enhancement in the aforementioned locations. Normal flow-re lated enhancement within the bilateral SVP OF DIGITAL P1-P2 segments without fl ow-limiting stenosis Additional findings: None. MRA NECK: Common carotid arteries: Lack of flow re lated enhancement within the left cervical common carotid artery and proximal left internal carotid artery with apparent reconstitut ion. Bifurcations: No flow-limiting stenosis on the right. Cervical internal carotid arteries: Lack of normal flow-related enhancement within the proximal left int ernal carotid artery as per above with apparent reconstitution intra cranially. No flow limiting stenosis on the right. Vertebral arteries: Origins are not well -seen. No flow limiting stenosis within the visualized cervical vertebral arterial segments. Limited assessment of the V3 segment sec ondary to noncontrast technique. IMPRESSION: Lack of normal flow-related enhancement within the distal cervical left common carotid artery and proximal left internal carotid artery with apparent reconstitution intracrania lly. It is unclear if this represents occlusion, severe stenosis an d/or vascular dissection. Recommend dedicated contrast enhanced CT angiogram for further evaluation. Signed: Howie Jurado MD Report Verified Date/Time: 05/25/2019 1 3:00:10 Reading Location: [facility] [id number] [facility] Performing Organization Address City/State/Zipcode Phone Number [employer] RIS MRA head without IV contrast (05/25/2019 12:43 PM ASSOCIATE PROFESSOR OF ENGLISH) Specimen Narrative Performed At FINAL REPORT [employer] RIS MR, MRA, NECK, WITHOUT IV CONTRAST, MR, MRA, BRAIN, WITHOUT CONTRAST INDICATION: Neuro deficit, acute, stroke suspected TECHNIQUE: Multiplanar, multisequence MR images of the brain. 3-D time of flight MRA of the cranial and ce rvical circulation. 2-D time of flight MRA of the neck. 3D MIP angiog raphic post-processing was performed. Stenosis evaluation utilized NASCET criteria. COMPARISON: Noncontrast brain CT of the same date FINDINGS: MRA BRAIN: Internal carotid arteries: Normal flow r elated enhancement without flow-limiting stenosis Middle cerebral arteries: Normal flow re lated enhancement within the bilateral MCA M1-M2 segments without gail w limiting stenosis Anterior cerebral arteries: Normal flow- related enhancement within the bilateral PRAVEENA A1-A2 segments without flow limiting stenosis Basilar system: Normal flow-related enha ncement within the bilateral V4 segments and the basilar artery wit hout flow-limiting stenosis Posterior cerebral arteries: Severe foca l stenosis of the left P2 and P2 three segments with lack of robust fl ow related enhancement in the aforementioned locations. Normal flow-re lated enhancement within the bilateral SVP OF DIGITAL P1-P2 segments without f low-limiting stenosis Additional findings: None. MRA NECK: Common carotid arteries: Lack of flow re lated enhancement within the left cervical common carotid artery and proximal left internal carotid artery with apparent reconstitut ion. Bifurcations: No flow-limiting stenosis on the right. Cervical internal carotid arteries: Lack of normal flow-related enhancement within the proximal left int ernal carotid artery as per above with apparent reconstitution intra cranially. No flow limiting stenosis on the right. Vertebral arteries: Origins are not well -seen. No flow limiting stenosis within the visualized cervical vertebral arterial segments. Limited assessment of the V3 segment sec ondary to noncontrast technique. IMPRESSION: Lack of normal flow-related enhancement within the distal cervical left common carotid artery and proximal left internal carotid artery with apparent reconstitution intracrania lly. It is unclear if this represents occlusion, severe stenosis an d/or vascular dissection. Recommend dedicated contrast enhanced CT angiogram for further evaluation. Signed: Howie Jurado MD Report Verified Date/Time: 05/25/2019 13:00:10 Reading Location: [address] Procedure Note Interface, External Ris In - 05/25/2019 1:02 PM ASSOCIATE PROFESSOR OF ENGLISH FINAL REPORT MR, MRA, NECK, WITHOUT IV CONTRAST, MR, MRA, BRAIN, WITHOUT CONTRAST INDICATION: Neuro deficit, acute, stroke suspected TECHNIQUE: Multiplanar, multisequence MR images of the brain. 3-D time of flight MRA of the cranial and ce rvical circulation. 2-D time of flight MRA of the neck. 3D MIP angiog raphic post-processing was performed. Stenosis evaluation utilized NASCET criteria. COMPARISON: Noncontrast brain CT of the same date FINDINGS: MRA BRAIN: Internal carotid arteries: Normal flow r elated enhancement without flow-limiting stenosis Middle cerebral arteries: Normal flow re lated enhancement within the bilateral MCA M1-M2 segments without gail w limiting stenosis Anterior cerebral arteries: Normal flow- related enhancement within the bilateral PRAVEENA A1-A2 segments without flow limiting stenosis Basilar system: Normal flow-related enha ncement within the bilateral V4 segments and the basilar artery with out flow-limiting stenosis Posterior cerebral arteries: Severe foca l stenosis of the left P2 and P2 three segments with lack of robust fl ow related enhancement in the aforementioned locations. Normal flow-re lated enhancement within the bilateral SVP OF DIGITAL P1-P2 segments without fl ow-limiting stenosis Additional findings: None. MRA NECK: Common carotid arteries: Lack of flow re lated enhancement within the left cervical common carotid artery and proximal left internal carotid artery with apparent reconstitut ion. Bifurcations: No flow-limiting stenosis on the right. Cervical internal carotid arteries: Lack of normal flow-related enhancement within the proximal left int ernal carotid artery as per above with apparent reconstitution intra cranially. No flow limiting stenosis on the right. Vertebral arteries: Origins are not well -seen. No flow limiting stenosis within the visualized cervical vertebral arterial segments. Limited assessment of the V3 segment sec ondary to noncontrast technique. IMPRESSION: Lack of normal flow-related enhancement within the distal cervical left common carotid artery and proximal left internal carotid artery with apparent reconstitution intracrania lly. It is unclear if this represents occlusion, severe stenosis an d/or vascular dissection. Recommend dedicated contrast enhanced CT angiogram for further evaluation. Signed: Howie Jurado MD Report Verified Date/Time: 05/25/2019 1 3:00:10 Reading Location: [facility] [address] [place] [address] Performing Organization Address City/State/Zipcode Phone Number [facility] MR brain without IV contrast (05/25/2019 12:20 PM ASSOCIATE PROFESSOR OF ENGLISH) Specimen Narrative Performed At FINAL REPORT [facility] MR, BRAIN, WITHOUT CONTRAST INDICATION: Ataxia, stroke suspected Neuro deficit, acute, stroke suspected TECHNIQUE: Multiplanar, multisequence MR imaging of the brain was obtained. COMPARISON: None FINDINGS: Brain parenchyma is normal in morphology . Midline structures are normally developed. No restricted diffus ion to suggest recent ischemic insult. No abnormal susceptibil ity. Scattered T2/FLAIR hyperintense foci wit hin the periventricular and subcortical white matter are nonspecific , however, statistically represent chronic microvascular ischemic changes. No hydrocephalus. Orbits are within normal limits. No obstructive paranasal sinus disease. IMPRESSION: Unremarkable MRI of the brain. Signed: Howie Jurado MD Report Verified Date/Time: 05/25/2019 12:23:49 Reading Location: [address] Room Procedure Note Interface, External Ris In - 05/25/2019 12:25 PM ASSOCIATE PROFESSOR [employer] ENGLISH FINAL REPORT MR, BRAIN, WITHOUT CONTRAST INDICATION: Ataxia, stroke suspected Neuro deficit, acute, stroke suspected TECHNIQUE: Multiplanar, multisequence MR imaging of the brain was obtained. COMPARISON: None FINDINGS: Brain parenchyma is normal in morphology . Midline structures are normally developed. No restricted diffus ion to suggest recent ischemic insult. No abnormal susceptibil ity. Scattered T2/FLAIR hyperintense foci wit hin the periventricular and subcortical white matter are nonspecific , however, statistically represent chronic microvascular ischemic changes. No hydrocephalus. Orbits are within normal limits. No obstructive paranasal sinus disease. IMPRESSION: Unremarkable MRI of the brain. Signed: Howie Jurado MD Report Verified Date/Time: 05/25/2019 1 2:23:49 Reading Location: [facility] [address] [place] [address] Room Performing Organization Address City/State/Zipcode Phone Number [facility] CT upper extremity without contrast right (05/25/2019 10:38 AM ASSOCIATE PROFESSOR OF ENGLISH) Specimen Narrative Performed At FINAL REPORT [facility] CT OF THE RIGHT SHOULDER HISTORY: Right shoulder pain COMPARISONS: No comparison right shoulde r imaging TECHNIQUE: CT of the right shoulder was performed without contrast. Axial images were generated as were mult iplanar reformatted images in the coronal and sagittal planes. The exa mination was performed to conform to our departmental dose optimiz ation program which includes automated exposure control, adjustment o f the mA and/or kV according to patient size and/or use of iterative reconstruction techniques. FINDINGS: No fracture or dislocation are identifie d in the right shoulder. No degenerative or erosive changes are v isualized in the glenohumeral joint. Mild/moderate acromioclavicular joint os teoarthritis. Subacromial enthesophyte. There is increased attenuation in the duffy bcutaneous fat posterior to the posterior deltoid musculature. If th ere was acute trauma, this could represent subcutaneous hemorrhage. Alternatively, this could represent subcutaneous edema related to cellulitis. No well-defined fluid collection is visualized on this n oncontrast examination. No soft tissue gas or radiopaque foreign fredi dy are visualized. No intramuscular fluid collection is oralia ntified. IMPRESSION: 1. No fracture or acute bony abnormality identified in the right shoulder. 2. Nonspecific increased attenuation in the subcutaneous fat posterior to the deltoid musculature, he morrhage versus inflammatory change. No intramuscular fluid collectio n is identified. Signed: Vanda Canales MD Report Verified Date/Time: 05/25/2019 10:58:05 Reading Location: [address] Reading Room Procedure Note Interface, External Ris In - 05/25/2019 11:01 AM ASSOCIATE PROFESSOR [employer] ENGLISH FINAL REPORT CT OF THE RIGHT SHOULDER HISTORY: Right shoulder pain COMPARISONS: No comparison right shoulde r imaging TECHNIQUE: CT of the right shoulder was performed without contrast. Axial images were generated as were mult iplanar reformatted images in the coronal and sagittal planes. The exa mination was performed to conform to our departmental dose optimiz ation program which includes automated exposure control, adjustment o f the mA and/or kV according to patient size and/or use of iterative reconstruction techniques. FINDINGS: No fracture or dislocation are identifie d in the right shoulder. No degenerative or erosive changes are v isualized in the glenohumeral joint. Mild/moderate acromioclavicular joint os teoarthritis. Subacromial enthesophyte. There is increased attenuation in the duffy bcutaneous fat posterior to the posterior deltoid musculature. If th ere was acute trauma, this could represent subcutaneous hemorrhage. Alternatively, this could represent subcutaneous edema related to cellulitis. No well-defined fluid collection is visualized on this n oncontrast examination. No soft tissue gas or radiopaque foreign fredi dy are visualized. No intramuscular fluid collection is oralia ntified. IMPRESSION: 1. No fracture or acute bony abnormality identified in the right shoulder. 2. Nonspecific increased attenuation in the subcutaneous fat posterior to the deltoid musculature, he morrhage versus inflammatory change. No intramuscular fluid collectio n is identified. Signed: Vanda Canales MD Report Verified Date/Time: 05/25/2019 1 0:58:05 Reading Location: [facility] [address] [place] [address] Reading Room Performing Organization Address City/[facility] Phone Number [facility] TSH/Free T4 If Indicated (05/25/2019 5:45 AM ASSOCIATE PROFESSOR OF ENGLISH) Pathologist Sig nature TSH 2.37 0.35 - 5.50 uIU/mL [facility] Specimen Blood Performing Organization Address City/[facility] Phone Number [facility] [address] [facility] [place] [address] [phone] Hemoglobin A1c (05/25/2019 5:45 AM ASSOCIATE PROFESSOR OF ENGLISH) Pathologist Sig [facility] Hemoglobin A1C 6.9 (H) 4.3 - 6.1 % [facility] Specimen Blood Performing Organization Address [facility] Phone Number [facility] [address] [place] [address] [phone] Lipid panel (05/25/2019 5:45 AM ASSOCIATE PROFESSOR OF ENGLISH) Pathologist Sig nature Triglycerides 213 mg/dL [facility] Cholesterol 192 mg/dL [facility] HDL 34 mg/dL [facility] LDL Calculated 115 mg/dL [facility] Specimen Blood Narrative Performed At Triglyceride Reference Range: [facility] Low Risk <150 Borderline 150-199 High Risk 200-499 Very High Risk >=500 Cholesterol Reference Range: Low Risk <200 Borderline 200-239 High Risk >240 HDL Cholesterol Reference Range: Low Risk >=60 High Risk <40 LDL Cholesterol Reference Range: Optimal <100 Near Optimal 100-129 Borderline 130-159 High 160-189 Very High >=190 Performing Organization Address City/[facility] Phone Number [facility] [phone] brain without IV contrast (05/25/2019 12:17 AM ASSOCIATE PROFESSOR OF ENGLISH) Specimen Narrative Performed At FINAL REPORT [facility] EXAM: CT, BRAIN, WITHOUT CONTRAST CLINICAL INDICATION: Neuro deficit kristal rn for stroke. TECHNIQUE: CT images from skull base t o vertex without IV contrast. This exam was performed according to the departmental dose optimization program which includes auto mated exposure control, adjustment of the mA and/or kV according to the patient size, and/or use of an iterative reconstruction techn ique. COMPARISON: None. FINDINGS: Parenchyma: No evidence of acute infarct ion. Remote left thalamic lacunar infarction. No hemorrhage. No ma ss or mass effect. Patchy areas of hypoattenuation are present in the cerebral white matter and geraldine that are nonspecific but compatible with mild chronic microvascular ischemic changes. Extra-axial Collection: None Ventricular System: Normal Osseous Structures: No acute osseous a bnormality. Included Orbits: Prior bilateral lens duffy rgery. Paranasal Sinuses: Predominantly clear Tympanomastoid Cavities: Normal Other: None IMPRESSION: 1. No CT evidence of an acute osseous ab normality. 2. Remote left thalamic lacunar infarcti on and background of mild chronic white matter ischemic changes. If there is persistent clinical concern for intracranial pathology, MR examination is recommended for furthe r characterization. Signed: María Crum MD Report Verified Date/Time: 05/25/2019 00:43:10 Procedure Note Interface, External Ris In - 05/25/2019 12:45 AM ASSOCIATE PROFESSOR [employer] ENGLISH FINAL REPORT EXAM: CT, BRAIN, WITHOUT CONTRAST CLINICAL INDICATION: Neuro deficit kristal rn for stroke. TECHNIQUE: CT images from skull base to vertex without IV contrast. This exam was performed according to the departmental dose optimization program which includes auto mated exposure control, adjustment of the mA and/or kV according to the patient size, and/or use of an iterative reconstruction techn ique. COMPARISON: None. FINDINGS: Parenchyma: No evidence of acute infarct ion. Remote left thalamic lacunar infarction. No hemorrhage. No ma ss or mass effect. Patchy areas of hypoattenuation are present in the cerebral white matter and geraldine that are nonspecific but compatible with mild chronic microvascular ischemic changes. Extra-axial Collection: None Ventricular System: Normal Osseous Structures: No acute osseous ab normality. Included Orbits: Prior bilateral lens duffy rgery. Paranasal Sinuses: Predominantly clear Tympanomastoid Cavities: Normal Other: None IMPRESSION: 1. No CT evidence of an acute osseous ab normality. 2. Remote left thalamic lacunar infarcti on and background of mild chronic white matter ischemic changes. If there is persistent clinical concern for intracranial pathology, MR examination is recommended for furthe r characterization. Signed: María Crum MD Report Verified Date/Time: 05/25/2019 0 0:43:10 Performing Organization Address City/State/Zipcode Phone Number [facility] MR abdomen without IV contrast MRCP (05/24/2019 5:26 PM ASSOCIATE PROFESSOR OF ENGLISH) Specimen Narrative Performed At FINAL REPORT [facility] MRCP, 05/24/2019 Clinical History: Biliary obstruction duffy spected Technique: Multiplanar and multisequence MR images of the biliary system are obtained, with dedicated MRCP protocol and images. No intravenous contrast is administered. In addition, 3 dimensional reformatted images of the biliary system are obtained. Comparison: None Discussion: This examination is not dedicated to marco luating masses or parenchymal abnormalities of the abdominal organs. There are several stones in the dependen t gallbladder lumen extending to the gallbladder neck. The transverse dimension of the gallbladder lumen measures 4.9 cm. There is no peric holecystic fluid or stranding. There are several stones in the mid to d istal common bile duct. No intrahepatic or extrahepatic biliary coco praneeth dilatation is noted; the common bile duct measures up to 7 mm. The liver parenchyma is normal. There is no pancreatic ductal dilatation . The pancreatic parenchyma is normal. The adrenal glands, visualized bowel and mesentery are unremarkable. There is mild prominence of the right re nal collecting system without visualized obstructing stone or lesion. This could be a chronic appearance. 5 mm cyst in the anterior le ft renal midpole. There is a 1.6 cm cyst in the inferior s plenic parenchyma. There is bibasilar atelectasis. The iliana ent has undergone previous sternotomy. Impression: Cholelithiasis. If there is a persistent clinical question of cholecystitis further evaluation with he patobiliary nuclear medicine imaging can be performed. Several nonobstructing stones in the com mon bile duct. There is no biliary ductal dilatation. ERCP or intra operative cholangiogram is recommended. Mild prominence of the right renal colle cting system without identified cause of obstruction. This ca n be a chronic appearance. If there is concern for johnnie l obstruction further evaluation with nuclear medicine renal s can can be obtained to evaluate for differential function. Signed: Virgilio Leggett MD Report Verified Date/Time: 05/24/2019 21:11:28 Procedure Note Interface, External Ris In - 05/24/2019 9:13 PM ASSOCIATE PROFESSOR [employer] ENGLISH FINAL REPORT [facility], 05/24/2019 Clinical History: Biliary obstruction duffy spected Technique: Multiplanar and multisequence MR images of the biliary system are obtained, with dedicated MRCP protocol and images. No intravenous contrast is administered. In addition, 3 dimensional reformatted images of the biliary system are obtained. Comparison: None Discussion: This examination is not dedicated to marco luating masses or parenchymal abnormalities of the abdominal organs. There are several stones in the dependen t gallbladder lumen extending to the gallbladder neck. The transverse dimension of the gallbladder lumen measures 4.9 cm. There is no peric holecystic fluid or stranding. There are several stones in the mid to d istal common bile duct. No intrahepatic or extrahepatic biliary coco praneeth dilatation is noted; the common bile duct measures up to 7 mm. The liver parenchyma is normal. There is no pancreatic ductal dilatation . The pancreatic parenchyma is normal. The adrenal glands, visualized bowel and mesentery are unremarkable. There is mild prominence of the right re nal collecting system without visualized obstructing stone or lesion. This could be a chronic appearance. 5 mm cyst in the anterior le ft renal midpole. There is a 1.6 cm cyst in the inferior s plenic parenchyma. There is bibasilar atelectasis. The iliana ent has undergone previous sternotomy. Impression: Cholelithiasis. If there is a persistent clinical question of cholecystitis further evaluation with he patobiliary nuclear medicine imaging can be performed. Several nonobstructing stones in the com mon bile duct. There is no biliary ductal dilatation. ERCP or intra operative cholangiogram is recommended. Mild prominence of the right renal colle cting system without identified cause of obstruction. This ca n be a chronic appearance. If there is concern for johnnie l obstruction further evaluation with nuclear medicine renal s can can be obtained to evaluate for differential function. Signed: Virgilio Leggett MD Report Verified Date/Time: 05/24/2019 2 1:11:28 Performing Organization Address City/State/Zipcode Phone Number GE RIS after 05/02/2019 Advance Directives For more information, please contact: [phone] Code Status Date Activated Date Inactivated Comments Full Code 05/28/2019 11:32 AM 06/07/2019 10:19 PM This code status was determined by: Patient Full Code 08/29/2017 9:44 PM 09/06/2017 6:12 PM This code status was determined by: Patient
--- OUTSIDE RECORDS SUMMARY | 2020-05-02 15:58 | XMS REPORT | Summary of Care ---
:1950 Author Organization [facility] - Health Address [address] [place] [address] Care Team Providers Name Role Phone Joni Primary Care Provider Encounter Details Date Type Department Care Team Description 04/07/2020 Orders Only [facility] Doctor Unassigned, No [address] [facility] [place] [address] [address] [place] [address] Allergies Active Allergy Reactions Severity Noted Date Comments Atorvastatin Calcium Unknown - See comments 12/07/2016 myalgia documented as of this encounter (statuses as of 04/07/2020) Medications Medication Sig Dispensed Refills Start Date End Date Status nitroglycerin Place 1 Tab under 1 Bottle [...] 0 Active mg capsule mouth at bedtime. aspirin 81 mg EC tablet Take 1 tablet by 0 7 Active mouth daily. topiramate 50 mg tablet Take 50 mg by 0 Active mouth. hydroCHLOROthiazide 12.5 0 10/23/2018 Active mg tablet gabapentin 300 mg 0 09/21/2018 A ctive capsule dextromethorphan Nuedexta 0 Act vaughn Hbr/quinidine (NUEDEXTA ORAL) pantoprazole 40 mg EC pantoprazole 40 0 Active tablet mg tablet,delayed release insulin degludec Tresiba FlexTouch 0 Active (TRESIBA FLEXTOUCH U-100 U-100 SC) losartan 50 mg Take 1 tablet by 30 tablet 2 05/03/2019 Active tabletIndications: mouth daily. Fluctuating blood pressure loratadine/pseudoephedri Take by mouth 0 Active ne (CLARITIN-D 24 HOUR daily. ORAL) carvediloL 25 mg tablet Take 1 tablet by 180 tablet 3 08/26/19 20 Active mouth 2 (two) times daily with meals. isosorbide mononitrate Take 1 tablet by 60 tablet 3 09/10/2019 Active 30 mg 24 hr mouth daily. 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 involving sioux coronary artery of sioux heart with angina pectoris, Chest pain, unspecified type evolocumab (REPATHA inject 140 mg 4 Syringe 3 01/13/2020 Active SURECLICK) 140 mg/mL under the skin PnIjIndications: every 2 (two) Coronary artery disease weeks. involving sioux coronary artery of sioux heart without angina pectoris, Hyperlipidemia, unspecified hyperlipidemia type documented as of this encounter (statuses as of 04/07/2020) Active Problems Problem Noted Date History of stroke 07/14/2015 History of total hysterectomy with bilateral salpingo- oophorectomy (BSO) 07/14/2015 Decreased libido 07/14/2015 Essential hypertension 02/18/2015 HLD (hyperlipidemia) 02/18/2015 Postmenopause 02/18/2015 Diabetes mellitus type 2, uncontrolled, without compli cations 02/18/2015 Overview: ICD10 Diagnosis Term Rn Utilization Management Um Utility Neuropathy 02/18/2015 documented as of this encounter (statuses as of 04/07/2020) Immunizations Name Administration Dates Next Due Influenza High Dose 04/09/2019 documented as of this encounter Social History Tobacco Use Types Packs/Day Years Used Date Former Smoker Smokeless Tobacco: Never Used Alcohol Use Drinks/Week oz/Week Comments No 0 Standard drinks or equivalent 0.0 Sex Assigned at Date Recorded Not on file COVID-19 Exposure Response Date Recorded In the last month, have you been in contact with No / Unsure 03/12/2020 12:09 PM CDT someone who was confirmed or suspected to have Coronavirus / COVID-19? documented as of this encounter Last Filed Vital Signs Not on filedocumented in this encounter Plan of Treatment Date Type Specialty Care Team Description 04/24/2020 Office Visit Vascular Surgery Eddie Cordero MD [address] [place] [address] [phone] Health Maintenance Due Date Last Done Comments HEPATITIS C (HCV) SCREEN 1950 EYE EXAM 1959 DTaP,Tdap,and Td Vaccines (1 - 1968 Tdap) COLON CANCER SCREENING ANNUAL 1999 FIT/FOBT COLON CANCER SCREENING FIT DNA 1999 EVERY 3 YEARS COLON CANCER SCREENING 1999 SIGMOIDOSCOPY EVERY 5 YEARS COLONOSCOPY 1999 Colorectal Cancer Screening 1999 Zoster Recombinant Vaccine 1999 (SHINGRIX) (1 of 2) LUNG CANCER SCREEN: Recommended 2004 for age 55-80 with 30 + pack year history Medicare Wellness Visit 2014 Osteoporosis Screening 2014 PNEUMOCOCCAL VACCINES 65+ (1 of 1 2014 - PPSV23) URINE MICROALBUMIN 03/30/2016 03/30/2015 Breast Cancer Screening 07/16/2016 07/16/2015 (MAMMOGRAM) FOOT EXAM 01/04/2018 01/04/2017, 01/04/2017 HgA1C 06/15/2019 12/14/2018, 01/04/2017, 09/28/2015, Additional history exists INFLUENZA VACCINE (#1) 2020 04/09/2019, 04/23/2017 LDL-C 04/11/2020 04/11/2019, 01/07/2019, 03/30/2015 Depression Screening 08/09/2020 08/09/2019 CREATININE (SERUM) 09/02/2020 09/03/2019, 04/11/2019, 01/07/2019, Additional history exists documented as of this encounter Implants Implanted Type Area Embedded Software Programmer Device Shelf Model / Serial Identifier Expiration / Lot Date Lens LENS Right: Raúl 06/01/2020 [id number] / Implanted: Qty: 1 on 09/24/2015 by Ramesh Martinez MD at [facility] Eye 3 [id number] / [id number] Lens LENS Left: Eye Raúl 08/02/2020 [id number] / Implanted: Qty: 1 on 11/12/2015 by Ramesh Martinez MD at [facility] 1 [id number] / [id number] documented as of this encounter Procedures Procedure Name Priority Date/Time Associated Diagnosis Comme nts EXTERNAL PROVIDER Routine 04/07/2020 12:01 AM CDT RECORDS documented in this encounter Results Not on filedocumented in this encounter Insurance Payer Benefit Plan / Subscriber ID Effective Dates Phone Addre ss Type Group MEDICARE MEDICARE PART [id number] 2014-[employer] [phone] [place] [address] [id number] [place] [id number] documented as of this encounter
--- OUTSIDE RECORDS SUMMARY | 2020-05-02 15:58 | XMS REPORT | Continuity of Care Document ---
:1950 Author Organization [facility] t Address [address] [place] [address] Care Team Providers Name Role Phone Sharpless Primary Care Physician Doctor Unassigned, Name Attending Clinician Unavailable Consuelo MATIAS Attending Clinician Margy Trevizo MD Attending Clinician Leah Jacome MD Attending Clinician Michael De La Rosa MD Attending Clinician Jc MATIAS, BKendrick Attending Clinician MARGY TREVIZO Attending Clinician Unavailable Yue BAEZA Attending Clinician Unavailable LYRIC PALMA Attending Clinician Unavailable MARGY TREVIZO Admitting Clinician Unavailable LYRIC PALMA Admitting Clinician Unavailable Payers Payer Name Policy Type Policy Effective Date Expiration Date Sour ce Number MEDICAREMEDICARE A [id number] 2014 ARVIND Lombardo [id number] 2014- 00:00:00 - Medical Present[facility]icare [facility] Problems Condition Condition Condition Status Onset Resolution Last Treating Co mments Source Name Details Category Date Date Treatment Clinician Date Choledocho Choledocho Disease Active 2018-[address] lithiasis lithiasis 07-24 Luke s - 00:00: Medical 00 [place] Common Common Disease Active 2018-07 Overview: [facility] bile duct bile duct - Added Luke s - (CBD) (CBD) 00:00: automatic Medical obstructio obstructio 00 ally from Center n n request for surgery [id number] S/P S/P Disease Active [facility] coronary coronary 307 [facility] - artery artery 00:00: Medical bypass bypass 00 Center graft x 3 graft x 3 Respirator Respirator Disease Active [facility] y y 3 [facility] - insufficie insufficie 00:00: Me dical ncy ncy 00 [place] DM2 DM2 Disease Active [facility] (diabetes (diabetes 3 [facility] - mellitus, mellitus, 00:00: Medi parker type 2) type 2) 00 Center HTN HTN Disease Active [facility] (hypertens (hypertens 3- Rosemary kes - ion) ion) 00:00: Medical 00 [place] HLD HLD Disease Active [facility] (hyperlipi (hyperlipi 3 [facility]mary kes - demia) demia) 00:00: Medical 00 [place] H/O: CVA H/O: CVA Disease Active [facility] (cerebrova (cerebrova 3- Rosemary kes - scular scular 00:00: Medical accident) accident) 00 Cent er Coronary Coronary Disease Active [facility] artery artery 2 [facility] - disease disease 00:00: Medical 00 Center Allergies, Adverse Reactions, Alerts This patient has no known allergies or adverse reactions. Family History Family Member Diagnosis Comments Start Date Stop Date Source Natural brother Heart disease [facility] Natural brother Stroke [facility] Natural mother Diabetes [facility] Natural mother Heart disease [facility] Natural mother Hypertension [facility] Natural sister Heart disease [facility] Social History Social Habit Start Date Stop Date Quantity Comments Source Sex Assigned At [facility] Tobacco use and 2019-06-04 2019-06-[address] [facility] - exposure 00:00:00 00:00:00 Medical Center Alcohol intake 2019-06-04 2019-06-[address] [facility] - 00:00:00 00:00:00 non-drinker of Medical Ce nter alcohol (finding) Smoking Status Start Date Stop Date Source Never [facility] Medications Ordered Filled Start Stop Current Ordering Indication Dosage Frequency Signature Comments Components Source Medication Medication Date Date Medication? Clinician (SIG) Name Name temazepam 2018-07 Yes 30mg Take [address] [facility] (RESTORIL) 2-06 by mouth [facility] - 30 mg 20:19: every Medical capsule 53 night as Center needed for Sleep. folic acid 2018-07 Yes 1mg QD Take [address] (FOLVITE) 1 2-06 by mouth Luke s - MG tablet 20:19: daily. Medica l 53 [place] atorvastati 2018-07 Yes 20mg QD Take [address] [facility] n (LIPITOR) 2-06 by mouth Luke s - 20 MG 20:19: daily. Medical tablet 53 Center ezetimibe 2018-07 Yes 10mg QD Take [address] (ZETIA) 10 2-06 by mouth [facility]ukes - mg tablet 20:19: daily. Medica l 53 [place] dexlansopra 2018-07 Yes 60mg QD Take [address] [facility] zole 60 mg 2-06 by mouth [facility]ukes - capsule 20:19: daily. Medical 53 Center topiramate 2018-07 Yes 50mg QD Take [address] (TOPAMAX) 2-06 by mouth [facility]ukes - 50 MG 20:19: daily. Medical tablet 53 Center aspirin 81 2018-07 Yes 81mg QD Take [address] MG EC 2-06 by mouth [facility]ukes - tablet 20:19: daily. Medical 53 Center gabapentin 2018-07 Yes 300mg QD Take [address] (NEURONTIN) 2-06 mg by Lukes - 300 MG 20:19: mouth Medical capsule 53 daily. [place] carvedilol 2018-07 Yes 25mg Take [address] (COREG) 25 2-06 by mouth 2 Keysha es - MG tablet 20:19: (two) Medical 53 times Center daily with breakfast and dinner. losartan 2018-07 Yes 50mg QD Take [address] [facility] (COZAAR) 50 2-06 by mouth Luke s - MG tablet 20:19: nightly. Medi parker 53 Center insulin 2018-07 Yes 40U QD Inject 40 [facility] degludec 2-06 Units [facility]ukes - (TRESIBA 20:19: subcutaneo Med ical FLEXTOUCH 53 usly Center U-100) 100 nightly. unit/mL (3 mL) InPn insulin 2018-07 Yes 10U Inject 10 [facility] aspart 2-06 Units [facility]ukes - U-100 20:19: subcutaneo Medica l (NOVOLOG) 53 usly 3 Center 100 unit/mL (three) (3 mL) InPn times daily before meals. evolocumab 2018-07 Yes 140mg Inject [address] (REPATHA 2-06 mg Lukes - SURECLICK) 20:19: subcutaneo M edical 140 mg/mL 53 usly once Cente r PnIj every 2 weeks. ALPRAZolam 2018-07 Yes .25mg Take 0.[address] (XANAX) 2-06 mg by [facility] - 0.25 MG 20:19: mouth Medical tablet 53 every Center night as needed for Anxiety. Missing or 2018-07 Yes 20mg QD Take [address] Non-Formula 2-06 by mouth Luke s - ry 20:19: daily. Medical Medication 53 Center traMADol 2018-07- No 50mg Take [address] [facility] (ULTRAM) 50 2-06 12-05 tablet (50 L ukes - mg tablet 00:00: 23:59 mg total) Me dical 00 :00 by mouth Center every 6 (six) hours as needed for Pain. Max Daily Amount: 200 mg traMADol 2018-07- No 50mg Take [address] (ULTRAM) 50 2-06 01-15 tablet (50 L ukes - mg tablet 00:00: 23:59 mg total) Me dical 00 :00 by mouth Center every 6 (six) hours as needed for Pain for up to 40 days. Max Daily Amount: 200 mg fluconazole 2018-07- No 200mg QD Take [address] (DIFLUCAN) 2-06 12-16 tablets [facility]ukes - 100 MG 00:00: 23:59 (200 mg Medical tablet 00 :00 total) by Center mouth daily for 10 days. amoxicillin 2019-1 2019- No 1{tbl} Take [address] -clavulanat 08-08-16 tablet by Rosemary mcdonough 00:00: 23:59 mouth Medical (AUGMENTIN) 00 :00 every 12 Cent er 875-125 mg (twelve) per tablet hours for 10 days. enoxaparin 2018-0 Yes 40mg Q24H Inject 0.[address] (LOVENOX) 3-07 mLs (40 mg Luke s - 40 mg/0.4 00:00: total) Medica l mL Syrg 00 subcutaneo [place] usly daily. insulin 2018-0 Yes 24U QD Inject 24 [facility] S t detemir 3-07 Units [facility] - [facility]/mL 00 usly Center injection nightly. Vital Signs Vital Name Observation Time Observation Value Comments Source Systolic blood 2019-06-07 16:59:00 102 mm[Hg] [facility] Diastolic blood 2019-06-07 16:59:00 60 mm[Hg] [facility] Heart rate 2019-06-07 16:59:00 81 /min [facility] Body temperature 2019-06-07 16:59:00 36.33 Daphnie [facility] Respiratory rate 2019-06-07 16:59:00 18 /min [facility] Oxygen saturation in 2019-06-07 16:59:00 99 /min [facility] Arterial blood by Medical Ce nter Pulse oximetry Body weight 2019-06-05 05:41:00 77.293 kg [facility] BMI 2019-06-05 05:41:00 33.28 kg/m2 [facility] Body height 2019-05-24 04:51:00 152.4 cm [facility] Procedures Procedure Date / Time Performing Clinician Source Performed REPORT OF PROCEDURE - 2019-06-11 10:00:59 Provider, Default [facility] ENDOSCOPY SCAN [facility] RHYTHM STRIP - SCAN 2019-06-11 10:00:57 Provider, Default [facility] RHYTHM STRIP - SCAN 2019-06-11 10:00:56 Provider, Default [facility] CARDIAC CATH REPORT - SCAN 2019-06-11 10:00:51 Scott Crystal [facility] POCT-GLUCOSE METER 2019-06-07 16:58:00 Santhosh [facility] POCT-GLUCOSE METER 2019-06-07 12:55:00 Santhosh [facility] CBC W/PLT COUNT & AUTO 2019-06-07 08:30:00 Ramesh De La Rosa [facility] COMPREHENSIVE METABOLIC 2019-06-07 08:29:00 Ramesh De La Rosa Hilda [facility] MAGNESIUM 2019-06-07 08:29:00 Ramesh De La Rosa [facility] PHOSPHORUS 2019-06-07 08:29:00 Ramesh De La Rosa [facility] POCT-GLUCOSE METER 2019-06-07 08:06:00 Santohsh [facility] POCT-GLUCOSE METER 2019-06-07 06:20:00 Santhosh [facility] POCT-GLUCOSE METER 2019-06-06 23:37:00 Santhosh [facility] BASIC METABOLIC PANEL (7) 2019-06-06 05:41:00 Ramesh De La Rosa [facility] HEPATIC FUNCTION PANEL 2019-06-06 05:41:00 Ramesh De La Rosa [facility] MAGNESIUM 2019-06-06 05:41:00 Ramesh De La Rosa [facility] PHOSPHORUS 2019-06-06 05:41:00 Ramesh De La Rosa [facility] CBC (HEMOGRAM ONLY) 2019-06-06 05:41:00 Ramesh De La Rosa [facility] POCT-GLUCOSE METER 2019-06-06 05:19:00 Santhosh [facility] POCT-GLUCOSE METER 2019-06-06 00:15:00 Santhosh [facility] POCT-GLUCOSE METER 2019-06-05 16:44:00 Santhosh [facility] RHYTHM STRIP - SCAN 2019-06-05 13:41:26 Provider, [facility] POCT-GLUCOSE METER 2019-06-05 10:55:00 Santhosh [facility] BASIC METABOLIC PANEL (7) 2019-06-05 05:39:00 Rj [facility] HEPATIC FUNCTION PANEL 2019-06-05 05:39:00 Ramesh De La Rosa [facility] MAGNESIUM 2019-06-05 05:39:00 Rj [facility] PHOSPHORUS 2019-06-05 05:39:00 Rj [facility] CBC (HEMOGRAM ONLY) 2019-06-05 05:39:00 Rj [facility] POCT-GLUCOSE METER 2019-06-05 05:24:00 Santhosh [facility] POCT-GLUCOSE METER 2019-06-04 23:22:00 [facility] - 2019-06-04 21:22:12 Provider, Scott [facility] POCT-GLUCOSE METER 2019-06-04 16:41:00 [facility] POCT-GLUCOSE METER 2019-06-04 12:06:00 [facility] BASIC METABOLIC PANEL (7) 2019-06-04 06:04:00 RjRamesh [facility] HEPATIC FUNCTION PANEL 2019-06-04 06:04:00 Ramesh De La Rosa [facility] MAGNESIUM 2019-06-04 06:04:00 Ramesh De La Rosa [facility] PHOSPHORUS 2019-06-04 06:04:00 Rj [facility] CBC (HEMOGRAM ONLY) 2019-06-04 06:04:00 Ramesh De La Rosa [facility] POCT-GLUCOSE METER 2019-06-04 04:47:00 Santhosh [facility] POCT-GLUCOSE METER 2019-06-03 23:49:00 [facility]SE [facility]ER 2019-06-03 15:15:00 Santhosh [facility] POCT-GLUCOSE METER 2019-06-03 12:16:00 Santhosh [facility] LAPAROSCOPY,CHOLECYSTECTOM 2019-06-03 10:47:00 Ramesh De La Rosa [facility] ECG 12-LEAD 2019-06-03 09:25:34 Unknown, Hl7 [facility] TISSUE EXAM 2019-06-03 09:23:00 Ramesh De La Rosa [facility] POCT-GLUCOSE METER 2019-06-03 06:55:00 Santhosh [facility] COMPREHENSIVE METABOLIC 2019-06-03 05:43:00 Eliu Vale [facility] MAGNESIUM 2019-06-03 05:43:00 Eliu Vale [facility] PHOSPHORUS 2019-06-03 05:43:00 Kavin Eliu [facility] CBC W/PLT COUNT & AUTO 2019-06-03 05:43:00 Eliu Vale [facility] POCT-GLUCOSE METER 2019-06-03 00:39:00 [facility] POCT-[facility]UCOSE METER 2019-06-02 18:32:00 [facility] POCT-[facility]UCOSE METER 2019-06-02 11:36:00 [facility] POCT-GLUCOSE METER 2019-06-02 05:51:00 [facility] POCT-GLUCOSE METER 2019-06-02 00:49:00 [facility] POCT-GLUCOSE METER 2019-06-01 19:35:00 [facility] POCT-GLUCOSE METER 2019-06-01 18:25:00 [facility] POCT-GLUCOSE METER 2019-06-01 11:55:00 [facility] BASIC METABOLIC PANEL (7) 2019-06-01 05:11:00 Ammy [facility] MAGNESIUM 2019-06-01 05:11:00 Ammy [facility] PHOSPHORUS 2019-06-01 05:11:00 Ammy [facility] CBC W/PLT COUNT & AUTO 2019-06-01 05:11:00 Ammy [facility] POCT-GLUCOSE METER 2019-05-31 20:29:00 [facility] POCT-GLUCOSE METER 2019-05-31 16:28:00 [facility] POCT-GLUCOSE METER 2019-05-31 12:41:[address] [facility] [address] ABDOMEN/PELVIS WITHOUT 2019-05-31 09:51:00 Eliu Vale [facility] POCT-GLUCOSE METER 2019-05-31 06:17:00 [facility] BASIC METABOLIC PANEL (7) 2019-05-31 04:43:00 Ammy Nickie [facility] MAGNESIUM 2019-05-31 04:43:00 Nickie Gimenez [facility] PHOSPHORUS 2019-05-31 04:43:00 Ammy [facility] CBC W/PLT COUNT & AUTO 2019-05-31 04:43:00 Gimenez, Nickie [facility] POCT-GLUCOSE METER 2019-05-30 23:26:00 [facility] POCT-GLUCOSE METER 2019-05-30 18:19:00 [facility] POCT-[facility]UCOSE METER 2019-05-30 11:56:00 [facility]BD[facility]EN / KUB 1 VIEW 2019-05-30 06:11:00 [facility] CHEST 1 [facility] 2019-05-30 06:11:00 [facility] CBC W/PLT COUNT & AUTO 2019-05-30 05:48:00 Ammy [facility] POCT-GLUCOSE METER 2019-05-30 05:17:00 [facility] BASIC METABOLIC PANEL (7) 2019-05-30 05:12:00 Nickie Gimenez [facility] MAGNESIUM 2019-05-30 05:12:00 Ammy [facility] PHOSPHORUS 2019-05-30 05:12:00 [facility]SE [facility] 2019-05-29 23:45:00 [facility] POCT-GLUCOSE METER 2019-05-29 17:59:00 [facility] POCT-GLUCOSE METER 2019-05-29 11:41:00 [facility] BASIC METABOLIC PANEL (7) 2019-05-29 05:25:00 Nickie Gimenez [facility] MAGNESIUM 2019-05-29 05:25:00 Ammy [facility] PHOSPHORUS 2019-05-29 05:25:00 Ammy [facility] AMYLASE 2019-05-29 05:25:00 Gimenez, [facility] LIPASE 2019-05-29 05:25:00 Gimenez, [facility] CBC W/PLT COUNT & AUTO 2019-05-29 05:25:00 GimenezNickie soto [facility] XR ABDOMEN / KUB 1 VIEW 2019-05-29 04:46:00 Ammy [facility] POCT-GLUCOSE METER 2019-05-28 21:29:00 [facility] IR PICC LINE PLACEMENT 2019-05-28 10:55:00 Ammy Nickie [facility] OLDER THAN [facility] BASIC METABOLIC PANEL (7) 2019-05-28 05:49:00 Ammy Nickie [facility] MAGNESIUM 2019-05-28 05:49:00 Ammy [facility] PHOSPHORUS 2019-05-28 05:49:00 Ammy [facility] LIPASE 2019-05-28 05:49:00 Mina Greene [facility] AMYLASE 2019-05-28 05:49:00 Mina Greene [facility] HEPATIC FUNCTION PANEL 2019-05-28 05:49:00 Ramesh De La Rosa [facility] CBC W/PLT COUNT & AUTO 2019-05-28 05:49:00 Ammy Nickie [facility] XR ABDOMEN / KUB 1 VIEW 2019-05-28 01:47:00 Santhosh [facility] CT ABDOMEN/PELVIS WITHOUT 2019-05-27 22:25:00 Mina Greene [facility] POCT-GLUCOSE METER 2019-05-27 20:37:00 Santhosh [facility] XR ABDOMEN / KUB 1 VIEW 2019-05-27 18:30:00 Mina Greene [facility] HEMOGLOBIN AND HEMATOCRIT 2019-05-27 16:58:00 Mina Greene [facility] POCT-GLUCOSE METER 2019-05-27 11:57:00 Santhosh Rainer [facility] [place] ERCP 2019-05-27 10:33:00 Mina Greene [facility] ERCP 2019-05-27 09:48:00 Mina Greene [facility] BASIC METABOLIC PANEL (7) 2019-05-27 05:05:00 Rj [facility] HEPATIC FUNCTION PANEL 2019-05-27 05:05:00 Rj [facility] AMYLASE 2019-05-27 05:05:00 Rj [facility] PT/APTT 2019-05-27 05:05:00 Abdiel Duncan [facility] VANCOMYCIN LEVEL, TROUGH 2019-05-27 05:05:00 Landen Ahumada [facility] CBC W/PLT COUNT & AUTO 2019-05-27 05:05:00 Rj [facility] POCT-GLUCOSE METER 2019-05-27 00:01:00 Santhosh [facility] POCT-GLUCOSE METER 2019-05-26 18:01:00 Santhosh [facility] POCT-GLUCOSE METER 2019-05-26 11:54:00 Santhosh [facility] BASIC METABOLIC PANEL (7) 2019-05-26 05:15:00 Rj [facility] HEPATIC FUNCTION PANEL 2019-05-26 05:15:00 Ramesh De La Rosa [facility] AMYLASE 2019-05-26 05:15:00 Rj [facility] CBC W/PLT COUNT & AUTO 2019-05-26 05:13:00 Rj [facility] CTA BRAIN 2019-05-25 23:10:00 Cameron Fregoso [facility] CT/CTA CAROTID 2019-05-25 23:10:00 Cameron Fregoso [facility] POCT-GLUCOSE METER 2019-05-25 20:05:00 Santhosh [facility] ECHO W CONTRAST & DOPPLER 2019-05-25 14:30:55 Rainer Trevizo I [facility] MRA HEAD WITHOUT IV 2019-05-25 12:43:00 Ángela Zarate I [facility] CONTRAST [facility] MRA NECK WITHOUT IV 2019-05-25 12:43:00 Ángela Zarate I [facility] CONTRAST [facility] MR BRAIN WITHOUT IV 2019-05-25 12:20:00 Ángela Zarate I [facility] CONTRAST [facility] CT UPPER EXTREMITY WITHOUT 2019-05-25 10:38:00 Ángela Zarateal [facility] - IV CONTRAST RIGHT [facility] BASIC METABOLIC PANEL (7) 2019-05-25 05:45:00 Rj, [facility] HEPATIC FUNCTION PANEL 2019-05-25 05:45:00 Ramesh De La Rosa [facility] AMYLASE 2019-05-25 05:45:00 Ramesh De La Rosa [facility] HEMOGLOBIN A1C 2019-05-25 05:45:00 [facility] LIPID PANEL 2019-05-25 05:45:00 [facility] TSH/FREE T4 IF INDICATED 2019-05-25 05:45:00 [facility] CBC W/PLT COUNT & AUTO 2019-05-25 05:45:00 Ramesh De La Rosa [facility] CT BRAIN WITHOUT IV 2019-05-25 00:17:[facility] 2019-05-24 23:55:00 Santhosh [facility] POCT-GLUCOSE METER 2019-05-24 20:31:00 [facility] MR ABDOMEN WO CONTRAST 2019-05-24 17:26:00 Ramesh De La Rosa [facility] POCT-GLUCOSE METER 2019-05-24 16:12:00 [facility] POCT-GLUCOSE METER 2019-05-24 12:37:00 [facility] CBC W/PLT COUNT & AUTO 2019-05-24 11:29:00 Eliu Vale [facility] BASIC METABOLIC PANEL (7) 2019-05-24 08:54:00 Landen Ahumada [facility] HEPATIC FUNCTION PANEL 2019-05-24 08:54:00 Eliu Vale [facility] POCT-GLUCOSE METER 2019-05-24 05:43:00 [facility] Plan of Care Planned Activity Planned Date Details Comments Source Future Scheduled 2020-03-03 INFLUENZA VACCINE (#1) [facility] Test 00:00:00 [code = INFLUENZA Medical Ce nter VACCINE (#1)] Future Scheduled 2019-11-[address] - Test 00:00:00 [facility] Center (procedure) [code = 98545600] Future Scheduled 2015-04-[address] [facility] - Test 00:00:00 WELLNESS (YEAR 2 or Medical Center FIRST YEAR if no IPPE) [code = MEDICARE ANNUAL WELLNESS (YEAR 2 or FIRST YEAR if no IPPE)] Future Scheduled 2014 PNEUMOCOCCAL 65+ YRS [facility] - Test 00:00:00 (1 of 1 - Medical Center [id number]) [code = PNEUMOCOCCAL 65+ YRS (1 of 1 - [id number] PCV13)] Future Scheduled 1959 DIABETIC EYE EXAM [facility] - Test 00:00:00 [code = DIABETIC EYE Medical Center EXAM] Future Scheduled [address] [facility] - Test 00:00:00 examination Medical Center (regime/therapy) [code = 228120830] Future Scheduled 1959 Urine screening for [facility] - Test 00:00:00 protein (procedure) Medical Center [code = 129535651] Future Scheduled 1950 Screening for [facility] St [facility] es - Test 00:00:00 malignant neoplasm of [facility] breast (procedure) [code = 318274959] Future Scheduled [address] [facility] - Test 00:00:00 malignant neoplasm of [facility] colon (procedure) [code = 653018895] Encounters Start End Encounter Admission Attending Care Care Encounter Source Date/Time Date/Time Type Type Clinicians Facility Department ID 2020-04-07 2020-04-07 Orders Doctor PETERS [id number] 00:00:00 00:00:00 Only UnassignedELVIS [id number] [place] [id number] 2020-03-31 2020-03-31 Office [facility] [id number] 11:52:22 12:07:22 Visit Trina Fofana [id number] [place] [id number] [id number] [address] 2020-01-21 2020-01-21 Orders Doctor PETERS [id number] 00:00:00 00:00:00 Only UnassignedELVIS [id number] [id number] [id number] [id number] Results Test Description Test Time Test Comments Results Result Comments Source POC-Glucose meter 2019-06-07 17:10:00 Test Item Value Reference Range Interpretation Comme nts POC-Glucose Meter (test code = 134 mg/dL 70-110 H : TESTED AT [facility] [address]) [facility] [address]: 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 yenny ID = [id number] for Gallo Pop Lab Interpretation (test code = Abnormal 19964-9) [facility] [id number] 17:10:00 Test Item Value Reference Range Interpretation Comments POC-GLUCOSE METER 134 mg/dL 70-110 H : TESTED A T [facility] [address] (BEAKER) (test code [address], = 1538) [facility] 77 [address]: 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 yenny ID = [id number] for Gee Mendez POCT-GLUCOSE [id number] 13:11:00 Test Item Value Reference Range Interpretation Comments POC-GLUCOSE METER 93 mg/dL 70-110 : TESTED A T [facility] [address] (BEAKER) (test code = [address]) [place] [address] 478: 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 yenny ID = [id number] for Gee Mendez Comprehensive metabolic [id number] 08:57:00 Test Item Value Reference Range Interpretation Comments Protein, Total (test 6.5 6.0- 8.5 gm/dL code = 2885-2) Albumin (test code = 3.4 g/dL 3.5-5 L 63266-4) Alkaline Phosphatase 123 U/L 30-115 H (test code = 6768-6) Total Bilirubin (test 0.4 mg/dL 0.1-1.2 code = 1975-2) Sodium (test code = 142 meq/L 219-971 7419-2) Potassium (test code = 3.7 meq/L 3.6-5.5 2823-3) Chloride (test code = 109 meq/L 98-106 H 2075-0) CO2 (test code = 23 meq/L 20-29 2027-9) BUN (test code = 20 mg/dL 10- 3094-0) Creatinine (test code = 1.48 mg/dL 0.5-1.2 H 2160-0) Glucose (test code = 82 mg/dL 70-110 2345-7) Calcium (test code = 9.1 mg/dL 8.5-10.5 07690-6) AST (test code = 22 U/L 5-40 1920-8) ALT (test code = 33 U/L 5-50 1742-6) EGFR (test code = [place] [address]-3) CLINICAL DATA T O CALCULATE ESTIM ATED GFR. Lab Interpretation Abnormal (test code = 35801-2) [facility] [id number] 08:57:00 Test Item Value Reference Range Interpretation Comments TOTAL PROTEIN 6.5 gm/dL 6.0-8.5 (BEAKER) (test code = 770) ALBUMIN (BEAKER) 3.4 g/dL 3.5-5.0 L (test code = 1145) ALKALINE PHOSPHATASE 123 U/L 30-115 H (BEAKER) (test code = 346) BILIRUBIN TOTAL 0.4 mg/dL 0.1-1.2 (BEAKER) (test code = 377) SODIUM (BEAKER) (test 142 meq/L 135-148 code = 381) POTASSIUM (BEAKER) 3.7 meq/L 3.6-5.5 (test code = 379) CHLORIDE (BEAKER) 109 meq/L 98-106 H (test code = 382) CO2 (BEAKER) (test 23 meq/L 20-29 code = 355) BLOOD UREA NITROGEN 20 mg/dL 10-26 (BEAKER) (test code = 354) CREATININE (BEAKER) 1.48 mg/dL 0.50-1.20 H (test code = 358) GLUCOSE RANDOM 82 mg/dL 70-110 (BEAKER) (test code = 652) CALCIUM (BEAKER) 9.1 mg/dL 8.5-10.5 (test code = 697) AST (SGOT) (BEAKER) 22 U/L 5-40 (test code = 353) ALT (SGPT) (BEAKER) 33 U/L 5-50 (test code = 347) EGFR (BEAKER) (test INSUFFIC IENT CLINICAL code = 1092) DATA TO CALCULA TE ESTIMATED GFR. [id number] 08:56:00 Test Item Value Reference Range Interpretation Comments Magnesium (test code = 86649-7) 1.8 mg/dL 1.5-3 Lab Interpretation (test code = Normal 15972-5) [facility] Test Item Value Reference Range Interpretation Comments MAGNESIUM (BEAKER) (test code = 1.8 mg/dL 1.5-3.0 627) [id number] 08:53:00 Test Item Value Reference Range Interpretation Comments Phosphorus (test code = 2777-1) 3.0 mg/dL 2.5-4.5 Lab Interpretation (test code = Normal 82274-7) [facility] 08:53[facility]00 Test Item Value Reference Range Interpretation Comments PHOSPHORUS (BEAKER) (test code = 3.0 mg/dL 2.5-4.5 604) CBC with platelet count + automated [id number] 08:42:00 Test Item Value Reference Range Interpretation Comments WBC (test code = 6690-2) 6.9 4.0- 10.0 K/L RBC (test code = 789-8) 3.72 4.00- 5.00 M/L L MCHC (test code = 786-4) 33.0 32.0- 36.0 GM/DL L Hematocrit (test code = 4544-3) 32.7 % 36-46 L MCV (test code = 787-2) 87.9 fL 82-99 MCH (test code = 785-6) 29.0 pg 27-33 RDW (test code = 788-0) 13.6 % 12-15 Platelets (test code = 777-3) 352 150- 430 K/CU MM MPV (test code = 08268-2) 10.4 fL 6-11.5 nRBC (test code = 413) 0 0- 0 /100 WBC % Neutros (test code = 429) 57 % % Lymphs (test code = 430) 24 % % Monos (test code = 431) 14 % % Eos (test code = 432) 5 % % Baso (test code = 437) 1 % # Neutros (test code = 670) 3.90 1.80- 8.00 K/L # Lymphs (test code = 414) 1.66 1.48- 4.50 K/L # Monos (test code = 415) 0.94 0.00- 1.30 K/L # Eos (test code = 416) 0.32 0.00- 0.50 K/L # Baso (test code = 417) 0.05 0.00- 0.20 K/L Immature Granulocytes-Relative 0 % 0-0 (test code = 2801) Lab Interpretation (test code = Abnormal 55769-9) [facility] W/PLT COUNT & AUTO [id number] 08:42:00 Test Item Value Reference Range Interpretation Comments WHITE BLOOD CELL COUNT (BEAKER) 6.9 K/ L 4.0-10.0 (test code = 775) RED BLOOD CELL COUNT (BEAKER) 3.72 M/ L 4.00-5.00 L (test code = 761) HEMOGLOBIN (BEAKER) (test code = 10.8 GM/DL 12.0-15.5 L 410) HEMATOCRIT (BEAKER) (test code = 32.7 % 36.0-46.0 L 411) MEAN CORPUSCULAR VOLUME (BEAKER) 87.9 fL 82.0-99.0 (test code = 753) MEAN CORPUSCULAR HEMOGLOBIN 29.0 pg 27.0-33.0 (BEAKER) (test code = 751) MEAN CORPUSCULAR HEMOGLOBIN CONC 33.0 GM/DL 32.0-36.0 (BEAKER) (test code = 752) RED CELL DISTRIBUTION WIDTH 13.6 % 12.0-15.0 (BEAKER) (test code = 412) PLATELET COUNT (BEAKER) (test 352 K/CU MM 150-430 code = 756) MEAN PLATELET VOLUME (BEAKER) 10.4 fL 6.0-11.5 (test code = 754) NUCLEATED RED BLOOD CELLS 0 /100 WBC 0-0 (BEAKER) (test code = 413) NEUTROPHILS RELATIVE PERCENT 57 % (BEAKER) (test code = 429) LYMPHOCYTES RELATIVE PERCENT 24 % (BEAKER) (test code = 430) MONOCYTES RELATIVE PERCENT 14 % (BEAKER) (test code = 431) EOSINOPHILS RELATIVE PERCENT 5 % (BEAKER) (test code = 432) BASOPHILS RELATIVE PERCENT 1 % (BEAKER) (test code = 437) NEUTROPHILS ABSOLUTE COUNT 3.90 K/ L 1.80-8.00 (BEAKER) (test code = 670) LYMPHOCYTES ABSOLUTE COUNT 1.66 K/ L 1.48-4.50 (BEAKER) (test code = 414) MONOCYTES ABSOLUTE COUNT (BEAKER) 0.94 K/ L 0.00-1.30 (test code = 415) EOSINOPHILS ABSOLUTE COUNT 0.32 K/ L 0.00-0.50 (BEAKER) (test code = 416) BASOPHILS ABSOLUTE COUNT (BEAKER) 0.05 K/ L 0.00-0.20 (test code = 417) IMMATURE GRANULOCYTES-RELATIVE 0 % 0-0 PERCENT (BEAKER) (test code = 2801) POCT-GLUCOSE [id number] 08:17:00 Test Item Value Reference Range Interpretation Comments POC-GLUCOSE METER 84 mg/dL 70-110 : TESTED A T [facility] [address] (BEAKER) (test code = [address]) [place] [id number]: 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 yenny ID = [id number] for Gee Mendez POCT-GLUCOSE [id number] 06:31:00 Test Item Value Reference Range Interpretation Comments POC-GLUCOSE METER 68 mg/dL 70-110 L : TESTED A T [facility] [address] (BEAKER) (test code = [address], [address]) [place] [address]: 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 yenny ID = [id number] for Jerilynirvinbaldemar diallo POCT-GLUCOSE [id number] 00:01:00 Test Item Value Reference Range Interpretation Comments POC-GLUCOSE METER 184 mg/dL 70-110 H : TESTED A T [facility] [address] (BEAKER) (test code [address], = 15[address]) [place] [address]: 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 yenny ID = [id number] for baldemar Damian Hepatic function [id number] 06:36:00 Test Item Value Reference Range Interpretation Comments Protein, Total (test code = 2885-2) 4.7 6.0- 8.5 gm/dL L Albumin (test code = 50913-9) 2.5 g/dL 3.5-5 L Total Bilirubin (test code = 0.3 mg/dL 0.1-1.2 1974-2) Bilirubin, Direct (test code = 0.3 mg/dL 0-0.4 1967-7) Alkaline Phosphatase (test code = 91 U/L 30-115 68-6) AST (test code = 1920-8) 17 U/L 5-40 ALT (test code = 1742-6) 29 U/L 5-50 Lab Interpretation (test code = Abnormal 83344-5) [facility] [id number] 06:36:00 Test Item Value Reference Range Interpretation Comments TOTAL PROTEIN (BEAKER) (test code = 4.7 gm/dL 6.0-8.5 L 770) ALBUMIN (BEAKER) (test code = 1145) 2.5 g/dL 3.5-5.0 L BILIRUBIN TOTAL (BEAKER) (test code 0.3 mg/dL 0.1-1.2 = 377) BILIRUBIN DIRECT (BEAKER) (test 0.3 mg/dL 0.0-0.4 code = 706) ALKALINE PHOSPHATASE (BEAKER) (test 91 U/L 30-115 code = 346) AST (SGOT) (BEAKER) (test code = 17 U/L 5-40 353) ALT (SGPT) (BEAKER) (test code = 29 U/L 5-50 347) [id number] 06:27:00 Test Item Value Reference Range Interpretation Comments MAGNESIUM (BEAKER) (test code = 1.4 mg/dL 1.5-3.0 L 627) Basic Metabolic [id number] 06:26:00 Test Item Value Reference Range Interpretation Comments Sodium (test code = 144 meq/L 052-652 5466-2) Potassium (test code = 2.8 meq/L 3.6-5.5 L 2823-3) Chloride (test code = 116 meq/L 98-106 H 2075-0) CO2 (test code = 21 meq/L 20-29 2028-9) BUN (test code = 18 mg/dL 10-26 3094-0) Creatinine (test code = 0.98 mg/dL 0.5-1.2 2160-0) Glucose (test code = 156 mg/dL 70-110 H 2345-7) Calcium (test code = 6.9 mg/dL 8.5-10.5 L 38453-2) EGFR (test code = [place] [address]-6) CLINICAL DATA T O CALCULATE ESTIM ATED GFR. Lab Interpretation Abnormal (test code = 10938-8) [facility]OL[facility] [id number] 06:26:00 Test Item Value Reference Range Interpretation Comments SODIUM (BEAKER) (test 144 meq/L 135-148 code = 381) POTASSIUM (BEAKER) 2.8 meq/L 3.6-5.5 L (test code = 379) CHLORIDE (BEAKER) 116 meq/L 98-106 H (test code = 382) CO2 (BEAKER) (test 21 meq/L 20-29 code = 355) BLOOD UREA NITROGEN 18 mg/dL 10-26 (BEAKER) (test code = 354) CREATININE (BEAKER) 0.98 mg/dL 0.50-1.20 (test code = 358) GLUCOSE RANDOM 156 mg/dL 70-110 H (BEAKER) (test code = 652) CALCIUM (BEAKER) 6.9 mg/dL 8.5-10.5 L (test code = 697) EGFR (BEAKER) (test INSUFFIC IENT CLINICAL code = 1092) DATA TO CALCULA TE ESTIMATED GFR. [id number] 06:23:00 Test Item Value Reference Range Interpretation Comments PHOSPHORUS (BEAKER) (test code = 1.8 mg/dL 2.5-4.5 L 604) CBC (Hemogram only)2019-06-06 06:18:00 Test Item Value Reference Range Interpretation Comments WBC (test code = 6690-2) 4.7 4.0- 10.0 K/L RBC (test code = 789-8) 2.87 4.00- 5.00 M/L L MCHC (test code = 786-4) 32.5 32.0- 36.0 GM/DL L Hematocrit (test code = 4544-3) 25.5 % 36-46 L MCV (test code = 787-2) 88.9 fL 82-99 MCH (test code = 785-6) 28.9 pg 27-33 RDW (test code = 788-0) 13.2 % 12-15 Platelets (test code = 777-3) 241 150- 430 K/CU MM MPV (test code = 31319-1) 10.9 fL 6-11.5 nRBC (test code = 413) 0 0- 0 /100 WBC Lab Interpretation (test code = Abnormal 73787-1) [facility] 06:18:00 Test Item Value Reference Range Interpretation Comments WHITE BLOOD CELL COUNT (BEAKER) 4.7 K/ L 4.0-10.0 (test code = 775) RED BLOOD CELL COUNT (BEAKER) 2.87 M/ L 4.00-5.00 L (test code = 761) HEMOGLOBIN (BEAKER) (test code = 8.3 GM/DL 12.0-15.5 L 410) HEMATOCRIT (BEAKER) (test code = 25.5 % 36.0-46.0 L 411) MEAN CORPUSCULAR VOLUME (BEAKER) 88.9 fL 82.0-99.0 (test code = 753) MEAN CORPUSCULAR HEMOGLOBIN 28.9 pg 27.0-33.0 (BEAKER) (test code = 751) MEAN CORPUSCULAR HEMOGLOBIN CONC 32.5 GM/DL 32.0-36.0 (BEAKER) (test code = 752) RED CELL DISTRIBUTION WIDTH 13.2 % 12.0-15.0 (BEAKER) (test code = 412) PLATELET COUNT (BEAKER) (test 241 K/CU MM 150-430 code = 756) MEAN PLATELET VOLUME (BEAKER) 10.9 fL 6.0-11.5 (test code = 754) NUCLEATED RED BLOOD CELLS 0 /100 WBC 0-0 (BEAKER) (test code = 413) POCT-GLUCOSE [id number] 05:31:00 Test Item Value Reference Range Interpretation Comments POC-GLUCOSE METER 190 mg/dL 70-110 H : TESTED A T [facility] [address] (BEAKER) (test code [address], = [address]) [place] [address]: 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 yenny ID = [id number] for Will iams, Mandy POCT-GLUCOSE [id number] 00:29:00 Test Item Value Reference Range Interpretation Comments POC-GLUCOSE METER 236 mg/dL 70-110 H : TESTED A T [facility] [address] (BEAKER) (test code [address], = [address]) [place] [address]: 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 yenny ID = [id number] for Will iams, Mandy POCT-GLUCOSE [id number] 16:56:00 Test Item Value Reference Range Interpretation Comments POC-GLUCOSE METER 166 mg/dL 70-110 H : TESTED A T [address] (BEAKER) (test code [facility] [place], = 1538) [place] [address]: 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 yenny ID = [id number] for Ilda Russell POCT-GLUCOSE [id number] 11:06:00 Test Item Value Reference Range Interpretation Comments POC-GLUCOSE METER 329 mg/dL 70-110 H : TESTED A T [facility] [address] (BEAKER) (test code [address], = [address]) [place] [address]: 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 yenny ID = [id number] for Ilda Russell BASIC METABOLIC [id number] 06:24:00 Test Item Value Reference Range Interpretation Comments SODIUM (BEAKER) (test 140 meq/L 135-148 code = 381) POTASSIUM (BEAKER) 4.1 meq/L 3.6-5.5 (test code = 379) CHLORIDE (BEAKER) 107 meq/L 98-106 H (test code = 382) CO2 (BEAKER) (test 24 meq/L 20-29 code = 355) BLOOD UREA NITROGEN 18 mg/dL 10-26 (BEAKER) (test code = 354) CREATININE (BEAKER) 1.39 mg/dL 0.50-1.20 H (test code = 358) GLUCOSE RANDOM 215 mg/dL 70-110 H (BEAKER) (test code = 652) CALCIUM (BEAKER) 8.7 mg/dL 8.5-10.5 (test code = 697) EGFR (BEAKER) (test INSUFFIC IENT CLINICAL code = 1092) DATA TO CALCULA TE ESTIMATED GFR. [id number] 06:23:00 Test Item Value Reference Range Interpretation Comments MAGNESIUM (BEAKER) (test code = 1.7 mg/dL 1.5-3.0 627) HEPATIC FUNCTION [id number] 06:23:00 Test Item Value Reference Range Interpretation Comments TOTAL PROTEIN (BEAKER) (test code = 6.6 gm/dL 6.0-8.5 770) ALBUMIN (BEAKER) (test code = 1145) 3.4 g/dL 3.5-5.0 L BILIRUBIN TOTAL (BEAKER) (test code 0.6 mg/dL 0.1-1.2 = 377) BILIRUBIN DIRECT (BEAKER) (test 0.4 mg/dL 0.0-0.4 code = 706) ALKALINE PHOSPHATASE (BEAKER) (test 131 U/L 30-115 H code = 346) AST (SGOT) (BEAKER) (test code = 36 U/L 5-40 353) ALT (SGPT) (BEAKER) (test code = 44 U/L 5-50 347) CBC (HEMOGRAM ONLY)2019-06-05 06:19:00 Test Item Value Reference Range Interpretation Comments WHITE BLOOD CELL COUNT (BEAKER) 7.1 K/ L 4.0-10.0 (test code = 775) RED BLOOD CELL COUNT (BEAKER) 3.80 M/ L 4.00-5.00 L (test code = 761) HEMOGLOBIN (BEAKER) (test code = 11.1 GM/DL 12.0-15.5 L 410) HEMATOCRIT (BEAKER) (test code = 34.2 % 36.0-46.0 L 411) MEAN CORPUSCULAR VOLUME (BEAKER) 90.0 fL 82.0-99.0 (test code = 753) MEAN CORPUSCULAR HEMOGLOBIN 29.2 pg 27.0-33.0 (BEAKER) (test code = 751) MEAN CORPUSCULAR HEMOGLOBIN CONC 32.5 GM/DL 32.0-36.0 (BEAKER) (test code = 752) RED CELL DISTRIBUTION WIDTH 13.5 % 12.0-15.0 (BEAKER) (test code = 412) PLATELET COUNT (BEAKER) (test 291 K/CU MM 150-430 code = 756) MEAN PLATELET VOLUME (BEAKER) 10.7 fL 6.0-11.5 (test code = 754) NUCLEATED RED BLOOD CELLS 0 /100 WBC 0-0 (BEAKER) (test code = 413) [id number] 06:19:00 Test Item Value Reference Range Interpretation Comments PHOSPHORUS (BEAKER) (test code = 2.3 mg/dL 2.5-4.5 L 604) POCT-GLUCOSE [id number] 05:35:00 Test Item Value Reference Range Interpretation Comments POC-GLUCOSE METER 206 mg/dL 70-110 H : TESTED A T [facility] [address] (BEAKER) (test code [address], = 15[address]) [facility] [address]: 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 yenny ID = [id number] for Will iams, Mandy POCT-GLUCOSE [id number] 23:34:00 Test Item Value Reference Range Interpretation Comments POC-GLUCOSE METER 182 mg/dL 70-110 H : TESTED A T [facility] [address] (BEAKER) (test code [address], = 15[address]) [facility] [address]: 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 yenny ID = [id number] for Will prashanth, Mandy POCT-GLUCOSE [id number] 16:53:00 Test Item Value Reference Range Interpretation Comments POC-GLUCOSE METER 177 mg/dL 70-110 H : TESTED A T [facility] [address] (BEAKER) (test code [address], = 1538) [facility] [address]: 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 yenny ID = [id number] for Bassam Rona taylora ECHO W CONTRAST & [id number] 13:17:06Ejection FractionSLEH ECHO HEARTLAB MKCKESSON CPACSInterface, External Ris In - 06/04/2019 1:17 PM C STTransthoracic Echocardiography Report (TTE) Demographics Patient Name CHADD SHEA Date of Study 05/25/2019 BONI Gender Female Visit Number [id number] Race Unknown Room Number A515 Number Date of 1950 Referring Physician Santhosh Ji Age 69 year(s) Adjunct Professor Of Voice Nina Vasquez [facility] Interpreting Disha Arteaga MD. Physician Procedure Type of Study TTE procedure:2DECHO W/CONTRAST & DOPPLER (Routine) Indications:Suspected cardiac source of emboli.Clinical HistoryCAD, DM, HTN, STROKE, ARTHRITIS.Height: 60 inches Weight: 80.74 kg (178 lbs) BSA: 1.78 m^2 BMI: 34.76 kg/m^2HR: 70 bpm BP: 163/73 mmHg Summary Normal [...] 08/30/2017, there are no significant differences. Signature Electronically signed by Disha Arteaga MD.(Interpreting physician) on 019 01:17 PM Findings Left Ventricle The left ventricle is normal in size, wall thickness, and contractility. The visual ejection fraction was estimated 60-64 %. Grade 1 diastolic dysfunction (impaired relaxation and low-normal LA pressure). Left Atrium The left atrium is not well visualized. The leftatrium appears normal. Right Ventricle The right ventricular chamber size and systolic function are within normal limits. Right Atrium RA size is normal. Aortic Valve There is aortic valve sclerosis without evidence of stenosis. There is no aortic regurgitation. Mitral Valve Moderate posterior mitral annular calcification with encroachment onto the posterior mitral valve leaflet. Tricuspid Valve TV structure is normal. A trace of tricuspid regurgitation. Estimated peak systolic PA pressure is 27 mmHg . Pulmonic Valve No evidence of pulmonary regurgitation. Aorta Aortic root size (SInus of Valsalva diameter) is normal . Pericardium No pericardial effusion is visualized. [...] cm LVOT Diameter: 1.69 cm LVEF: 59.3 %Right Atrium RA Systolic Pressure: 10 mmHg Right Ventricle RV Systolic Pressure: 25.92 mmHg Aorta Ao Root S of An.: 2.39 cm Doppler/Quantitative Measurements Mitral Valve MV Peak E-Wave:0.8 m/s MV Peak A-Wave: 1.21 m/s P1/2t: [...] Mean Gradient: 2.18 mmHg Estimated PASP: 25.92 mmHgCHI Contra [facility] CenterPOCT-GLUCOSE [id number] 12:17:00 Test Item Value Reference Range Interpretation Comments POC-GLUCOSE METER 228 mg/dL 70-110 H : TESTED A T [facility] [address] (BEAKER) (test code [address], = 15[address]) [facility] [address]: 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 yenny ID = [id number] for Ni Lynne Tissue [id number] 11:10:00 Test Item Value Reference Range Interpretation Comments Case Report (test code Surgical Pathology = 104) Report Case: [id number] Authorizing Provider: Ramesh De La Rosa, Collected: 06/03/2019 0923 Ordering Location: [facility] 5th Floor Received: 06/03/2019 1311 Pathologist: Lilian Arce MD Specimen: Gallbladder DIAGNOSIS (test code = f2yvlJQuOQCzb7zfLWBekY 3220) FuZzEwMzNcZnRuYmpcdWMx ZMpmwmYvQYoyx7VaA9YoSi AwMFxhbnNpXGRlZmxhbmcx AGGlWKK7omHxIZWcFJfxWS ZwXCnnQy0czVEmtNbrOzOz DFTtj5yjszGGgqsjxSv9oE kdR62tr6J4SjbbH1abORRh GTDmJ6JdEJ3xZJCbTtp6GW J3ZKT1EBSvHKIaY6JzYA0v MYFzrYGdFWy5i4mqvTdgFL ObUUT7f7duAYfuxjTvPS1k tl5qcYz1c0rnawBnGMTrXJ BedGLLYHCoA6IcdLsmSo2f eLc7sUchYrxiPRB0Yix3WE 9idw72wik5sRccBOWasdmi ObD2MQhlOKMeohmvXDm2UV xtYXJnbDcyMFxtYXJncjcy MFxtYXJndDcyMFxtYXJnYj foYBepQUXkFST0KEhxs957 LAS3HPvop3eye3sedVAwRo a9AYZzYhCxKyjnGIbqu0Zc o7viQQLkfq8bSLN8dUAxxS zqg3G8cIUvAYXzdGMwteLm XUStPlB8TCblWQ3yuz39QF ChUHG3dx3jnQErqCxophQd vEEbTNtmO3AyLXNuf297KT QgC7RuTRLbb0G7jwSjFmIj DUSngZL6cqT5UMYyDMj0zZ MjkcU1cdZrcOIpY4ntuO43 JhEbcSJjC1GsiM03EzXkdK WsP9SwbA01IlPznCRgH4Ot qY79YbVfmBFpCHVmyAEcVg 4ptWWymHMfa0NnrSHfUZpp H81ua468JZAeevQdC6eypX FpblxwbGFpblxmMFxmczI0 XHFsXHBsYWluXGYwXGZzMj BcbGFuZzEwMzNcaGljaFxm MLbyTrIpCAYeEJsfT5qmAk BcZnMyMCBHQUxMQkxBRERF CrwxE8oZARGXECBGBTRAP9 5AAznvIJJgHHZnBNAGNi4Q IDXmD1mTXWSCPRKSNWPSV9 reHYKqOHTaUIAJG1hXVOrO VWrXB1vNJXmoWWQaoGFjcL FyXHFsXHBsYWluXGYwXGZz LlBfmLjqiR0fWkLeAuNlMF qrBD8jBTKcV9xqmWFrJOHb GKKeO0qmPvVjqT3yoUzsZA zftwTrECXpam22JTA1OaHh z7K8OES6INQjVSIno0pvIP VmbGFuZzEwMzNcZnRuYmpc oPXxPYDqAvCkb9yox331wU Nms8tqOAVzRvO5hAZqHLAb gILlK035WISmXZbgn4sti0 EfBHSiePGxv4F4LYWHufhh xZi4oZetA93dt3B3HqjhE9 soEVEhCIQyS8SvST7aXKUl Kwb7GBG4UTE2TTVaXYAhC9 XyBC7cSJMteBDfTKy2x0cx sYwlPCYwNTS5b7jxAVzknp ZnUN4tch8lsCo8j6iqdkZk KHKzAMMqnKVCWFFoD5PmaF jmVu8siPm1fAfaKhgtJWG7 Gfb2VI7wcj11fqf4hTjeHW BlrovbYdQ9DGmwHTDlkzeh MIo2EMmwSLOcxOM5QCEzwR VtH8XuMQIpUU5djfu8FLA4 JJgbBGJoXmV3USIrmVQhRQ WwlDrpXVdjv019MMW4KmSf EY6dD0Mzx4N3tT1aiCGuCM AsrCKlPuGlZAXtgd9weZXm KLnix1EcDZC4esJ7gOJqrJ SbKGMfLbT8AHtzRL1jhr85 VWBwUGG4lf2qpQRtnHhkzq CcwXCsMReeQ2TfVBKah478 ERVdF5GxEYSou5Z7mvBfSm IsMMIcxVE4xpT6YSKyQW3y iccyp2alFIukXBujAPKfft Y7wsM1WZVkfJSjQ1OwjI0l QBQfTN6wnjtov9cjQTV6DY ncSLKkAQT0PgRbAUIzi8Na xrx7AlDoi9VwtWXxQQqeB5 8ba160EYSzhsDgS8uamSWg efanhHXcrgkmPSylizI5CM MhKDjveidvZNQtRVgjI0su EmOdNWMyfOxrBXrea0JlRO YxXGZzMjJcdGFiXHRhYlx0 DAAkuQOtLKVcLoVcM8mirh mnUfWATMPta1scE8zunCYS zLQgJ0YsGYvkbpVbHEonQX tlDLZ3TSF6Tr41GzE0NOTh cn19 CPT Code(s) (test code k1lcbMDjKCKteLXwKbYyBM = 3357) AiMXWyk5xjBSNygTHzGlRo MzNcZnRuYmpcdWMxXGRlZm Ndj1uqs221iUDxs4ytQWOb XoH2rPKdFBPkiLNxW601b1 gfh7pfcvUssKD0ELRwRUN6 YLbizrIhfhL2SMnxrZSaZp W1MYlffdMjYSctqnSofrLd Vvm4SEMcW834JHK3aHsqn6 gvJAG9PEEgKKUgXcLcHr6m nLDlT176VZEpWBRRZKYfcJ z2YEVklxZiraQaySQQq214 E226h6jaOCWoiuGgrIsAws pdq5hjA887PWBopNTljwNr UxGoUZBktUNsgTR8KMQlXC 0ykihoNoXjPC9pomurCzHs BO8qwpq0OsTyWE0nxkcsFj VgNBzsHCYrnzpcBQKri7Hd gxjiEZ8zM2Usg2I0jI5vzR QgQVSbxISfIvJpVONvwq9l cTDzUFrzk8EbMTU3luF4kY HmwKIkSQQmTP72Egnjz9Fs QoajZFU5BJUnpsIkm2Nap4 snDvYytoQkG3xxG9JzSMBy UZMsFYOhFaUpkoVkf5Zpi7 VecZSlrZc4g6haRCEvAUBp dUiol7kaRUY5MDEmQ0Q2mH Uoc8qoBNouUUTjzYP1nmfj TVmuHXLtctU2nrpmOEewTL NbuNF9lfddYNsfNCGcBsO0 brvaVHisMXJpOWB8XLwig5 04WBZ7TLijXwkrQVjbTGCy bmNvbnRccGduZGVjXHBsYW luXHBsYWluXGYwXGZzMjRc jQpikDksyM5vCuSxJbNbTK ulFB6eINSfH7jygEFvBOLq IXUyO1ywLzWuvF3fmExeUL vwxcHlFA0RO7H7ZQAumwG2 ODMwNFxwYXJ9 CLINICAL HISTORY (test j8ycfHGwOBQfuPXcUlAlYA code = 3357) FdPRTwn7bzQCBdmVLxXyFq MzNcZnRuYmpcdWMxXGRlZm Pgp7epw800mUJsl3jgNLIr LhD9rUSzWDSkuQIgV084q1 yon5mntqJexBN2NQHdEVB1 GJqxxxKfaeZ5SHijvWAzWn T4AKhleqXzJLxihlGdlyKu Ziz6ZKAqI379OHZ8kKwoc7 rtXQL7HFDuQAUmVaRoUs2o pHTiQ769WUPfWDIMPMYulL q8TTRlbzLkrmDriQHWa916 W797x4xqHCPrryKlsNvHay dvz5mjE270MPDesDPbmeGd QhIzJPYwiCDjkGN6APJrWD 4mgfbfFnLfCX4nbnonAdLc FW7izqm8ObPsKI1yfbtnBk YaMBxsUQIrypysQSZoa5Jg beonGC4zR9Gyp4A0rL1giB QuMLJupHZhFiRmEVMpzm9d wFNvSKzbf9ZtNUO8zbT5tA DdbNXyQQDrEC23Vsaqe8Dd XajqYLI8VEWgdwMme3Cwa1 dtQoVxpsHtC9cvK1FvMQAa SYYlIUNvLaTzbwJqq2Kfm6 JdgNHcbZw0n0mxPZOjOKYv qAdpp2nsHNM1PABiZ7A4nA Txo5sjVXncWRUuoID1ymfh JZihZTMnkfM1twpkGMlaDZ FkgUW6skkmJNvuFKVwCoA4 wvyzGXzuREBiXDM2VGimn9 32ORU4AHdmPnwhLZawZFUz bmNvbnRccGduZGVjXHBsYW luXHBsYWluXGYwXGZzMjRc eVlwhItfuG3dFdFgJvYpKK ulSL2eHYSiB8uuuRDvPZEn UEEdT2omSaCcsY2ovQwjVQ dodzPeNIbixCohbI9aSJNk XHBhcn0= SPECIMEN SOURCE (test n3flvEHtONGegBZmNkTvTZ code = 3377) WeTKCmb8itQDRalVIxMkDa MzNcZnRuYmpcdWMxXGRlZm Pge6hxr257qTRkm7hdWKVq BrX6sRFwMOWegZJeB977r4 idn5tzerUbpXZ3GSIoJDE3 KEmdisDpygK9FUqzyWRlEc W9WJondeGqMVaambYmvzNj Nav8EKBnZ697NVZ0nYmjg3 kjBHE8JWVoWPTuGlDaAx0q iWBaF703IKSuUOGNHVMuuD d9LECwylPjziGcwQKVh179 C660m2fxICZefrHudOjEnm twf5ooG161EQCopKZwavJk KwBhKGMilSDaiVB9APMgKR 9gjbagBhKrAS0ilrrfDeEm UV0cmfy3QfKrCF4gqkzcLx JiTKuaBIXgvuzpEPMsm1Be bfpaUF8sG5Lps9O3cX3wmC DqNHQmgKLnVbEwFZPipe7l tLQoDDfhy3YxTZG4hpR8xK CikRKsKLStHE05Bbomr0Fz EcirBLB9ZGAezuGth3Aof9 ajPdOgwrVxS7zxO6XaRUHw LNAyQBGsRaDqekAzt2Ydb7 IabFTbvLf6o9fmLVZqDJRh mSpni6jtTFX8PKHhA8P4qJ Cyp4vdYYekMAPanZF1wczi DVquMDMwllZ1ytlrBWvwVW OymRN1lwewAFnmSLDoZjR4 rowwKLkyJLOdSYE5VNuvd5 28UOU2ORtiOrwkGUuzQADa bmNvbnRccGduZGVjXHBsYW luXHBsYWluXGYwXGZzMjRc wXuduDhltC3cRdDxSdFsOP bxDN2kDQLwW2yciEVwFLGr LBXfZ1foPeVktA1ouRunQD xmczIwIEdhbGxibGFkZGVy IFxwYXJ9 GROSS DESCRIPTION (test w2jtcETpVECbeVSmNkRnJX code = 3366) QbLJFms0uiOTHxwWKeLwKn MzNcZnRuYmpcdWMxXGRlZm Tqj8ugu874wFCft8weBSYu NpZ9vNRnWYUoxKKzG463z6 bwp5hbxwIpdIF6QVKoSZB5 XZiynlFxdxS7XMazlFCbDj H8TAijnmThZMnkboXgazHp Ksj4CZNtX417WBY9qCbor5 oeUXR9QWYpQIFcXxUeZp1y sNVdG741HDPkIZLXZECdmM u3IVGxfnDzgtExeCGAw014 N748h2wyDRUuerYxgSjDrj wwy5yzO184KCMslGKpaiKt PnOjSQRluBAfnBS6THJiCF 1rqpxeZjJmDK2azrstEeVx PM2fqqo7AoTwCM0vsgxaTm PfPHljCYJrgcazEYQzp6Yi qotdIA8wQ4Tbf4A1bQ3zxF RfXGVujXJpRaFhKQNrpa3g gUKkFTyln0EvFOE3qlJ7bC AdaXLbRWUwVN29Gqhco1Pv DdgwZIZ6VRFgqyCjg2Yfa9 ccHtTotlLeW0cyL1QePJSv UMGbNDLrKtHxqfWmm5Gfp1 QhpSRnqHj8q4kaTVJxGEDg dQktv6wtCSX0ZNFpM9H6cB Pqm7tkXEdjPHGvuFP8idra BVtgTHJipwX6apyrPGurQR EfpET5pokgTXftUTMhQbI0 mxfbKVukJEPzNVG4ACvpe7 85DFY0RBxfUoodVEjsDBEw bmNvbnRccGduZGVjXHBsYW luXHBsYWluXGYwXGZzMjRc iCbjgRjpsW8fZaLlOwPsZG meBS3eKPQbH3mfvUMhMDZr QXMdT0phGyCvyZ2paOhsPP xmczIwIFNwZWNpbWVuIGlz ZCMdL9KnjkQwBCatoPrjqZ FmOap6KBVrsrSpLL0sJJUi c0ezuoU2FCBkLYSdLoccaA igtSMiINRhOveiR48sm2cr tJOsi7WrHCMpiV9uGKPbpm OhsA6fSFF2u8BvL0WgfTje p0QkM6xiPG5hPFAxQZW8FY PnVBB9LCQbXTGvqIajGFGd ZSBnYWxsYmxhZGRlciBpcy TecUutVBAch0k5tTN0ONyg h9jlYoBpi97xvpddG056rh GbsYzdYCEvHGVfv633YYgk csDyHFOajoCtZAekl2Yifd FaSICxKOJbQKtay8BswcLb NzBxR33wfuEbLKLqbwgwfv vbrH5tx6o0DHPnic0tXQYg XSJ2nsPpXgosX65ztG8zU6 YxVQSmp0QyCFsnHX6bbP8q UiLVfFKaY9MzrGVbQASwYG JvlMRni6OiRIjoDZYlhrQq hkTiptJvxeG9sJZ3rQCdIA 7gOGChn3VhHYDzPIeok9zq xuZjnDHownVrVdeqKU0zQp BmzlJaHJ07CAZbcxVno6Yr yFhsmnLby9QddVyvDNfxyC lijCHpXMQzJK33X20cRHOp adAaC1haxKwdQAQ0C7ZxYS QxMDA1Up6leYEvMGBijdXm SSLkWoQFXy9xnoHjtPNxmK == MICROSCOPIC DESCRIPTION d3jfdGVsDQRqdJMmCuAcYR (test code = 3371) TmYHPgo0suUVModSNgOvHh MzNcZnRuYmpcdWMxXGRlZm Gem0hnx206rBKog6nrABTw VxQ8nCWsAEQgqYMvY854j6 pjy4ctmfAhfMP6QAMcTDD1 UMuzbfLeehV3EDhdnLQlIs L0AAajmxAbSAevkbGgwqOp Gze2BFZpF485HMS0yWjfh7 dpQHV5KHKeCRFkIgWqUt5h rUCkH705INQvGZYXBHZwaM g5GNXuzzFwujNnlRXKz510 M708i6nzBJBwfkQlcDfHsd acc4vvK122YYUsiWGfoyVk YwYhIKSjeFJglSG2AQUdUL 2libsjWyUxIU0lfnxiItAd TA0jxqx5TiHnHW8ftjsjHc PoJJuxIDMgmrfvAYOwf7Hs lzvkLG3vU0Oif6U8bW0miR JuNKYvhHGoLlWbJKFqll3i oOEpMVxzc3CeSKW5frI4jR ZuzGObFQQjFY29Pjaqt9Oa SphmFFB6RTVzjyBch6Kos5 vrHlTzggEqU5myU3GtVONd PUDtFLMtGsPskcMqo9Awh5 DulCVbsEv6t2knOGScOFIj gJrsl0enPRD9NISuJ1N7mC Bpf2mjUEeuRFQwaLA7eoir FGblFRBvxmG9ouvnFXgmFY ZkyNJ6tefaFQbkRXSaFbK2 mjrpHBpaFCPoJFT5RVlbb6 18MMD0ITrgQxuuJFznANOx bmNvbnRccGduZGVjXHBsYW luXHBsYWluXGYwXGZzMjRc dDjukLmgzA2yCgSqOhHrXY cuKD9lREZfM7bkiOBfPZGr VTVaV7uaFaNkgT5crHxdAE djpoYwZRYcogHixl0wFHPz cGFyfQ== Gross assessment was [facility] performed at (test code [facility], Department = 2777) of Pathology, [address] [place] [address], Technical component was [facility]'s performed at ([facility], = 2778) Department of Pathology, [address] [place] [address], Professional component . [facility], Department code = 2779) of Pathology, [address] [place] [address], [facility] [id number] 11:10:00Surgical Pathology Report Case: [id number] Authorizing Provider: Ramesh De La Rosa, Collected: 06/03/2019 0923 [facility]Location[facility] Med Surg 5th Floor Received: 06/03/2019 1311 Pathologist: Lilian Arce MD Specimen: Gallbladder GALLBLADDER, CHOLECYSTECTOMY: - CHRONIC CHOLECYSTITIS - CHOLELITHIASIS Signing Pathologist Direct Phone Line: [phone] signed by Lilian Arce MD on 06/04/2019 at 11:10 AMMG/[id number] Gallbladder Specimen is received without fixative and designated as "gallbladder", consists ofa pink-gupta cholecystectomy specimen (6.5 x 3.5 x 3.0 cm). The gallbladder is filled with yellow-brown viscous bile and contains a few gallstones and gallstone fragments ranging in size from 0.5 to 0.7 cm in greatest dimension. The gallbladder mucosa is gupta and velvety with no discrete lesions identified. Jacquard Loom Fixer sections of the gallbladder mucosa and cystic duct are submitted into A1. MG/ew Performed [facility], Department of Pathology, [address] [place] [address], [place] [address], Drdixu [facility], Department of Pathology, [address] [place] [address], [facility] of [facility], [address] [place] [address], [id number] METABOLIC PANEL 2019-06-04 06:50:00 Test Item Value Reference Range Interpretation Comments SODIUM (BEAKER) (test 139 meq/L 135-148 code = 381) POTASSIUM (BEAKER) 4.1 meq/L 3.6-5.5 (test code = 379) CHLORIDE (BEAKER) 105 meq/L 98-106 (test code = 382) CO2 (BEAKER) (test 25 meq/L 20-29 code = 355) BLOOD UREA NITROGEN 19 mg/dL 10-26 (BEAKER) (test code = 354) CREATININE (BEAKER) 1.43 mg/dL 0.50-1.20 H (test code = 358) GLUCOSE RANDOM 217 mg/dL 70-110 H (BEAKER) (test code = 652) CALCIUM (BEAKER) 8.9 mg/dL 8.5-10.5 (test code = 697) EGFR (BEAKER) (test INSUFFIC IENT CLINICAL code = 1092) DATA TO CALCULA TE ESTIMATED GFR. [id number] 06:47:00 Test Item Value Reference Range Interpretation Comments MAGNESIUM (BEAKER) (test code = 1.7 mg/dL 1.5-3.0 627) HEPATIC FUNCTION [id number] 06:47:00 Test Item Value Reference Range Interpretation Comments TOTAL PROTEIN (BEAKER) (test code = 6.2 gm/dL 6.0-8.5 770) ALBUMIN (BEAKER) (test code = 1145) 3.2 g/dL 3.5-5.0 L BILIRUBIN TOTAL (BEAKER) (test code 0.5 mg/dL 0.1-1.2 = 377) BILIRUBIN DIRECT (BEAKER) (test 0.4 mg/dL 0.0-0.4 code = 706) ALKALINE PHOSPHATASE (BEAKER) (test 117 U/L 30-115 H code = 346) AST (SGOT) (BEAKER) (test code = 46 U/L 5-40 H 353) ALT (SGPT) (BEAKER) (test code = 53 U/L 5-50 H 347) [id number] 06:44:00 Test Item Value Reference Range Interpretation Comments PHOSPHORUS (BEAKER) (test code = 2.5 mg/dL 2.5-4.5 604) CBC (HEMOGRAM ONLY)2019-06-04 06:40:00 Test Item Value Reference Range Interpretation Comments WHITE BLOOD CELL COUNT (BEAKER) 8.3 K/ L 4.0-10.0 (test code = 775) RED BLOOD CELL COUNT (BEAKER) 3.67 M/ L 4.00-5.00 L (test code = 761) HEMOGLOBIN (BEAKER) (test code = 10.3 GM/DL 12.0-15.5 L 410) HEMATOCRIT (BEAKER) (test code = 33.2 % 36.0-46.0 L 411) MEAN CORPUSCULAR VOLUME (BEAKER) 90.5 fL 82.0-99.0 (test code = 753) MEAN CORPUSCULAR HEMOGLOBIN 28.1 pg 27.0-33.0 (BEAKER) (test code = 751) MEAN CORPUSCULAR HEMOGLOBIN CONC 31.0 GM/DL 32.0-36.0 L (BEAKER) (test code = 752) RED CELL DISTRIBUTION WIDTH 13.6 % 12.0-15.0 (BEAKER) (test code = 412) PLATELET COUNT (BEAKER) (test 279 K/CU MM 150-430 code = 756) MEAN PLATELET VOLUME (BEAKER) 10.2 fL 6.0-11.5 (test code = 754) NUCLEATED RED BLOOD CELLS 0 /100 WBC 0-0 (BEAKER) (test code = 413) POCT-GLUCOSE [id number] 04:59:00 Test Item Value Reference Range Interpretation Comments POC-GLUCOSE METER 206 mg/dL 70-110 H : TESTED A T [address] [address] (BEAKER) (test code [address], = 1538) [facility] 77 478: 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 yenny ID = [id number] for Mandy Bob POCT-GLUCOSE [id number] 00:02:00 Test Item Value Reference Range Interpretation Comments POC-GLUCOSE METER 232 mg/dL 70-110 H : TESTED A T [address] (BEAKER) (test code [address], = 1538) [place] [address]: 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 yenny ID = [id number] for Will Mandy alford POCT-GLUCOSE [id number] 15:27:00 Test Item Value Reference Range Interpretation Comments POC-GLUCOSE METER 201 mg/dL 70-110 H : TESTED A T [address] (BEAKER) (test code [address], = 1538) [place] [address]: 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 yenny ID = [id number] for Bassam h, Ni POCT-GLUCOSE [id number] 12:28:00 Test Item Value Reference Range Interpretation Comments POC-GLUCOSE METER 176 mg/dL 70-110 H : TESTED A T [address] [address] (BEAKER) (test code [facility] [place], = 1538) [place] [address]: 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 yenny ID = [id number] for Palm er, Ealine POCT-GLUCOSE [id number] 07:06:00 Test Item Value Reference Range Interpretation Comments POC-GLUCOSE METER 202 mg/dL 70-110 H : TESTED A T [address] (BEAKER) (test code [facility] [place] NT [facility], = 1538) [place] [address]: 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 yenny ID = [id number] for Skinny zonia Umu COMPREHENSIVE METABOLIC [id number] 06:55:00 Test Item Value Reference Range Interpretation Comments TOTAL PROTEIN 6.9 gm/dL 6.0-8.5 (BEAKER) (test code = 770) ALBUMIN (BEAKER) 3.6 g/dL 3.5-5.0 (test code = 1145) ALKALINE PHOSPHATASE 144 U/L 30-115 H (BEAKER) (test code = 346) BILIRUBIN TOTAL 0.7 mg/dL 0.1-1.2 (BEAKER) (test code = 377) SODIUM (BEAKER) (test 140 meq/L 135-148 code = 381) POTASSIUM (BEAKER) 3.7 meq/L 3.6-5.5 (test code = 379) CHLORIDE (BEAKER) 106 meq/L 98-106 (test code = 382) CO2 (BEAKER) (test 25 meq/L 20-29 code = 355) BLOOD UREA NITROGEN 18 mg/dL 10-26 (BEAKER) (test code = 354) CREATININE (BEAKER) 1.52 mg/dL 0.50-1.20 H (test code = 358) GLUCOSE RANDOM 197 mg/dL 70-110 H (BEAKER) (test code = 652) CALCIUM (BEAKER) 9.1 mg/dL 8.5-10.5 (test code = 697) AST (SGOT) (BEAKER) 34 U/L 5-40 (test code = 353) ALT (SGPT) (BEAKER) 43 U/L 5-50 (test code = 347) EGFR (BEAKER) (test INSUFFIC IENT CLINICAL code = 1092) DATA TO CALCULA TE ESTIMATED GFR. [id number] 06:54:00 Test Item Value Reference Range Interpretation Comments MAGNESIUM (BEAKER) (test code = 1.7 mg/dL 1.5-3.0 627) [id number] 06:51:00 Test Item Value Reference Range Interpretation Comments PHOSPHORUS (BEAKER) (test code = 2.6 mg/dL 2.5-4.5 604) CBC W/PLT COUNT & AUTO [id number] 06:26:00 Test Item Value Reference Range Interpretation Comments WHITE BLOOD CELL COUNT (BEAKER) 9.4 K/ L 4.0-10.0 (test code = 775) RED BLOOD CELL COUNT (BEAKER) 3.98 M/ L 4.00-5.00 L (test code = 761) HEMOGLOBIN (BEAKER) (test code = 11.3 GM/DL 12.0-15.5 L 410) HEMATOCRIT (BEAKER) (test code = 35.3 % 36.0-46.0 L 411) MEAN CORPUSCULAR VOLUME (BEAKER) 88.7 fL 82.0-99.0 (test code = 753) MEAN CORPUSCULAR HEMOGLOBIN 28.4 pg 27.0-33.0 (BEAKER) (test code = 751) MEAN CORPUSCULAR HEMOGLOBIN CONC 32.0 GM/DL 32.0-36.0 (BEAKER) (test code = 752) RED CELL DISTRIBUTION WIDTH 13.4 % 12.0-15.0 (BEAKER) (test code = 412) PLATELET COUNT (BEAKER) (test 370 K/CU MM 150-430 code = 756) MEAN PLATELET VOLUME (BEAKER) 10.1 fL 6.0-11.5 (test code = 754) NUCLEATED RED BLOOD CELLS 0 /100 WBC 0-0 (BEAKER) (test code = 413) NEUTROPHILS RELATIVE PERCENT 63 % (BEAKER) (test code = 429) LYMPHOCYTES RELATIVE PERCENT 25 % (BEAKER) (test code = 430) MONOCYTES RELATIVE PERCENT 10 % (BEAKER) (test code = 431) EOSINOPHILS RELATIVE PERCENT 2 % (BEAKER) (test code = 432) BASOPHILS RELATIVE PERCENT 1 % (BEAKER) (test code = 437) NEUTROPHILS ABSOLUTE COUNT 5.94 K/ L 1.80-8.00 (BEAKER) (test code = 670) LYMPHOCYTES ABSOLUTE COUNT 2.31 K/ L 1.48-4.50 (BEAKER) (test code = 414) MONOCYTES ABSOLUTE COUNT (BEAKER) 0.89 K/ L 0.00-1.30 (test code = 415) EOSINOPHILS ABSOLUTE COUNT 0.17 K/ L 0.00-0.50 (BEAKER) (test code = 416) BASOPHILS ABSOLUTE COUNT (BEAKER) 0.06 K/ L 0.00-0.20 (test code = 417) IMMATURE GRANULOCYTES-RELATIVE 0 % 0-0 PERCENT (BEAKER) (test code = 2801) POCT-GLUCOSE [id number] 00:50:00 Test Item Value Reference Range Interpretation Comments POC-GLUCOSE METER 166 mg/dL 70-110 H : TESTED A T [facility] [address] (BEAKER) (test code [facility] [place], = 1538) [place] [address]: 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 yenny ID = [id number] for Umu Tan POCT-GLUCOSE [id number] 18:43:00 Test Item Value Reference Range Interpretation Comments POC-GLUCOSE METER 157 mg/dL 70-110 H : TESTED A T [facility] [address] (BEAKER) (test code [facility] [place] [address], = [address]38) [place] [address]: 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 yenny ID = [id number] for Mirna Tipton POCT-GLUCOSE [id number] 11:48:00 Test Item Value Reference Range Interpretation Comments POC-GLUCOSE METER 222 mg/dL 70-110 H : TESTED A T [address] [address] (BEAKER) (test code [address], = 1538) [place] [address] 478: 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 yenny ID = [id number] for Miller ortiz, Mirna POCT-GLUCOSE [id number] 06:03:00 Test Item Value Reference Range Interpretation Comments POC-GLUCOSE METER 213 mg/dL 70-110 H : TESTED A T [address] [address] (BEAKER) (test code [address], = 1538) [place] [address]: 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 yenny ID = [id number] for Uzoe zie, Chijioke POCT-GLUCOSE [id number] 01:01:00 Test Item Value Reference Range Interpretation Comments POC-GLUCOSE METER 216 mg/dL 70-110 H : TESTED A T [address] (BEAKER) (test code [address], = 1538) [place] [address]: 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 yenny ID = [id number] for Uzoe zie, Chijioke POCT-GLUCOSE [id number] 19:46:00 Test Item Value Reference Range Interpretation Comments POC-GLUCOSE METER 209 mg/dL 70-110 H : TESTED A T [address] (BEAKER) (test code [address], = 1538) [place] [address]: 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 yenny ID = [id number] for Uzoe zie, Chijioke POCT-GLUCOSE [id number] 19:27:00 Test Item Value Reference Range Interpretation Comments POC-GLUCOSE METER 205 mg/dL 70-110 H : TESTED A T [address] (BEAKER) (test code [address], = 1538) [place] [address] 478: 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 yenny ID = [id number] for Bhatt diana, Schanell POCT-GLUCOSE [id number] 12:06:00 Test Item Value Reference Range Interpretation Comments POC-GLUCOSE METER 253 mg/dL 70-110 H : TESTED A T [address] (BEAKER) (test code [address], = 1538) [place] [address] 478: 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 yenny ID = [id number] for Mirna Tipton BASIC METABOLIC [id number] 06:45:00 Test Item Value Reference Range Interpretation Comments SODIUM (BEAKER) (test 140 meq/L 135-148 code = 381) POTASSIUM (BEAKER) 3.9 meq/L 3.6-5.5 Specimen slightly (test code = 379) hemolyzed CHLORIDE (BEAKER) 103 meq/L 98-106 (test code = 382) CO2 (BEAKER) (test 27 meq/L 20-29 code = 355) BLOOD UREA NITROGEN 18 mg/dL 10-26 (BEAKER) (test code = 354) CREATININE (BEAKER) 1.35 mg/dL 0.50-1.20 H Specimen slightly (test code = 358) hemolyzed GLUCOSE RANDOM 222 mg/dL 70-110 H (BEAKER) (test code = 652) CALCIUM (BEAKER) 9.3 mg/dL 8.5-10.5 (test code = 697) EGFR (BEAKER) (test INSUFFIC IENT CLINICAL code = 1092) DATA TO CALCULA TE ESTIMATED GFR. [id number] 06:45:00 Test Item Value Reference Range Interpretation Comments MAGNESIUM (BEAKER) 1.7 mg/dL 1.5-3.0 Specimen slightly (test code = 627) hemolyzed [id number] 06:42:00 Test Item Value Reference Range Interpretation Comments PHOSPHORUS (BEAKER) 2.4 mg/dL 2.5-4.5 L Specimen slightly (test code = 604) hemolyzed CBC W/PLT COUNT & AUTO [id number] 06:18:00 Test Item Value Reference Range Interpretation Comments WHITE BLOOD CELL COUNT (BEAKER) 6.3 K/ L 4.0-10.0 (test code = 775) RED BLOOD CELL COUNT (BEAKER) 3.74 M/ L 4.00-5.00 L (test code = 761) HEMOGLOBIN (BEAKER) (test code = 10.9 GM/DL 12.0-15.5 L 410) HEMATOCRIT (BEAKER) (test code = 33.0 % 36.0-46.0 L 411) MEAN CORPUSCULAR VOLUME (BEAKER) 88.2 fL 82.0-99.0 (test code = 753) MEAN CORPUSCULAR HEMOGLOBIN 29.1 pg 27.0-33.0 (BEAKER) (test code = 751) MEAN CORPUSCULAR HEMOGLOBIN CONC 33.0 GM/DL 32.0-36.0 (BEAKER) (test code = 752) RED CELL DISTRIBUTION WIDTH 13.2 % 12.0-15.0 (BEAKER) (test code = 412) PLATELET COUNT (BEAKER) (test 325 K/CU MM 150-430 code = 756) MEAN PLATELET VOLUME (BEAKER) 10.3 fL 6.0-11.5 (test code = 754) NUCLEATED RED BLOOD CELLS 0 /100 WBC 0-0 (BEAKER) (test code = 413) NEUTROPHILS RELATIVE PERCENT 53 % (BEAKER) (test code = 429) LYMPHOCYTES RELATIVE PERCENT 31 % (BEAKER) (test code = 430) MONOCYTES RELATIVE PERCENT 13 % (BEAKER) (test code = 431) EOSINOPHILS RELATIVE PERCENT 3 % (BEAKER) (test code = 432) BASOPHILS RELATIVE PERCENT 1 % (BEAKER) (test code = 437) NEUTROPHILS ABSOLUTE COUNT 3.29 K/ L 1.80-8.00 (BEAKER) (test code = 670) LYMPHOCYTES ABSOLUTE COUNT 1.94 K/ L 1.48-4.50 (BEAKER) (test code = 414) MONOCYTES ABSOLUTE COUNT (BEAKER) 0.80 K/ L 0.00-1.30 (test code = 415) EOSINOPHILS ABSOLUTE COUNT 0.17 K/ L 0.00-0.50 (BEAKER) (test code = 416) BASOPHILS ABSOLUTE COUNT (BEAKER) 0.03 K/ L 0.00-0.20 (test code = 417) IMMATURE GRANULOCYTES-RELATIVE 0 % 0-0 PERCENT (BEAKER) (test code = 2801) POCT-GLUCOSE [id number] 20:42:00 Test Item Value Reference Range Interpretation Comments POC-GLUCOSE METER 268 mg/dL 70-110 H : TESTED A T [facility] [address] (BEAKER) (test code [address], = 1538) [facility] 77 478: 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 yenny ID = [id number] for Dane Ponce POCT-GLUCOSE [id number] 16:39:00 Test Item Value Reference Range Interpretation Comments POC-GLUCOSE METER 214 mg/dL 70-110 H : TESTED A T [facility] [address] (BEAKER) (test code [address], = 1538) [facility] 77 478: 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 yenny ID = [id number] for Gee Mendez POCT-GLUCOSE [id number] 12:52:00 Test Item Value Reference Range Interpretation Comments POC-GLUCOSE METER 188 mg/dL 70-110 H : TESTED A T [facility] [address] (BEAKER) (test code [address], = 1538) [facility] 77 478: 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 yenny ID = [id number] for Gee Mendez CT, [id number] 10:15:00Water soluble oral contrast onlyFINAL REPORT CT abdomen and pelvis without contrast History: Duodenal perforation Comparison: 05/27/2019 Technique: serial axial imaging was performed without intravenous contrast as per departmental protocol. Multiplanar images are reconstructed and reviewed when indicated. This CT examination is performed using one or more of the following dose reduction techniques: Automat ed exposure control, adjustment of the mA and /or kV according to patient size, and/or use of iterative reconstruction technique. Findings:Evaluation limited by lack of intravenous contrast. Interval placement of nasogastric tube, which terminates within the stomach. Again seen is significant right-sided peritoneal and retroperitoneal free air, with modest decrease from prior examination. Again seen is pneumobilia, without gallbladder wall thickening, pericholecystic fluid, or calcified gallstone. This is suggestive of recent sphincterotomy. Grossly unremarkable appearance of unenhanced liver, pancreas, spleen, and adrenal glands. No urinary calculus. No hydronephrosis. Leon catheter decompresses the bladder. No small or large bowel obstruction is demonstrated. Contrast opacifies the entire colon as well as portions of the distal small bowel. No contrast extravasation is seen. No findings to indicate acute appendicitis. No free fluid or adenopathy. No aggressive osseous lesion. Impression: 1. The degree of right-sided peritoneal and retroperitoneal free air has modestly decreased from prior examination.2. No extravasation of gastrointestinal tract contrast. Signed: Ant Mcclellanort Verified Date/Time: 05/31/2019 10:15:21 Reading Location: [facility] Diagnostic Imaging Reading Room - [place] [address] [facility] abdomen/pelvis without iv [id number] 10:15:00Interface, External Ris In - 05/31/2019 10:[address] abdomen and pelvis without contrast History: Duodenal perforation Comparison: 05/27/2019 Technique: serial axial imaging was performed without intravenous contrast as per departmental protocol. Multiplanar images are reconstructed and reviewed when indicated. This CT examination is performed using one or more of the following dose reduction techniques: Automated exposure control, adjustment of the mA and /or kV according to patient size, and/or use of iterative reconstruction technique. Findings:Evaluation limited by lack of intravenous contrast. Interval placement of nasogastric tube, which terminateswithin the stomach. Again seen is significant right-sided peritoneal and retroperitoneal free air, with modest decrease from prior examination. Again seen is pneumobilia, without gallbladder wall thickening, pericholecystic fluid, or calcified gallstone. This is suggestive of recent sphincterotomy. Grossly unremarkable appearance of unenhanced liver, pancreas, spleen, and adrenal glands. No urinary calculus. No hydronephrosis. Leon catheter decompresses the bladder. No small or large bowel obstruction is demonstrated. Contrast opacifies the entire colon as well as portions of the distal small bowel. No contrast extravasation is seen. No findings to indicate acute appendicitis. No free fluid or adenopathy. No aggressive osseous lesion. Impression: 1. The degree of right-sided peritoneal and retroperitoneal free air has modestly decreased from prior examination.2. No extravasation of gastrointestinal tract contrast. Signed: Ant Mcclellan MDRepw[facility] Verified Date/Time: 05/31/2019 10:15 :21 Reading Location: [facility] Diagnostic Imaging Reading Room - [place] [address] [address] [facility] [id number] 06:28:00 Test Item Value Reference Range Interpretation Comments POC-GLUCOSE METER 225 mg/dL 70-110 H : TESTED A T [facility] 1317 (BEAKER) (test code [address], = 1538) [place] [address] 478: 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 yenny ID = [id number] for baldemar Damian BASIC METABOLIC [id number] 05:51:00 Test Item Value Reference Range Interpretation Comments SODIUM (BEAKER) (test 139 meq/L 135-148 code = 381) POTASSIUM (BEAKER) 3.9 meq/L 3.6-5.5 (test code = 379) CHLORIDE (BEAKER) 104 meq/L 98-106 (test code = 382) CO2 (BEAKER) (test 27 meq/L 20-29 code = 355) BLOOD UREA NITROGEN 19 mg/dL 10-26 (BEAKER) (test code = 354) CREATININE (BEAKER) 1.30 mg/dL 0.50-1.20 H (test code = 358) GLUCOSE RANDOM 224 mg/dL 70-110 H (BEAKER) (test code = 652) CALCIUM (BEAKER) 8.8 mg/dL 8.5-10.5 (test code = 697) EGFR (BEAKER) (test INSUFFIC IENT CLINICAL code = 1092) DATA TO CALCULA TE ESTIMATED GFR. [id number] 05:51:00 Test Item Value Reference Range Interpretation Comments MAGNESIUM (BEAKER) (test code = 1.6 mg/dL 1.5-3.0 627) [id number] 05:48:00 Test Item Value Reference Range Interpretation Comments PHOSPHORUS (BEAKER) (test code = 2.3 mg/dL 2.5-4.5 L 604) CBC W/PLT COUNT & AUTO [id number] 05:44:00 Test Item Value Reference Range Interpretation Comments WHITE BLOOD CELL COUNT (BEAKER) 6.3 K/ L 4.0-10.0 (test code = 775) RED BLOOD CELL COUNT (BEAKER) 3.59 M/ L 4.00-5.00 L (test code = 761) HEMOGLOBIN (BEAKER) (test code = 10.2 GM/DL 12.0-15.5 L 410) HEMATOCRIT (BEAKER) (test code = 32.0 % 36.0-46.0 L 411) MEAN CORPUSCULAR VOLUME (BEAKER) 89.1 fL 82.0-99.0 (test code = 753) MEAN CORPUSCULAR HEMOGLOBIN 28.4 pg 27.0-33.0 (BEAKER) (test code = 751) MEAN CORPUSCULAR HEMOGLOBIN CONC 31.9 GM/DL 32.0-36.0 L (BEAKER) (test code = 752) RED CELL DISTRIBUTION WIDTH 13.7 % 12.0-15.0 (BEAKER) (test code = 412) PLATELET COUNT (BEAKER) (test 299 K/CU MM 150-430 code = 756) MEAN PLATELET VOLUME (BEAKER) 10.2 fL 6.0-11.5 (test code = 754) NUCLEATED RED BLOOD CELLS 0 /100 WBC 0-0 (BEAKER) (test code = 413) NEUTROPHILS RELATIVE PERCENT 58 % (BEAKER) (test code = 429) LYMPHOCYTES RELATIVE PERCENT 28 % (BEAKER) (test code = 430) MONOCYTES RELATIVE PERCENT 11 % (BEAKER) (test code = 431) EOSINOPHILS RELATIVE PERCENT 3 % (BEAKER) (test code = 432) BASOPHILS RELATIVE PERCENT 1 % (BEAKER) (test code = 437) NEUTROPHILS ABSOLUTE COUNT 3.61 K/ L 1.80-8.00 (BEAKER) (test code = 670) LYMPHOCYTES ABSOLUTE COUNT 1.73 K/ L 1.48-4.50 (BEAKER) (test code = 414) MONOCYTES ABSOLUTE COUNT (BEAKER) 0.71 K/ L 0.00-1.30 (test code = 415) EOSINOPHILS ABSOLUTE COUNT 0.17 K/ L 0.00-0.50 (BEAKER) (test code = 416) BASOPHILS ABSOLUTE COUNT (BEAKER) 0.04 K/ L 0.00-0.20 (test code = 417) IMMATURE GRANULOCYTES-RELATIVE 0 % 0-0 PERCENT (BEAKER) (test code = 2801) POCT-GLUCOSE [id number] 23:37:00 Test Item Value Reference Range Interpretation Comments POC-GLUCOSE METER 200 mg/dL 70-110 H : TESTED A T [facility] [address] (BEAKER) (test code [facility] [place] [address], = 1538) [place] [address]: 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 yenny ID = [id number] for baldemar Damian POCT-GLUCOSE [id number] 18:31:00 Test Item Value Reference Range Interpretation Comments POC-GLUCOSE METER 223 mg/dL 70-110 H : TESTED A T [facility] [address] (BEAKER) (test code [address], = 1538) [facility] 77 478: 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 yenny ID = [id number] for [place] POCT-GLUCOSE [id number] 16:01:00 Test Item Value Reference Range Interpretation Comments POC-GLUCOSE METER 269 mg/dL 70-110 H : TESTED A T [facility] [address] (BEAKER) (test code [address], = 1538) [facility] 77 478: 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 yenny ID = [id number] for [place] RAD, ABDOMEN/KUB 1 VIEW [id number] 07:02:00Reason for exam:->perforation of viscusFINAL REPORT CLINICAL HISTORY: Perforation of viscus COMPARISON: 05/29/2019 FINDINGS: 3 supine views of the abdomen are submitted. There is redemonstrated patchy free air overlying the right abdomen and epigastrium, similar to previous. Lucency extends to the lower midline of th e chest, possibly under the diaphragm or extending into the mediastinum/pericardial space. An enteric tube tip overlies the left upper quadrant. The abdominal bowel gas pattern is nonspecific. Signed: Edison Mallory MDReport Verified Date/Time: 05/30/2019 07:02:16 XR abdomen / KUB 1 [id number] 07:02:00Interface, External Ris In - 05/30/2019 7:04 AM CSTFINAL REPORT CLINICAL HISTORY: Perforation of viscus COMPARISON: 05/29/2019 FINDINGS: 3 supine views of the abdomen are submitted. There is redemonstrated patchy free air overlying the right abdomen and epigastrium, similar toprevious. Lucency extends to the lower midline of the chest, possibly under the diaphragm or extending into the mediastinum/pericardial space. An enteric tube tip overlies the left upper quadrant. The abdominal bowel gas pattern is nonspecific. Signed: Edison Mallory MDReport Verified Date/Time: 05/30/2019 07:02:16 [facility] [id number] 07:00:00Reason for exam:->abnormal breath soundsShould this be performed at the bedside?->YesFINAL REPORT History: History of perforated viscus. Comparison: 09/03/2017 Findings: A single view of the chest is submitted. There is lucency at the inferior heart border which may reflect free air under the diaphragm or pneumopericardium. The cardiac silhouette is at the upper limits of normal for size but magnified by portable technique. Sternotomy wires are in place. The right hemidiaphragm is elevated. Patchy retrocardiac opacity in the left lung may reflect atelectasis but pneumonitis should be excluded clinically. There is no acute bony abnormality. An enteric tube tra verses examination to the upper abdomen. A right PICC line is in place. Signed: Edison Mallory Verified Date/Time: 05/30/2019 07:00:06 XR chest 1 view portable / [id number] 07:00:00Interface, External Ris In - 05/30/2019 7:02 AM CSTFINAL REPORT History: History of perforated viscus. Comparison: 09/03/2017 Findings: A single view of the chest is submitted. There is lucency at the inferior heart border which may reflect free air under the diaphragm or pneumopericardium. The cardiac silhouette is at the upper limits of normal for size but magnified by portable technique. Sternotomy wires are in place. The right hemidiaphragm is elevated. Patchy retrocardiac opacity in the left lung may reflect atelectasis but pneumonitis should be excluded clinically. There is no acute bony abnormality. An enteric tube traverses examination to the upper abdomen. A rightPICC line is in place. Signed: Edison Mallory MDRchiloort Verified Date/Time: 05/30/2019 07:00:06 [facility] W/PLT COUNT & AUTO [id number] 06:15:00 Test Item Value Reference Range Interpretation Comments WHITE BLOOD CELL COUNT (BEAKER) 8.3 K/ L 4.0-10.0 (test code = 775) RED BLOOD CELL COUNT (BEAKER) 3.61 M/ L 4.00-5.00 L (test code = 761) HEMOGLOBIN (BEAKER) (test code = 10.4 GM/DL 12.0-15.5 L 410) HEMATOCRIT (BEAKER) (test code = 32.3 % 36.0-46.0 L 411) MEAN CORPUSCULAR VOLUME (BEAKER) 89.5 fL 82.0-99.0 (test code = 753) MEAN CORPUSCULAR HEMOGLOBIN 28.8 pg 27.0-33.0 (BEAKER) (test code = 751) MEAN CORPUSCULAR HEMOGLOBIN CONC 32.2 GM/DL 32.0-36.0 (BEAKER) (test code = 752) RED CELL DISTRIBUTION WIDTH 14.3 % 12.0-15.0 (BEAKER) (test code = 412) PLATELET COUNT (BEAKER) (test 248 K/CU MM 150-430 code = 756) MEAN PLATELET VOLUME (BEAKER) 10.2 fL 6.0-11.5 (test code = 754) NUCLEATED RED BLOOD CELLS 0 /100 WBC 0-0 (BEAKER) (test code = 413) NEUTROPHILS RELATIVE PERCENT 68 % (BEAKER) (test code = 429) LYMPHOCYTES RELATIVE PERCENT 19 % (BEAKER) (test code = 430) MONOCYTES RELATIVE PERCENT 12 % (BEAKER) (test code = 431) EOSINOPHILS RELATIVE PERCENT 1 % (BEAKER) (test code = 432) BASOPHILS RELATIVE PERCENT 0 % (BEAKER) (test code = 437) NEUTROPHILS ABSOLUTE COUNT 5.65 K/ L 1.80-8.00 (BEAKER) (test code = 670) LYMPHOCYTES ABSOLUTE COUNT 1.54 K/ L 1.48-4.50 (BEAKER) (test code = 414) MONOCYTES ABSOLUTE COUNT (BEAKER) 0.96 K/ L 0.00-1.30 (test code = 415) EOSINOPHILS ABSOLUTE COUNT 0.10 K/ L 0.00-0.50 (BEAKER) (test code = 416) BASOPHILS ABSOLUTE COUNT (BEAKER) 0.03 K/ L 0.00-0.20 (test code = 417) IMMATURE GRANULOCYTES-RELATIVE 1 % 0-0 H PERCENT (BEAKER) (test code = 2801) BASIC METABOLIC [id number] 05:41:00 Test Item Value Reference Range Interpretation Comments SODIUM (BEAKER) (test 141 meq/L 135-148 code = 381) POTASSIUM (BEAKER) 4.1 meq/L 3.6-5.5 (test code = 379) CHLORIDE (BEAKER) 108 meq/L 98-106 H (test code = 382) CO2 (BEAKER) (test 24 meq/L 20-29 code = 355) BLOOD UREA NITROGEN 19 mg/dL 10-26 (BEAKER) (test code = 354) CREATININE (BEAKER) 1.24 mg/dL 0.50-1.20 H (test code = 358) GLUCOSE RANDOM 205 mg/dL 70-110 H (BEAKER) (test code = 652) CALCIUM (BEAKER) 8.6 mg/dL 8.5-10.5 (test code = 697) EGFR (BEAKER) (test INSUFFIC IENT CLINICAL code = 1092) DATA TO CALCULA TE ESTIMATED GFR. [id number] 05:40:00 Test Item Value Reference Range Interpretation Comments MAGNESIUM (BEAKER) (test code = 1.7 mg/dL 1.5-3.0 627) [id number] 05:37:00 Test Item Value Reference Range Interpretation Comments PHOSPHORUS (BEAKER) (test code = 2.3 mg/dL 2.5-4.5 L 604) POCT-GLUCOSE [id number] 05:28:00 Test Item Value Reference Range Interpretation Comments POC-GLUCOSE METER 186 mg/dL 70-110 H : TESTED A T [facility] 1317 (BEAKER) (test code [facility], = 1538) [place] [id number]: 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 yenny ID = [id number] for Demp s, Khedra POCT-GLUCOSE [id number] 23:57:00 Test Item Value Reference Range Interpretation Comments POC-GLUCOSE METER 250 mg/dL 70-110 H : TESTED A T [facility] 1317 (BEAKER) (test code [facility] [place] NT [facility], = 1538) [place] [address]698: 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 yenny ID = [id number] for Dane Ponce POCT-GLUCOSE [id number] 18:10:00 Test Item Value Reference Range Interpretation Comments POC-GLUCOSE METER 242 mg/dL 70-110 H : Notified RN/MD: TESTED ([facility]) (test code AT [facility] [address] = 1538) [facility] [address]: 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 yenny ID = [id number] for Cosme Aldridge POCT-GLUCOSE [id number] 15:13:00 Test Item Value Reference Range Interpretation Comments POC-GLUCOSE METER 325 mg/dL 70-110 H : TESTED A T [facility] 1317 ([facility]) (test code [address] [facility], = 1538) [facility] 77 8: 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 yenny ID = [id number] for Prov Danny wilsona POCT-GLUCOSE [id number] 14:40:00 Test Item Value Reference Range Interpretation Comments POC-GLUCOSE METER 228 mg/dL 70-110 H : Notified RN/MD: TESTED ([facility]) (test code AT [facility] [address] = 1538) [place] [id number]: 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 yenny ID = [id number] for Bassam h, Lorita RAD, ABDOMEN/KUB 1 VIEW [id number] 08:56:00Reason for exam:->f/u distended abdFINAL REPORT Portable x-rays AP abdomen 05/29/2019 at 04 55 COMPARISON: 05/28/2019 HISTORY: Follow-up abdominal distention FINDINGS: Study submitted on two images. Nonobstructivebowel gas pattern. Air is seen in the sigmoid colon and rectum. A nasogastric tube is unchanged in position. This technique is insensitive for free intraperitoneal air. There is lucency in the lower chest/upper abdomen in the midline. This part of the body was obscured on the comparison film by a radiopaque shield. Chest x-ray may be done to resolve this area. No suspicious densities to suggest calculi. Lung bases to the extent seen unremarkable. Status post median sternotomy and CABG. Chronic sclerotic changes in the lumbosacral spine. IMPRESSION: Nonobstructive bowel gas pattern. Chest x-ray should be done to further assess the lucency in the upper abdomen/lower chest. Please see above. Signed: Wellington Carmen MDReport Verified Date/Time: 05/29/2019 08:56:15 Reading Location: [facility] Radiology Reading Room Lipase 2019-05-29 08:08:00 Test Item Value Reference Range Interpretation Comments Lipase (test code = 3040-3) 23 U/L 6-51 Lab Interpretation (test code = Normal 08050-3) [facility]:08[facility]00 Test Item Value Reference Range Interpretation Comments LIPASE (BEAKER) (test code = 749) 23 U/L 6-51 [id number] 07:26:00 Test Item Value Reference Range Interpretation Comments Amylase (test code = 1798-8) 36 U/L 30-110 Lab Interpretation (test code = Normal 62403-5) [facility] 07:26:00 Test Item Value Reference Range Interpretation Comments AMYLASE (BEAKER) (test code = 349) 36 U/L 30-110 BASIC METABOLIC [id number] 06:06:00 Test Item Value Reference Range Interpretation Comments SODIUM (BEAKER) (test 141 meq/L 135-148 code = 381) POTASSIUM (BEAKER) 4.0 meq/L 3.6-5.5 (test code = 379) CHLORIDE (BEAKER) 109 meq/L 98-106 H (test code = 382) CO2 (BEAKER) (test 23 meq/L 20-29 code = 355) BLOOD UREA NITROGEN 22 mg/dL 10-26 (BEAKER) (test code = 354) CREATININE (BEAKER) 1.41 mg/dL 0.50-1.20 H (test code = 358) GLUCOSE RANDOM 327 mg/dL 70-110 H (BEAKER) (test code = 652) CALCIUM (BEAKER) 8.5 mg/dL 8.5-10.5 (test code = 697) EGFR (BEAKER) (test INSUFFIC IENT CLINICAL code = 1092) DATA TO CALCULA TE ESTIMATED GFR. [id number] 06:03:00 Test Item Value Reference Range Interpretation Comments MAGNESIUM (BEAKER) (test code = 1.9 mg/dL 1.5-3.0 627) [id number] 06:00:00 Test Item Value Reference Range Interpretation Comments PHOSPHORUS (BEAKER) (test code = 1.7 mg/dL 2.5-4.5 L 604) CBC W/PLT COUNT & AUTO [id number] 05:54:00 Test Item Value Reference Range Interpretation Comments WHITE BLOOD CELL COUNT (BEAKER) 11.4 K/ L 4.0-10.0 H (test code = 775) RED BLOOD CELL COUNT (BEAKER) 3.70 M/ L 4.00-5.00 L (test code = 761) HEMOGLOBIN (BEAKER) (test code = 10.5 GM/DL 12.0-15.5 L 410) HEMATOCRIT (BEAKER) (test code = 32.7 % 36.0-46.0 L 411) MEAN CORPUSCULAR VOLUME (BEAKER) 88.4 fL 82.0-99.0 (test code = 753) MEAN CORPUSCULAR HEMOGLOBIN 28.4 pg 27.0-33.0 (BEAKER) (test code = 751) MEAN CORPUSCULAR HEMOGLOBIN CONC 32.1 GM/DL 32.0-36.0 (BEAKER) (test code = 752) RED CELL DISTRIBUTION WIDTH 14.5 % 12.0-15.0 (BEAKER) (test code = 412) PLATELET COUNT (BEAKER) (test 239 K/CU MM 150-430 code = 756) MEAN PLATELET VOLUME (BEAKER) 9.9 fL 6.0-11.5 (test code = 754) NUCLEATED RED BLOOD CELLS 0 /100 WBC 0-0 (BEAKER) (test code = 413) NEUTROPHILS RELATIVE PERCENT 77 % (BEAKER) (test code = 429) LYMPHOCYTES RELATIVE PERCENT 13 % (BEAKER) (test code = 430) MONOCYTES RELATIVE PERCENT 10 % (BEAKER) (test code = 431) EOSINOPHILS RELATIVE PERCENT 0 % (BEAKER) (test code = 432) BASOPHILS RELATIVE PERCENT 0 % (BEAKER) (test code = 437) NEUTROPHILS ABSOLUTE COUNT 8.77 K/ L 1.80-8.00 H (BEAKER) (test code = 670) LYMPHOCYTES ABSOLUTE COUNT 1.43 K/ L 1.48-4.50 L (BEAKER) (test code = 414) MONOCYTES ABSOLUTE COUNT (BEAKER) 1.08 K/ L 0.00-1.30 (test code = 415) EOSINOPHILS ABSOLUTE COUNT 0.01 K/ L 0.00-0.50 (BEAKER) (test code = 416) BASOPHILS ABSOLUTE COUNT (BEAKER) 0.03 K/ L 0.00-0.20 (test code = 417) IMMATURE GRANULOCYTES-RELATIVE 0 % 0-0 PERCENT (BEAKER) (test code = 2801) IR PICC line placement older than 5 [id number] 10:47:00Interface, External Ris In - 05/28/2019 10:58 AM CSTFINAL REPORT PROCEDURE: PICC Placement CLINICAL HISTORY: long termed TPN QUILT MAKER: Lucas Brannon DO, JD ANESTHESIA: Local lidocaine. DEVICE: 5 Pashto dual lumen power PICC DOSE INFORMATION - Ka,r: 17 mGy Estimated Blood Loss: < 5cc Samples: None. PROCEDURE: The risks, benefits, and alternatives to the procedure were discussed with the patient. All questions were answered and written informed consent was obtained. A universal timeout was performed prior to starting the procedure. For Prevention of Central Venous Catheter (CVC)-Related Bloodstream Infections all elements of maximal sterile barrier technique, hand hygiene, skin preparation and sterile techniques were followed. Ultrasound of the right basilic vein demonstrated a patent and compressible vessel. An ultrasound image of the vessel was obtained. After local anesthesia lidocaine, the vein was accessed with a micropuncture needle under sonographic guidance. Access needle was exchanged for a peel-away sheath over a 0.018-inch marking wire, which was used to measure appropriate catheter length. The PICC was cut to length and inserted through the sheath into the right atrium. After confirming proper placement of the catheter tip in the right atrium under fluoroscopy with contrast injection, the peel-away sheath was removed. The lumen(s) aspirated blood briskly and was flushed. Catheter was secured with a StatLock adhesive device and covered with a sterile dressing. The patient tolerated the procedure well without immediate complication and was transported back to the floor in stable condition. IMPRESSION: Successful placement of right basilic PICC. Ca theter is ready for immediate use. Signed: Lucas Brannon MDReport Verified Date/Time: 05/28/2019 10:47:21 Reading Location: [facility] Radiology Reading [facility]/PICC >5 Y.O. WITH IMAGING 2019-05-28 10:47:00Reason for exam:->long termed TPNFINAL REPORT PROCEDURE: PICC Placement CLINICAL HISTORY: long termed TPN QUILT MAKER: Lucas Brannon DO, SILVIO ANESTHESIA: Local lidocaine. DEVICE: 5 Pashto dual lumen power PICC DOSE INFORMATION - Ka,r: 17 mGy Estimated Blood Loss: < 5cc Samples: None. PROCEDURE: The risks, benefits, and alternatives to the procedure were discussed with the patient. All questions were answered and written informed consent was obtained. A universal timeout was performed prior to starting theprocedure. For Prevention of Central Venous Catheter (CVC)-Related Bloodstream Infections all elements of maximal sterile barrier technique, hand hygiene, skin preparation and sterile techniques were followed. Ultrasound of the right basilic vein demonstrated a patent and compressible vessel. An ultra sound image of the vessel was obtained. After local anesthesia lidocaine, the vein was accessed witha micropuncture needle under sonographic guidance. Access needle was exchanged for a peel-away sheath over a 0.018-inch marking wire, which was used to measure appropriate catheter length. The PICC wascut to length and inserted through the sheath into the right atrium. After confirming proper placement of the catheter tip in the right atrium under fluoroscopy with contrast injection, the peel-away sheath was removed. The lumen(s) aspirated blood briskly and was flushed. Catheter was secured with a StatLock adhesive device and covered with a sterile dressing. The patient tolerated the procedure well without immediate complication and was transported back to the floor in stable condition. IMPRESSION: Successful placement of right basilic PICC. Catheter is ready for immediate use. Signed: Lucas Brannon MDReport Verified Date/Time: 05/28/2019 10:47:21 Reading Location: [facility] Radiology Reading Room C METABOLIC [id number] 06:19:00 Test Item Value Reference Range Interpretation Comments SODIUM (BEAKER) (test 141 meq/L 135-148 code = 381) POTASSIUM (BEAKER) 4.3 meq/L 3.6-5.5 (test code = 379) CHLORIDE (BEAKER) 109 meq/L 98-106 H (test code = 382) CO2 (BEAKER) (test 12 meq/L 20-29 L code = 355) BLOOD UREA NITROGEN 20 mg/dL 10-26 (BEAKER) (test code = 354) CREATININE (BEAKER) 1.59 mg/dL 0.50-1.20 H (test code = 358) GLUCOSE RANDOM 186 mg/dL 70-110 H (BEAKER) (test code = 652) CALCIUM (BEAKER) 8.4 mg/dL 8.5-10.5 L (test code = 697) EGFR (BEAKER) (test INSUFFIC IENT CLINICAL code = 1092) DATA TO CALCULA TE ESTIMATED GFR. [id number] 06:18:00 Test Item Value Reference Range Interpretation Comments LIPASE (BEAKER) (test code = 749) 174 U/L 6-51 H HEPATIC FUNCTION [id number] 06:17:00 Test Item Value Reference Range Interpretation Comments TOTAL PROTEIN (BEAKER) (test code = 6.4 gm/dL 6.0-8.5 770) ALBUMIN (BEAKER) (test code = 1145) 3.4 g/dL 3.5-5.0 L BILIRUBIN TOTAL (BEAKER) (test code 0.9 mg/dL 0.1-1.2 = 377) BILIRUBIN DIRECT (BEAKER) (test 0.6 mg/dL 0.0-0.4 H code = 706) ALKALINE PHOSPHATASE (BEAKER) (test 146 U/L 30-115 H code = 346) AST (SGOT) (BEAKER) (test code = 25 U/L 5-40 353) ALT (SGPT) (BEAKER) (test code = 71 U/L 5-50 H 347) [id number] 06:17:00 Test Item Value Reference Range Interpretation Comments MAGNESIUM (BEAKER) (test code = 1.7 mg/dL 1.5-3.0 627) [id number] 06:13:00 Test Item Value Reference Range Interpretation Comments PHOSPHORUS (BEAKER) (test code = 4.1 mg/dL 2.5-4.5 604) [id number] 06:09:00 Test Item Value Reference Range Interpretation Comments AMYLASE (BEAKER) (test code = 349) 209 U/L 30-110 H CBC W/PLT COUNT & AUTO [id number] 06:00:00 Test Item Value Reference Range Interpretation Comments WHITE BLOOD CELL COUNT (BEAKER) 15.7 K/ L 4.0-10.0 H (test code = 775) RED BLOOD CELL COUNT (BEAKER) 4.14 M/ L 4.00-5.00 (test code = 761) HEMOGLOBIN (BEAKER) (test code = 11.7 GM/DL 12.0-15.5 L 410) HEMATOCRIT (BEAKER) (test code = 37.7 % 36.0-46.0 411) MEAN CORPUSCULAR VOLUME (BEAKER) 91.1 fL 82.0-99.0 (test code = 753) MEAN CORPUSCULAR HEMOGLOBIN 28.3 pg 27.0-33.0 (BEAKER) (test code = 751) MEAN CORPUSCULAR HEMOGLOBIN CONC 31.0 GM/DL 32.0-36.0 L (BEAKER) (test code = 752) RED CELL DISTRIBUTION WIDTH 14.4 % 12.0-15.0 (BEAKER) (test code = 412) PLATELET COUNT (BEAKER) (test 278 K/CU MM 150-430 code = 756) MEAN PLATELET VOLUME (BEAKER) 10.0 fL 6.0-11.5 (test code = 754) NUCLEATED RED BLOOD CELLS 0 /100 WBC 0-0 (BEAKER) (test code = 413) NEUTROPHILS RELATIVE PERCENT 84 % (BEAKER) (test code = 429) LYMPHOCYTES RELATIVE PERCENT 8 % (BEAKER) (test code = 430) MONOCYTES RELATIVE PERCENT 8 % (BEAKER) (test code = 431) EOSINOPHILS RELATIVE PERCENT 0 % (BEAKER) (test code = 432) BASOPHILS RELATIVE PERCENT 0 % (BEAKER) (test code = 437) NEUTROPHILS ABSOLUTE COUNT 13.10 K/ L 1.80-8.00 H (BEAKER) (test code = 670) LYMPHOCYTES ABSOLUTE COUNT 1.20 K/ L 1.48-4.50 L (BEAKER) (test code = 414) MONOCYTES ABSOLUTE COUNT (BEAKER) 1.23 K/ L 0.00-1.30 (test code = 415) EOSINOPHILS ABSOLUTE COUNT 0.03 K/ L 0.00-0.50 (BEAKER) (test code = 416) BASOPHILS ABSOLUTE COUNT (BEAKER) 0.03 K/ L 0.00-0.20 (test code = 417) IMMATURE GRANULOCYTES-RELATIVE 0 % 0-0 PERCENT (BEAKER) (test code = 2801) RAD, ABDOMEN/KUB 1 VIEW [id number] 02:06:00Reason for exam:->ng ntube placementShould this be performed at the bedside?->YesFINAL REPORT TECHNIQUE: Single View of the Abdomen. INDICATION: NG tube placem ent. COMPARISON: 05/27/2019. FINDINGS/IMPRESSION: The NG tube is in the expected region of the stomach. Unchanged marked free air within the right upper abdomen. There are a few loops of gas-filled small bowel within the left lower quadrant up to 2.8 cm diameter. Bowel gas pattern is nonspecific. No acute osseous abnormality. Signed: María [facility] Verified Date/Time: 05/28/2019 02:06:02 [facility] [id number] 23:42:00FINAL REPORT TECHNIQUE: CT of the abdomen and pelvis WITHOUT intravenous contrast and WITHOUT oral contrast. Dose modulation, iterative reconstruction, and/or weight-based adjustment of the mA/kV was utilized to reduce the radiation dose to as low as reasonably achievable. INDICATION: 69-year-old woman with abdominal pain. COMPARISON: Abdomen radiograph from earlier same date.FINDINGS: ABSENCE OF INTRAVENOUS CONTRAST DECREASES SENSITIVITY FOR DETECTION OF FOCAL LESIONS AND VA SCULAR PATHOLOGY. LOWER THORAX: Unremarkable. HEPATOBILIARY: No focal hepatic lesions. Small amount of layering hyperdensity in the gallbladder may represent sludge and/or stones. No thickened gallbladder wall or pericholecystic edema. No biliary ductal dilatation. Pneumobilia.SPLEEN: No splenomegaly.PANCREAS: No focal masses or ductal dilatation. ADRENALS: No adrenal nodules.KIDNEYS/URETERS: No hydronephrosis, stones, or solid mass lesions.PELVIC ORGANS/BLADDER: The bladder is decompressed by Foleycatheter. Small amount of air in the bladder lumen, likely from catheterization. PERITONEUM/RETROPERITONEUM: Moderate amount of free air around the liver, in the lesser sac, and in the right retroperito neum Edema around the second/third duodenal segment and pancreatic head. Trace free fluid in the right lower quadrant and pelvis.LYMPH NODES: No lymphadenopathy.VESSELS: Atherosclerotic vascular calcifications in the abdominal aorta and bilateral iliac arteries without aneurysm. GI TRACT: Thickened wall of the duodenum. No bowel obstruction. Normal appendix. BONES AND SOFT TISSUES: Degenerative changes of the visualized spine. Soft tissues are unremarkable. IMPRESSION:Moderate amount of free air inthe right peritoneum and retroperitoneum, suspicious for duodenal perforation. The above findings were discussed with Satish Montano RN, who acknowledged the findings, on 05/27/2019 at 11:40 PM. He states he will relay the findings to Dr. Greene. Signed: Shanda [place] Verified Date/Time: 05/27/2019 23:42:44 Reading Location: [address] Consult Reading Room POCT-GLUCOSE [id number] 20:49:00 Test Item Value Reference Range Interpretation Comments POC-GLUCOSE METER 113 mg/dL 70-110 H : TESTED A T [facility] 1317 (BEAKER) (test code [facility] [place] [address], = 1538) [facility] [address]: 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 yenny ID = [id number] for Will iams, Mandy RAD, ABDOMEN/KUB 1 VIEW [id number] 20:06:00Reason for exam:->abd painFINAL REPORT TECHNIQUE: Frontal views of the abdomen. INDICATION: 77-hitr-omhhmksi with abdominal pain. COMPARISON: None. IMPRESSION:Nonspecific bowel gas pattern with gaseous distention of bowel loops in the right abdomen. Linear focus of air in the right abdomen is suspiciousfor air along the undersurface of the liver. Pneumoperitoneum cannot be excluded. Abdomen and pelvisCT may be obtained for further evaluation. Bones and soft tissues are unremarkable. The above findings were discussed with patient's RN Satish, who acknowledged the findings, on 05/27/2019 at approximately 7:45 PM. A message was left on the gastroenterologists answering service voicemail at approximately 7:50 PM. Signed: Shanda Duong MDReport Verified Date/Time: 05/27/2019 20:06:16 Reading Location: [facility] B1 C013W Consult Reading Room Hemoglobin and [id number] 17:02:00 Test Item Value Reference Range Interpretation Comments Hemoglobin (test code = 786-4) 12.0 12.0- 15.5 GM/DL Hematocrit (test code = 4544-3) 38.1 % 36-46 Lab Interpretation (test code = Normal 06968-1) [facility] [id number] 17:02:00 Test Item Value Reference Range Interpretation Comments HEMOGLOBIN (BEAKER) (test code = 12.0 GM/DL 12.0-15.5 410) HEMATOCRIT (BEAKER) (test code = 38.1 % 36.0-46.0 411) [place], [id number] 14:17:00Reason for exam:->ercpFINAL REPORT ERCP, 05/27/2019 Clinical History: ERCP. Impression: Intraoperative images are obtained. The radiologist is not present during the procedure. Fluoroscopy was not performed by the undersigned. Images are presented for interpretation at the completion of the procedure. There is contrast opacification of the common bile duct. Please refer to the procedure report for more details. See fluoroscopic images for fluoroscopic dose information. Signed: Anastacio Dasilva Verified Date/Time: 05/27/2019 14:17:28 Reading Location: [facility] Radiology Reading Room [facility] Endoscopic Retrograde [id number] 14:17:00Interface, External Ris In - 05/27/2019 2:19 PM CSTFINAL REPORT ERCP, 05/27/2019 Clinical History: ERCP. Impression: Intraoperative images are obtained. The radiologist is not present during the procedure. Fluoroscopy was not performed by the undersigned. Images are presentedfor interpretation at the completion of the procedure. There is contrast opacification of the common bile duct. Please refer to the procedure report for more details. See fluoroscopic images for fluoroscopic dose information. Signed: Anastacio Dasilvaeport Verified Date/Time: 05/27/2019 14:17:28 Reading Location: [facility] Radiology [facility] [id number] 12:09:00 Test Item Value Reference Range Interpretation Comments POC-GLUCOSE METER 82 mg/dL 70-110 : Notified RN/MD: TESTED (BEAKER) (test code = AT [facility] [address]) [facility] [address]: 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 yenny ID = [id number] for Alaina Lynne BASIC METABOLIC [id number] 05:49:00 Test Item Value Reference Range Interpretation Comments SODIUM (BEAKER) (test 142 meq/L 135-148 code = 381) POTASSIUM (BEAKER) 3.7 meq/L 3.6-5.5 (test code = 379) CHLORIDE (BEAKER) 110 meq/L 98-106 H (test code = 382) CO2 (BEAKER) (test 20 meq/L 20-29 code = 355) BLOOD UREA NITROGEN 11 mg/dL 10-26 (BEAKER) (test code = 354) CREATININE (BEAKER) 1.11 mg/dL 0.50-1.20 (test code = 358) GLUCOSE RANDOM 77 mg/dL 70-110 (BEAKER) (test code = 652) CALCIUM (BEAKER) 8.4 mg/dL 8.5-10.5 L (test code = 697) EGFR (BEAKER) (test INSUFFIC IENT CLINICAL code = 1092) DATA TO CALCULA TE ESTIMATED GFR. HEPATIC FUNCTION [id number] 05:47:00 Test Item Value Reference Range Interpretation Comments TOTAL PROTEIN (BEAKER) (test code = 6.3 gm/dL 6.0-8.5 770) ALBUMIN (BEAKER) (test code = 1145) 3.4 g/dL 3.5-5.0 L BILIRUBIN TOTAL (BEAKER) (test code 1.0 mg/dL 0.1-1.2 = 377) BILIRUBIN DIRECT (BEAKER) (test 0.6 mg/dL 0.0-0.4 H code = 706) ALKALINE PHOSPHATASE (BEAKER) (test 151 U/L 30-115 H code = 346) AST (SGOT) (BEAKER) (test code = 23 U/L 5-40 353) ALT (SGPT) (BEAKER) (test code = 84 U/L 5-50 H 347) Vancomycin level, [id number] 05:44:00 Test Item Value Reference Range Interpretation Comments Vancomycin Tr (test code = 4092-3) 1.8 ug/mL 10-20 L Lab Interpretation (test code = Abnormal 89788-8) [facility], [id number] 05:44:00 Test Item Value Reference Range Interpretation Comments VANCOMYCIN TROUGH (BEAKER) (test 1.8 ug/mL 10.0-20.0 L code = 522) [id number] 05:44:00 Test Item Value Reference Range Interpretation Comments AMYLASE (BEAKER) (test code = 349) 20 U/L 30-110 L [id number] 05:36:00 Test Item Value Reference Range Interpretation Comments Protime (test code = 14.0 9.3- 12.0 sec H 5902-2) INR (test code = 1.3 <=5.9 6301-6) PTT (test code = 26.2 23.0- 35.0 sec 55474-9) OBEY (test code = OBEY) RECOMMENDED COUMADIN/WARFARIN INR THERAPY RANGESSTANDARD DOSE: 2.0 - 3.0 Includes: PROPHYLAXIS for venous thrombosis, systemic embolization; TREATMENT for venous thrombosis and/or pulmonary embolus.HIGH RISK: Target INR is 2.5-3.5 for patients with mechanical heart valves.Final Information (Auto Output)Final Information (Auto Output)Final Information (Auto Output) Lab Interpretation Abnormal (test code = 21077-5) [id number] 05:36:00 Test Item Value Reference Range Interpretation Comments PROTIME (BEAKER) (test code = 759) 14.0 sec 9.3-12.0 H INR (BEAKER) (test code = 370) 1.3 <=5.9 PARTIAL THROMBOPLASTIN TIME (BEAKER) 26.2 sec 23.0-35.0 (test code = 760) RECOMMENDED COUMADIN/WARFARIN INR THERAPY RANGESSTANDARD DOSE: 2.0 - 3.0 Includes: PROPHYLAXIS forvenous thrombosis, systemic embolization; TREATMENT for venous thrombosis and/or pulmonary embolus.HIGH RISK: Target INR is 2.5-3.5 for patients with mechanical heart valves.Final Information (Auto Output)Final Information (Auto Output)Final Information (Auto Output)CBC W/PLT COUNT & AUTO [id number] 05:23:00 Test Item Value Reference Range Interpretation Comments WHITE BLOOD CELL COUNT (BEAKER) 6.1 K/ L 4.0-10.0 (test code = 775) RED BLOOD CELL COUNT (BEAKER) 4.08 M/ L 4.00-5.00 (test code = 761) HEMOGLOBIN (BEAKER) (test code = 11.9 GM/DL 12.0-15.5 L 410) HEMATOCRIT (BEAKER) (test code = 35.3 % 36.0-46.0 L 411) MEAN CORPUSCULAR VOLUME (BEAKER) 86.5 fL 82.0-99.0 (test code = 753) MEAN CORPUSCULAR HEMOGLOBIN 29.2 pg 27.0-33.0 (BEAKER) (test code = 751) MEAN CORPUSCULAR HEMOGLOBIN CONC 33.7 GM/DL 32.0-36.0 (BEAKER) (test code = 752) RED CELL DISTRIBUTION WIDTH 14.4 % 12.0-15.0 (BEAKER) (test code = 412) PLATELET COUNT (BEAKER) (test 253 K/CU MM 150-430 code = 756) MEAN PLATELET VOLUME (BEAKER) 9.7 fL 6.0-11.5 (test code = 754) NUCLEATED RED BLOOD CELLS 0 /100 WBC 0-0 (BEAKER) (test code = 413) NEUTROPHILS RELATIVE PERCENT 57 % (BEAKER) (test code = 429) LYMPHOCYTES RELATIVE PERCENT 29 % (BEAKER) (test code = 430) MONOCYTES RELATIVE PERCENT 12 % (BEAKER) (test code = 431) EOSINOPHILS RELATIVE PERCENT 2 % (BEAKER) (test code = 432) BASOPHILS RELATIVE PERCENT 1 % (BEAKER) (test code = 437) NEUTROPHILS ABSOLUTE COUNT 3.51 K/ L 1.80-8.00 (BEAKER) (test code = 670) LYMPHOCYTES ABSOLUTE COUNT 1.78 K/ L 1.48-4.50 (BEAKER) (test code = 414) MONOCYTES ABSOLUTE COUNT (BEAKER) 0.71 K/ L 0.00-1.30 (test code = 415) EOSINOPHILS ABSOLUTE COUNT 0.09 K/ L 0.00-0.50 (BEAKER) (test code = 416) BASOPHILS ABSOLUTE COUNT (BEAKER) 0.03 K/ L 0.00-0.20 (test code = 417) IMMATURE GRANULOCYTES-RELATIVE 0 % 0-0 PERCENT (BEAKER) (test code = 2801) POCT-GLUCOSE [id number] 00:12:00 Test Item Value Reference Range Interpretation Comments POC-GLUCOSE METER 102 mg/dL 70-110 : Notified RN/MD: [facility] (test code AT [facility] [address] = [address]) [place] [address]: 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 yenny ID = [id number] for Prov ost, Hannah POCT-GLUCOSE [id number] 18:12:00 Test Item Value Reference Range Interpretation Comments POC-GLUCOSE METER 89 mg/dL 70-110 : Notified RN/MD: TESTED ([facility]) (test code = AT [facility] L [address]) [place] [address]: 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 yenny ID = [id number] for Bassam h, Lorita POCT-GLUCOSE [id number] 12:04:00 Test Item Value Reference Range Interpretation Comments POC-GLUCOSE METER 86 mg/dL 70-110 : Notified RN/MD: [facility] (test code = AT [facility] L [address]) [place] [address]: 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 yenny ID = [id number] for Bassam h, Lorita HEPATIC FUNCTION [id number] 05:42:00 Test Item Value Reference Range Interpretation Comments TOTAL PROTEIN (BEAKER) (test code = 5.8 gm/dL 6.0-8.5 L 770) ALBUMIN (BEAKER) (test code = 1145) 3.2 g/dL 3.5-5.0 L BILIRUBIN TOTAL (BEAKER) (test code 0.8 mg/dL 0.1-1.2 = 377) BILIRUBIN DIRECT (BEAKER) (test 0.6 mg/dL 0.0-0.4 H code = 706) ALKALINE PHOSPHATASE (BEAKER) (test 145 U/L 30-115 H code = 346) AST (SGOT) (BEAKER) (test code = 27 U/L 5-40 353) ALT (SGPT) (BEAKER) (test code = 118 U/L 5-50 H 347) BASIC METABOLIC [id number] 05:41:00 Test Item Value Reference Range Interpretation Comments SODIUM (BEAKER) (test 141 meq/L 135-148 code = 381) POTASSIUM (BEAKER) 3.7 meq/L 3.6-5.5 (test code = 379) CHLORIDE (BEAKER) 110 meq/L 98-106 H (test code = 382) CO2 (BEAKER) (test 22 meq/L 20-29 code = 355) BLOOD UREA NITROGEN 11 mg/dL 10-26 (BEAKER) (test code = 354) CREATININE (BEAKER) 1.20 mg/dL 0.50-1.20 (test code = 358) GLUCOSE RANDOM 86 mg/dL 70-110 (BEAKER) (test code = 652) CALCIUM (BEAKER) 8.8 mg/dL 8.5-10.5 (test code = 697) EGFR (BEAKER) (test INSUFFIC IENT CLINICAL code = 1092) DATA TO CALCULA TE ESTIMATED GFR. [id number] 05:34:00 Test Item Value Reference Range Interpretation Comments AMYLASE (BEAKER) (test code = 349) 15 U/L 30-110 L CBC W/PLT COUNT & AUTO [id number] 05:22:00 Test Item Value Reference Range Interpretation Comments WHITE BLOOD CELL COUNT (BEAKER) 6.8 K/ L 4.0-10.0 (test code = 775) RED BLOOD CELL COUNT (BEAKER) 4.04 M/ L 4.00-5.00 (test code = 761) HEMOGLOBIN (BEAKER) (test code = 11.4 GM/DL 12.0-15.5 L 410) HEMATOCRIT (BEAKER) (test code = 35.6 % 36.0-46.0 L 411) MEAN CORPUSCULAR VOLUME (BEAKER) 88.1 fL 82.0-99.0 (test code = 753) MEAN CORPUSCULAR HEMOGLOBIN 28.2 pg 27.0-33.0 (BEAKER) (test code = 751) MEAN CORPUSCULAR HEMOGLOBIN CONC 32.0 GM/DL 32.0-36.0 (BEAKER) (test code = 752) RED CELL DISTRIBUTION WIDTH 14.5 % 12.0-15.0 (BEAKER) (test code = 412) PLATELET COUNT (BEAKER) (test 238 K/CU MM 150-430 code = 756) MEAN PLATELET VOLUME (BEAKER) 9.6 fL 6.0-11.5 (test code = 754) NUCLEATED RED BLOOD CELLS 0 /100 WBC 0-0 (BEAKER) (test code = 413) NEUTROPHILS RELATIVE PERCENT 61 % (BEAKER) (test code = 429) LYMPHOCYTES RELATIVE PERCENT 26 % (BEAKER) (test code = 430) MONOCYTES RELATIVE PERCENT 11 % (BEAKER) (test code = 431) EOSINOPHILS RELATIVE PERCENT 1 % (BEAKER) (test code = 432) BASOPHILS RELATIVE PERCENT 0 % (BEAKER) (test code = 437) NEUTROPHILS ABSOLUTE COUNT 4.19 K/ L 1.80-8.00 (BEAKER) (test code = 670) LYMPHOCYTES ABSOLUTE COUNT 1.75 K/ L 1.48-4.50 (BEAKER) (test code = 414) MONOCYTES ABSOLUTE COUNT (BEAKER) 0.78 K/ L 0.00-1.30 (test code = 415) EOSINOPHILS ABSOLUTE COUNT 0.06 K/ L 0.00-0.50 (BEAKER) (test code = 416) BASOPHILS ABSOLUTE COUNT (BEAKER) 0.02 K/ L 0.00-0.20 (test code = 417) IMMATURE GRANULOCYTES-RELATIVE 0 % 0-0 PERCENT (BEAKER) (test code = 2801) CT, CTANGIO [id number] 00:09:00Please perform CTA after clearance from Dr. Trevizo since patient has elevated creatinine and Dr. Trevizo will initiate a kidney protection protocol with mucomyst to protect the kidneys from compromise with contrast.FINAL REPORT EXAM: CT, CAROTID, ANGIO, CT, CTANGIO BRAIN CLINICAL INDICATION: Neuro deficit. Abnormal MRA. TECHNIQUE: Helical CT of the head without IV contrast. Postcontrast CTA of the head and CTA of the neck with IV contrast. Multiplanar reconstructed images. 3D reconstru ctions with MIP images were performed. This exam was performed according to our departmental dose-optimization program, which includes automated exposure control, adjustment of the mA and/or kV according to patient size and/or use of iterative reconstruction technique. COMPARISON: 05/25/2019 MRA FINDINGS:CT HEAD: Parenchyma: No acute infarction. Remote left thalamic lacunar infarction. No hemorrhage.No mass or mass effect. Patchy areas of hypoattenuation are present in the cerebral white matter that are nonspecific but compatible with mild chronic microvascular ischemic changes. Extra-axial Collection: None Ventricular System: Normal Dural Venous Sinuses: Normal Osseous Structures: Normal Paranasal Sinuses: Predominantly clear Tympanomastoid Cavities: Normal Other: None CTA HEAD: Anterior Circulation:Right intracranial internal carotid artery (ICA): Moderate atherosclerotic narrowing of the cavernous and supraclinoid segments.Right anterior cerebral artery (PRAVEENA): NormalRight middle cerebral artery (MCA): Normal Left intracranial internal carotid artery (ICA): Moderate atheroscleroticnarrowing of the cavernous and supraclinoid segments.Left anterior cerebral artery (PRAVEENA): NormalLeftmiddle cerebral artery (MCA): Normal Anterior communicating artery (AComm): PresentPosterior communic ating arteries (PComm): Not well-visualized bilaterally. Posterior Circulation:Right posterior cerebral artery (TECTONOPHYSICIST): NormalLeft posterior cerebral artery (TECTONOPHYSICIST): Normal Right vertebral artery (VA): NormalLeft vertebral artery (VA): NormalBasilar artery (BA): Normal Other: Normal Dural Venous Sinuses: Normal CTA NECK:Aortic arch and proximal great vessels: There are atherosclerotic changes resultingin mild narrowing of the left subclavian origin. Right carotid arterial system: Mild (<50%) internal carotid artery narrowing bifurcation. Left carotid arterial system: Atherosclerotic calcifications with mild narrowing at the origin of the common carotid artery. There is a stent extending from the mid common carotid artery to the mid ICA. Lumen is patent. Right vertebral artery: NormalLeft vertebral artery: Moderate atherosclerotic narrowing at the origin with patent flow distally. Wher e applicable, evaluation of internal carotid artery (ICA) stenosis was performed using NASCET-like criteria, where the site of greatest stenosis is compared to the diameter of the ICA distal to the stenosis at a point where the ICA petit become parallel. Neck Soft Tissues: Unremarkable. Osseous Structures: Unremarkable. Included Lung Apices: Unremarkable. IMPRESSION: 1. No acute intracranial abnormality.2. Left extracranial carotid stent accounts for abnormality on MRA of the neck. No acute vascular abnormality or flow-limiting stenosis on CTA of the head and neck. Multifocal moderate atherosclerotic narrowing, as described. Signed: María Crum MDReport Verified Date/Time: 05/26/2019 00:09:22 CT, CAROTID, [id number] 00:09:00Please perform CTA after clearance from Dr. Trevizo since patient has elevated creatinine and Dr. Trevizo will initiate a kidney protection protocol with mucomyst to protect the kidneys from compromisewith contrast.FINAL REPORT EXAM: CT, CAROTID, ANGIO, CT, CTANGIO BRAIN CLINICAL INDICATION: Neuro deficit. Abnormal MRA. TECHNIQUE: Helical CT of the head without IV contrast. Postcontrast CTA of the head and CTA of the neck with IV contrast. Multiplanar reconstructed images. 3D reconstructions with MIP images were performed. This exam was performed according to our departmental dose-optimization program, which includes automated exposure control, adjustment of the mA and/or kV according to patient size and/or use of iterative reconstruction technique. COMPARISON: 05/25/2019 MRA FINDINGS:CT HEAD: Parenchyma: No acute infarction. Remote left thalamic lacunar infarction. No hemorrhage.No mass or mass effect. Patchy areas of hypoattenuation are present in the cerebral white matter that are nonspecific but compatible with mild chronic microvascular ischemic changes. Extra-axial Collection: None Ventricular System: Normal Dural Venous Sinuses: Normal Osseous Structures: Normal Paranasal Sinuses: Predominantly clear Tympanomastoid Cavities: Normal Other: None CTA HEAD: Anterior Circulation:Right intracranial internal carotid artery (ICA): Moderate atherosclerotic narrowing of the cavernous and supraclinoid segments.Right anterior cerebral artery (PRAVEENA): NormalRight middle cerebral artery (MCA): Normal Left intracranial internal carotid artery (ICA): Moderate atherosclerotic narrowing of the cavernous and supraclinoid segments.Left anterior cerebral artery (PRAVEENA): NormalLeftmiddle cerebral artery (MCA): Normal Anterior communicating artery (AComm): PresentPosterior communicating arteries (PComm): Not well-visualized bilaterally. Posterior Circulation:Right posterior cerebral artery (TECTONOPHYSICIST): NormalLeft posterior cerebral artery (TECTONOPHYSICIST): Normal Right vertebral artery (VA): NormalLeft vertebral artery (VA): NormalBasilar artery (BA): Normal Other: Normal Dural Venous Sinuses:Normal CTA NECK:Aortic arch and proximal great vessels: There are atherosclerotic changes resultingin mild narrowing of the left subclavian origin. Right carotid arterial system: Mild (<50%) inter nal carotid artery narrowing bifurcation. Left carotid arterial system: Atherosclerotic calcifications with mild narrowing at the origin of the common carotid artery. There is a stent extending from the mid common carotid artery to the mid ICA. Lumen is patent. Right vertebral artery: NormalLeft vertebral artery: Moderate atherosclerotic narrowing at the origin with patent flow distally. Where applicable, evaluation of internal carotid artery (ICA) stenosis was performed using NASCET-like criteria, where the site of greatest stenosis is compared to the diameter of the ICA distal to the stenosis at a point where the ICA petit become parallel. Neck Soft Tissues: Unremarkable. Osseous Structures: Unremarkable. Included Lung Apices: Unremarkable. IMPRESSION: 1. No acute intracranial abnormality.2. Left extracranial carotid stent accounts for abnormality on MRA of the neck. No acute vascular abnormality or flow-limiting stenosis on CTA of the head and neck. Multifocal moderate atherosclerotic narrowing, as described. Signed: María Crum MDReport Verified Date/Time: 05/26/2019 00:09:22 [facility] [id number] 00:09:00Interface, External Ris In - 05/26/2019 12:12 AM CSTFINAL REPORT EXAM: CT, CAROTID, ANGIO, CT, CTANGIO BRAIN CLINICAL INDICATION: Neuro deficit. Abnormal MRA. TECHNIQUE: Helical CT of the head without IV contrast. Postcontrast CTA of the head and CTA of the neck with IV contrast. Multiplanar reconstructed images. 3D reconstructions with MIP images were performed. This examwas performed according to our departmental dose-optimization program, which includes automated exposure control, adjustment of the mA and/or kV according to patient size and/or use of iterative reconstruction technique. COMPARISON: 05/25/2019 MRA FINDINGS:CT HEAD: Parenchyma: No acute infarction. Remote left thalamic lacunar infarction. No hemorrhage. No mass or mass effect. Patchy areas of hypoattenuation are present in the cerebral white matter that are nonspecific but compatible with mild chronic microvascular ischemic changes. Extra-axial Collection: None Ventricular System: Normal Dural Venous Sinuses: Normal Osseous Structures: Normal Paranasal Sinuses: Predominantly clear Tympanomastoid Cavities: Normal Other: None CTA HEAD: Anterior Circulation:Right intracranial internal carotid artery (ICA): Moderate atherosclerotic narrowing of the cavernous and supraclinoid segments.Right anterior cerebral artery (PRAVEENA): NormalRight middle cerebral artery (MCA): Normal Left intracranial internal carotid artery (ICA): Moderate atherosclerotic narrowing of the cavernous and supraclinoid segme nts.Left anterior cerebral artery (PRAVEENA): NormalLeft middle cerebral artery (MCA): Normal Anterior communicating artery (AComm): PresentPosterior communicating arteries (PComm): Not well-visualized bilaterally. Posterior Circulation:Right posterior cerebral artery (TECTONOPHYSICIST): NormalLeft posterior cerebral artery (TECTONOPHYSICIST): Normal Right vertebral artery (VA): NormalLeft vertebral artery (VA): NormalBasilar artery (BA): Normal Other: Normal Dural Venous Sinuses: Normal CTA NECK:Aortic arch and proximal great vessels: There are atherosclerotic changes resulting in mild narrowing of the left subclavian origin. Right carotid arterial system: Mild (<50%) internal carotid artery narrowing bifurcation. Left carotid arterial system: Atherosclerotic calcifications with mild narrowing at the origin of the common carotid artery. There is a stent extending from the mid common carotid artery to the mid ICA. Rosemary men is patent. Right vertebral artery: NormalLeft vertebral artery: Moderate atherosclerotic narrowing at the origin with patent flow distally. Where applicable, evaluation of internal carotid artery (ICA) stenosis was performed using NASCET-like criteria, where the site of greatest stenosis is c ompared to the diameter of the ICA distal to the stenosis at a point where the ICA petit become parallel. Neck Soft Tissues: Unremarkable. Osseous Structures: Unremarkable. Included Lung Apices: Unremarkable. IMPRESSION: 1. No acute intracranial abnormality.2. Left extracranial carotid stent accountsfor abnormality on MRA of the neck. No acute vascular abnormality or flow-limiting stenosis on CTA of the head and neck. Multifocal moderate atherosclerotic narrowing, as described. Signed: María Crum MDReport Verified Date/Time: 05/26/2019 00:09:22 [facility] [id number] 00:09:00 Interface, External Ris In - 05/26/2019 12:12 AM CSTFINAL REPORT EXAM: CT, CAROTID, ANGIO, CT, CTANGIO BRAIN CLINICAL INDICATION: Neuro deficit. Abnormal MRA. TECHNIQUE: Helical CT of the head without IV contrast. Postcontrast CTA of the head and CTA of the neck with IV contrast. Multiplanar reconstructed images. 3D reconstructions with MIP images were performed. This examwas performed according to our departmental dose- optimization program, which includes automated exposure control, adjustment of the mA and/or kV according to patient size and/or use of iterative reconst ruction technique. COMPARISON: 05/25/2019 MRA FINDINGS:CT HEAD: Parenchyma: No acute infarction. Remote left thalamic lacunar infarction. No hemorrhage. No mass or mass effect. Patchy areas of hypoattenuation are present in the cerebral white matter that are nonspecific but compatible with mild chronic microvascular ischemic changes. Extra-axial Collection: None Ventricular System: Normal Dural Venous Sinuses: Normal Osseous Structures: Normal Paranasal Sinuses: Predominantly clear Tympanomastoid Cavities: Normal Other: None CTA HEAD: Anterior Circulation:Right intracranial internal carotid artery (ICA): Moderate atherosclerotic narrowing of the cavernous and supraclinoid segments.Right an terior cerebral artery (PRAVEENA): NormalRight middle cerebral artery (MCA): Normal Left intracranial internal carotid artery (ICA): Moderate atherosclerotic narrowing of the cavernous and supraclinoid segments.Left anterior cerebral artery (PRAVEENA): NormalLeft middle cerebral artery (MCA): Normal Anterior com municating artery (AComm): PresentPosterior communicating arteries (PComm): Not well-visualized bilaterally. Posterior Circulation:Right posterior cerebral artery (TECTONOPHYSICIST): NormalLeft posterior cerebral artery (TECTONOPHYSICIST): Normal Right vertebral artery (VA): NormalLeft vertebral artery (VA): NormalBasilar artery (BA): Normal Other: Normal Dural Venous Sinuses: Normal CTA NECK:Aortic arch and proximal great vessels: There are atherosclerotic changes resulting in mild narrowing of the left subclavian origin. Right carotid arterial system: Mild (<50%) internal carotid artery narrowing bifurcation. Left carotid arterial system: Atherosclerotic calcifications with mild narrowing at the origin of the common carotid artery. There is a stent extending from the mid common carotid artery to the mid ICA. Lumen is patent. Right vertebral artery: NormalLeft vertebral artery: Moderate atherosclerotic narrowing at the origin with patent flow distally. Where applicable, evaluation of internal carotid artery (ICA) stenosis was performed using NASCET-like criteria, where the site of greatest stenosis is compared to the diameter of the ICA distal to the stenosis at a point where the ICA petit become parallel. Neck Soft Tissues: Unremarkable. Osseous Structures: Unremarkable. Included Lung Apices: Unremarkable. IMPRESSION: 1. No acute intracranial abnormality.2. Left extracranial carotid stent accountsfor abnormality on MRA of the neck. No acute vascular abnormality or flow-limiting stenosis on CTA of the head and neck. Multifocal moderate atherosclerotic narrowing, as described. 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 3-D time of flight MRA of the cranial and cervical circulation. 2-D time of flight MRA of the neck. 3D MIP angiographic post-processing was performed. Stenosis evaluation utilized NASCET criteria. COMPARISON: Noncontrast brain CT of the same date FINDINGS: MRA BRAIN:Internal carotid arteries: Normal flow related enhancement without flow-limiting stenosisMiddle cerebral arteries: Normal flow related enhancement within the bilateral MCA M1-M2 segments without flow limiting stenosisAnterior cerebral arteries: Normal flow-related enhancement within the bilateral PRAVEENA A1-A2 segments without flow limiting stenosisBasilar system: Normal flow-related enhancement within the bilateral V4 segments and the basilar artery without flow-limiting stenosis Posterior cerebral arteries: Severe focal stenosis of the left P2 and P2 three segments with lack of robust flow related enhancement in theaforementioned locations. Normal flow-related enhancement within the bilateral TECTONOPHYSICIST P1-P2 segments without flow-limiting stenosisAdditional findings: None. MRA NECK:Common carotid arteries: Lack of flow related enhancement within the left cervical common carotid artery and proximal left internal carotid artery with apparent reconstitution.Bifurcations: No flow-limiting stenosis on the right. Cervicalinternal carotid arteries: Lack of normal flow-related enhancement within the proximal left internalcarotid artery as per above with apparent reconstitution intracranially. No flow limiting stenosis on the right.Vertebral arteries: Origins are not well-seen. No flow limiting stenosis within the visualized cervical vertebral arterial segments. Limited assessment of the V3 segment secondary to noncontrast technique. IMPRESSION: Lack of normal flow-related enhancement within the distal cervical leftcommon carotid artery and proximal left internal carotid artery with apparent reconstitution intracranially. It is unclear if this represents occlusion, severe stenosis and/or vascular dissection. Recommend dedicated contrast enhanced CT angiogram for further evaluation. Signed: Ashwini Lawton MDReport Verified Date/Time: 05/25/2019 13:00:10 Reading Location: [address] Neuro Reading Room Electro nically signed by: ASHWINI LAWTNO MD on 05/25/2019 01:00 PMMR, MRA, NECK, WITHOUT IV [id number] 13:00:00FINAL REPORT MR, MRA, NECK, WITHOUT IV CONTRAST, MR, MRA, BRAIN, WITHOUT CONTRAST INDICATION: Neuro deficit, acute, stroke suspected TECHNIQUE: Multiplanar, multisequence MR images of the brain. 3-D time of flight MRA of the cranial and cervical circulation. 2-D time of flight MRA of the neck. 3D MIP angiographic post- processing was performed. Stenosis evaluation utilized NASCET criteria. COMPARISON: Noncontrast brain CT of the same date FINDINGS: MRA BRAIN:Internal carotid arteries: Normal flow related enhancement without flow-limiting stenosisMiddle cerebral arteries: Normal flow related enhancement within the bilateral MCA M1-M2 segments without flow limiting stenosisAnterior cerebral arteries: Normal flow-related enhancement within the bilateral PRAVEENA A1-A2 segments without flow limiting stenosisBasilar system: Normal flow-related enhancement within the bilateral V4 segments and the basilar artery without flow-limiting stenosis Posterior cerebral arteries: Severe focal stenosis of the left P2 and P2 three segments with lack of robust flow related enhancement in theaforementioned locations. Normal flow-related enhancement within the bilateral TECTONOPHYSICIST P1-P2 segments without flow-limiting stenosisAdditional findings: None. MRA NECK:Common carotid arteries: Lack of flow related enhancement within the left cervical common carotid artery and proximal left internal carotid artery with apparent reconstitution.Bifurcations: No flow-limiting stenosis on the right. Cervicalinternal carotid arteries: Lack of normal flow-related enhancement within the proximal left internalcarotid artery as per above with apparent reconstitution intracranially. No flow limiting stenosis on the right.Vertebral arteries: Origins are not well-seen. No flow limiting stenosis within the visualized cervical vertebral arterial segments. Limited assessment of the V3 segment secondary to noncontrast technique. IMPRESSION: Lack of normal flow-related enhancement within the distal cervical leftcommon carotid artery and proximal left internal carotid artery with apparent reconstitution intracranially. It is unclear if this represents occlusion, severe stenosis and/or vascular dissection. Recommend dedicated contrast enhanced CT angiogram for further evaluation. Signed: Ashwini Lawton MDReport Verified Date/Time: 05/25/2019 13:00:10 Reading Location: [facility] C0[facility] Neuro Reading Room Electro nically signed by: ASHWINI LAWTON MD on 05/25/2019 01:00 PMMRA head without IV [id number] 13:00:00Interface, External Ris In - 05/25/2019 1:02 PM CSTFINAL REPORT MR, MRA, NECK, WITHOUT IV CONTRAST, MR, MRA, BRAIN, WITHOUT CONTRAST INDICATION: Neuro deficit, acute, stroke suspected TECHNIQUE: Multiplanar, multisequence MR images of the brain. 3-D time of flight MRA of the cranial and cervical circulation. 2-D time of flight MRA of the neck. 3D MIP angiographic post-processing was performed. Stenosis evaluation utilized NASCET criteria. COMPARISON: Noncontrast brain CT of the same date FINDINGS: MRA BRAIN:Internal carotid arteries: Normal flow related enhancement without flow-limiting stenosisMiddle cerebral arteries: Normal flow related enhancement within the bilateral MCA M1-M2 segments without flow limiting stenosisAnterior cerebral arteries: Normal flow-related enh ancement within the bilateral PRAVEENA A1-A2 segments without flow limiting stenosisBasilar system: Normal flow-related enhancement within the bilateral V4 segments and the basilar artery without flow-limiting stenosis Posterior cerebral arteries: Severe focal stenosis of the left P2 and P2 three segments with lack of robust flow related enhancement in the aforementioned locations. Normal flow-related enhancement within the bilateral TECTONOPHYSICIST P1-P2 segments without flow-limiting stenosisAdditional findings:None. MRA NECK:Common carotid arteries: Lack of flow related enhancement within the left cervical common carotid artery and proximal left internal carotid artery with apparent reconstitution.Bifurcations: No flow-limiting stenosis on the right. Cervical internal carotid arteries: Lack of normal flow-related enhancement within the proximal left internal carotid artery as per above with apparent reconstitution intracranially. No flow limiting stenosis on the right.Vertebral arteries: Origins are not well-seen. No flow limiting stenosis within the visualized cervical vertebral arterial segments. Limited assessment of the V3 segment secondary to noncontrast technique. IMPRESSION: Lack of normal flow-related enhancement within the distal cervical left common carotid artery and proximal left internalcarotid artery with apparent reconstitution intracranially. It is unclear if this represents occlusion, severe stenosis and/or vascular dissection. Recommend dedicated contrast enhanced CT angiogram for further evaluation. Signed: Ashwini Lawton MDReport Verified Date/Time: 05/25/2019 13:00:10 Reading Location: [facility] C013 Neuro Reading [facility] without IV [id number] 13:00:00Interface, External Ris In - 05/25/2019 1:02 PM CSTFINAL REPORT MR, MRA, NECK, WITHOUT IV CONTRAST, MR, MRA, BRAIN, WITHOUT CONTRAST INDICATION: Neuro deficit, acute, stroke suspected TECHNIQUE: Multiplanar, multisequence MR images of the brain. 3-D time of flight MRA of the cranial and cervical circulation. 2-D time of flight MRA of the neck. 3D MIP angiographic post-processing was performed. Stenosis evaluation utilized NASCET criteria. COMPARISON: Noncontrast brain CT of the same date FINDINGS: MRA BRAIN:Internal carotid arteries: Normal flow related enhancement without flow-limiting stenosisMiddle cerebral arteries: Normal flow related enhancement within the bilateral MCA M1-M2 segments without flow limiting stenosisAnterior cerebral arteries: Normal flow- related enhancement within the bilateral PRAVEENA A1-A2 segments without flow limiting stenosisBasilar system: Normal flow-related enhancement within the bilateral V4 segments and the basilar artery without flow-limiting stenosis Posterior cerebral arteries: Severe focal stenosis of the left P2 and P2 three segmentswith lack of robust flow related enhancement in the aforementioned locations. Normal flow-related enhancement within the bilateral TECTONOPHYSICIST P1-P2 segments without flow-limiting stenosisAdditional findings:None. MRA NECK:Common carotid arteries: Lack of flow related enhancement within the left cervical common carotid artery and proximal left internal carotid artery with apparent reconstitution.Bifurcations: No flow-limiting stenosis on the right. Cervical internal carotid arteries: Lack of normal flow-related enhancement within the proximal left internal carotid artery as per above with apparent reconstitution intracranially. No flow limiting stenosis on the right.Vertebral arteries: Origins are not well-seen. No flow limiting stenosis within the visualized cervical vertebral arterial segments. Limited assessment of the V3 segment secondary to noncontrast technique. IMPRESSION: Lack of normal flow- related enhancement within the distal cervical left common carotid artery and proximal left internalcarotid artery with apparent reconstitution intracranially. It is unclear if this represents occlusion, severe stenosis and/or vascular dissection. Recommend dedicated contrast enhanced CT angiogram for further evaluation. Signed: Ashwini Lawton Verified Date/Time: 05/25/2019 13:00:10 Reading Location: [address] Neuro Reading Room [facility] CampusMR, BRAIN, WITHOUT [id number] 12:23:00FINAL REPORT MR, BRAIN, WITHOUT CONTRAST INDICATION: Ataxia, stroke suspectedNeuro deficit, acute, stroke suspected TECHNIQUE: Multiplanar, multisequence MR imaging of the brain was obtained. COMPARISON: None FINDINGS:Brain parenchyma is normal in morphology. Midline structures are normally developed. No restricted diffusion to suggest recent ischemic insult. No abnormal susceptibility. Scattered T2/FLAIR hyperintense foci within the periventricular and subcortical white matter are nonspecific, however, statistically represent chronic microvascular ischemic changes. No hydro cephalus. Orbits are within normal limits. No obstructive paranasal sinus disease. IMPRESSION: Unremarkable MRI of the brain. Signed: Ashwini Lawton Verified Date/Time: 05/25/2019 12:23:49 Reading Location: [address] Neuro Reading Room MR brain without IV [id number] 12:23:00Interface, External Ris In - 05/25/2019 12:25 PM CSTFINAL REPORT MR, BRAIN, WITHOUT CONTRAST INDICATION: Ataxia, stroke suspectedNeuro deficit, acute, stroke suspected TECHNIQUE:Multiplanar, multisequence MR imaging of the brain was obtained. COMPARISON: None FINDINGS:Brain parenchyma is normal in morphology. Midline structures are normally developed. No restricted diffusion to suggest recent ischemic insult. No abnormal susceptibility. Scattered T2/FLAIR hyperintense foci within the periventricular and subcortical white matter are nonspecific, however, statistically represent chronic microvascular ischemic changes. No hydrocephalus. Orbits are within normal limits. No o bstructive paranasal sinus disease. IMPRESSION: Unremarkable MRI of the brain. Signed: Ashwini Lawton Verified Date/Time: 05/25/2019 12:23:49 Reading Location: [address] Neuro Reading Room [facility] CT, EXTREMITY, UPPER, WITHOUT CONTRAST, [id number] 10:58:00Please specify:->ShoulderFINAL REPORT CT OF THE RIGHT SHOULDER HISTORY: Right shoulder pain COMPARISONS: No comparison right shoulder imaging TECHNIQUE: CT of the right shoulder was performed without contrast. Axial images were generated as were multiplanar reformatted images in the coronal and sagittal planes. The examination was performed to conform to our departmental dose optimization program which includes automated exposure control, adjustment of the mA and/or kV according to patient size and/or use of iterative reconstruction techniques. FINDINGS: No fracture or dislocation are identified in the right shoulder. No degenerative or erosive changes are visualized in the glenohumeral joint. Mild/moderate acromioclavicular joint osteoarthritis. Subacromial enthesophyte. There is increased attenuation in the subcutaneous fat posterior to the posterior deltoid musculature. If there was acute trauma, this could represent subcutaneous hemorrhage. Alternatively, this could represent subcutaneous edema related to cellulitis. No well-defined fluid collection is visualized on this noncontrast examination. No soft tissue gas or radiopaque foreign body are visualized. No intramuscular fluid collection is identified. IMPRESSION: 1. No fracture or acute bony abnormality identified in the right shoulder. 2. Nonspecific increased attenuation in the subcutaneous fat posterior to the deltoid musculature, hemorrhage versus inflammatory change. No intramuscular fluid collection is identified. Signed: Vanda Canales Verified Date/Time: 05/25/2019 10:58:05 Reading Location: [address] Transitional [facility] without contrast [id number] 10:58:00 Interface, External Ris In - 05/25/2019 11:[address] OF THE RIGHT SHOULDER HISTORY: Right shoulder pain COMPARISONS: No comparison right shoulder imaging TECHNIQUE: CT of the right shoulder was performed without contrast. Axial images were generated as were multiplanar reformatted images in the coronal and sagittal planes. The examination was performed to conform to our departmental dose optimization program which includes automated exposure control, adjustment of the mA and/or kV according to patient size and/or use of iterative reconstruction techniques. FINDINGS: No fracture or dislocation are identified in the right shoulder. No degenerative or erosive changes are visualized in the glenohumeral joint. Mild/moderate acromioclavicular joint osteoarthritis. Subacromial enthesophyte. There is increased attenuation in the subcutaneous fat posterior to the posterior deltoid musculature. If there was acute trauma, this could represent subcutaneous hemorrhage. Alternatively, this could represent subcutaneous edema related to cellulitis. No well-defined fluid collection is visualized on this noncontrast examination. No soft tissue gas or radiopaque foreign body are visualized. No intramuscular fluid collection is identified. IMPRESSION: 1. No fracture or a cute bony abnormality identified in the right shoulder. 2. Nonspecific increased attenuation in the subcutaneous fat posterior to the deltoid musculature, hemorrhage versus inflammatory change. No intramuscular fluid collection is identified. Signed: Vanda Canales Verified Date/Time: 05/25/2019 10:58:05 Reading Location: [facility] C0[facility] Transitional Reading [facility] If [id number] 06:44:00 Test Item Value Reference Range Interpretation Comments TSH (test code = 37444-6) 2.37 0.35- 5.50 uIU/mL Lab Interpretation (test code = Normal 33634-4) [facility] [id number] 06:44:00 Test Item Value Reference Range Interpretation Comments THYROID STIMULATING HORMONE 2.37 uIU/mL 0.35-5.50 (BEAKER) (test code = 772) Lipid [id number] 06:37:00 Test Item Value Reference Range Interpretation Comments Triglycerides (test 213 mg/dL code = 2571-8) Cholesterol (test code 192 mg/dL = 2093-3) HDL (test code = 34 mg/dL 2085-9) LDL Calculated (test 115 mg/dL code = 87857-2) OBEY (test code = OBEY) Triglyceride Reference Range: Low Risk <150 Borderline 150-199 High Risk 200-499 Very High Risk >=500 Cholesterol Reference Range: Low Risk <200 Borderline 200-239 High Risk >240 HDL Cholesterol Reference Range: Low Risk >=60 High Risk <40 LDL Cholesterol Reference Range: Optimal <100 Near Optimal 100-129 Borderline 130-159 High 160-189 Very High >=190 [facility] [id number] 06:37:00 Test Item Value Reference Range Interpretation Comments TRIGLYCERIDES (BEAKER) (test code = 213 mg/dL 540) CHOLESTEROL (BEAKER) (test code = 192 mg/dL 631) HDL CHOLESTEROL (BEAKER) (test code 34 mg/dL = 976) LDL CHOLESTEROL CALCULATED (BEAKER) 115 mg/dL (test code = 633) Triglyceride Reference Range: Low Risk <150 Borderline 150-199 High Risk 200-499 Very High Risk >=500Cholesterol Reference Range: Low Risk <200 Borderline 200-239 High Risk >240HDL Cholesterol Reference Range: Low Risk >=60 High Risk <40LDL Cholesterol Reference Range: Optimal <100 Near Optimal 100-129 Borderline 130-159 High 160-189 Very High >=190HEPATIC FUNCTION [id number] 06:35:00 Test Item Value Reference Range Interpretation Comments TOTAL PROTEIN (BEAKER) (test code = 6.2 gm/dL 6.0-8.5 770) ALBUMIN (BEAKER) (test code = 1145) 3.4 g/dL 3.5-5.0 L BILIRUBIN TOTAL (BEAKER) (test code 1.0 mg/dL 0.1-1.2 = 377) BILIRUBIN DIRECT (BEAKER) (test 0.7 mg/dL 0.0-0.4 H code = 706) ALKALINE PHOSPHATASE (BEAKER) (test 176 U/L 30-115 H code = 346) AST (SGOT) (BEAKER) (test code = 57 U/L 5-40 H 353) ALT (SGPT) (BEAKER) (test code = 188 U/L 5-50 H 347) BASIC METABOLIC [id number] 06:35:00 Test Item Value Reference Range Interpretation Comments SODIUM (BEAKER) (test 139 meq/L 135-148 code = 381) POTASSIUM (BEAKER) 3.9 meq/L 3.6-5.5 (test code = 379) CHLORIDE (BEAKER) 109 meq/L 98-106 H (test code = 382) CO2 (BEAKER) (test 21 meq/L 20-29 code = 355) BLOOD UREA NITROGEN 14 mg/dL 10-26 (BEAKER) (test code = 354) CREATININE (BEAKER) 1.22 mg/dL 0.50-1.20 H (test code = 358) GLUCOSE RANDOM 164 mg/dL 70-110 H (BEAKER) (test code = 652) CALCIUM (BEAKER) 9.0 mg/dL 8.5-10.5 (test code = 697) EGFR (BEAKER) (test INSUFFIC IENT CLINICAL code = 1092) DATA TO CALCULA TE ESTIMATED GFR. Hemoglobin [id number] 06:29:00 Test Item Value Reference Range Interpretation Comments Hemoglobin A1C (test code = 4548-4) 6.9 % 4.3-6.1 H Lab Interpretation (test code = Abnormal 08588-6) [facility]MO[facility] [id number] 06:29:00 Test Item Value Reference Range Interpretation Comments HEMOGLOBIN A1C (BEAKER) (test code = 6.9 % 4.3-6.1 H 368) [id number] 06:27:00 Test Item Value Reference Range Interpretation Comments AMYLASE (BEAKER) (test code = 349) 12 U/L 30-110 L CBC W/PLT COUNT & AUTO [id number] 06:07:00 Test Item Value Reference Range Interpretation Comments WHITE BLOOD CELL COUNT (BEAKER) 7.2 K/ L 4.0-10.0 (test code = 775) RED BLOOD CELL COUNT (BEAKER) 4.19 M/ L 4.00-5.00 (test code = 761) HEMOGLOBIN (BEAKER) (test code = 12.0 GM/DL 12.0-15.5 410) HEMATOCRIT (BEAKER) (test code = 36.6 % 36.0-46.0 411) MEAN CORPUSCULAR VOLUME (BEAKER) 87.4 fL 82.0-99.0 (test code = 753) MEAN CORPUSCULAR HEMOGLOBIN 28.6 pg 27.0-33.0 (BEAKER) (test code = 751) MEAN CORPUSCULAR HEMOGLOBIN CONC 32.8 GM/DL 32.0-36.0 (BEAKER) (test code = 752) RED CELL DISTRIBUTION WIDTH 14.3 % 12.0-15.0 (BEAKER) (test code = 412) PLATELET COUNT (BEAKER) (test 242 K/CU MM 150-430 code = 756) MEAN PLATELET VOLUME (BEAKER) 10.6 fL 6.0-11.5 (test code = 754) NUCLEATED RED BLOOD CELLS 0 /100 WBC 0-0 (BEAKER) (test code = 413) NEUTROPHILS RELATIVE PERCENT 68 % (BEAKER) (test code = 429) LYMPHOCYTES RELATIVE PERCENT 21 % (BEAKER) (test code = 430) MONOCYTES RELATIVE PERCENT 11 % (BEAKER) (test code = 431) EOSINOPHILS RELATIVE PERCENT 0 % (BEAKER) (test code = 432) BASOPHILS RELATIVE PERCENT 0 % (BEAKER) (test code = 437) NEUTROPHILS ABSOLUTE COUNT 4.85 K/ L 1.80-8.00 (BEAKER) (test code = 670) LYMPHOCYTES ABSOLUTE COUNT 1.48 K/ L 1.48-4.50 (BEAKER) (test code = 414) MONOCYTES ABSOLUTE COUNT (BEAKER) 0.76 K/ L 0.00-1.30 (test code = 415) EOSINOPHILS ABSOLUTE COUNT 0.03 K/ L 0.00-0.50 (BEAKER) (test code = 416) BASOPHILS ABSOLUTE COUNT (BEAKER) 0.02 K/ L 0.00-0.20 (test code = 417) IMMATURE GRANULOCYTES-RELATIVE 0 % 0-0 PERCENT (BEAKER) (test code = 2801) CT, BRAIN, WITHOUT [id number] 00:43:00FINAL REPORT EXAM: CT, BRAIN, WITHOUT CONTRAST CLINICAL INDICATION: Neuro deficit concern for stroke. TECHNIQUE: CT images from skull base to vertex without IV contrast. This exam was performed according to the departmental dose optimization program which includes automatedexposure control, adjustment of the mA and/or kV according to the patient size, and/or use of an iterative reconstruction technique. COMPARISON: None. FINDINGS: Parenchyma: No evidence of acute infarction. Remote left thalamic lacunar infarction. No hemorrhage. No mass or mass effect. Patchy areas of hypoattenuation are present in the cerebral white matter and geraldine that are nonspecific but compatiblewith mild chronic microvascular ischemic changes. Extra-axial Collection: None Ventricular System: Normal Osseous Structures: No acute osseous abnormality. Included Orbits: Prior bilateral lens surgery. Paranasal Sinuses: Predominantly clear Tympanomastoid Cavities: Normal Other: None IMPRESSION: 1. No CT evidence of an acute osseous abnormality. 2. Remote left thalamic lacunar infarction and b ackground of mild chronic white matter ischemic changes. If there is persistent clinical concern forintracranial pathology, MR examination is recommended for further characterization. Signed: María Crum [facility] Verified Date/Time: 05/25/2019 00:43:10 CT brain without IV [id number] 00:43:00Interface, External Ris In - 05/25/2019 12:45 AM CSTFINAL REPORT EXAM: CT, BRAIN, WITHOUT CONTRAST CLINICAL INDICATION: Neuro deficit concern for stroke. TECHNIQUE: CT images from skull base to vertex without IV contrast. This exam was performed according to the departmental dose optimization program which includes automated exposure control, adjustment of the mA and/or kV according to the patient size, and/or use of an iterative reconstruction technique. COMPARISON: None. FINDINGS: Parenchyma: No evidence of acute infarction. Remote left thalamic lacunar infarction. No hemorrhage. No mass or mass effect. Patchy areas of hypoattenuation are present in the cerebral white matter and geraldine that are nonspecific but compatible with mild chronic microvascular ischemic changes. Extra-axial Collection: None Ventricular System: Normal Osseous Structures: No acute osseous abnormality. Included Orbits: Prior bilateral lens surgery. Paranasal Sinuses: Predominantly clear Tympanomastoid Cavities: Normal Other: None IMPRESSION: 1. No CT evidence of an acute osseous abnormality. 2. Remote left thalamic lacunar infarction and background of mild chronic white matter ischemic changes. If there is persistent clinical concern for intracranial pathology, MR examination is recommended for further characterization. Signed: María Crum MDReport Verified Date/Time: 05/25/2019 00:43:10 [facility] [id number] [facility]:07:00 Test Item Value Reference Range Interpretation Comments POC-GLUCOSE METER 170 mg/dL 70-110 H : TESTED A T SLSL 1317 (BEAKER) (test code [address], = 1538) [facility] 77 478: 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 yenny ID = [id number] for Sebastian Ball ph MR, ABDOMEN, [id number] 21:11:00FINAL REPORT MRCP, 05/24/2019 Clinical History: Biliary obstruction suspectedTechnique: Multiplanar and multisequence MR images of the biliary system are obtained, with dedicated MRCP protocol and images. No intravenous contrast is administered. In addition, 3 dimensional reformatted images of the biliary system are obtained. Comparison: None Discussion: This examination is not dedicated to evaluating masses or parenchymal abnormalities of the abdominal organs. There are several stones in the dependent gallbladder lumen extending to the gallbladder neck. The transverse dimension of the gallbladder lumen measures 4.9 cm. There is no pericholecystic fluid or stranding. There are several stones in the mid to distal common bile duct. No intrahepatic or extrahepatic biliary ductal dilatation is noted; the common bile duct measures up to 7 mm. The liver parenchyma is normal. There is no pancreatic ductal dilatation. The pancreatic parenchyma is normal. The adrenal glands, visualized bowel and mesentery are unremarkable. There is mild prominence of the right renal collecting system without visualized obstructing stone or lesion. This could be a chronic appearance. 5 mm cyst in the anterior left renal midpole. There is a 1.6 cm cyst in the inferior splenic parenchyma. There is bibasilar atelectasis. The patient has undergone previous sternotomy. Impression: Cholelithiasis. If there is a persistent clinical question of cholecystitis further evaluation with hepatobiliary nuclear medicine imaging can be performed. Several nonobstructing stones in the common bile duct. There is no biliary ductal dilatation. ERCP or intraoperative cholangiogram is recommended. Mild prominenceof the right renal collecting system without identified cause of obstruction. This can be a chronic appearance. If there is concern for renal obstruction further evaluation with nuclear medicine renal scan can be obtained to evaluate for differential function. Signed: Edison Mallory MDReportVerified Date/Time: 05/24/2019 21:11:28 Electronically signed by: EDISON MALLORY M.D. on 05/04 09:11 PMMR abdomen without IV contrast [id number] 21:11:00Interface, External Ris In - 05/24/2019 9:13 PM CSTFINAL REPORT MRCP, 05/24/2019 Clinical History: Biliary obstruction suspected Technique: Multiplanar and multisequence MR images of the biliary system are obtained, with dedicated MRCP protocol and images. No intravenous contrast is administered. In addition, 3 dimensional reformatted images of the biliary system are obtained. Comparison: None Discussion: This examination is not dedicated to evaluating masses or parenchymal abnormalities of the abdominal organs. There are several stones in the dependent gallbladder lumen extending to the gallbladder neck. The transverse dimension of the gallbladder lumen measures 4.9 cm. There is no pericholecystic fluid or stranding. There are several stones in the mid to distal common bile duct. No intrahepatic or extrahepatic biliary ductal dilatation is noted; the common bile duct measures up to 7 mm. The liver parenchyma is normal. There is no pancreatic ductal dilatation. The pancreatic parenchyma is normal. The adrenal glands, visualized bowel and mesentery are unremarkable. There is mild prominence of the right renal collecting system without visualized obstructing stone or lesion. This could be a chronic appearance. 5 mm cyst in the anterior left renal midpole. There is a 1.6cm cyst in the inferior splenic parenchyma. There is bibasilar atelectasis. The patient has undergone previous sternotomy. Impression: Cholelithiasis. If there is a persistent clinical question of cholecystitis further evaluation with hepatobiliary nuclear medicine imaging can be performed. Several nonobstructing stones in the common bile duct. There is no biliary ductal dilatation. ERCP or intraoperative cholangiogram is recommended. Mild prominence of the right renal collecting system without identified cause of obstruction. This can be a chronic appearance. If there is concern for renal obstruction further evaluation with nuclear medicine renal scan can be obtained to evaluate for di fferential function. Signed: Edison Mallory MDReport Verified Date/Time: 05/24/2019 21:11:28 [facility] [id number] 20:44:00 Test Item Value Reference Range Interpretation Comments POC-GLUCOSE METER 142 mg/dL 70-110 H : Notified RN/MD: TESTED ([facility]) (test code AT [facility] [address] = 1538) [place] [address]: 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 yenny ID = [id number] for Sebastian Ball ph POCT-GLUCOSE [id number] 16:27:00 Test Item Value Reference Range Interpretation Comments POC-GLUCOSE METER 123 mg/dL 70-110 H : [facility]) (test code [facility] [place] [facility], = 1538) [place] [address]: 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 yenny ID = [id number] for Anila Soto POCT-GLUCOSE [id number] 12:54:00 Test Item Value Reference Range Interpretation Comments POC-GLUCOSE METER 129 mg/dL 70-110 H : [facility] (test code [place] [facility], = 1538) [place] [address]: 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 yenny ID = [id number] for Anila Soto CBC W/PLT COUNT & AUTO [id number] 11:34:00 Test Item Value Reference Range Interpretation Comments WHITE BLOOD CELL COUNT ([facility]) 6.5 K/ L 4.0-10.0 (test code = 775) RED BLOOD CELL COUNT ([facility]) 4.30 M/ L 4.00-5.00 (test code = 761) HEMOGLOBIN ([facility]) (test code = 12.1 GM/DL 12.0-15.5 410) HEMATOCRIT (BEAKER) (test code = 38.2 % 36.0-46.0 411) MEAN CORPUSCULAR VOLUME (BEAKER) 88.8 fL 82.0-99.0 (test code = 753) MEAN CORPUSCULAR HEMOGLOBIN 28.1 pg 27.0-33.0 (BEAKER) (test code = 751) MEAN CORPUSCULAR HEMOGLOBIN CONC 31.7 GM/DL 32.0-36.0 L (BEAKER) (test code = 752) RED CELL DISTRIBUTION WIDTH 14.3 % 12.0-15.0 (BEAKER) (test code = 412) PLATELET COUNT (BEAKER) (test 196 K/CU MM 150-430 code = 756) MEAN PLATELET VOLUME (BEAKER) 10.3 fL 6.0-11.5 (test code = 754) NUCLEATED RED BLOOD CELLS 0 /100 WBC 0-0 (BEAKER) (test code = 413) NEUTROPHILS RELATIVE PERCENT 72 % (BEAKER) (test code = 429) LYMPHOCYTES RELATIVE PERCENT 16 % (BEAKER) (test code = 430) MONOCYTES RELATIVE PERCENT 11 % (BEAKER) (test code = 431) EOSINOPHILS RELATIVE PERCENT 1 % (BEAKER) (test code = 432) BASOPHILS RELATIVE PERCENT 0 % (BEAKER) (test code = 437) NEUTROPHILS ABSOLUTE COUNT 4.70 K/ L 1.80-8.00 (BEAKER) (test code = 670) LYMPHOCYTES ABSOLUTE COUNT 1.03 K/ L 1.48-4.50 L (BEAKER) (test code = 414) MONOCYTES ABSOLUTE COUNT (BEAKER) 0.70 K/ L 0.00-1.30 (test code = 415) EOSINOPHILS ABSOLUTE COUNT 0.06 K/ L 0.00-0.50 (BEAKER) (test code = 416) BASOPHILS ABSOLUTE COUNT (BEAKER) 0.02 K/ L 0.00-0.20 (test code = 417) IMMATURE GRANULOCYTES-RELATIVE 0 % 0-0 PERCENT (BEAKER) (test code = 2801) HEPATIC FUNCTION [id number] 09:49:00 Test Item Value Reference Range Interpretation Comments TOTAL PROTEIN (BEAKER) (test code = 6.2 gm/dL 6.0-8.5 770) ALBUMIN (BEAKER) (test code = 1145) 3.4 g/dL 3.5-5.0 L BILIRUBIN TOTAL (BEAKER) (test code 2.0 mg/dL 0.1-1.2 H = 377) BILIRUBIN DIRECT (BEAKER) (test 1.7 mg/dL 0.0-0.4 H code = 706) ALKALINE PHOSPHATASE (BEAKER) (test 200 U/L 30-115 H code = 346) AST (SGOT) (BEAKER) (test code = 149 U/L 5-40 H 353) ALT (SGPT) (BEAKER) (test code = 289 U/L 5-50 H 347) BASIC METABOLIC [id number] 09:27:00 Test Item Value Reference Range Interpretation Comments SODIUM (BEAKER) (test 141 meq/L 135-148 code = 381) POTASSIUM (BEAKER) 4.3 meq/L 3.6-5.5 (test code = 379) CHLORIDE (BEAKER) 109 meq/L 98-106 H (test code = 382) CO2 (BEAKER) (test 24 meq/L 20-29 code = 355) BLOOD UREA NITROGEN 21 mg/dL 10-26 (BEAKER) (test code = 354) CREATININE (BEAKER) 1.24 mg/dL 0.50-1.20 H (test code = 358) GLUCOSE RANDOM 85 mg/dL 70-110 (BEAKER) (test code = 652) CALCIUM (BEAKER) 9.0 mg/dL 8.5-10.5 (test code = 697) EGFR (BEAKER) (test INSUFFIC IENT CLINICAL code = 1092) DATA TO CALCULA TE ESTIMATED GFR. POCT-GLUCOSE [id number] 05:54:00 Test Item Value Reference Range Interpretation Comments POC-GLUCOSE METER 71 mg/dL 70-110 : TESTED A T [facility] [address] (BEAKER) (test code = [address], 1538) [facility] [place] [address]: 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 yenny ID = [id number] for Sherri Amado POCT-GLUCOSE [id number] 12:41:00 Test Item Value Reference Range Interpretation Comments POC-GLUCOSE METER 181 mg/dL 70-110 H TESTED AT [facility] 67[address] ([facility]) (test code = [place] 1538) [address] POCT-GLUCOSE [id number] 07:49:00 Test Item Value Reference Range Interpretation Comments POC-GLUCOSE METER 231 mg/dL 70-110 H TESTED AT [place] [address] ([facility] (test code = [place] [facility] 1538) [address] POCT-GLUCOSE [id number] 21:02:00 Test Item Value Reference Range Interpretation Comments POC-GLUCOSE METER 181 mg/dL 70-110 H TESTED AT [place] [address] ([facility] (test code = IV[place] [facility] 1538) [address] POCT-GLUCOSE [id number] 17:48:00 Test Item Value Reference Range Interpretation Comments POC-GLUCOSE METER 111 mg/dL 70-110 H TESTED AT [place] [address] ([facility]) (test code = IV[place] [facility] 1538) [address] POCT-GLUCOSE [id number] 11:51:00 Test Item Value Reference Range Interpretation Comments POC-GLUCOSE METER 222 mg/dL 70-110 H TESTED AT [place] [address] ([facility] (test code = IV[place] [facility] 1538) [address] POCT-GLUCOSE [id number] 08:42:00 Test Item Value Reference Range Interpretation Comments POC-GLUCOSE METER 193 mg/dL 70-110 H TESTED AT [place] [address] ([facility]) (test code = [facility] 1538) [address] BASIC METABOLIC [id number] 04:35:00 Test Item Value Reference Range Interpretation Comments SODIUM (BEAKER) 140 meq/L 136-145 (test code = 381) POTASSIUM (BEAKER) 4.2 meq/L 3.5-5.1 (test code = 379) CHLORIDE (BEAKER) 104 meq/L 98-107 (test code = 382) CO2 (BEAKER) (test 28 meq/L 22-29 code = 355) BLOOD UREA NITROGEN 17 mg/dL 7-21 (BEAKER) (test code = 354) CREATININE (BEAKER) 0.83 mg/dL 0.57-1.25 (test code = 358) GLUCOSE RANDOM 138 mg/dL 70-105 H (BEAKER) (test code = 652) CALCIUM (BEAKER) 8.5 mg/dL 8.4-10.2 (test code = 697) EGFR (BEAKER) (test mL/min/1.73 INSUFFIC IENT CLINICAL code = 1092) sq m DATA TO CALCULA TE ESTIMATED GFR. [id number] 04:34:00 Test Item Value Reference Range Interpretation Comments MAGNESIUM ([facility]) (test code = 1.9 mg/dL 1.6-2.6 627) POCT-GLUCOSE [id number] 21:13:00 Test Item Value Reference Range Interpretation Comments POC-GLUCOSE METER 184 mg/dL 70-110 H TESTED AT [place] [id number] ([facility]) (test code = [place] 1538) [address] POCT-GLUCOSE [id number] 17:13:00 Test Item Value Reference Range Interpretation Comments POC-GLUCOSE METER 110 mg/dL 70-110 TESTED AT [place] [address] ([facility]) (test code = [place] 1538) [address] POCT-GLUCOSE [id number] 12:35:00 Test Item Value Reference Range Interpretation Comments POC-GLUCOSE METER 186 mg/dL 70-110 H TESTED AT [place] [address] ([facility]) (test code = [place] 1538) [address] POCT-GLUCOSE [id number] 07:40:00 Test Item Value Reference Range Interpretation Comments POC-GLUCOSE METER 140 mg/dL 70-110 H TESTED AT [place] [address] ([facility]) (test code = [employer] [place] 1538) [address] POCT-GLUCOSE [id number] 21:16:00 Test Item Value Reference Range Interpretation Comments POC-GLUCOSE METER 140 mg/dL 70-110 H TESTED AT [place] [address] ([facility]) (test code = [employer] [place] 1538) [address] POCT-GLUCOSE [id number] 17:20:00 Test Item Value Reference Range Interpretation Comments POC-GLUCOSE METER 188 mg/dL 70-110 H TESTED AT [facility] 6720 ([facility]) (test code = [employer] [place] 1538) [address] POCT-GLUCOSE [id number] 11:50:00 Test Item Value Reference Range Interpretation Comments POC-GLUCOSE METER 173 mg/dL 70-110 H TESTED AT [facility] 6720 ([facility]) (test code = [employer] [place] 1538) [address] POCT-GLUCOSE [id number] 08:52:00 Test Item Value Reference Range Interpretation Comments POC-GLUCOSE METER 203 mg/dL 70-110 H TESTED AT [facility] 6720 ([facility] (test code = IVANNA Davies [facility] 1538) [address] RAD, CHEST, 1 VIEW, NON [id number] 08:42:00Reason for exam:->eval pulmonary congestionShould this be performed at the bedside?->YesFINAL REPORT Chest dated 09/03/2017 COMPARISON: September 02, 2017 Clinical Information: eval pulmonary congestion Comment: Since proximal impression, there is interval removal of the mediastinal tube and left chest tube. No pneumothorax is noted. Heart is comment size. Pulmonary vasculature is indistinct. Interstitial disease is seen bilaterally suggestive of vascular congestion or p ulmonary edema. No pleural effusion is seen. Signed: María Taveras Verified Date/Time: 09/03/2017 08:42:41 Reading Location: [address] Body Reading Room POCT-GLUCOSE [id number] 07:51:00 Test Item Value Reference Range Interpretation Comments POC-GLUCOSE METER 209 mg/dL 70-110 H TESTED AT [facility] 6720 ([facility] (test code = IVANNA Davies [facility] 1538) [address] BASIC METABOLIC [id number] 06:14:00 Test Item Value Reference Range Interpretation Comments SODIUM (BEAKER) 138 meq/L 136-145 (test code = 381) POTASSIUM (BEAKER) 3.7 meq/L 3.5-5.1 (test code = 379) CHLORIDE (BEAKER) 101 meq/L 98-107 (test code = 382) CO2 (BEAKER) (test 26 meq/L 22-29 code = 355) BLOOD UREA NITROGEN 22 mg/dL 7-21 H (BEAKER) (test code = 354) CREATININE (BEAKER) 0.92 mg/dL 0.57-1.25 (test code = 358) GLUCOSE RANDOM 141 mg/dL 70-105 H (BEAKER) (test code = 652) CALCIUM (BEAKER) 8.3 mg/dL 8.4-10.2 L (test code = 697) EGFR (BEAKER) (test mL/min/1.73 INSUFFIC IENT CLINICAL code = 1092) sq m DATA TO CALCULA TE ESTIMATED GFR. CBC W/PLT COUNT & AUTO [id number] 05:51:00 Test Item Value Reference Range Interpretation Comments WHITE BLOOD CELL COUNT (BEAKER) 8.9 K/ L 3.5-10.5 (test code = 775) RED BLOOD CELL COUNT (BEAKER) 3.31 M/ L 3.93-5.22 L (test code = 761) HEMOGLOBIN (BEAKER) (test code = 9.5 GM/DL 11.2-15.7 L 410) HEMATOCRIT (BEAKER) (test code = 29.5 % 34.1-44.9 L 411) MEAN CORPUSCULAR VOLUME (BEAKER) 89.1 fL 79.4-94.8 (test code = 753) MEAN CORPUSCULAR HEMOGLOBIN 28.7 pg 25.6-32.2 (BEAKER) (test code = 751) MEAN CORPUSCULAR HEMOGLOBIN CONC 32.2 GM/DL 32.2-35.5 (BEAKER) (test code = 752) RED CELL DISTRIBUTION WIDTH 14.6 % 11.7-14.4 H (BEAKER) (test code = 412) PLATELET COUNT (BEAKER) (test 233 K/CU MM 150-450 code = 756) MEAN PLATELET VOLUME (BEAKER) 10.8 fL 9.4-12.3 (test code = 754) NUCLEATED RED BLOOD CELLS 0 /100 WBC 0-0 (BEAKER) (test code = 413) NEUTROPHILS RELATIVE PERCENT 68 % (BEAKER) (test code = 429) LYMPHOCYTES RELATIVE PERCENT 19 % (BEAKER) (test code = 430) MONOCYTES RELATIVE PERCENT 12 % (BEAKER) (test code = 431) EOSINOPHILS RELATIVE PERCENT 1 % (BEAKER) (test code = 432) BASOPHILS RELATIVE PERCENT 0 % (BEAKER) (test code = 437) NEUTROPHILS ABSOLUTE COUNT 5.99 K/ L 1.56-6.13 (BEAKER) (test code = 670) LYMPHOCYTES ABSOLUTE COUNT 1.72 K/ L 1.18-3.74 (BEAKER) (test code = 414) MONOCYTES ABSOLUTE COUNT (BEAKER) 1.07 K/ L 0.24-0.36 H (test code = 415) EOSINOPHILS ABSOLUTE COUNT 0.05 K/ L 0.04-0.36 (BEAKER) (test code = 416) BASOPHILS ABSOLUTE COUNT ([facility]) 0.02 K/ L 0.01-0.08 (test code = 417) IMMATURE GRANULOCYTES-RELATIVE 0 % 0-1 PERCENT ([facility]) (test code = 2801) POCT-GLUCOSE [id number] 22:29:00 Test Item Value Reference Range Interpretation Comments POC-GLUCOSE METER 124 mg/dL 70-110 H TESTED AT [place] [address] ([facility]) (test code = IVANNA Davies [facility] 1538) [address] POCT-GLUCOSE [id number] 21:47:00 Test Item Value Reference Range Interpretation Comments POC-GLUCOSE METER 51 mg/dL 70-110 L Notified R Irvin MATIAS/TESTED AT ([facility]) (test code = [address] 1538) [facility] [address] POCT-GLUCOSE [id number] 17:23:00 Test Item Value Reference Range Interpretation Comments POC-GLUCOSE METER 86 mg/dL 70-110 TESTED AT [place] [address] ([facility]) (test code = [facility] Samson [facility] [address] 1538) [id number] 16:25:00 Test Item Value Reference Range Interpretation Comments MAGNESIUM (BEAKER) 2.3 mg/dL 1.6-2.6 Specimen slightly (test code = 627) hemolyzed [id number] 16:25:00 Test Item Value Reference Range Interpretation Comments POTASSIUM (BEAKER) 4.4 meq/L 3.5-5.1 Specimen slightly (test code = 379) hemolyzed POCT-GLUCOSE [id number] 12:44:00 Test Item Value Reference Range Interpretation Comments POC-GLUCOSE METER 95 mg/dL 70-110 TESTED AT [place] [address] ([facility]) (test code = [facility] Samson [facility] [address] 1538) POCT-LACTIC ACID, [id number] 12:35:00 Test Item Value Reference Range Interpretation Comments POC-LACTIC ACID, 1.1 mmol/L 0.9-1.7 TESTED AT [place] [address] [address] ([facility]) (test IVANNA Samson [facility] code = 2805) [address] BASIC METABOLIC [id number] 10:55:00 Test Item Value Reference Range Interpretation Comments SODIUM (BEAKER) 142 meq/L 136-145 (test code = 381) POTASSIUM (BEAKER) 3.4 meq/L 3.5-5.1 L (test code = 379) CHLORIDE (BEAKER) 105 meq/L 98-107 (test code = 382) CO2 (BEAKER) (test 27 meq/L 22-29 code = 355) BLOOD UREA NITROGEN 16 mg/dL 7-21 (BEAKER) (test code = 354) CREATININE (BEAKER) 0.83 mg/dL 0.57-1.25 (test code = 358) GLUCOSE RANDOM 121 mg/dL 70-105 H (BEAKER) (test code = 652) CALCIUM (BEAKER) 8.4 mg/dL 8.4-10.2 (test code = 697) EGFR (BEAKER) (test mL/min/1.73 INSUFFIC IENT CLINICAL code = 1092) sq m DATA TO CALCULA TE ESTIMATED GFR. [id number] 10:48:00 Test Item Value Reference Range Interpretation Comments MAGNESIUM (BEAKER) (test code = 1.5 mg/dL 1.6-2.6 L 627) RAD, CHEST, 1 VIEW, NON [id number] 08:27:00Reason for exam:->eval pulmonary congestionShould this be performed at the bedside?->YesFINAL REPORT Chest one view compared to September 01 Discussion: Mild pulmonary congestion is again noted. Drainage tubes in place. No effusion or pneumothorax. IMPRESSIONS: Unchangedcardiopulmonary appearance. Signed: Matt Lane Verified Date/Time: 09/02/2017 08:27:08 Reading Location: [address] Reading Room POCT-GLUCOSE [id number] 07:39:00 Test Item Value Reference Range Interpretation Comments POC-GLUCOSE METER 135 mg/dL 70-110 H TESTED AT [facility] 67[facility] ([facility] (test code = [place] 1538) [address] CBC W/PLT COUNT & AUTO [id number] 05:35:00 Test Item Value Reference Range Interpretation Comments WHITE BLOOD CELL COUNT (BEAKER) 10.5 K/ L 3.5-10.5 (test code = 775) RED BLOOD CELL COUNT (BEAKER) 3.59 M/ L 3.93-5.22 L (test code = 761) HEMOGLOBIN (BEAKER) (test code = 10.2 GM/DL 11.2-15.7 L 410) HEMATOCRIT (BEAKER) (test code = 31.1 % 34.1-44.9 L 411) MEAN CORPUSCULAR VOLUME (BEAKER) 86.6 fL 79.4-94.8 (test code = 753) MEAN CORPUSCULAR HEMOGLOBIN 28.4 pg 25.6-32.2 (BEAKER) (test code = 751) MEAN CORPUSCULAR HEMOGLOBIN CONC 32.8 GM/DL 32.2-35.5 (BEAKER) (test code = 752) RED CELL DISTRIBUTION WIDTH 14.7 % 11.7-14.4 H (BEAKER) (test code = 412) PLATELET COUNT (BEAKER) (test 291 K/CU MM 150-450 code = 756) MEAN PLATELET VOLUME (BEAKER) 11.0 fL 9.4-12.3 (test code = 754) NUCLEATED RED BLOOD CELLS 0 /100 WBC 0-0 (BEAKER) (test code = 413) NEUTROPHILS RELATIVE PERCENT 64 % (BEAKER) (test code = 429) LYMPHOCYTES RELATIVE PERCENT 20 % (BEAKER) (test code = 430) MONOCYTES RELATIVE PERCENT 15 % (BEAKER) (test code = 431) EOSINOPHILS RELATIVE PERCENT 1 % (BEAKER) (test code = 432) BASOPHILS RELATIVE PERCENT 0 % (BEAKER) (test code = 437) NEUTROPHILS ABSOLUTE COUNT 6.73 K/ L 1.56-6.13 H (BEAKER) (test code = 670) LYMPHOCYTES ABSOLUTE COUNT 2.14 K/ L 1.18-3.74 (BEAKER) (test code = 414) MONOCYTES ABSOLUTE COUNT (BEAKER) 1.55 K/ L 0.24-0.36 H (test code = 415) EOSINOPHILS ABSOLUTE COUNT 0.05 K/ L 0.04-0.36 (BEAKER) (test code = 416) BASOPHILS ABSOLUTE COUNT (BEAKER) 0.03 K/ L 0.01-0.08 (test code = 417) IMMATURE GRANULOCYTES-RELATIVE 0 % 0-1 PERCENT (BEAKER) (test code = 2801) POCT-GLUCOSE [id number] 01:26:00 Test Item Value Reference Range Interpretation Comments POC-GLUCOSE METER 117 mg/dL 70-110 H TESTED AT [place] [address] ([facility]) (test code = [facility] [place] [facility] 1538) [address] POCT-GLUCOSE [id number] 20:32:00 Test Item Value Reference Range Interpretation Comments POC-GLUCOSE METER 238 mg/dL 70-110 H TESTED AT [place] [address] ([facility]) (test code = [facility] 1538) [address] POCT-GLUCOSE [id number] 20:23:00 Test Item Value Reference Range Interpretation Comments POC-GLUCOSE METER 211 mg/dL 70-110 H TESTED AT [place] [address] ([facility]) (test code = [facility] 1538) [address] POCT-GLUCOSE [id number] 18:41:00 Test Item Value Reference Range Interpretation Comments POC-GLUCOSE METER 197 mg/dL 70-110 H TESTED AT [place] [address] ([facility]) (test code = [facility] 1538) [address] CBC W/PLT COUNT & AUTO [id number] 10:27:00 Test Item Value Reference Range Interpretation Comments WHITE BLOOD CELL COUNT (BEAKER) 11.0 K/ L 3.5-10.5 H (test code = 775) RED BLOOD CELL COUNT (AKER) 3.50 M/ L 3.93-5.22 L (test code = 761) HEMOGLOBIN (BEAKER) (test code = 10.1 GM/DL 11.2-15.7 L 410) HEMATOCRIT (BEAKER) (test code = 29.9 % 34.1-44.9 L 411) MEAN CORPUSCULAR VOLUME (BEAKER) 85.4 fL 79.4-94.8 (test code = 753) MEAN CORPUSCULAR HEMOGLOBIN 28.9 pg 25.6-32.2 (BEAKER) (test code = 751) MEAN CORPUSCULAR HEMOGLOBIN CONC 33.8 GM/DL 32.2-35.5 (AKER) (test code = 752) RED CELL DISTRIBUTION WIDTH 14.6 % 11.7-14.4 H (BEAKER) (test code = 412) PLATELET COUNT (BEAKER) (test 296 K/CU MM 150-450 code = 756) MEAN PLATELET VOLUME (BEAKER) 11.1 fL 9.4-12.3 (test code = 754) NUCLEATED RED BLOOD CELLS 0 /100 WBC 0-0 (BEAKER) (test code = 413) NEUTROPHILS RELATIVE PERCENT 76 % (BEAKER) (test code = 429) LYMPHOCYTES RELATIVE PERCENT 9 % (BEAKER) (test code = 430) MONOCYTES RELATIVE PERCENT 14 % (BEAKER) (test code = 431) EOSINOPHILS RELATIVE PERCENT 0 % (BEAKER) (test code = 432) BASOPHILS RELATIVE PERCENT 0 % (BEAKER) (test code = 437) NEUTROPHILS ABSOLUTE COUNT 8.36 K/ L 1.56-6.13 H (BEAKER) (test code = 670) LYMPHOCYTES ABSOLUTE COUNT 1.00 K/ L 1.18-3.74 L (BEAKER) (test code = 414) MONOCYTES ABSOLUTE COUNT (BEAKER) 1.50 K/ L 0.24-0.36 H (test code = 415) EOSINOPHILS ABSOLUTE COUNT 0.01 K/ L 0.04-0.36 L (BEAKER) (test code = 416) BASOPHILS ABSOLUTE COUNT (BEAKER) 0.03 K/ L 0.01-0.08 (test code = 417) IMMATURE GRANULOCYTES-RELATIVE 1 % 0-1 PERCENT (BEAKER) (test code = 2801) BASIC METABOLIC [id number] 09:52:00 Test Item Value Reference Range Interpretation Comments SODIUM (BEAKER) 145 meq/L 136-145 (test code = 381) POTASSIUM (BEAKER) 3.4 meq/L 3.5-5.1 L (test code = 379) CHLORIDE (BEAKER) 109 meq/L 98-107 H (test code = 382) CO2 (BEAKER) (test 25 meq/L 22-29 code = 355) BLOOD UREA NITROGEN 8 mg/dL 7-21 (BEAKER) (test code = 354) CREATININE (BEAKER) 0.71 mg/dL 0.57-1.25 (test code = 358) GLUCOSE RANDOM 123 mg/dL 70-105 H (BEAKER) (test code = 652) CALCIUM (BEAKER) 8.4 mg/dL 8.4-10.2 (test code = 697) EGFR (BEAKER) (test mL/min/1.73 INSUFFIC IENT CLINICAL code = 1092) sq m DATA TO CALCULA TE ESTIMATED GFR. [id number] 09:47:00 Test Item Value Reference Range Interpretation Comments PHOSPHORUS (BEAKER) (test code = 3.2 mg/dL 2.3-4.7 604) [id number] 09:47:00 Test Item Value Reference Range Interpretation Comments MAGNESIUM (BEAKER) (test code = 1.5 mg/dL 1.6-2.6 L 627) CALCIUM, [id number] 09:29:00 Test Item Value Reference Range Interpretation Comments CALCIUM IONIZED (BEAKER) (test 1.07 mmol/L 1.12-1.27 L code = 698) PH, BLOOD (BEAKER) (test code = 7.46 1810) BLOOD GAS, [id number] 09:29:00 Test Item Value Reference Range Interpretation Comments PH ARTERIAL (BEAKER) (test code = 7.44 7.35-7.45 383) PCO2 ARTERIAL (BEAKER) (test code 42 mmHg 35-45 = 384) PO2 ARTERIAL (BEAKER) (test code = 118 mmHg 80-90 H 385) O2 SATURATION ARTERIAL (BEAKER) 98.2 % 96.0-97.0 H (test code = 386) HCO3 ARTERIAL (BEAKER) (test code 28 mmol/L 21-29 = 388) BASE EXCESS ARTERIAL (BEAKER) 3.6 mmol/L -2.0-3.0 H (test code = 387) PATIENT TEMPERATURE (BEAKER) (test 38.2 C code = 1818) FIO2 (BEAKER) (test code = 1819) 40.0 % PLATELET AGGREGATION: FUNCTION [id number] 09:27:00 Test Item Value Reference Range Interpretation Comments WEAK ADP 90 % 60-91 RESULT(BEAKER) (test code = 2135) PLATELET FUNCTION 60-100% indicates SCREEN INTERP (BEAKER) normal platelet (test code = 2173) function [id number] Silvia Marquez MD (BEAKER) (test code = (electronic signature) 9475) PLATELET COUNT AGG 204 K/CU MM 150-450 (BEAKER) (test code = 2656) CALCIUM, [id number] 08:58:00 Test Item Value Reference Range Interpretation Comments CALCIUM IONIZED (BEAKER) (test 1.09 mmol/L 1.12-1.27 L code = 698) PH, BLOOD ([facility]) (test code = 7.40 1810) OXYGEN SATURATION, [id number] 08:57:00 Test Item Value Reference Range Interpretation Comments O2 SATURATION (MEASURED) ([facility]) 70.2 % (test code = 1455) POCT-GLUCOSE [id number] 07:53:00 Test Item Value Reference Range Interpretation Comments POC-GLUCOSE METER 133 mg/dL 70-110 H TESTED AT [place] [address] ([facility]) (test code = [place] 1538) [address] LACTIC ACID, ARTERIAL, WHOLE [id number] 07:50:00 Test Item Value Reference Range Interpretation Comments LACTATE BLOOD ARTERIAL (2) 0.9 mmol/L 0.5-2.2 ([facility]) (test code = 2874) Effective 11/04/2015: Units/Reference Range ChangeNew: 0.5-2.2 mmol/L Previous: 5-20 mg/dLRAD, CHEST, 1 VIEW, NON [id number] 07:36:00Reason for exam:- >eval pulmonary congestionShould this be performed at the bedside?->Yes FINAL REPORT HISTORY : eval pulmonary congestion. Comparison: 08/31/2017 Comment: Single portable view of the chest [...] a tiny suspected right apical pneumothorax. Signed: Osmar Craig MDReport Verified Date/Time: 09/01/2017 07:36:22 Reading Location: [facility] Diagnostic Imaging Reading Room - [place] [address] POCT-GLUCOSE [id number] 07:25:00 Test Item Value Reference Range Interpretation Comments POC-GLUCOSE METER 158 mg/dL 70-110 H TESTED AT [place] [address] ([facility]) (test code = IVANNA Davies [facility] 1538) [id number] POCT-GLUCOSE [id number] 07:14:00 Test Item Value Reference Range Interpretation Comments POC-GLUCOSE METER 120 mg/dL 70-110 H TESTED AT [place] [address] ([facility]) (test code = IVANNA Davies [facility] 1538) [address] POCT-GLUCOSE [id number] 07:14:00 Test Item Value Reference Range Interpretation Comments POC-GLUCOSE METER 106 mg/dL 70-110 TESTED AT [place] [address] ([facility]) (test code = [place] [facility] [facility] 1538) [id number] POCT-GLUCOSE [id number] 07:14:00 Test Item Value Reference Range Interpretation Comments POC-GLUCOSE METER 116 mg/dL 70-110 H TESTED AT [place] [address] ([facility]) (test code = IVANNA Davies [facility] 1538) [address] POCT-GLUCOSE [id number] 02:19:00 Test Item Value Reference Range Interpretation Comments POC-GLUCOSE METER 108 mg/dL 70-110 TESTED AT [place] [address] ([facility]) (test code = IVANNA Davies [facility] 1538) [id number] POCT-GLUCOSE [id number] 02:19:00 Test Item Value Reference Range Interpretation Comments POC-GLUCOSE METER 178 mg/dL 70-110 H TESTED AT [place] [address] ([facility]) (test code = IVANNA Davies [facility] 1538) [address] POCT-GLUCOSE [id number] 02:19:00 Test Item Value Reference Range Interpretation Comments POC-GLUCOSE METER 176 mg/dL 70-110 H TESTED AT [place] [address] ([facility]) (test code = IVANNA Davies [facility] 1538) [address] BLOOD GAS, [id number] 00:14:00 Test Item Value Reference Range Interpretation Comments PH ARTERIAL (AKER) (test code = 7.44 7.35-7.45 383) PCO2 ARTERIAL (AKER) (test code 40 mmHg 35-45 = 384) PO2 ARTERIAL (AKER) (test code = 87 mmHg 80-90 385) O2 SATURATION ARTERIAL ([facility]) 96.4 % 96.0-97.0 (test code = 386) HCO3 ARTERIAL (BEAKER) (test code 26 mmol/L 21-29 = 388) BASE EXCESS ARTERIAL (BEAKER) 2.0 mmol/L -2.0-3.0 (test code = 387) PATIENT TEMPERATURE ([facility]) (test 38.2 C code = 1818) FIO2 ([facility]) (test code = 1819) 40.0 % POCT-GLUCOSE [id number] 23:18:00 Test Item Value Reference Range Interpretation Comments POC-GLUCOSE METER 164 mg/dL 70-110 H TESTED AT [place] [address] ([facility]) (test code = [facility] 1538) [address] POCT-GLUCOSE [id number] 23:18:00 Test Item Value Reference Range Interpretation Comments POC-GLUCOSE METER 169 mg/dL 70-110 H TESTED AT [place] [address] ([facility]) (test code = [facility] 1538) [address] POCT-GLUCOSE [id number] 23:18:00 Test Item Value Reference Range Interpretation Comments POC-GLUCOSE METER 162 mg/dL 70-110 H TESTED AT [place] [address] ([facility]) (test code = [facility] 1538) [address] THROMBOELASTOGRAPH (TEG)2017-08-31 19:02:00 Test Item Value Reference Range Interpretation Comments TEG ACTIVATED CLOTTING TIME 5.6 minutes 4.0-7.0 (BEAKER) (test code = 1407) TEG FIBRINOGEN ACTIVITY (BEAKER) 73.5 degrees 61.0-73.0 H (test code = 1408) TEG PLT. AGGREGATION (BEAKER) 69.4 MM 55.0-65.0 H (test code = 1409) TEG FIBRINOLYSIS (BEAKER) (test 0.0 % 0.0-5.0 code = 1410) TGH ACTIVATED CLOTTING TIME 5.8 minutes 4.0-7.0 (BEAKER) (test code = 1411) TGH FIBRINOGEN ACTIVITY (BEAKER) 72.2 degrees 61.0-73.0 (test code = 1412) TGH PLT. AGGREGATION (BEAKER) 61.4 MM 55.0-65.0 (test code = 1413) TGH FIBRINOLYSIS (BEAKER) (test 0.0 % 0.0-5.0 code = 1414) POCT-GLUCOSE [id number] 18:54:00 Test Item Value Reference Range Interpretation Comments POC-GLUCOSE METER 184 mg/dL 70-110 H TESTED AT [facility] 6720 (BEAKER) (test code = IVANNA CRA[place] 1538) [address] RAD, CHEST, 1 VIEW, NON [id number] 18:42:00Reason for exam:->sp cardiac surgeryShould this be performed at the bedside?->YesFINAL REPORT INDICATION: sp cardiac surgery COMPARISON: August 29, 2017 TECH NIQUE: Chest radiograph, single view, portable technique. FINDINGS [...] position of endotracheal tube. Signed: Nena Woody MDReport Verified Date/Time: 08/31/2017 18:42:27 Reading Location: [facility] [id number] Consult Reading Room THROMBOELASTOGRAPH (TEG) 2017-08-31 18:37:00 Test Item Value Reference Range Interpretation Comments TEG ACTIVATED CLOTTING TIME 6.2 minutes 4.0-7.0 (BEAKER) (test code = 1407) TEG FIBRINOGEN ACTIVITY (BEAKER) 68.9 degrees 61.0-73.0 (test code = 1408) TEG PLT. AGGREGATION (BEAKER) 65.5 MM 55.0-65.0 H (test code = 1409) TEG FIBRINOLYSIS (BEAKER) (test 0.0 % 0.0-5.0 code = 1410) TGH ACTIVATED CLOTTING TIME 6.0 minutes 4.0-7.0 (BEAKER) (test code = 1411) TGH FIBRINOGEN ACTIVITY (BEAKER) 73.3 degrees 61.0-73.0 H (test code = 1412) TGH PLT. AGGREGATION (BEAKER) 67.0 MM 55.0-65.0 H (test code = 1413) TGH FIBRINOLYSIS (BEAKER) (test 0.0 % 0.0-5.0 code = 1414) BASIC METABOLIC [id number] 18:21:00 Test Item Value Reference Range Interpretation Comments SODIUM (BEAKER) 142 meq/L 136-145 (test code = 381) POTASSIUM (BEAKER) 3.7 meq/L 3.5-5.1 (test code = 379) CHLORIDE (BEAKER) 108 meq/L 98-107 H (test code = 382) CO2 (BEAKER) (test 27 meq/L 22-29 code = 355) BLOOD UREA NITROGEN 9 mg/dL 7-21 (BEAKER) (test code = 354) CREATININE (BEAKER) 0.72 mg/dL 0.57-1.25 (test code = 358) GLUCOSE RANDOM 179 mg/dL 70-105 H (BEAKER) (test code = 652) CALCIUM (BEAKER) 10.0 mg/dL 8.4-10.2 (test code = 697) EGFR (BEAKER) (test mL/min/1.73 INSUFFIC IENT CLINICAL code = 1092) sq m DATA TO CALCULA TE ESTIMATED GFR. [id number] 18:20:00 Test Item Value Reference Range Interpretation Comments POTASSIUM (BEAKER) (test code = 3.7 meq/L 3.5-5.1 379) [id number] 18:20:00 Test Item Value Reference Range Interpretation Comments MAGNESIUM (BEAKER) (test code = 1.7 mg/dL 1.6-2.6 627) [id number] 18:20:00 Test Item Value Reference Range Interpretation Comments GLUCOSE RANDOM (BEAKER) (test code 179 mg/dL 70-105 H = 652) LACTIC ACID, ARTERIAL, WHOLE [id number] 18:19:00 Test Item Value Reference Range Interpretation Comments LACTATE BLOOD 1.1 mmol/L 0.5-2.2 Specimen sligh tly ARTERIAL (2) (BEAKER) hemoly zed (test code = 2874) Effective 11/04/2015: Units/Reference Range ChangeNew: 0.5-2.2 mmol/L Previous: 5-20 mg/dLPROTHROMBIN [id number] 18:12:00 Test Item Value Reference Range Interpretation Comments PROTIME (BEAKER) (test code = 16.4 seconds 11.7-14.7 H 759) INR (BEAKER) (test code = 370) 1.3 <=5.9 RECOMMENDED COUMADIN/WARFARIN INR THERAPY RANGESSTANDARD DOSE: 2.0 - 3.0 Includes: PROPHYLAXIS forvenous thrombosis, systemic embolization; TREATMENT for venous thrombosis and/or pulmonary embolus.HIGH RISK: Target INR is 2.5-3.5 for patients with mechanical heart valves.[id number] 18:12:00 Test Item Value Reference Range Interpretation Comments FIBRINOGEN LEVEL (BEAKER) (test 409 mg/dl 225-434 code = 658) [id number] 18:12:00 Test Item Value Reference Range Interpretation Comments PARTIAL THROMBOPLASTIN TIME 30.6 seconds 22.5-36.0 (BEAKER) (test code = 760) PLATELET [id number] 17:57:00 Test Item Value Reference Range Interpretation Comments PLATELET COUNT (BEAKER) (test 268 K/CU MM 150-450 code = 756) CBC (HEMOGRAM ONLY)2017-08-31 17:57:00 Test Item Value Reference Range Interpretation Comments WHITE BLOOD CELL COUNT (BEAKER) 9.8 K/ L 3.5-10.5 (test code = 775) RED BLOOD CELL COUNT (BEAKER) 3.29 M/ L 3.93-5.22 L (test code = 761) HEMOGLOBIN (BEAKER) (test code = 9.6 GM/DL 11.2-15.7 L 410) HEMATOCRIT (BEAKER) (test code = 27.7 % 34.1-44.9 L 411) MEAN CORPUSCULAR VOLUME (BEAKER) 84.2 fL 79.4-94.8 (test code = 753) MEAN CORPUSCULAR HEMOGLOBIN 29.2 pg 25.6-32.2 (BEAKER) (test code = 751) MEAN CORPUSCULAR HEMOGLOBIN CONC 34.7 GM/DL 32.2-35.5 (BEAKER) (test code = 752) RED CELL DISTRIBUTION WIDTH 13.8 % 11.7-14.4 (BEAKER) (test code = 412) PLATELET COUNT (BEAKER) (test 268 K/CU MM 150-450 code = 756) MEAN PLATELET VOLUME (BEAKER) 9.5 fL 9.4-12.3 (test code = 754) NUCLEATED RED BLOOD CELLS 0 /100 WBC 0-0 (BEAKER) (test code = 413) OXYGEN SATURATION, [id number] 17:53:00 Test Item Value Reference Range Interpretation Comments O2 SATURATION (MEASURED) (BEAKER) 74.6 % (test code = 1455) BLOOD GAS, [id number] 17:52:00 Test Item Value Reference Range Interpretation Comments PH ARTERIAL (BEAKER) (test code = 7.45 7.35-7.45 383) PCO2 ARTERIAL (BEAKER) (test code 41 mmHg 35-45 = 384) PO2 ARTERIAL (BEAKER) (test code = 140 mmHg 80-90 H 385) O2 SATURATION ARTERIAL (BEAKER) 98.9 % 96.0-97.0 H (test code = 386) HCO3 ARTERIAL (BEAKER) (test code 27 mmol/L 21-29 = 388) BASE EXCESS ARTERIAL (BEAKER) 3.0 mmol/L -2.0-3.0 (test code = 387) PATIENT TEMPERATURE (BEAKER) (test 37.0 C code = 1818) GLUCOSE-STAT [id number] 17:52:00 Test Item Value Reference Range Interpretation Comments GLUCOSE RANDOM (BEAKER) (test code 172 mg/dL 70-110 H = 652) HGB/HCT (H&H) - STAT [id number] 17:52:00 Test Item Value Reference Range Interpretation Comments HEMOGLOBIN (BEAKER) (test code = 10.3 g/dL 12.0-15.0 L 410) HEMATOCRIT (BEAKER) (test code = 30.0 % 36.0-45.0 L 411) SODIUM NA-STAT [id number] 17:51:00 Test Item Value Reference Range Interpretation Comments SODIUM (BEAKER) (test code = 381) 140 meq/L 135-148 POTASSIUM-STAT [id number] 17:51:00 Test Item Value Reference Range Interpretation Comments POTASSIUM (BEAKER) (test code = 3.6 meq/L 3.6-5.5 379) CALCIUM, [id number] 17:51:00 Test Item Value Reference Range Interpretation Comments CALCIUM IONIZED (BEAKER) (test 1.22 mmol/L 1.12-1.27 code = 698) PH, BLOOD (BEAKER) (test code = 7.45 1810) [id number] 17:48:00 Test Item Value Reference Range Interpretation Comments ACTIVATED CLOTTING TIME 109 sec TEST ED AT [place] [address] ([facility]) (test code = IVANNA Davies [place] 441) [address] [id number] 17:48:00 Test Item Value Reference Range Interpretation Comments ACTIVATED CLOTTING TIME 538 sec TEST ED AT [place] [address] ([facility]) (test code = IVANNA Davies [place] 441) [address] [id number] 17:48:00 Test Item Value Reference Range Interpretation Comments ACTIVATED CLOTTING TIME 516 sec TEST ED AT [place] [address] ([facility]) (test code = IVANNA Davies [place] 441) [address] [id number] 17:48:00 Test Item Value Reference Range Interpretation Comments ACTIVATED CLOTTING TIME 450 sec TEST ED AT [place] [address] ([facility]) (test code = IVANNA Davies [facility] 441) [address] [id number] 17:17:00 Test Item Value Reference Range Interpretation Comments FIBRINOGEN LEVEL ([facility]) (test 290 mg/dl 225-434 code = 658) [id number] 17:17:00 Test Item Value Reference Range Interpretation Comments PARTIAL THROMBOPLASTIN TIME 32.4 seconds 22.5-36.0 ([facility]) (test code = 760) PROTHROMBIN [id number] 17:16:00 Test Item Value Reference Range Interpretation Comments PROTIME ([facility]) (test code = 18.3 seconds 11.7-14.7 H 759) INR ([facility]) (test code = 370) 1.5 <=5.9 RECOMMENDED COUMADIN/WARFARIN INR THERAPY RANGESSTANDARD DOSE: 2.0 - 3.0 Includes: PROPHYLAXIS forvenous thrombosis, systemic embolization; TREATMENT for venous thrombosis and/or pulmonary embolus.HIGH RISK: Target INR is 2.5-3.5 for patients with mechanical heart valves.PLATELET [id number] 16:56:00 Test Item Value Reference Range Interpretation Comments PLATELET COUNT ([facility]) (test 260 K/CU MM 150-450 code = 756) CALCIUM, [id number] 16:47:00 Test Item Value Reference Range Interpretation Comments CALCIUM IONIZED (AKER) (test 1.15 mmol/L 1.12-1.27 code = 698) PH, BLOOD (BEAKER) (test code = 7.44 1810) SODIUM NA-STAT [id number] 16:46:00 Test Item Value Reference Range Interpretation Comments SODIUM (BEAKER) (test code = 381) 139 meq/L 135-148 POTASSIUM-STAT [id number] 16:46:00 Test Item Value Reference Range Interpretation Comments POTASSIUM (BEAKER) (test code = 3.5 meq/L 3.6-5.5 L 379) BLOOD GAS, [id number] 16:46:00 Test Item Value Reference Range Interpretation Comments PH ARTERIAL (BEAKER) (test code = 7.44 7.35-7.45 383) PCO2 ARTERIAL (BEAKER) (test code 41 mmHg 35-45 = 384) PO2 ARTERIAL (BEAKER) (test code = 307 mmHg 80-90 H 385) O2 SATURATION ARTERIAL (BEAKER) 99.7 % 96.0-97.0 H (test code = 386) HCO3 ARTERIAL (BEAKER) (test code 28 mmol/L 21-29 = 388) BASE EXCESS ARTERIAL (BEAKER) 2.6 mmol/L -2.0-3.0 (test code = 387) PATIENT TEMPERATURE (BEAKER) (test 35.1 C code = 1818) FIO2 (BEAKER) (test code = 1819) 100.0 % GLUCOSE-STAT [id number] 16:46:00 Test Item Value Reference Range Interpretation Comments GLUCOSE RANDOM (BEAKER) (test code 185 mg/dL 70-110 H = 652) HGB/HCT (H&H) - STAT [id number] 16:46:00 Test Item Value Reference Range Interpretation Comments HEMOGLOBIN (BEAKER) (test code = 9.3 g/dL 12.0-15.0 L 410) HEMATOCRIT (BEAKER) (test code = 27.0 % 36.0-45.0 L 411) [id number] 16:33:00 Test Item Value Reference Range Interpretation Comments FIBRINOGEN LEVEL (BEAKER) (test 163 mg/dl 225-434 L code = 658) THROMBOELASTOGRAPH (TEG)2017-08-31 16:22:00 Test Item Value Reference Range Interpretation Comments TEG ACTIVATED CLOTTING TIME 7.4 minutes 4.0-7.0 H (BEAKER) (test code = 1407) TEG FIBRINOGEN ACTIVITY (BEAKER) 63.1 degrees 61.0-73.0 (test code = 1408) TEG PLT. AGGREGATION (BEAKER) 53.7 MM 55.0-65.0 L (test code = 1409) TEG FIBRINOLYSIS (BEAKER) (test 0.0 % 0.0-5.0 code = 1410) TGH ACTIVATED CLOTTING TIME 7.5 minutes 4.0-7.0 H (BEAKER) (test code = 1411) TGH FIBRINOGEN ACTIVITY (BEAKER) 59.5 degrees 61.0-73.0 L (test code = 1412) TGH PLT. AGGREGATION (BEAKER) 47.1 MM 55.0-65.0 L (test code = 1413) TGH FIBRINOLYSIS (BEAKER) (test 0.0 % 0.0-5.0 code = 1414) SODIUM NA-STAT [id number] 16:07:00 Test Item Value Reference Range Interpretation Comments SODIUM (BEAKER) (test code = 381) 138 meq/L 135-148 POTASSIUM-STAT [id number] 16:07:00 Test Item Value Reference Range Interpretation Comments POTASSIUM (BEAKER) (test code = 3.7 meq/L 3.6-5.5 379) BLOOD GAS, [id number] 16:07:00 Test Item Value Reference Range Interpretation Comments PH ARTERIAL (BEAKER) (test code = 7.43 7.35-7.45 383) PCO2 ARTERIAL (BEAKER) (test code 38 mmHg 35-45 = 384) PO2 ARTERIAL (BEAKER) (test code = 228 mmHg 80-90 H 385) O2 SATURATION ARTERIAL (BEAKER) 99.5 % 96.0-97.0 H (test code = 386) HCO3 ARTERIAL (BEAKER) (test code 25 mmol/L 21-29 = 388) BASE EXCESS ARTERIAL (BEAKER) 0.2 mmol/L -2.0-3.0 (test code = 387) PATIENT TEMPERATURE (BEAKER) (test 34.9 C code = 1818) FIO2 (BEAKER) (test code = 1819) 100.0 % GLUCOSE-STAT [id number] 16:07:00 Test Item Value Reference Range Interpretation Comments GLUCOSE RANDOM (BEAKER) (test code 182 mg/dL 70-110 H = 652) HGB/HCT (H&H) - STAT [id number] 16:07:00 Test Item Value Reference Range Interpretation Comments HEMOGLOBIN (BEAKER) (test code = 8.5 g/dL 12.0-15.0 L 410) HEMATOCRIT (BEAKER) (test code = 25.0 % 36.0-45.0 L 411) PROTHROMBIN [id number] 15:59:00 Test Item Value Reference Range Interpretation Comments PROTIME (BEAKER) (test code = 27.3 seconds 11.7-14.7 H 759) INR (BEAKER) (test code = 370) 2.5 <=5.9 RECOMMENDED COUMADIN/WARFARIN INR THERAPY RANGESSTANDARD DOSE: 2.0 - 3.0 Includes: PROPHYLAXIS forvenous thrombosis, systemic embolization; TREATMENT for venous thrombosis and/or pulmonary embolus.HIGH RISK: Target INR is 2.5-3.5 for patients with mechanical heart valves.[id number] 15:59:00 Test Item Value Reference Range Interpretation Comments PARTIAL THROMBOPLASTIN TIME 31.4 seconds 22.5-36.0 (BEAKER) (test code = 760) PLATELET [id number] 15:54:00 Test Item Value Reference Range Interpretation Comments PLATELET COUNT (BEAKER) (test code 73 K/CU MM 150-450 L = 756) BLOOD GAS, [id number] 15:41:00 Test Item Value Reference Range Interpretation Comments PH ARTERIAL (BEAKER) (test code = 7.40 7.35-7.45 383) PCO2 ARTERIAL (BEAKER) (test code 37 mmHg 35-45 = 384) PO2 ARTERIAL (BEAKER) (test code 172 mmHg 80-90 H = 385) O2 SATURATION ARTERIAL (BEAKER) 99.2 % 96.0-97.0 H (test code = 386) HCO3 ARTERIAL (BEAKER) (test code 23 mmol/L 21-29 = 388) BASE EXCESS ARTERIAL (BEAKER) -2.2 mmol/L -2.0-3.0 L (test code = 387) PATIENT TEMPERATURE (BEAKER) 35.3 C (test code = 1818) FIO2 (BEAKER) (test code = 1819) 100.0 % GLUCOSE-STAT [id number] 15:41:00 Test Item Value Reference Range Interpretation Comments GLUCOSE RANDOM (BEAKER) (test code 174 mg/dL 70-110 H = 652) HGB/HCT (H&H) - STAT [id number] 15:41:00 Test Item Value Reference Range Interpretation Comments HEMOGLOBIN (BEAKER) (test code = 8.5 g/dL 12.0-15.0 L 410) HEMATOCRIT (BEAKER) (test code = 25.0 % 36.0-45.0 L 411) CALCIUM, [id number] 15:41:00 Test Item Value Reference Range Interpretation Comments CALCIUM IONIZED (BEAKER) (test 0.90 mmol/L 1.12-1.27 L code = 698) PH, BLOOD (BEAKER) (test code = 7.40 1810) SODIUM NA-STAT [id number] 15:40:00 Test Item Value Reference Range Interpretation Comments SODIUM (BEAKER) (test code = 381) 136 meq/L 135-148 POTASSIUM-STAT [id number] 15:40:00 Test Item Value Reference Range Interpretation Comments POTASSIUM (BEAKER) (test code = 3.9 meq/L 3.6-5.5 379) SODIUM NA-STAT [id number] 15:05:00 Test Item Value Reference Range Interpretation Comments SODIUM (BEAKER) (test code = 381) 137 meq/L 135-148 POTASSIUM-STAT [id number] 15:05:00 Test Item Value Reference Range Interpretation Comments POTASSIUM (BEAKER) (test code = 4.3 meq/L 3.6-5.5 379) BLOOD GAS, [id number] 15:05:00 Test Item Value Reference Range Interpretation Comments PH ARTERIAL (BEAKER) (test code = 7.42 7.35-7.45 383) PCO2 ARTERIAL (BEAKER) (test code 42 mmHg 35-45 = 384) PO2 ARTERIAL (BEAKER) (test code = 444 mmHg 80-90 H 385) O2 SATURATION ARTERIAL (BEAKER) 99.8 % 96.0-97.0 H (test code = 386) HCO3 ARTERIAL (BEAKER) (test code 29 mmol/L 21-29 = 388) BASE EXCESS ARTERIAL (BEAKER) 2.4 mmol/L -2.0-3.0 (test code = 387) PATIENT TEMPERATURE (BEAKER) (test 31.7 C code = 1818) FIO2 (BEAKER) (test code = 1819) 80.0 % GLUCOSE-STAT [id number] 15:05:00 Test Item Value Reference Range Interpretation Comments GLUCOSE RANDOM (BEAKER) (test code 203 mg/dL 70-110 H = 652) HGB/HCT (H&H) - STAT [id number] 15:05:00 Test Item Value Reference Range Interpretation Comments HEMOGLOBIN (BEAKER) (test code = 7.1 g/dL 12.0-15.0 L 410) HEMATOCRIT (BEAKER) (test code = 21.0 % 36.0-45.0 L 411) HGB/HCT (H&H) - STAT [id number] 14:55:00 Test Item Value Reference Range Interpretation Comments HEMOGLOBIN (BEAKER) (test code = 5.0 g/dL 12.0-15.0 LL 410) HEMATOCRIT (BEAKER) (test code = 15.0 % 36.0-45.0 L 411) BLOOD GAS, [id number] 14:50:00 Test Item Value Reference Range Interpretation Comments PH ARTERIAL (BEAKER) (test code = 7.43 7.35-7.45 383) PCO2 ARTERIAL (BEAKER) (test code 31 mmHg 35-45 L = 384) PO2 ARTERIAL (BEAKER) (test code 425 mmHg 80-90 H = 385) O2 SATURATION ARTERIAL (BEAKER) 99.8 % 96.0-97.0 H (test code = 386) HCO3 ARTERIAL (BEAKER) (test code 22 mmol/L 21-29 = 388) BASE EXCESS ARTERIAL (BEAKER) -4.2 mmol/L -2.0-3.0 L (test code = 387) PATIENT TEMPERATURE (BEAKER) 29.6 C (test code = 1818) FIO2 (BEAKER) (test code = 1819) 80.0 % SODIUM NA-STAT [id number] 14:50:00 Test Item Value Reference Range Interpretation Comments SODIUM (BEAKER) (test code = 381) 132 meq/L 135-148 L GLUCOSE-STAT [id number] 14:50:00 Test Item Value Reference Range Interpretation Comments GLUCOSE RANDOM (BEAKER) (test code 187 mg/dL 70-110 H = 652) POTASSIUM-STAT [id number] 14:49:00 Test Item Value Reference Range Interpretation Comments POTASSIUM (BEAKER) (test code = 3.9 meq/L 3.6-5.5 379) SODIUM NA-STAT [id number] 12:51:00 Test Item Value Reference Range Interpretation Comments SODIUM (BEAKER) (test code = 381) 135 meq/L 135-148 POTASSIUM-STAT [id number] 12:51:00 Test Item Value Reference Range Interpretation Comments POTASSIUM (BEAKER) (test code = 4.1 meq/L 3.6-5.5 379) HGB/HCT (H&H) - STAT [id number] 12:51:00 Test Item Value Reference Range Interpretation Comments HEMOGLOBIN (BEAKER) (test code = 12.7 g/dL 12.0-15.0 410) HEMATOCRIT (BEAKER) (test code = 37.0 % 36.0-45.0 411) BLOOD GAS, [id number] 12:51:00 Test Item Value Reference Range Interpretation Comments PH ARTERIAL (BEAKER) (test code = 7.47 7.35-7.45 H 383) PCO2 ARTERIAL (BEAKER) (test code 32 mmHg 35-45 L = 384) PO2 ARTERIAL (BEAKER) (test code = 419 mmHg 80-90 H 385) O2 SATURATION ARTERIAL (BEAKER) 99.9 % 96.0-97.0 H (test code = 386) HCO3 ARTERIAL (BEAKER) (test code 23 mmol/L 21-29 = 388) BASE EXCESS ARTERIAL (BEAKER) 0.0 mmol/L -2.0-3.0 (test code = 387) PATIENT TEMPERATURE (BEAKER) (test 36.0 C code = 1818) FIO2 (BEAKER) (test code = 1819) 100.0 % GLUCOSE-STAT [id number] 12:51:00 Test Item Value Reference Range Interpretation Comments GLUCOSE RANDOM (BEAKER) (test code 268 mg/dL 70-110 H = 652) CALCIUM, [id number] 12:51:00 Test Item Value Reference Range Interpretation Comments CALCIUM IONIZED (BEAKER) (test 1.06 mmol/L 1.12-1.27 L code = 698) PH, BLOOD ([facility]) (test code = 7.46 1810) POCT-GLUCOSE [id number] 09:19:00 Test Item Value Reference Range Interpretation Comments POC-GLUCOSE METER 277 mg/dL 70-110 H TESTED AT [place] [address] ([facility]) (test code = [facility] 1538) [address] POCT-GLUCOSE [id number] 09:02:00 Test Item Value Reference Range Interpretation Comments POC-GLUCOSE METER 273 mg/dL 70-110 H TESTED AT [place] [address] ([facility]) (test code = [facility] 1538) [address] [id number] 06:23:00 Test Item Value Reference Range Interpretation Comments PARTIAL THROMBOPLASTIN TIME 25.8 seconds 22.5-36.0 ([facility]) (test code = 760) PROTHROMBIN [id number] 06:22:00 Test Item Value Reference Range Interpretation Comments PROTIME ([facility]) (test code = 18.0 seconds 11.7-14.7 H 759) INR ([facility]) (test code = 370) 1.5 <=5.9 RECOMMENDED COUMADIN/WARFARIN INR THERAPY RANGESSTANDARD DOSE: 2.0 - 3.0 Includes: PROPHYLAXIS forvenous thrombosis, systemic embolization; TREATMENT for venous thrombosis and/or pulmonary embolus.HIGH RISK: Target INR is 2.5-3.5 for patients with mechanical heart valves.[id number] 06:22:00 Test Item Value Reference Range Interpretation Comments FIBRINOGEN LEVEL ([facility]) (test 453 mg/dl 225-434 H code = 658) PLATELET [id number] 06:03:00 Test Item Value Reference Range Interpretation Comments PLATELET COUNT ([facility]) (test 204 K/CU MM 150-450 code = 756) POCT-GLUCOSE [id number] 21:04:00 Test Item Value Reference Range Interpretation Comments POC-GLUCOSE METER 246 mg/dL 70-110 H TESTED AT [place] [address] ([facility]) (test code = [facility] 1538) [id number] HEMOGLOBIN [id number] 20:48:00 Test Item Value Reference Range Interpretation Comments HEMOGLOBIN A1C ([facility]) (test code = 9.6 % 4.3-6.1 H 368) POCT-GLUCOSE [id number] 17:25:00 Test Item Value Reference Range Interpretation Comments POC-GLUCOSE METER 283 mg/dL 70-110 H TESTED AT [facility] ([facility]) (test code = [place] 1538) [id number] PLATELET AGGREGATION: FUNCTION [id number] 12:48:00 Test Item Value Reference Range Interpretation Comments WEAK ADP 42 % 60-91 L RESULT([facility]) (test code = 2135) PLATELET FUNCTION 40-49% indicates SCREEN INTERP moderate platelet ([facility]) (test code = dysfunction 2173) [id number] Jose Roberto Tavares MD ([facility]) (test code = (electronic signature) 2622) PLATELET COUNT AGG 217 K/CU MM 150-450 ([facility]) (test code = 2656) PLATELET AGGREGATION: FUNCTION [id number] 12:48:00 Test Item Value Reference Range Interpretation Comments WEAK ADP 46 % 60-91 L RESULT([facility]) (test code = 2135) PLATELET FUNCTION 40-49% indicates SCREEN INTERP moderate platelet (AKER) (test code = dysfunction 2173) [id number] Jose Roberto Tavares MD ([facility]) (test code = (electronic signature) 2622) PLATELET COUNT AGG 212 K/CU MM 150-450 ([facility]) (test code = 2656) for patients on clopidogrel in past two weeksPOCT-GLUCOSE [id number] 11:53:00 Test Item Value Reference Range Interpretation Comments POC-GLUCOSE METER 288 mg/dL 70-110 H TESTED AT [place] [address] ([facility]) (test code = [place] 1538) [address] POCT-GLUCOSE [id number] 08:01:00 Test Item Value Reference Range Interpretation Comments POC-GLUCOSE METER 277 mg/dL 70-110 H TESTED AT [facility] ([facility]) (test code = [place] 1538) [address] HEMOGLOBIN [id number] 06:48:00 Test Item Value Reference Range Interpretation Comments HEMOGLOBIN A1C ([facility]) (test code = 10.0 % 4.3-6.1 H 368) COMPREHENSIVE METABOLIC [id number] 00:44:00 Test Item Value Reference Range Interpretation Comments TOTAL PROTEIN 6.8 gm/dL 6.0-8.3 (BEAKER) (test code = 770) ALBUMIN (BEAKER) 3.8 g/dL 3.5-5.0 (test code = 1145) ALKALINE PHOSPHATASE 134 U/L 40-150 (BEAKER) (test code = 346) BILIRUBIN TOTAL 0.4 mg/dL 0.2-1.2 (BEAKER) (test code = 377) SODIUM (BEAKER) 139 meq/L 136-145 (test code = 381) POTASSIUM (BEAKER) 4.0 meq/L 3.5-5.1 (test code = 379) CHLORIDE (BEAKER) 105 meq/L 98-107 (test code = 382) CO2 (BEAKER) (test 23 meq/L 22-29 code = 355) BLOOD UREA NITROGEN 9 mg/dL 7-21 (BEAKER) (test code = 354) CREATININE (BEAKER) 0.82 mg/dL 0.57-1.25 (test code = 358) GLUCOSE RANDOM 225 mg/dL 70-105 H (BEAKER) (test code = 652) CALCIUM (BEAKER) 8.8 mg/dL 8.4-10.2 (test code = 697) AST (SGOT) (BEAKER) 19 U/L 5-34 (test code = 353) ALT (SGPT) (BEAKER) 15 U/L 6-55 (test code = 347) EGFR (BEAKER) (test mL/min/1.73 INSUFFIC IENT code = 1092) sq m CLINICAL DATA T O CALCULATE ESTIM ATED GFR. PROTHROMBIN [id number] 00:34:00 Test Item Value Reference Range Interpretation Comments PROTIME (BEAKER) (test code = 18.0 seconds 11.7-14.7 H 759) INR (BEAKER) (test code = 370) 1.5 <=5.9 RECOMMENDED COUMADIN/WARFARIN INR THERAPY RANGESSTANDARD DOSE: 2.0 - 3.0 Includes: PROPHYLAXIS forvenous thrombosis, systemic embolization; TREATMENT for venous thrombosis and/or pulmonary embolus.HIGH RISK: Target INR is 2.5-3.5 for patients with mechanical heart valves.[id number] 00:34:00 Test Item Value Reference Range Interpretation Comments PARTIAL THROMBOPLASTIN TIME 28.0 seconds 22.5-36.0 (BEAKER) (test code = 760) CBC W/PLT COUNT & AUTO [id number] 00:14:00 Test Item Value Reference Range Interpretation Comments WHITE BLOOD CELL COUNT (BEAKER) 5.6 K/ L 3.5-10.5 (test code = 775) RED BLOOD CELL COUNT (BEAKER) 4.48 M/ L 3.93-5.22 (test code = 761) HEMOGLOBIN (BEAKER) (test code = 12.0 GM/DL 11.2-15.7 410) HEMATOCRIT (BEAKER) (test code = 37.6 % 34.1-44.9 411) MEAN CORPUSCULAR VOLUME (BEAKER) 83.9 fL 79.4-94.8 (test code = 753) MEAN CORPUSCULAR HEMOGLOBIN 26.8 pg 25.6-32.2 (BEAKER) (test code = 751) MEAN CORPUSCULAR HEMOGLOBIN CONC 31.9 GM/DL 32.2-35.5 L (BEAKER) (test code = 752) RED CELL DISTRIBUTION WIDTH 13.5 % 11.7-14.4 (BEAKER) (test code = 412) PLATELET COUNT (BEAKER) (test 216 K/CU MM 150-450 code = 756) MEAN PLATELET VOLUME (BEAKER) 10.5 fL 9.4-12.3 (test code = 754) NUCLEATED RED BLOOD CELLS 0 /100 WBC 0-0 (BEAKER) (test code = 413) NEUTROPHILS RELATIVE PERCENT 58 % (BEAKER) (test code = 429) LYMPHOCYTES RELATIVE PERCENT 31 % (BEAKER) (test code = 430) MONOCYTES RELATIVE PERCENT 11 % (BEAKER) (test code = 431) EOSINOPHILS RELATIVE PERCENT 1 % (BEAKER) (test code = 432) BASOPHILS RELATIVE PERCENT 1 % (BEAKER) (test code = 437) NEUTROPHILS ABSOLUTE COUNT 3.21 K/ L 1.56-6.13 (BEAKER) (test code = 670) LYMPHOCYTES ABSOLUTE COUNT 1.70 K/ L 1.18-3.74 (BEAKER) (test code = 414) MONOCYTES ABSOLUTE COUNT (BEAKER) 0.59 K/ L 0.24-0.36 H (test code = 415) EOSINOPHILS ABSOLUTE COUNT 0.03 K/ L 0.04-0.36 L (BEAKER) (test code = 416) BASOPHILS ABSOLUTE COUNT (BEAKER) 0.03 K/ L 0.01-0.08 (test code = 417) IMMATURE GRANULOCYTES-RELATIVE 0 % 0-1 PERCENT ([facility]) (test code = 2801) POCT-GLUCOSE [id number] 00:06:00 Test Item Value Reference Range Interpretation Comments POC-GLUCOSE METER 229 mg/dL 70-110 H TESTED AT [facility] 67[address] ([place]) (test code = IVANNA Davies [place] 1538) [address] RAD, CHEST, 2 [id number] 22:50:00Reason for exam:->pre opShould this be performed at the bedside?->YesFINAL REPORT HISTORY : pre op. Comparison: None Comment: Two views of the chest, PA and lateral, were obtained. The cardiac silhouette is within normal limits. No pneumothorax or pleural effusion is seen. There is some minimal patchy right basilar airspace disease that may represent atelectasis. Pneumonitis or aspiration cannot be excluded. No lytic or blastic abnormalities. Multilevel degenerative disc changes of the thoracic spine are seen. There is a tortuous/ectatic thoracic aorta. Signed: Osmar Craig MDReport Verified Date/Time: 08/29/2017 22:50:48 Reading Location: [facility] [id number] Consult Reading Room
--- OUTSIDE RECORDS SUMMARY | 2020-05-02 15:58 | XMS REPORT | Summary of Care ---
:1950 Author Organization [facility] - [address] [address] Care Team Providers Name Role Phone Joni Primary Care Provider Reason for Visit Reason Comments Follow-up Encounter Details Date Type Department Care Team Description 03/31/2020 Office Visit [facility] Vascular Trina Cordero R enal artery stenosis Surgery- Ct [facility] (Primary Dx) [address] [id number] [place], [place] [phone] [address] [phone] Allergies Active Allergy Reactions Severity Noted Date Comments Atorvastatin Calcium Unknown - See comments 12/07/2016 myalgia documented as of this encounter (statuses as of 03/31/2020) Medications Medication Sig Dispensed Refills Start Date [...] mouth daily. tabletIndications: Coronary artery disease involving [place] coronary artery of [place] heart with angina pectoris ranolazine 500 mg 12 hr Take 1 tablet by 60 tablet 5 0 Active tabletIndications: mouth 2 (two) Coronary artery disease times daily. involving [place] coronary artery of [place] heart with angina pectoris, Chest pain, unspecified type evolocumab (REPATHA inject 140 mg 4 Syringe 3 01/13/2020 Active SURECLICK) 140 mg/mL under the skin PnIjIndications: every 2 (two) Coronary artery disease weeks. 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 The patient was present for the phone call. Communication with patient was conducted via Telephone due to patient unable to obtain video call option. Location of Patient: Home Location of Provider: Clinic Date of Service: 03/31/2020 Chief Complaint: possible worsening renal disease HPI: Isidra Neff is a 69 year old female with Past Medical History: Diagnosis Date Abnormal uterine bleeding Bilateral carotid artery stenosis L stent 10/2014 in [facility] CVA (cerebral infarction) 10/2014 Depression DM2 (diabetes mellitus, type 2) age 45 HLD (hyperlipidemia) Hypertension Leiomyoma of uterus Wears dentures She was recently seen in clinic and noted that her PCP saw something on her labs concerning for renal disease. Since that appointment, she had repeat labs that are now downtrending. She last had contrast from a cardiac cath in 09/2019, but did not have labs afterwards to determine the etiology of the rise in creatinine. According to the OS labs, her creatinine was 1.73 on 03/09/2020 but decreased to 1.46 on 03/20/2020. Her PCP reported to her that everything looked ok with the new labs and is planning to see her in clinic in 2 weeks. She is otherwise doing well without complaints. MEDICATIONS: No outpatient medications have been marked as taking for the 03/31/20 encounter (Appointment) with Trina Cordero MD. ROS Review of Systems: (-)=Negative,(+)=Positive Constitutional: (-) fever, (-) chills Eyes: (-) Amarosis fugax Mouth/Throat: (-) facial droop Cardiovascular: (-) chest pain, (-) palpitations Respiratory: (-) cough Endocrine: (+) diabetes, (+) renal insufficiency Musculoskeletal: (-) muscle pain, (-) claudication Integumentary: (-) swelling Hematologic: (-) DVT Infectious Disease: (-) Neuro: (-) TIAs/ Stroke TELEHEALTH EXAM Constitutional: alert, in no acute distress Resp: breathing comfortably on room air Neuro: answers questions appropriately Psych: affect normal ASSESSMENT/ PLAN Isidra Neff is a 69 year old female with PMH as above presenting with: Known renal artery stenosis on left but with controlled HTN and normal renal function previously. May need renal artery intervention but would like to continue to work up the etiology of this recent SYBIL before giving the patient more contrast. - RTC in 4 weeks for face to face visit - Will get more labs at that time if not already performed by her PCP - Continue current medications - Left carotid stent stable on last duplex After visit summary (AVS ) documentation will be available through mojio for this encounter. A total of 10 minutes was spent on the Telephone due to patient unable to obtain video call option with the patient. Trina Cordero MD documented in this encounter Plan of Treatment Health Maintenance Due Date [...] of this encounter Implants Implanted Type Area Pairer Substandard Device Shelf Model / Serial Identifier Expiration / Lot Date Lens LENS Right: Raúl 06/01/2020 SN60WF / Implanted: Qty: 1 on 09/24/2015 by Ramesh Martinez MD at [facility] Eye 9 [id number] / [id number] Lens LENS Left: Eye Raúl 08/02/2020 SN60WF / Implanted: Qty: 1 on 11/12/2015 by Ramesh Martinez MD at [facility] 2 [id number] / [id number] documented as of this encounter Results Not on filedocumented in this encounter Visit Diagnoses Diagnosis Renal artery stenosis - Primary Atherosclerosis of renal artery documented in this encounter Insurance Payer Benefit Plan / Subscriber ID Effective Dates Phone Addre ss Type Group MEDICARE MEDICARE PART [id number] 2014-Prese [phone] Medicare A & B [place] 2 [id number] MIRZA GRADY [id number] documented as of this encounter
--- OUTSIDE RECORDS SUMMARY | 2020-05-02 15:58 | XMS REPORT | Summary of Care ---
:1950 Author Organization [facility] - [address] [address] Care Team Providers Name Role Phone Joni Primary Care Provider Reason for Visit Reason Comments Follow-up Encounter Details Date Type Department Care Team Description 03/31/2020 Office Visit [facility] Vascular Trina Cordero R enal artery stenosis Surgery- Ct [facility] (Primary Dx) [address] [address] [place], [place] [phone] [address] [phone] Allergies Active Allergy Reactions Severity Noted Date [...] mouth daily. tabletIndications: Coronary artery disease involving [place] coronary artery of [place] heart with angina pectoris ranolazine 500 mg 12 hr Take 1 tablet by 60 tablet 5 0 Active tabletIndications: mouth 2 (two) Coronary artery disease times daily. involving [place] coronary artery of [place] heart with angina pectoris, Chest pain, unspecified type evolocumab (REPATHA inject 140 mg 4 Syringe 3 01/13/2020 Active SURECLICK) 140 mg/mL under the skin PnIjIndications: every 2 (two) Coronary artery disease weeks. involving [place] coronary artery of 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 The patient was present for the [...] carotid artery stenosis L stent 10/2014 in [facility] CVA (cerebral infarction) 10/2014 Depression DM2 (diabetes [...] (AVS ) documentation will be available through [employer] for this encounter. A total of 10 [...] of this encounter Implants Implanted Type Area Internet Researcher Device Shelf Model / Serial Identifier Expiration / Lot Date Lens LENS Right: Raúl 06/01/2020 SN60WF / Implanted: Qty: 1 on 09/24/2015 by Ramesh Martinez MD at [facility] Eye 6 [id number] / [id number] Lens LENS Left: Eye Raúl 08/02/2020 SN60WF / Implanted: Qty: 1 on 11/12/2015 by Ramesh Martinez MD at [facility] 4 [id number] / [id number] documented as of this encounter Results Not on filedocumented in this encounter Visit Diagnoses Diagnosis Renal artery stenosis - Primary Atherosclerosis of renal artery documented in this encounter Insurance Payer Benefit Plan / Subscriber ID Effective Dates Phone Addre ss Type Group MEDICARE MEDICARE PART [id number] 2014-Prese [phone] Medicare A & B nt 2 [id number] MIRZA GRADY [id number] documented as of this encounter
--- OUTSIDE RECORDS SUMMARY | 2020-05-02 15:58 | XMS REPORT | Summary of Care ---
:1950 Author Organization [facility] - Health Address [address] [place] [address] Care Team Providers Name Role Phone Joni Primary Care Provider Encounter Details Date Type Department Care Team Description 01/21/2020 Orders Only [facility] Doctor Unassigned, No [address] [facility] [place] [address] [address] [place] [address] Allergies Active Allergy Reactions Severity Noted Date Comments Atorvastatin Calcium Unknown - See comments 12/07/2016 myalgia documented as of this encounter (statuses as of 04/02/2020) Medications Medication Sig Dispensed Refills Start Date [...] mouth daily. tabletIndications: Coronary artery disease involving [place] coronary artery of [place] heart with angina pectoris ranolazine 500 mg 12 hr Take 1 tablet by 60 tablet 5 0 Active tabletIndications: mouth 2 (two) Coronary artery disease times daily. involving [place] coronary artery of [place] heart with angina pectoris, Chest pain, unspecified type evolocumab (REPATHA inject 140 mg 4 Syringe 3 01/13/2020 Active SURECLICK) 140 mg/mL under the skin PnIjIndications: every 2 (two) Coronary artery disease weeks. 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 Neuropathy 02/18/2015 documented as of this encounter (statuses as of 04/02/2020) Immunizations Name Administration Dates Next Due Influenza [...] Visit Vascular Surgery Eddie Cordero MD [address] [place] [phone] Health Maintenance Due Date Last Done [...] of this encounter Implants Implanted Type Area Career Development Associate Device Shelf Model / Serial Identifier Expiration / Lot Date Lens LENS Right: Raúl 06/01/2020 SN60WF / Implanted: Qty: 1 on 09/24/2015 by Ramesh Martinez MD at [facility] Eye 8 [id number] / [id number] Lens LENS Left: Eye Raúl 08/02/2020 SN60WF / Implanted: Qty: 1 on 11/12/2015 by Ramesh Martinez MD at [facility] 5 [id number] / [id number] documented as of this encounter Procedures Procedure Name Priority Date/Time Associated Diagnosis Comme nts INSURANCE CORRESPONDENCE Routine 01/21/2020 12:01 AM CDT documented in this encounter Results Not on filedocumented in this encounter Insurance Payer Benefit Plan / Subscriber ID Effective Dates Phone Addre ss Type Group MEDICARE MEDICARE PART [id number] 2014-[place] [phone] Medicare A & B nt 2 [id number] MIRZA GRADY [id number] documented as of this encounter
[2020-05-02] MEDS ORDERED: NA CHLORIDE 0.9% 1,000 ML ONE (18:08)
[2020-05-02 18:25] LABS: Absolute Lymphocytes (CBC) 2.1 K/uL (0.7-4.9); Basophils % 0.9 % (0-1.3); Hematocrit 34.1 % (36.0-45.0); Lymphocytes % 30.5 % (15.3-44.8); MPV 7.4 fL (7.6-11.3); RBC Red Blood Cell Count 3.88 M/uL (3.86-4.86)
[2020-05-02 18:27] LABS: Protime INR 1.44
[2020-05-02 18:46] LABS: ALT/SGPT 23 U/L (12-78); AST/SGOT 20 U/L (15-37); Albumin 2.8 g/dL (3.4-5.0); Alkaline Phosphatase 93 U/L (45-117); BUN Blood Urea Nitrogen 21 mg/dL (7-18); Bicarbonate 22 mmol/L (21-32); Bilirubin Direct 0.1 mg/dL (0-0.2); Bilirubin Total 0.4 mg/dL (0.2-1.0); Glucose Level 140 mg/dL (74-106); NT PRO-BNP 270 pg/mL (<125); Potassium 4.6 mmol/L (3.5-5.1); Protein, Total 7.4 g/dL (6.4-8.2); Sodium Level 140 mmol/L (136-145); Troponin (Emerg Dept Use Only) < 0.02 ng/mL (0.0-0.045)
--- NOTE | 2020-05-02 19:10 | ER ---
Nurse's Notes [facility] Name: Isidra Neff Age: 70 yrs Sex: Female : 1950 Arrival Date: 05/02/2020 Time: 15:51 Bed 16 Private MD: Clifford Quinones Diagnosis: Weakness;Unspecified kidney failure-chronic;Volume depletion;Fall due to bumping against object;Dyspnea-elevated D-DIMER Presentation: 05/02 16:21 Chief complaint: Spouse and/or significant other states: about 2-3 weeks ago she had iw her flu shot then she started to have flu symptoms, not eating much, and feels very weak , +chills, +headache, +nausea, +diarrhea. Coronavirus screen: chills, diarrhea, headache, nausea, Client presents with at least one sign or symptom that may indicate coronavirus-19. Standard/surgical mask placed on the client. Provider contacted for isolation considerations. Ebola Screen: Patient negative for fever greater than or equal to 101.5 degrees Fahrenheit, and additional compatible Ebola Virus Disease symptoms Patient denies exposure to infectious person. Patient denies travel to an Ebola-affected area in the 21 days before illness onset. No symptoms or risks identified at this time. Initial Sepsis Screen: Does the patient meet any 2 criteria? No. Patient's initial sepsis screen is negative. Does the patient have a suspected source of infection? No. Patient's initial sepsis screen is negative. Risk Assessment: Do you want to hurt yourself or someone else? Patient reports no desire to harm self or others. Onset of symptoms was April 15, 2020. 16:21 Acuity: CL 3 iw 16:21 Method Of Arrival: Wheelchair iw Historical: - Allergies: 16:25 NKA; iw - PMHx: 16:25 CVA; Diabetes; Hypertension; iw - PSHx: 16:25 ; Hysterectomy; triple bypass; iw - Immunization history:: Adult Immunizations up to date. - Social history:: Smoking status: Patient denies any tobacco usage or history of. Screenin:15 Abuse screen: Denies threats or abuse. Nutritional screening: Reports decreased aa5 appetite x 3 weeks ago. Tuberculosis screening: No symptoms or risk factors identified. Fall Risk Fall in past 12 months (25 points). IV access (20 points). Total Berman Fall Scale indicates High Risk Score (45 or more points). Fall prevention measures have been instituted. Side Rails Up X 2 Placed Close to Nursing Station. Assessment: 17:15 General: Appears comfortable, Behavior is calm, cooperative. Pain: Complains of pain in aa5 james hips Pain currently is 5 out of 10 on a pain scale. Quality of pain is described as sharp, shooting, Pain began post-fall 1 week ago. Pt reports she slipped and fell onto buttocks in the bathtub 1 week ago. Is continuous, Aggravated by increased activity, repositioning. Neuro: Level of Consciousness is awake, alert, obeys commands, Oriented to person, place, time, situation. Cardiovascular: Heart tones S1 S2 present Rhythm is regular. Respiratory: Reports shortness of breath cough that is dry, since 3 weeks ago Airway is patent Respiratory effort is even, unlabored, Respiratory pattern is regular, symmetrical, Breath sounds are clear bilaterally. GI: Abdomen is obese. : Reports burning with urination. EENT: No signs and/or symptoms were reported regarding the EENT system. Derm: Skin is pink, warm \\T\\ dry. Musculoskeletal: Range of motion: intact in all extremities. 18:10 Reassessment: Patient is alert, oriented x 3, equal unlabored respirations, skin aa5 warm/dry/pink. 18:33 Reassessment: Patient is alert, oriented x 3, equal unlabored respirations, skin aa5 warm/dry/pink. Extra warm blankets given for pt's comfort. . 19:00 Reassessment: d dimer -1,420 relayed by semiconductor lab technician Sobeida, provider informed. mg2 19:05 Reassessment: Pt aware of need to collect urine specimen, pt states "I can't pee right aa5 now but I will let you know when I have to go" . 20:05 Reassessment: Patient appears in no apparent distress at this time. Patient and/or ca1 family updated on plan of care and expected duration. Pain level reassessed. Patient is alert, oriented x 3, equal unlabored respirations, skin warm/dry/pink. 21:23 Reassessment: Patient appears in no apparent distress at this time. Patient and/or ca1 family updated on plan of care and expected duration. Pain level reassessed. Patient is alert, oriented x 3, equal unlabored respirations, skin warm/dry/pink. 22:21 Reassessment: Patient appears in no apparent distress at this time. No changes from jd3 previously documented assessment. Patient and/or family updated on plan of care and expected duration. Pain level reassessed. Patient is alert, oriented x 3, equal unlabored respirations, skin warm/dry/pink. report given to Kayy BAEZA. Vital Signs: 16:21 BP 105 / 49; Pulse 85; Resp 16; Temp 97.3; Pulse Ox 97% on R/A; Weight 90.72 kg; Height iw 5 ft. (152.40 cm); 18:33 BP 115 / 58; Pulse 81; Resp 16 S; Temp 98.7(O); Pulse Ox 97% on R/A; aa5 20:05 BP 124 / 55; Pulse 87; Resp 16 S; Pulse Ox 100% on R/A; ca1 21:22 BP 121 / 55; Pulse 87; Resp 16 S; Pulse Ox 95% on R/A; ca1 22:20 BP 125 / 67; Pulse 88; Resp 17 S; Pulse Ox 95% on R/A; jd3 16:21 Body Mass Index 39.06 (90.72 kg, 152.40 cm) iw ED Course: 15:51 Patient arrived in ED. ag5 15:51 Clifford Quinones MD is Private Physician. ag5 16:24 Triage completed. iw 16:25 Arm band placed on. iw 17:02 Vinod Pedro MD is Attending Physician. lily 17:04 Laila Grider, ARYAN is Primary Nurse. aa5 17:15 Patient has correct armband on for positive identification. Placed in gown. Bed in low aa5 position. Call light in reach. Side rails up X2. Adult w/ patient. 17:15 nuclear monitoring technician on. Pulse ox on. NIBP on. aa5 18:10 Initial lab(s) drawn, by me, sent to lab. Inserted saline lock: 22 gauge in left aa5 forearm, using aseptic technique. Blood collected. 18:53 Tariq Webb NP is PHCP. pm1 19:05 Naveen Urban DO is Hospitalizing Provider. lily 19:07 XRAY Chest (1 view) In Process Unspecified. EDMS 19:07 Pelvis XRAY In Process Unspecified. EDMS 19:15 Report given to ARYAN Jernigan. aa5 19:16 CT Traumagram (Head C Spine CAP wo con) In Process Unspecified. EDMS 20:25 Ultrasound completed. Patient tolerated well. Notified COURT RECORDER/MIRZA webb. sg3 20:26 US Extremity Venous W Compression James In Process Unspecified. EDMS 22:25 No provider procedures requiring assistance completed. Patient admitted, IV remains in jd3 place. Administered Medications: 18:10 Drug: NS 0.9% 500 ml Route: IV; Rate: bolus; Site: left forearm; aa5 19:05 Follow up: IV Status: Completed infusion; IV Intake: 500ml aa5 19:05 Drug: NS 0.9% 1000 ml Route: IV; Rate: 125 ml/hr; Site: left forearm; aa5 21:58 Follow up: Response: No adverse reaction; IV Status: Infusion continued upon admission ca1 20:15 Drug: Lovenox 1 mg/kg Route: Sub-Q; Site: right lower abdomen; ca1 21:58 Follow up: Response: No adverse reaction ca1 Intake: 19:05 IV: 500ml; Total: 500ml. aa5 Outcome: 19:09 Decision to Hospitalize by Provider. lily 22:25 Admitted to Med/surg accompanied by tech, via wheelchair, room 228, with chart, Report jd3 called to Kayy BAEZA 22:25 Condition: stable 22:25 Instructed on the need for admit, Demonstrated understanding of instructions. 23:01 Patient left the ED. jd3 Signatures: Dispatcher [employer] Vinod Mistry MD MD cha Williams, Irene, RN Laila Pablo RN RN aa5 Tariq Webb, COURT RECORDER COURT RECORDER pm1 Santo Sanchez RN RN Ashwini Blanco sg3 Grover Romero RN RN mg2 Rere Leo RN RN ca1 Steven Rachel [facility]
--- NOTE | 2020-05-02 19:10 | EDPHYS ---
Physician Documentation [facility] Name: Isidra Neff Age: 70 yrs Sex: Female : 1950 Arrival Date: 05/02/2020 Time: 15:51 Bed 16 Private MD: Clifford Quinones ED Physician Vinod Pedro HPI: 05/02 18:14 This 70 yrs old Female presents to ER via Wheelchair with complaints of Flu lily Symptoms. 18:14 flu shot 3 weeks ago, weak, no appetite, fall in bathtub 1 weeks ago. Onset: The lily symptoms/episode began/occurred 1 week(s) ago. Severity of symptoms: At their worst the symptoms were mild moderate in the emergency department the symptoms are unchanged. The patient has not experienced similar symptoms in the past. Historical: - Allergies: 16:25 NKA; iw - PMHx: 16:25 CVA; Diabetes; Hypertension; iw - PSHx: 16:25 ; Hysterectomy; triple bypass; iw - Immunization history:: Adult Immunizations up to date. - Social history:: Smoking status: Patient denies any tobacco usage or history of. ROS: 18:16 Constitutional: Negative for fever, chills, and weight loss, Eyes: Negative for injury, lily pain, redness, and discharge, ENT: Negative for injury, pain, and discharge, Neck: Negative for injury, pain, and swelling, Cardiovascular: Negative for chest pain, palpitations, and edema, Respiratory: Negative for shortness of breath, cough, wheezing, and pleuritic chest pain, : Negative for injury, bleeding, discharge, and swelling, Skin: Negative for injury, rash, and discoloration, Neuro: Negative for headache, weakness, numbness, tingling, and seizure, Psych: Negative for depression, anxiety, suicide ideation, homicidal ideation, and hallucinations, Allergy/Immunology: Negative for hives, rash, and allergies, Endocrine: Negative for neck swelling, polydipsia, polyuria, polyphagia, and marked weight changes, Hematologic/Lymphatic: Negative for swollen nodes, abnormal bleeding, and unusual bruising. 18:16 Abdomen/GI: Positive for anorexia. 18:16 Back: Positive for decreased range of motion, pain at rest, pain with movement. 18:16 MS/extremity: Positive for decreased range of motion, pain, of the pelvis. Exam: 18:16 Constitutional: This is a well developed, well nourished patient who is awake, alert, lily and in no acute distress. Head/Face: Normocephalic, atraumatic. Eyes: Pupils equal round and reactive to light, extra-ocular motions intact. Lids and lashes normal. Conjunctiva and sclera are non-icteric and not injected. Cornea within normal limits. Periorbital areas with no swelling, redness, or edema. ENT: Nares patent. No nasal discharge, no septal abnormalities noted. Tympanic membranes are normal and external auditory canals are clear. Oropharynx with no redness, swelling, or masses, exudates, or evidence of obstruction, uvula midline. Mucous membranes moist. Neck: Trachea midline, no thyromegaly or masses palpated, and no cervical lymphadenopathy. Supple, full range of motion without nuchal rigidity, or vertebral point tenderness. No Meningismus. Chest/axilla: Normal chest wall appearance and motion. Nontender with no deformity. No lesions are appreciated. Cardiovascular: Regular rate and rhythm with a normal S1 and S2. No gallops, murmurs, or rubs. Normal PMI, no JVD. No pulse deficits. Respiratory: Lungs have equal breath sounds bilaterally, clear to auscultation and percussion. No rales, rhonchi or wheezes noted. No increased work of breathing, no retractions or nasal flaring. Abdomen/GI: Soft, non-tender, with normal bowel sounds. No distension or tympany. No guarding or rebound. No evidence of tenderness throughout. Female : Normal external genitalia. MS/ Extremity: Pulses equal, no cyanosis. Neurovascular intact. Full, normal range of motion. Neuro: Awake and alert, GCS 15, oriented to person, place, time, and situation. Cranial nerves II-XII grossly intact. Motor strength 5/5 in all extremities. Sensory grossly intact. Cerebellar exam normal. Normal gait. Psych: Awake, alert, with orientation to person, place and time. Behavior, mood, and affect are within normal limits. 18:16 Back: normal spinal alignment noted, CVA tenderness, is absent, vertebral tenderness, is not appreciated, muscle spasm, is appreciated in the left low back, left mid back, right mid back and right low back. 18:19 ECG was reviewed by the Attending Physician. lily Vital Signs: 16:21 BP 105 / 49; Pulse 85; Resp 16; Temp 97.3; Pulse Ox 97% on R/A; Weight 90.72 kg; Height iw 5 ft. (152.40 cm); 18:33 BP 115 / 58; Pulse 81; Resp 16 S; Temp 98.7(O); Pulse Ox 97% on R/A; aa5 20:05 BP 124 / 55; Pulse 87; Resp 16 S; Pulse Ox 100% on R/A; ca1 21:22 BP 121 / 55; Pulse 87; Resp 16 S; Pulse Ox 95% on R/A; ca1 22:20 BP 125 / 67; Pulse 88; Resp 17 S; Pulse Ox 95% on R/A; jd3 16:21 Body Mass Index 39.06 (90.72 kg, 152.40 cm) iw MDM: 17:02 Patient medically screened. lily 18:18 Differential Diagnosis altered mental status. Differential diagnosis: Fracture Obesity lily Osteoporosis sprain, Ureterolithiasis bowel obstruction, gastritis, Irritable bowel syndrome, non-specific abd pain. Data reviewed: vital signs, nurses notes, lab test result(s), EKG, radiologic studies, CT scan, plain films. Data interpreted: night monitor: rate is 85 beats/min, rhythm is regular, Pulse oximetry: on room air is 97 %. Test interpretation: by ED physician or midlevel provider: ECG, plain radiologic studies. Counseling: I had a detailed discussion with the patient and/or guardian regarding: the historical points, exam findings, and any diagnostic results supporting the discharge/admit diagnosis, lab results, radiology results, the need for further work-up and treatment in the hospital. Medication response: 19:09 ED course: D DIMER UP , CRF, WILL COVER WITH LOVENOX WHEN TRAUMAGRAM IS NEG, VQ SCAN I lily THE AM, TARIQ FORMAN TO DIRECT, OZZIE LOZA AWARE. 20:08 ED course: Negative CT imaging for trauma. Ordered Lovenox as directed by Willis. pm1 Patient to have nuclear study to rule out PE due to elevated d-dimer. 05/02 17:34 Order name: Basic Metabolic Panel; Complete Time: 18:54 [facility] 05/02 17:34 Order name: CBC with Diff; Complete Time: 19:01 [facility] 05/02 17:34 Order name: LFT's; Complete Time: 18:54 [facility] 05/02 17:34 Order name: Magnesium; Complete Time: 18:54 [facility] 05/02 17:34 Order name: NT PRO-BNP; Complete Time: 18:54 [facility] 05/02 17:34 Order name: PT-INR; Complete Time: 19:01 [facility] 05/02 17:34 Order name: Troponin (emerg Dept Use Only); Complete Time: 18:54 [facility] 05/02 17:34 Order name: Influenza Screen (a \T\ B); Complete Time: 18:43 [facility] 05/02 17:48 Order name: D-Dimer; Complete Time: 19:01 05/02 18:55 Order name: Urine Microscopic Only; Complete Time: 22:44 pm 05/02 19:58 Order name: COVID-19 [facility] 05/02 20:03 Order name: Strep; Complete Time: 21:00 pm1 05/02 20:04 Order name: CRP; Complete Time: 21:14 [facility] 05/02 17:34 Order name: XRAY Chest (1 view); Complete Time: 19:53 [facility] 05/02 17:34 Order name: EKG; Complete Time: 17:35 [facility] 05/02 17:34 Order name: Cardiac monitoring; Complete Time: 17:45 [facility] 05/02 17:34 Order name: EKG - Nurse/Tech; Complete Time: 17:45 [facility] 05/02 17:34 Order name: IV Saline Lock; Complete Time: 18:42 [facility] 05/02 17:34 Order name: Labs collected and sent; Complete Time: 18:42 [facility] 05/02 17:34 Order name: O2 Per Protocol; Complete Time: 17:45 [facility] 05/02 18:14 Order name: Pelvis XRAY; Complete Time: 19:56 [facility] 05/02 18:14 Order name: CT Traumagram (Head C Spine CAP wo con); Complete Time: 19:53 [facility] 05/02 19:11 Order name: US Extremity Venous W Compression James; Complete Time: 20:59 [facility] 05/02 20:04 Order name: Ferritin; Complete Time: 21:14 [facility] 05/02 20:04 Order name: Procalcitonin; Complete Time: 21:23 [facility] 05/02 21:38 Order name: SARS-COV-2 RT PCR; Complete Time: 21:41 [facility] 05/02 17:34 Order name: O2 Sat Monitoring; Complete Time: 17:45 lily 05/02 17:34 Order name: Urine Dipstick-Ancillary (obtain specimen); Complete Time: 21:57 lily EC:19 Rate is 84 beats/min. Rhythm is regular. QRS [place] is Normal. ND interval is normal. QRS lily interval is normal. QT interval is normal. No Q waves. T waves are Normal. No ST changes noted. Clinical impression: NSR w/ Non-specific ST/T Changes and No evidence of ischemia. Interpreted by me. Reviewed by me. Administered Medications: 18:10 Drug: NS 0.9% 500 ml Route: IV; Rate: bolus; Site: left forearm; aa5 19:05 Follow up: IV Status: Completed infusion; IV Intake: 500ml aa5 19:05 Drug: NS 0.9% 1000 ml Route: IV; Rate: 125 ml/hr; Site: left forearm; aa5 21:58 Follow up: Response: No adverse reaction; IV Status: Infusion continued upon admission ca1 20:15 Drug: Lovenox 1 mg/kg Route: Sub-Q; Site: right lower abdomen; ca1 21:58 Follow up: Response: No adverse reaction ca1 Disposition: 05/03 14:40 Co-signature as Attending Physician, Vinod Pedro MD I agree with the assessment and [facility] plan of care. Disposition: 05/02/20 19:09 Hospitalization ordered by Naveen Urban for Observation. Preliminary diagnosis are Weakness, Unspecified kidney failure - chronic, Volume depletion, Fall due to bumping against object, Dyspnea - elevated D-DIMER. - Bed requested for Telemetry/MedSurg (observation). - Status is Observation. jd3 - Condition is Stable. - Problem is new. - Symptoms have improved. Signatures: Dispatcher [employer] Vinod Mistry MD MD cha Williams, Irene, RN RN iw Calderon, Audri RN RN aa5 Ozzie Loza, GUERLINE-C VISION SPECIALIST-Cla1 Ursula Godwin RN RN Tariq Arias, CONCRETE STONE FABRICATING SUPERVISOR CONCRETE STONE FABRICATING SUPERVISOR pm1 Santo Sanchez RN RN jd3 Rere Leo RN RN ca1 Corrections: (The following items were deleted from the chart) 05/02 17:52 17:35 CORONAVIRUS+MR.LAB.BRZ ordered. [facility] 22:04 19:09 Hospitalization Ordered by Naveen Urban DO for Observation. Preliminary cg diagnosis is Weakness; Unspecified kidney failure - chronic; Volume depletion; Fall due to bumping against object; Dyspnea - elevated D-DIMER. Bed requested for Telemetry/MedSurg (observation). Status is Observation. Condition is Stable. Problem is new. Symptoms have improved. [facility] 23:01 22:04 05/02/2020 19:09 Hospitalization Ordered by Naveen Urban DO for Observation. jd3 Preliminary diagnosis is Weakness; Unspecified kidney failure - chronic; Volume depletion; Fall due to bumping against object; Dyspnea - elevated D-DIMER. Bed requested for Telemetry/MedSurg (observation). Status is Observation. Condition is Stable. Problem is new. Symptoms have improved. cg
--- NOTE | 2020-05-02 19:50 | RAD REPORT ---
EXAM DESCRIPTION: CT - Head C Spine Cap Wo Con - 05/02/2020 7:16 pm TECHNIQUE: Computed axial tomography of the head and cervical spine was obtained. Coronal and sagitt al reconstruction was performed Computed axial tomography of the chest, abdomen and pelvis was obtained. Contrast was not requested. All CT scans are performed using dose optimization technique as appropriate and may include automated exposure control or mA/KV adjustment according to patient size. CLINICAL HISTORY: Headache, neck pain, chest and abdominal pain, diarrhea COMPARISON: 2019 FINDINGS: An intracranial bleed is not seen. Mild to moderate low-density areas within periventricular, deep and subcortical white matter probably ischemic changes secondary to small vessel disease. Small old left thalamus infarction The ventricles are normal in caliber. An extra-axial fluid collection is not noted. . Fluid within the sinuses/mastoids is not seen. A cervical fracture is not seen. No dislocation is noted. Small left posterolateral disc herniation C 4-5. Spondylosis. A left carotid stent is present The evaluation of mediastinum, abran, vessels, solid organs and bowel are limited secondary to the lac k of contrast administration. No mediastinal or hilar lymphadenopathy. No pleural effusion. No pericardial effusion. Mild ground-glass opacities bilaterally. Mild subpleura l opacities. Cholecystectomy has been performed since the prior exam. Pneumobilia is noted. The spleen, pancreas, adrenals and right kidney appear grossly normal. Left kidney is diminished in size. No hydronephrosis. Normal appendix. Hysterectomy. No evidence of diverticulitis. Small umbilical hernia contains fat Spondylosis involves lumbar spine resulting spinal stenosis IMPRESSION: 1. No acute intracranial abnormality is seen. 2. A cervical fracture is not visualized. If the patient continues have symptoms to suggest intracran ial/spinal cord pathology MRI be recommended 3. Mild ground-glass opacities within the lungs indicative of a mild alveolitis. Mild chronic appeari ng subpleural interstitial lung opacities as well.
--- NOTE | 2020-05-02 19:52 | RAD REPORT ---
EXAM DESCRIPTION: Elaine Single View05/02/2020 7:06 pm CLINICAL HISTORY: Chest pain COMPARISON: 2019 FINDINGS: Mild bilateral pulmonary opacities. The heart is normal size. Postsurgical changes involve the chest. IMPRESSION: Mild bilateral pulmonary opacities may represent mild pneumonitis
--- NOTE | 2020-05-02 19:55 | RAD REPORT ---
EXAM DESCRIPTION: RAD - Pelvis - 05/02/2020 7:07 pm CLINICAL HISTORY: Pelvic pain status post injury FINDINGS: No fracture or dislocation is seen.
[2020-05-02] MEDS ORDERED: ENOXAPARIN 100 MG/ML SYR SQ ONE (20:25)
--- NOTE | 2020-05-02 20:45 | P.HP ---
Certification for Inpatient Patient admitted to: Observation With expected LOS: <2 Midnights Patient will require the following post-hospital care: None Practitioner: I am a practitioner with admitting privileges, knowledge of patient current condition, hospital course, and medical plan of care. Services: Services provided to patient in accordance with Admission requirements found in Title 42 Section 412.3 of the Code of Federal Regulations <Ozzie Ace - Last Filed: 05/02/20 20:40> Patient admitted to: Observation <Naveen Urban - Last Filed: 05/03/20 14:54> Patient History Date of Service: 05/02/20 Primary Care Provider: Dr. Rodrigues Reason for admission: Dyspnea History of Present Illness: 70-year-old female with history of diabetes mellitus type 2, hypertension, coronary artery disease status post CABG, CVA x3, CKD presents emergency department for malaise, fatigue, shortness of breath. Patient reports that this has been ongoing and worsening over the course of the last 2-3 weeks. Patient was worked up in the emergency department, labs remarkable for creatinine 1.32, GFR 40, BUN 21 which is close to her baseline of CKD stage 3, elevated D-dimer 1420. Urinalysis pending. Patient had fall a number of days ago and was reporting back and pelvic pain, x-ray of pelvis negative, patient had CT traumaram without contrast which demonstrated ground-glass opacities, possible alveolitis. Patient white blood cell count normal. Patient also reports that she had 2 family members test positive for Madrigal virus. Pro calcitonin, CRP, COVID test, urinalysis pending on admission. ED provider wishes to admit patient for further evaluation and management and to rule out pulmonary embolism due to elevated D-dimer. ED provider wishes to not scan her with IV contrast due to her CKD. When I saw the patient in the emergency department she was awake, alert, oriented x3. Patient reports some shortness of breath and malaise, anorexia. Patient be admitted under observation for further evaluation and management. - Past Medical/Surgical History Diabetic: Yes -: Steroid tx in lower back -: CVA x3 -: Diabetes mellitus type 2-insulin dependent -: Hypertension -: hyperlipidemia -: Fibromyalgia -: Osteoarthritis -: CAD status post CABG -: Hysterectomy -: -: CATARACT SX. -: Carotid Sx- stent placement left side -: triple bypass 08/31/17 -: heart cath 08/30/17 Psychosocial/ Personal History: Patient is retired and lives with her family - Family History Father -: Lung disease Notes: COPD Mother -: Diabetes Brother -: Diabetes Sister -: Heart disease Notes: at age 35 - Social History Smoking Status: Former smoker Alcohol use: No CD- Drugs: No Caffeine use: Yes Place of Residence: Home <Ozzie Ace - Last Filed: 05/02/20 20:40> Date of Service: 05/03/20 Home medications list reviewed: Yes <Naveen Urban - Last Filed: 05/03/20 14:54> Allergies No Known Allergies Allergy (Unverified 09/07/17 07:15) Home Medications: Evolocumab [Repatha Syringe] 140 mg IM EVERY 7TH DAY 05/02/20 Gabapentin 3 tab PO BEDTIME 05/02/20 Isosorbide Mononitrate [Isosorbide Mononitrate ER] 30 mg PO DAILY 05/02/20 Ranolazine [Ranolazine ER] 500 mg PO BID 05/02/20 Temazepam [Restoril] 30 mg PO BEDTIME 05/02/20 Aspirin [Aspirin EC 81 MG] 81 mg PO DAILY #90 tablet. 05/03/20 Cetirizine HCl [Zyrtec] 10 mg PO DAILY PRN #10 tablet 05/03/20 Famotidine [Pepcid] 20 mg PO BID #60 tab 05/03/20 Glucerna Shake [Glucerna*] 237 ml PO BID #60 can 05/03/20 Insulin Degludec [Tresiba Flextouch U-200] 20 units SQ BEDTIME #1 packet 05/03/20 Losartan Potassium 25 mg PO DAILY #30 tablet 05/03/20 Metoclopramide HCl [Reglan] 5 mg PO BID PRN #4 tablet 05/03/20 carvediloL [Coreg] 6.25 mg PO BID #60 tab 05/03/20 predniSONE [Deltasone*] 10 mg PO DAILY #7 tab 05/03/20 Review of Systems 10-point ROS is otherwise unremarkable General: Malaise, Other (Anorexia) Respiratory: Cough, Shortness of Breath <Ozzie Ace - Last Filed: 05/02/20 20:40> Physical Examination - Physical Exam General: Alert, In no apparent distress HEENT: Atraumatic, PERRLA, Mucous membr. moist/pink Neck: Supple, 2+ carotid pulse no bruit, No LAD Respiratory: Normal air movement, Diminished (Bilaterally) Cardiovascular: Regular rate/rhythm, Normal S1 S2 Gastrointestinal: Normal bowel sounds, No tenderness Musculoskeletal: No tenderness Integumentary: No rashes Neurological: Normal speech, Normal strength at 5/5 x4 extr, Normal tone, Normal affect - Studies Laboratory Data (last 24 hrs) 05/02/20 18:10: PT 16.9 H, INR 1.44 05/02/20 18:10: WBC 6.8, Hgb 11.5 L, Hct 34.1 L, Plt Count 452 H 05/02/20 18:10: Sodium 140, Potassium 4.6, BUN 21 H, Creatinine 1.32 H, Glucose 140 H, Magnesium 2.0, Total Bilirubin 0.4, AST 20, ALT 23, Alkaline Phosphatase 93 Microbiology Data (last 24 hrs): 05/02/20 18:00 Nasopharnyx Influenza Type A Antigen Screen - Final 05/02/20 18:00 Nasopharnyx Influenza Type B Antigen Screen - Final <Ozzie Ace - Last Filed: 05/02/20 20:40> - Studies Laboratory Data (last 24 hrs) 05/02/20 18:10: PT 16.9 H, INR 1.44 05/02/20 18:10: WBC 6.8, Hgb 11.5 L, Hct 34.1 L, Plt Count 452 H 05/02/20 18:10: Sodium 140, Potassium 4.6, BUN 21 H, Creatinine 1.32 H, Glucose 140 H, Magnesium 2.0, Total Bilirubin 0.4, AST 20, ALT 23, Alkaline Phosphatase 93 Microbiology Data (last 24 hrs): 05/02/20 20:24 Throat Group A Streptococcus Rapid Screen - Final 05/02/20 18:00 Nasopharnyx Influenza Type A Antigen Screen - Final 05/02/20 18:00 Nasopharnyx Influenza Type B Antigen Screen - Final <Naveen Urban - Last Filed: 05/03/20 14:54> Assessment and Plan - Plan Assessment Dyspnea with elevated W-[id number] out pulmonary embolism Diabetes mellitus type 2-insulin dependent Hypertension CAD status post CABG CKD 3 Plan Dyspnea with elevated R-rgtji-vyod out pulmonary embolism: Admit under observation, monitor on telemetry. Recheck BMP with morning labs. Patient will likely require either CT PE protocol or V/Q scan depending upon labs. If patient COVID test is positive this exam could potentially be deferred at physician's discretion. Continue with full-dose anticoagulation at this time. Diabetes mellitus type 2-insulin dependent: A.c. HS Accu-Cheks, sliding scale insulin therapy. Obtain A1c with morning labs. Hypertension: Home medications continued. CAD status post CABG: Appears stable at this time, will trend troponins. CKD 3: Appears stable this time, continue with light hydration. Minimize exposure to contrast and nephrotoxic agents. Discharge Plan: Home Plan to discharge in: 24 Hours - Advance Directives Does patient have a Living Will: No Does patient have a Durable POA for Healthcare: No - Code Status/Comfort Care Code Status Assessed: Yes (Full code) Critical Care: No Time Spent Managing Pts Care (In Minutes): 55 <Ozzie Ace - Last Filed: 05/02/20 20:40> - Plan Case discussed in detail with nurse practitioner. Agree with evaluation, assessment and plan of care. Case discussed with pulmonology who was consulted. Case reviewed in detail. Please see discharge summary for details. <Naveen Urban - Last Filed: 05/03/20 14:54>
--- NOTE | 2020-05-02 20:57 | RAD REPORT ---
EXAM DESCRIPTION: USExtrem Venous W Compress Bil05/02/2020 8:26 pm CLINICAL HISTORY: Bilateral leg swelling COMPARISON: 2008 FINDINGS: The common femoral, superficial femoral, popliteal and posterior tibial veins bilaterally are compressible and demonstrate augmentation. Doppler demonstrates good flow. IMPRESSION: No evidence of deep venous thrombosis involving either lower extremity.
[2020-05-02 21:06] LABS: C-Reactive Protein 64.9 mg/L (<3.00); Ferritin 233.7 ng/mL (8-388)
[2020-05-02 22:33] LABS: Urine Bacteria >50 /HPF (<20); Urine Culture Reflex Order REFLEXED; Urine Mucus 2+ /HPF (NONE SEEN)
[2020-05-02] MEDS ORDERED: TEMAZEPAM 15 MG CAP PO PRN (23:13)
[2020-05-02] MEDS: GABAPENTIN 300 MG CAP PO SCH ×2 (23:13→23:49)
[2020-05-02] MEDS ORDERED: ACETAMINOPHEN 500 MG TAB PO PRN (23:13)
[2020-05-02] MEDS: INSULIN -REGULAR HUMAN 50 UNIT/0.5 ML ML SQ SCH (23:13)
[2020-05-02] MEDS ORDERED: MELATONIN 5 MG TABLET PO PRN (23:13)
[2020-05-02] MEDS ORDERED: ONDANSETRON 4 MG/2 ML VIAL IV PRN (23:13)
[2020-05-02] MEDS: NA CHLORIDE 0.9% 1,000 ML IV SCH (23:21)
[2020-05-02 23:54] VITALS: BMI 36.2
[2020-05-03 04:19] VITALS: O2SAT 93
[2020-05-03 05:18] LABS: Albumin 2.3 g/dL (3.4-5.0); Bilirubin Total 0.4 mg/dL (0.2-1.0); Potassium 3.9 mmol/L (3.5-5.1); Protein, Total 6.2 g/dL (6.4-8.2); Thyroid Stimulating Hormone 0.375 uIU/mL (0.360-3.740)
[2020-05-03] MEDS ORDERED: carvediloL 25 MG TAB PO SCH (06:00)
[2020-05-03] MEDS: INSULIN -REGULAR HUMAN 50 UNIT/0.5 ML ML SQ SCH ×2 (07:30→11:30)
[2020-05-03] MEDS ORDERED: POTASSIUM CL SA 10 MEQ TAB PO ONE (09:00)
[2020-05-03] MEDS ORDERED: ENOXAPARIN 40 MG/0.4 ML SQ SCH (09:00)
[2020-05-03] MEDS ORDERED: ENOXAPARIN 100 MG/ML SYR SQ SCH (09:00)
[2020-05-03] MEDS ORDERED: ISOSORBIDE MONO SR 30 MG TAB PO SCH (09:00)
[2020-05-03] MEDS ORDERED: predniSONE 10 MG TAB PO SCH (09:00)
--- NOTE | 2020-05-03 10:12 | EKG ---
Test Date: 2020-05-02 Test Time: 17:25:44 Airline Attendant: BRADEN MEASUREMENT RESULTS: Intervals: Rate: 84 VT: 170 QRSD: 78 QT: 382 QTc: 451 [place]: P: 27 VT: 170 QRS: 22 T: 20 INTERPRETIVE STATEMENTS: Normal sinus rhythm Possible Lateral infarct, age undetermined Possible Inferior infarct, age undetermined Abnormal ECG Compared to ECG 05/23/2019 20:45:48 No significant changes Electronically Signed On 05-03-20 10:10:06 POLICE ACADEMY PROGRAM COORDINATOR by [place] Sharif
--- NOTE | 2020-05-03 10:17 | P.CNS ---
Date of Consult: 05/03/20 Primary Care Provider: Dr. Rodrigues Chief Complaint: Poor appetite History of Present Illness: Patient is 70 years of age admitted with poor appetite some nausea Sami- speaking only history obtained from she has been tested negative for coal weighed x3 denies any diarrhea abdominal pain blood pressure low patient is taking long-acting insulin blood sugars are also being low Allergies No Known Allergies Allergy (Unverified 09/07/17 07:15) Home Medications: Carvedilol [Coreg] 25 mg PO BID 05/02/20 Evolocumab [Repatha Syringe] 140 mg IM EVERY 7TH DAY 05/02/20 Gabapentin 3 tab PO BEDTIME 05/02/20 Insulin Aspart [Novolog Flexpen] 10 units SQ BID 05/02/20 Insulin Degludec [Tresiba Flextouch U-200] 40 units SQ BEDTIME 05/02/20 Isosorbide Mononitrate [Isosorbide Mononitrate ER] 30 mg PO DAILY 05/02/20 Losartan Potassium [Cozaar*] 50 mg PO DAILY 05/02/20 Ranolazine [Ranolazine ER] 500 mg PO BID 05/02/20 Temazepam [Restoril] 30 mg PO BEDTIME 05/02/20 - Past Medical/Surgical History Diabetic: Yes -: Steroid tx in lower back -: CVA x3 -: Diabetes mellitus type 2-insulin dependent -: Hypertension -: hyperlipidemia -: Fibromyalgia -: Osteoarthritis -: CAD status post CABG -: Hysterectomy -: -: CATARACT SX. -: Carotid Sx- stent placement left side -: triple bypass 08/31/17 -: heart cath 08/30/17 Psychosocial/ Personal History: Patient is retired and lives with her family - Family History Father Medical History: Lung disease Notes: COPD Mother Medical History: Diabetes Brother Medical History: Diabetes Sister Medical History: Heart disease Notes: at age 35 - Social History Smoking Status: Unknown if ever smoked Alcohol use: No CD- Drugs: No Caffeine use: Yes Place of Residence: Home Review of Systems General: Weakness Gastrointestinal: Nausea, As per HPI Physical Examination Temp Pulse Resp BP Pulse Ox 97.4 F 76 17 105/51 L 91 05/03/20 08:00 05/03/20 08:00 05/03/20 08:00 05/03/20 08:00 05/03/20 08:00 General: Alert, In no apparent distress, Oriented x3 Neck: Supple Respiratory: Clear to auscultation bilaterally Cardiovascular: No edema, Normal S1 S2 Gastrointestinal: Normal bowel sounds, Soft and benign Musculoskeletal: No clubbing, No swelling Laboratory Data (last 24 hrs) 05/02/20 18:10: PT 16.9 H, INR 1.44 05/02/20 18:10: WBC 6.8, Hgb 11.5 L, Hct 34.1 L, Plt Count 452 H 05/02/20 18:10: Sodium 140, Potassium 4.6, BUN 21 H, Creatinine 1.32 H, Glucose 140 H, Magnesium 2.0, Total Bilirubin 0.4, AST 20, ALT 23, Alkaline Phosphatase 93 - Problems (1) Abnormal CT scan of lung Current Visit: Yes Status: Acute Plan: Patient is 70 years of age admitted with nausea lack of appetite she is a diabetic with a coronary artery disease currently she had a flu shot 3 weeks ago in the past 2 weeks she has been having the symptoms unable to keep anything down DT scan shows peripheral interstitial lung disease subpleural ragsdale virus test as been negative blood sugars low I agree with low-dose prednisone 10 mg twice a dayadd Regalan CT pulmonary angiogram for PE vital signs stable labs reviewed may have underlying peptic ulcer disease recommend adding Pepcid twice a day blood pressure satisfactory patient is morbidly obese may have underlying obstructive sleep apnea no fever CT scan shows status post cholecystectomy he may have had ragsdale virus in the past than left with residual interstitial disease recommend discharge follow up with me in 1 or 2 weeks
--- NOTE | 2020-05-03 10:38 | P.DS ---
Admission Date: 05/02/20 Discharge Date: 05/03/20 Primary Care Provider: Dr. Quinones Disposition: ROUTINE DISCHARGE Discharge Condition: GOOD Reason for Admission: Poor appetite Consultations: None Procedures: COVID: Negative CT Chest: FINDINGS: No pulmonary emboli are identified. The aorta as imaged shows no acute or suspicious finding. No pericardial thickening or effusion. No one focal area of dense consolidation or suspicious mass lesion. There is no pleural effusion or pneumothorax. Interstitial and patchy alveolar opacities are present in a peripheral distribution pattern of the upper and mid lung sanchez. Findings are less prominent at each lung base. A lung parenchymal findings, wall primarily peripheral, are not a specific pattern for COVID-19 pneumonia. Printed COVID test results are not available. By report the COVID test was negative. Patient could have a non COVID mild viral pneumonitis. Bacterial pneumonia is not currently suspected. No mediastinal or hilar suspicious masses. No chest wall masses or abnormal axillary lymphadenopathy. IMPRESSION: No pulmonary emboli identified. Interstitial and alveolar opacities are present in the peripheral distribution of the upper and mid lung sanchez. This is not a specific COVID-19 appearance.By available history the COVID test was negative. Patient could have non COVID viral pneumonitis. No focal consolidation to suspect bacterial pneumonia. CT Traumagram: COMPARISON: 2019 FINDINGS: An intracranial bleed is not seen. Mild to moderate low-density areas within periventricular, deep and subcortical white matter probably ischemic changes secondary to small vessel disease. Small old left thalamus infarction The ventricles are normal in caliber. An extra-axial fluid collection is not noted. . Fluid within the sinuses/mastoids is not seen. A cervical fracture is not seen. No dislocation is noted. Small left posterolateral disc herniation C4-5. Spondylosis. A left carotid stent is present The evaluation of mediastinum, abran, vessels, solid organs and bowel are limited secondary to the lack of contrast administration. No mediastinal or hilar lymphadenopathy. No pleural effusion. No pericardial effusion. Mild ground-glass opacities bilaterally. Mild subpleural opacities. Cholecystectomy has been performed since the prior exam. Pneumobilia is noted. The spleen, pancreas, adrenals and right kidney appear grossly normal. Left kidney is diminished in size. No hydronephrosis. Normal appendix. Hysterectomy. No evidence of diverticulitis. Small umbilical hernia contains fat Spondylosis involves lumbar spine resulting spinal stenosis IMPRESSION: 1. No acute intracranial abnormality is seen. 2. A cervical fracture is not visualized. 3. Mild ground-glass opacities within the lungs indicative of a mild alveolitis. Mild chronic appearing subpleural interstitial lung opacities as well. Venous doppler: FINDINGS: The common femoral, superficial femoral, popliteal and posterior tibial veins bilaterally are compressible and demonstrate augmentation. Doppler demonstrates good flow. IMPRESSION: No evidence of deep venous thrombosis involving either lower extremity. Medical Problem List: Dyspnea, Fatigue, and nausea secondary to viral pneumonitis and medication Hypertension Diabetes mellitus type 2 insulin-dependent CAD with prior CABG History of CVA GERD Diabetic neuropathy Seasonal allergies Insomnia Suspect obstructive sleep apnea Acute on chronic renal disease stage III Obesity, BMI 36 Brief History of Present Illness: 70-year-old female with history of diabetes mellitus type 2 insulin- dependent, hypertension, CAD with prior CABG, prior CVA, chronic renal disease. Patient reports malaise, fatigue and shortness of breath over the past 2-3 weeks. She reports having symptoms after she had a flu shot. Patient presented to the emergency room for further evaluation. Creatinine 1.32, GFR 40. BUN of 21, D-dimer 1420. CT trauma to showed ground glass opacities likely alveolitis. Patient admitted for further evaluation and treatment. Hospital Course: Patient presented with dyspnea, fatigue and nausea. Patient had reported symp toms for over 3 weeks. Patient reports this started after she had the flu shot. She has reported decrease appetite. During the course of her stay patient was evaluated. Pulmonology was consulted to further address. Patient tested negative for COVID, influenza and Streptococcus. Patient had elevated D-dimer. Patient was further evaluated with CT scan of the chest. No pulmonary embolism but viral pneumonitis noted. Patient started on prednisone. Patient appears improved. Patient also receive some IV fluids. He was also noted that her blood pressure and blood sugar were low normal. Her medications have been decreased. At discharge patient will continue with prednisone 10 mg daily for 7 days. Recommend encourage oral intake. Patient will be given Glucerna supplementation 1 can twice daily. Recommend follow up with pulmonology in 1-2 weeks to follow up her care. Recommend follow up with PCP to further follow up her hospitalization. Patient with hypertension. As mentioned above blood pressures were low normal. Suspect fatigue related to multiple medications. Patient on carvedilol 25 mg 1 pill twice daily and losartan 50 mg daily at home. At discharge will decrease m edications carvedilol 6.25 mg 1 pill twice daily and losartan 25 mg daily. Recommend to monitor blood pressure closely. Recommend to maintain blood pressure less than 130/80. May need to hold blood pressure medication if systolic less than 110. Further adjustment in medication may be required. Recommend close follow up with PCP to further address. Patient with diabetes mellitus type 2 insulin dependent. As mentioned above blood sugars were low normal due to poor oral intake. Patient takes Tresiba 40 units daily along with Novolin 10 units subcu with meals. At discharge will provide Glucerna supplementation 1 can twice daily to maintain adequate intake. Recommend to decrease Tresiba to 20 mg daily. Recommend to discontinue Novolin. Recommend to monitor blood sugars at least twice daily. Recommend to maintain blood sugar less than 140 fasting and less than 200 after meals. May need to significantly decrease her insulin therapy if blood sugars remain below 100. Further adjustment in medication may be required. This can be done with the help of her PCP. Patient encouraged to eat at least 3 meals a day. Patient may have underlying GERD due to her nausea. Other consideration may be gastroparesis. At discharge will recommend to start Pepcid 20 mg 1 pill twice daily. Patient will be given limited supply of Reglan 25 mg twice daily as needed for nausea. Recommend GI evaluation as an outpatient if symptoms persist. Patient with CAD with prior CABG and history of CVA. At discharge patient will continue with Ranexa ER 1 pill twice daily, aspirin 81 mg daily and Imdur 30 mg daily. Recommend follow up with cardiology as directed. Patient with diabetic neuropathy. At discharge patient may continue with gabapentin 300 mg 3 pills at bedtime. Further adjustment in medication can be done by her PCP. Patient with seasonal allergies. Patient may take Zyrtec 10 mg daily as needed. Patient with insomnia. Patient takes Restoril 30 mg at bedtime. Suspect unde rlying obstructive sleep apnea. Recommend pulmonology evaluation as an outpatient to further address. Patient will require sleep study. This can be done with the help of pulmonology. Patient with acute on chronic renal disease. This appears stable. Patient appears slightly dehydrated. Patient given IV fluids with improvement. At discharge will recommend no further use of nonsteroidal anti-inflammatories. Future medications meds to be renally dose. Recommend to recheck lab-BMP in 1-2 weeks to monitor progress. Recommend follow up with nephrology to establish care and monitor. Vital Signs/Physical Exam: Temp Pulse Resp BP Pulse Ox 97.4 F 76 17 105/51 L 91 05/03/20 08:00 05/03/20 08:00 05/03/20 08:00 05/03/20 08:00 05/03/20 08:00 General: Alert, In no apparent distress, Oriented x3, Cooperative HEENT: Atraumatic Neck: Supple Respiratory: Clear to auscultation bilaterally, Normal air movement Cardiovascular: Normal pulses, Regular rate/rhythm Gastrointestinal: Normal bowel sounds, No tenderness, No masses, No rebound, No guarding Integumentary: No tenderness/swelling, No erythema, No warmth, No cyanosis Neurological: Normal speech, Normal strength at 5/5 x4 extr, Normal tone, Normal affect Laboratory Data at Discharge: WBC 6.8 K/uL (4.3-10.9) 05/02/20 18:10 Hgb 11.5 g/dL (12.0-15.0) L 05/02/20 18:10 Hct 34.1 % (36.0-45.0) L 05/02/20 18:10 Plt Count 452 K/uL (152-406) H 05/02/20 18:10 PT 16.9 SECONDS (9.5-12.5) H 05/02/20 18:10 INR 1.44 05/02/20 18:10 Sodium 145 mmol/L (136-145) 05/03/20 04:31 Potassium 3.9 mmol/L (3.5-5.1) 05/03/20 04:31 BUN 16 mg/dL (7-18) 05/03/20 04:31 Creatinine 1.20 mg/dL (0.55-1.3) 05/03/20 04:31 Glucose 74 mg/dL (74-106) 05/03/20 04:31 Magnesium 2.0 mg/dL (1.8-2.4) 05/02/20 18:10 Total Bilirubin 0.4 mg/dL (0.2-1.0) 05/03/20 04:31 AST 18 U/L (15-37) 05/03/20 04:31 ALT 19 U/L (12-78) 05/03/20 04:31 Alkaline Phosphatase 75 U/L (45-117) 05/03/20 04:31 Troponin I < 0.02 ng/mL (0.0-0.045) 05/03/20 04:31 Triglycerides 180 mg/dL (<150) H 05/03/20 04:31 Cholesterol 175 mg/dL (<200) 05/03/20 04:31 HDL Cholesterol 25 mg/dL (40-60) L 05/03/20 04:31 Cholesterol/HDL Ratio 7.00 05/03/20 04:31 Home Medications: Evolocumab [Repatha Syringe] 140 mg IM EVERY 7TH DAY 05/02/20 Gabapentin 3 tab PO BEDTIME 05/02/20 Isosorbide Mononitrate [Isosorbide Mononitrate ER] 30 mg PO DAILY 05/02/20 Ranolazine [Ranolazine ER] 500 mg PO BID 05/02/20 Temazepam [Restoril] 30 mg PO BEDTIME 05/02/20 Aspirin [Aspirin EC 81 MG] 81 mg PO DAILY #90 tablet. 05/03/20 Cetirizine HCl [Zyrtec] 10 mg PO DAILY PRN #10 tablet 05/03/20 Famotidine [Pepcid] 20 mg PO BID #60 tab 05/03/20 Glucerna Shake [Glucerna*] 237 ml PO BID #60 can 05/03/20 Insulin Degludec [Tresiba Flextouch U-200] 20 units SQ BEDTIME #1 packet 05/03/20 Losartan Potassium 25 mg PO DAILY #30 tablet 05/03/20 Metoclopramide HCl [Reglan] 5 mg PO BID PRN #4 tablet 05/03/20 carvediloL [Coreg] 6.25 mg PO BID #60 tab 05/03/20 predniSONE [Deltasone*] 10 mg PO DAILY #7 tab 05/03/20 New Medications: Aspirin [Aspirin EC 81 MG] 81 mg PO DAILY #90 tablet. carvediloL [Coreg] 6.25 mg PO BID #60 tab predniSONE [Deltasone*] 10 mg PO DAILY #7 tab Glucerna Shake [Glucerna*] 237 ml PO BID #60 can Losartan Potassium 25 mg PO DAILY #30 tablet Famotidine [Pepcid] 20 mg PO BID #60 tab Metoclopramide HCl [Reglan] 5 mg PO BID PRN #4 tablet PRN Reason: Nausea / Vomiting Insulin Degludec [Tresiba Flextouch U-200] 20 units SQ BEDTIME #1 packet Cetirizine HCl [Zyrtec] 10 mg PO DAILY PRN #10 tablet PRN Reason: Allergies Patient Discharge Instructions: 1. Recommend follow up with PCP in 1 week to follow up this hospitalization. 2. Patient presented with dyspnea, fatigue and nausea. Patient had reported symptoms for over 3 weeks. Patient reports this started after she had the flu shot. She has reported decrease appetite. During the course of her stay patient was evaluated. Pulmonology was consulted to further address. Patient tested negative for COVID, influenza and Streptococcus. Patient had elevated D-dimer. Patient was further evaluated with CT scan of the chest. No pulmonary embolism but viral pneumonitis noted. Patient started on prednisone. Patient appears improved. Patient also receive some IV fluids. He was also noted that her blood pressure and blood sugar were low normal. Her medications have been decreased. At discharge patient will continue with prednisone 10 mg daily for 7 days. Recommend encourage oral intake. Patient will be given Glucerna supplementation 1 can twice daily. Recommend follow up with pulmonology in 1-2 weeks to follow up her care. Recommend follow up with PCP to further follow up her hospitalization. 3. Patient with hypertension. As mentioned above blood pressures were low normal. Suspect fatigue related to multiple medications. Patient on carvedilol 25 mg 1 pill twice daily and losartan 50 mg daily at home. At discharge will decrease medications carvedilol 6.25 mg 1 pill twice daily and losartan 25 mg daily. Recommend to monitor blood pressure closely. Recommend to maintain blood pressure less than 130/80. May need to hold blood pressure medication if systolic less than 110. Further adjustment in medication may be required. Recommend close follow up with PCP to further address. 4. Patient with diabetes mellitus type 2 insulin dependent. As mentioned above blood sugars were low normal due to poor oral intake. Patient takes Tresiba 40 units daily along with Novolin 10 units subcu with meals. At discharge will provide Glucerna supplementation 1 can twice daily to maintain adequate intake. Recommend to decrease Tresiba to 20 mg daily. Recommend to discontinue Novolin. Recommend to monitor blood sugars at least twice daily. Recommend to maintain blood sugar less than 140 fasting and less than 200 after meals. May need to significantly decrease her insulin therapy if blood sugars remain below 100. Further adjustment in medication may be required. This can be done with the help of her PCP. Patient encouraged to eat at least 3 meals a day. 5. Patient may have underlying GERD due to her nausea. Other consideration may be gastroparesis. At discharge will recommend to start Pepcid 20 mg 1 pill twice daily. Patient will be given limited supply of Reglan 25 mg twice daily as needed for nausea. Recommend GI evaluation as an outpatient if symptoms persist. 6. Patient with CAD with prior CABG and history of CVA. At discharge patient will continue with Ranexa ER 1 pill twice daily, aspirin 81 mg daily and Imdur 30 mg daily. Recommend follow up with cardiology as directed. 7. Patient with diabetic neuropathy. At discharge patient may continue with gabapentin 300 mg 3 pills at bedtime. Further adjustment in medication can be done by her PCP. 8. Patient with seasonal allergies. Patient may take Zyrtec 10 mg daily as needed. 9. Patient with insomnia. Patient takes Restoril 30 mg at bedtime. Suspect underlying obstructive sleep apnea. Recommend pulmonology evaluation as an outpatient to further address. Patient will require sleep study. This can be done with the help of pulmonology. 10. Patient with acute on chronic renal disease. This appears stable. Patient appears slightly deh ydrated. Patient given IV fluids with improvement. At discharge will recommend no further use of nonsteroidal anti-inflammatories. Future medications meds to be renally dose. Recommend to recheck lab-BMP in 1-2 weeks to monitor progress. Recommend follow up with nephrology to establish care and monitor. Diet: ADA Activity: Ad amee Followup: Clifford Quinones MD [Primary Care Provider] - Time spent managing pt's care (in minutes): 55
[2020-05-03] MEDS: NA CHLORIDE 0.9% 1,000 ML IV SCH (11:13)
[2020-05-03 12:32] VITALS: BP 123/59; TEMP 98
--- NOTE | 2020-05-03 13:07 | RAD REPORT ---
EXAM DESCRIPTION: CT - Chest For Pe Angio - 05/03/2020 12:51 pm CLINICAL HISTORY: dyspnea, suspect viral-COVID negative COMPARISON: Chest Single View dated 05/02/2020 TECHNIQUE: Dynamically enhanced 3 mm thick images of the chest were obtained during administration o f approximately 150mL Isovue 370 IV contrast. Coronal and oblique MIP reconstruction images were gene rated and reviewed. Exam utilizes a protocol to evaluate the pulmonary arterial tree. All CT scans are performed using dose optimization technique as appropriate and may include automated exposure control or mA/KV adjustment according to patient size. FINDINGS: No pulmonary emboli are identified. The aorta as imaged shows no acute or suspicious finding. No pericardial thickening or effusion. No one focal area of dense consolidation or suspicious mass lesion. There is no pleural effusion or p neumothorax. Interstitial and patchy alveolar opacities are present in a peripheral distribution davide vin of the upper and mid lung sanchez. Findings are less prominent at each lung base. A lung parenchymal findings, wall primarily peripheral, are not a specific pattern for COVID-19 pneum onia. Printed COVID test results are not available. By report the COVID test was negative. Patient co uld have a non COVID mild viral pneumonitis. Bacterial pneumonia is not currently suspected. No mediastinal or hilar suspicious masses. No chest wall masses or abnormal axillary lymphadenopathy. IMPRESSION: No pulmonary emboli identified. Interstitial and alveolar opacities are present in the peripheral distribution of the upper and mid l lavinia sanchez. This is not a specific COVID-19 appearance.By available history the COVID test was negati ve. Patient could have non COVID viral pneumonitis. No focal consolidation to suspect bacterial pneumonia.
[2020-05-03] MEDS ORDERED: METOCLOPRAMIDE 10MG/10ML UCUP PO SCH (17:00)
[2020-05-03] MEDS ORDERED: GLUCERNA SHAKE 237 ML CAN PO SCH (21:00)
[2020-05-03] MEDS ORDERED: TEMAZEPAM 15 MG CAP PO SCH (21:00)
== END 2020-05-03 16:15 | disposition home or self-care (01) ==
LOC: ER 15:48 → ERHOLD 20:34 → 2ND 22:26
PROVIDERS: ADMIT Family Medicine; ATTEND Family Medicine
DX: J12.9 Viral pneumonia, unspecified (principal); Z20.828 Contact with and (suspected) exposure to other viral communicable diseases; N17.9 Acute kidney failure, unspecified; I12.9 Hypertensive chronic kidney disease with stage 1 through stage 4 chronic kidney disease, or unspecified chronic kidney disease; N18.30 Chronic kidney disease, stage 3 unspecified; E11.40 Type 2 diabetes mellitus with diabetic neuropathy, unspecified; Z79.4 Long term (current) use of insulin; I25.10 Atherosclerotic heart disease of native coronary artery without angina pectoris; Z95.1 Presence of aortocoronary bypass graft; K21.9 Gastro-esophageal reflux disease without esophagitis; E66.9 Obesity, unspecified; Z68.36 Body mass index [BMI] 36.0-36.9, adult; Z86.73 Personal history of transient ischemic attack (TIA), and cerebral infarction without residual deficits; J30.2 Other seasonal allergic rhinitis; G47.00 Insomnia, unspecified; R94.31 Abnormal electrocardiogram [ECG] [EKG]; E78.5 Hyperlipidemia, unspecified; M79.7 Fibromyalgia; M19.90 Unspecified osteoarthritis, unspecified site; Z87.891 Personal history of nicotine dependence; R79.1 Abnormal coagulation profile
CPT/HCPCS: 96361; 93005; 87070; 87088; 85025; 87086; 80048; 36415; 83735; 85610; 80061; 82947 ×4; 85379; 80076; 87081; 84443; 87077; 87186; 83036; 81015; 84484 ×3; 84439; 82728; 80053; 84145; 83880; 86140; 87804 ×2; 70450; 71250; 72125; 71275; 71045; 72170; 93970; 96360; 96372; 99285; U0003; Q9967; J1650 ×2; J7030 ×3; G0378 ×2; J7512

== ENCOUNTER 2021-04-23 06:41 | Day surgery (SDC) | payer OTHER ==
[2021-04-22 13:54] LABS: Absolute Lymphocytes (CBC) 2.5 K/uL (0.7-4.9); Basophils % 0.4 % (0-1.3); Hematocrit 38.8 % (36.0-45.0); Lymphocytes % 29.9 % (15.3-44.8); RBC Red Blood Cell Count 4.42 M/uL (3.86-4.86)
[2021-04-22 14:18] LABS: Potassium 4.8 mmol/L (3.5-5.1)
--- NOTE | 2021-04-22 14:22 | RAD REPORT ---
EXAM DESCRIPTION: RAD - Chest Pa And Lat (2 Views) - 04/22/2021 1:45 pm CLINICAL HISTORY: Pre Op COMPARISON: Chest Single View dated 05/02/2020; Chest Single View dated 05/23/2019; Chest Single Vie w dated 08/28/2017; Chest Single View dated 07/10/2017 FINDINGS: Lines: None. Lungs: No evidence of edema or pneumonia. Pleural: No significant pleural effusions or pneumothorax. Cardiac: The heart size is within normal limits. Bones: No acute fractures. Other: Sternotomy. IMPRESSION: No acute cardiopulmonary disease.
[2021-04-23] MEDS ORDERED: NA CHLORIDE 0.9% 1,000 ML ONE (07:15)
[2021-04-23] MEDS ORDERED: CEFAZOLIN/NS 1gm 1 GM/50 ML BAG ONE (07:15)
[2021-04-23] MEDS ORDERED: FENTANYL CITR 100 MCG/2 ML ONE (07:40)
[2021-04-23] MEDS ORDERED: LIDOCAINE 1% MPF 5 ML VIAL ONE (07:40)
[2021-04-23] MEDS ORDERED: propofoL 200 MG/20 ML VIAL IV ONE (07:40)
[2021-04-23] MEDS ORDERED: NS 0.9% VIAL 10 ML ONE (08:22)
[2021-04-23] MEDS ORDERED: EPHEDRINE SULF 50 MG/ML VIAL ONE (08:22)
[2021-04-23] MEDS ORDERED: dexAMETHasone 10 MG/ML VIAL ONE (08:25)
[2021-04-23] MEDS: MORPHINE 4 MG/ML SYR ONE ×4 (08:34→08:49)
[2021-04-23 09:12] VITALS: TEMP 97
[2021-04-23] MEDS ORDERED: CODEINE 30MG/APAP 300MG TAB ONE (09:38)
[2021-04-23 10:17] VITALS: BP 112/67; O2SAT 100
--- NOTE | 2021-04-23 11:29 | OP ---
Date of Procedure: 04/23/2021 Surgeon: Prashanth Holguin MD Preoperative Diagnosis: Suprapubic infected subcutaneous mass with abscess. Postoperative Diagnosis: Suprapubic infected subcutaneous mass with abscess. Procedure Performed: Excisional biopsy of a raised suprapubic infected subcutaneous mass with absces s drainage, 3 x 3 cm. Anesthesia: General plus local. Complications: None. Packing: Wet-to-dry. Indications: This is a case of 71-year-old patient, who comes to us with infected mass on the suprap ubic area. The benefits, alternatives, and risks of excisional biopsy of the mass and drainage of an abscess fully explained, which include, but not limited to infection, bleeding, damage to adjacent s tructures, anesthesia complication, nonhealing of wound, WI, and even . She also understood yuan t this may not relieve the symptoms. She might need more than one surgical intervention. She will r equire a wound care. She understood and signed the consent. Procedure In Detail: The area of concern was marked by me and the patient in the holding room. The patient was brought to the operating room, placed in supine position. Anesthesia was done without co mplication. Right suprapubic area was prepped and draped in a sterile fashion. A time-out was rico d. Local anesthesia was applied, followed by sharp incision of the skin on the suprapubic area to re move the mass and the abscess underneath. Loculations were explored. Open area was irrigated, and h emostasis was obtained, and then the area was packed with wet-to-dry dressing. The patient tolerated the procedure well. The patient was sent to Recovery in stable condition. Diagnosis: Infected suprapubic mass with abscess. Procedure Performed: Excisional biopsy of infected suprapubic mass. Disposition: Home. Activity: tolerated. No heavy lifting. Plan: Follow up in my office in 1 week. Call for appointment at [phone]. Wet-to-dry dressing and normal saline daily. Medications: 1.Tylenol No.3 q.4 h. p.r.n. pain. 2.Saline. TIFFANY/MITCHELL Voice ID: [id number] Report ID: [id number]
== END 2021-04-23 10:00 | disposition home or self-care (01) ==
LOC: OR 06:41
PROVIDERS: ATTEND Surgery
PROC: 0JB80ZZ Excision of Abdomen Subcutaneous Tissue and Fascia, Open Approach (ICD-10-PCS; principal; 2021-04-23 07:30)
DX: L72.0 Epidermal cyst (principal); K65.1 Peritoneal abscess; Z20.822 Contact with and (suspected) exposure to COVID-19
CPT/HCPCS: 36415; 71046; 80048; 82947; 85025; 87070; 87075; 87077; 87186; 87205; 88304; 93005; J0690; J1100; J2704; J3010; J7030; U0003

== ENCOUNTER 2024-10-16 13:36 | Emergency (ER) | payer OTHER ==
[2024-10-16 15:04] LABS: Specific Gravity 1.022 (1.005-1.030); Sqamous Epithelial <5 /HPF (None Seen); Urine Bacteria None Seen /HPF (<20); Urine Bilirubin NEGATIVE (Negative); Urine Blood Negative (Negative); Urine Clarity Clear (Clear); Urine Color Yellow (Yellow); Urine Crystals Unidentified Few /HPF (None Seen); Urine Culture Reflex Order NOT NEEDED; Urine Glucose NEGATIVE (Negative); Urine Ketones NEGATIVE (Negative); Urine Microscopic Reflex YN ORDER UMIC; Urine Mucus Slight /HPF (None Seen); Urine Nitrite NEGATIVE (Negative); Urine Protein NEGATIVE (Negative); Urine RBC <5 /HPF (None Seen); Urine Urobilinogen Normal (Normal); Urine WBC <5 /HPF (<5); Urine pH 6.5 (5.0-7.0)
[2024-10-16] MEDS ORDERED: NA CHLORIDE 0.9% 1,000 ML ONE (15:12)
[2024-10-16 15:36] LABS: Absolute Basophils 0.1 K/uL (0-0.5); Absolute Eosinophils 0.1 K/uL (0-0.5); Absolute Lymphocytes (CBC) 2.2 K/uL (0.7-4.9); Absolute Monocytes 0.6 K/uL (0.1-1.3); Absolute Neutrophil 4.5 K/uL (1.8-8.0); Basophils % 0.7 % (0-1.3); Eosinophils % 0.7 % (0-4.4); Hematocrit 39.7 % (36.0-45.0); Hemoglobin 13.5 g/dL (12.0-15.0); Lymphocytes % 29.6 % (15.3-44.8); MCH 29.6 pg (27.0-35.0); MCHC 34.1 g/dL (32.0-36.0); MCV 86.9 fL (80-100); MPV 7.7 fL (7.6-11.3); Monocytes % 8.2 % (3.3-12.3); Neutrophils % 60.8 % (41.7-73.7); Platelets 243 thou/uL (152-406); RBC Red Blood Cell Count 4.57 M/uL (3.86-4.86); Red Cell Distribution Width 12.7 % (12.1-15.2)
[2024-10-16 15:55] LABS: AST/SGOT 13 U/L (15-37); Albumin 3.4 g/dL (3.4-5.0); Alkaline Phosphatase 93 U/L (45-117); Anion Gap 6.4 mEq/L (5.0-15.0); BUN Blood Urea Nitrogen 17 mg/dL (7-18); Bicarbonate 33 mEq/L (21-32); Bilirubin Total 0.4 mg/dL (0.2-1.0); Globulin 3.5 g/dL (2.3-3.5); Glomerular Filtration Rate 45 ml/min (=/>90); Glucose Level 135 mg/dL (74-106); Lipase 9 U/L (13-75); Potassium 4.4 mEq/L (3.5-5.1); Protein, Total 6.9 g/dL (6.4-8.2); Sodium Level 138 mEq/L (136-145)
[2024-10-16 16:00] LABS: ALT/SGPT < 14 U/L (13-56)
--- NOTE | 2024-10-16 17:20 | RAD REPORT ---
EXAMINATION: CT ABDOMEN AND PELVIS WITH CONTRAST CLINICAL INDICATION: Abdominal pain TECHNIQUE: CT abdomen and pelvis was performed, after the administration of 100 cc Isovue-300.. Sagit praneeth and coronal reconstructions were obtained. One or more of the following dose reduction techniques were used: Automated exposure control, adjustment of the mA and kV according to patient si ze, and iterative reconstruction. Unless otherwise specified, incidental findings do not require dedicated imaging follow-up. [id number]. Oral contrast was not given which limits evaluation of bowel and appendix. COMPARISON: .2023 FINDINGS: Cholecystectomy. The biliary tree is now normal caliber. Liver, pancreas, adrenals and right kidney unremarkable Small left kidney with cortical thinning unchanged. Small cyst. Small splenic cyst unchanged. Atherosclerosis. Hysterectomy. No adnexal mass. No evidence of diverticulitis. Small umbilical hernia Wall of the distal stomach appears thickened. : IMPRESSION: Apparent thickening of the wall of the distal stomach could be secondary to inflammation or incomplet e distention
--- NOTE | 2024-10-16 17:46 | ER ---
Nurse's Notes [facility] Name: Isidra Neff Age: 74 yrs Sex: Female : 1950 Arrival Date: 10/16/2024 Time: 13:36 Bed 15 Private MD: Diagnosis: Weakness;Nausea Presentation: 10/16 13:57 Chief complaint: Patient's son or daughter states: PATIENT SENT BY PCP FOR R/O SEPSIS. db DECREASED APPETITE, GENERAL WEAKNESS. SYMPTOMS GETTING WORSE FOR 2 MONTHS. 13:58 Coronavirus screen: Client denies travel out of the [place] in the last 14 days. At this db time, the client does not indicate any symptoms associated with coronavirus-19. Ebola Screen: Patient negative for fever greater than or equal to 101.5 degrees Fahrenheit, and additional compatible Ebola Virus Disease symptoms Patient denies exposure to infectious person. Patient denies travel to an Ebola-affected area in the 21 days before illness onset. No symptoms or risks identified at this time. Initial Sepsis Screen: Does the patient meet any 2 criteria? No. Patient's initial sepsis screen is negative. Does the patient have a suspected source of infection? No. Patient's initial sepsis screen is negative. Risk Assessment: Do you want to hurt yourself or someone else? Patient reports no desire to harm self or others. Onset of symptoms was October 16, 2024. 13:58 Method Of Arrival: Ambulatory db 13:58 Acuity: CL 3 db Triage Assessment: 13:58 General: Appears in no apparent distress. comfortable, Behavior is calm, cooperative, db appropriate for age. Pain: Denies pain. Neuro: Level of Consciousness is awake, alert, obeys commands, Oriented to person, place, time, situation. Cardiovascular: No deficits noted. Respiratory: Airway is patent Respiratory effort is even, unlabored, Respiratory pattern is regular, symmetrical. Historical: - Allergies: 13:58 NKA; db - PMHx: 13:58 CVA; Diabetes; Hypertension; STROKE (Hypertension); db - PSHx: 13:58 TRIPLE BYPASS (Hypertension); db 15:11 Cholecystectomy; sb4 - Immunization history:: Adult Immunizations unknown. - Infectious Disease History:: Denies. - Social history:: Smoking status: Patient denies any tobacco usage or history of. Screenin:23 [facility] ED Fall Risk Assessment (Adult) History of falling in the last 3 months, ph including since admission Yes- fall prone (multiple falls) (3 pts) Confusion or Disorientation Yes (5 pts) Intoxicated or Sedated No (0 pts) Impaired Gait No (0 pts) Mobility Assist Device Used Yes (1 pt) Altered Elimination Yes (1 pt) Score/Fall Risk Level 3 or more points = High Risk Oriented to surroundings, Maintained a safe environment, Hourly rounding (assess needs \T\ fall precautionary measures) done, Used ambulatory aids as needed (educated on \T\ assisted with). Abuse screen: Denies threats or abuse. Denies injuries from another. Nutritional screening: No deficits noted. Tuberculosis screening: No symptoms or risk factors identified. Assessment: 16:23 General: Appears in no apparent distress. comfortable, well groomed, Behavior is calm, ph cooperative, appropriate for age. Pain: Denies pain. Neuro: Level of Consciousness is awake, alert, obeys commands, Oriented to person, place. Neuro: Reports weakness. Cardiovascular: Capillary refill < 3 seconds in bilateral fingers Patient's skin is warm and dry. Respiratory: Airway is patent Respiratory effort is even, unlabored, Respiratory pattern is regular, symmetrical. Derm: Skin is pink, warm \T\ dry. 16:36 Reassessment: Patient appears in no apparent distress at this time. Patient and/or ph family updated on plan of care and expected duration. Pain level reassessed. Patient is alert, oriented x 3, equal unlabored respirations, skin warm/dry/pink. PATIENT AMBULATORY TO RESTROOM. Vital Signs: 13:58 BP 144 / 88; Pulse 82; Resp 18; Temp 98.8; Pulse Ox 100% ; Weight 57.61 kg; Height 5 db ft. 0 in. ; 16:24 BP 171 / 96; Pulse 81; Resp 18; Pulse Ox 98% on R/A; ph 17:30 BP 161 / 87; Pulse 80; Resp 18; Temp 98.4; Pulse Ox 98% on R/A; ph 13:58 Body Mass Index 24.80 (57.61 kg, 152.4 cm) db ED Course: 13:41 Patient arrived in ED. cj3 13:45 Colette Weiner PA-C is PHCP. sb4 13:45 Rock Butcher MD is Attending Physician. sb4 14:00 Triage completed. db 15:09 Cathy Boyle, RN is Primary Nurse. ph 15:29 CBC with Diff Sent. ph 15:29 CMP Sent. ph 15:29 Lipase Sent. ph 15:29 Arm band placed on Patient placed in an exam room. ph 15:30 Initial lab(s) drawn, by me, sent to lab. Inserted saline lock: 22 gauge in right ph antecubital area, using aseptic technique. Blood collected. Flushed with 10 mL NS. 16:23 Patient has correct armband on for positive identification. Bed in low position. Call ph light in reach. Side rails up X2. Pulse ox on. NIBP on. Door closed. Noise minimized. Warm blanket given. Pillow given. 16:[address] via wheelchair. ph 16:46 CT Abd/Pelvis - IV Contrast Only In Process Unspecified. EDMS 17:46 Renan Whiteside MD is Referral Physician. sb4 18:15 No provider procedures requiring assistance completed. IV discontinued, intact, ph bleeding controlled, No redness/swelling at site. Pressure dressing applied. Administered Medications: 15:29 Drug: NS 0.9% IV 1000 ml IV at 1 bolus Per protocol; to be given as a bolus over 60 ph minutes Route: IV; Rate: 1 bolus; Site: right antecubital; 16:30 Follow up: Response: No adverse reaction; IV Status: Completed infusion; IV Intake: ph 1000ml Medication: 16:23 VIS not applicable for this client. ph Intake: 16:30 IV: 1000ml; Total: 1000ml. ph Outcome: 17:46 Discharge ordered by . sb4 18:15 Discharged to home via wheelchair, with family, ph 18:15 Condition: good 18:15 Discharge instructions given to family, Instructed on discharge instructions, follow up and referral plans. medication usage, Demonstrated understanding of instructions, follow-up care, medications, Prescriptions given X 1, 18:15 Patient left the ED. ph Signatures: Dispatcher [employer] [facility] Cathy Boyle, ARYAN BAEZA ph Estefania Carlson RN RN Colette Beard PA-C PALatrell sb4 Sweta Martin cj3 Corrections: (The following items were deleted from the chart) 14:00 13:57 Chief complaint: Patient's son or daughter states: PATIENT SENT BY PCP DECREASED db APPETITE, GENERAL WEAKNESS. SYMPTOMS GETTING WORSE FOR 2 MONTHS db
--- NOTE | 2024-10-16 17:47 | EDPHYS ---
Physician Documentation [facility] Name: Isidra Neff Age: 74 yrs Sex: Female : 1950 Arrival Date: 10/16/2024 Time: 13:36 Bed 15 Private MD: ED Physician Rock Butcher HPI: 10/16 14:03 This 74 yrs old Female presents to ER via Ambulatory with complaints of sb4 General Weakness. 14:03 Daughter reports that patient has been very weak over the past 2 months and is not sb4 eating very much, she states that it is slowly getting worse. Patient reports generalized pain all over, but has no specific complaints. Daughter is concerned because when she was like this last time, she was septic with an abdominal infection. Historical: - Allergies: 13:58 NKA; db - PMHx: 13:58 CVA; Diabetes; Hypertension; STROKE (Hypertension); db - PSHx: 13:58 TRIPLE BYPASS (Hypertension); db 15:11 Cholecystectomy; sb4 - Immunization history:: Adult Immunizations unknown. - Infectious Disease History:: Denies. - Social history:: Smoking status: Patient denies any tobacco usage or history of. ROS: 14:03 Constitutional: Negative for fever, chills, and weight loss, sb4 14:03 Neuro: Positive for weakness, 14:03 All other systems are negative, Exam: 14:03 Constitutional: This is a well developed, well nourished patient who is awake, alert, sb4 and in no acute distress. Head/Face: Normocephalic, atraumatic. Eyes: Extra-ocular motions intact. Periorbital areas with no swelling, redness, or edema. ENT: Mucous membranes moist. Cardiovascular: Regular rate and rhythm with a normal S1 and S2. Respiratory: No increased work of breathing, no retractions or nasal flaring. Abdomen/GI: Soft, non-tender, no distension. Skin: Warm, dry with normal turgor. Normal color with no rashes, no lesions, and no evidence of cellulitis. Vital Signs: 13:58 BP 144 / 88; Pulse 82; Resp 18; Temp 98.8; Pulse Ox 100% ; Weight 57.61 kg; Height 5 db ft. 0 in. ; 16:24 BP 171 / 96; Pulse 81; Resp 18; Pulse Ox 98% on R/A; ph 17:30 BP 161 / 87; Pulse 80; Resp 18; Temp 98.4; Pulse Ox 98% on R/A; ph 13:58 Body Mass Index 24.80 (57.61 kg, 152.4 cm) db MDM: 13:46 Medical Screening Exam initiated sb4 16:05 Differential diagnosis: viral Infection, UTI, dehydration. Data reviewed: vital signs, sb4 nurses notes, lab test result(s), radiologic studies. Historians other than the Patient: Daughter/Son: daughter. 10/16 14:01 Order name: CBC with Diff; Complete Time: 15:58 sb4 10/16 14:01 Order name: CMP; Complete Time: 16:00 sb4 10/16 14:01 Order name: Lipase; Complete Time: 16:00 sb4 10/16 14:01 Order name: Urinalysis w/ reflexes; Complete Time: 15:04 sb4 10/16 16:01 Order name: CT Abd/Pelvis - IV Contrast Only; Complete Time: 17:25 sb4 10/16 14:01 Order name: IV Saline Lock; Complete Time: 15:29 sb4 10/16 14:01 Order name: Labs collected and sent; Complete Time: 15:29 sb4 Administered Medications: 15:29 Drug: NS 0.9% IV 1000 ml IV at 1 bolus Per protocol; to be given as a bolus over 60 ph minutes Route: IV; Rate: 1 bolus; Site: right antecubital; 16:30 Follow up: Response: No adverse reaction; IV Status: Completed infusion; IV Intake: ph 1000ml Disposition Summary: 10/16/24 17:46 Discharge Ordered Notes: Location: Home sb4 Problem: an ongoing problem sb4 Symptoms: are unchanged sb4 Condition: Stable sb4 Diagnosis - Weakness sb4 - Nausea sb4 Followup: sb4 - With: Renan Whiteside MD - When: 2 - 3 days - Reason: Recheck today's complaints, Re-evaluation by your physician Discharge Instructions: - Discharge Summary Sheet sb4 - Nausea, Adult sb4 - Weakness sb4 Forms: - Patient Portal Instructions sb4 - Leadership Thank You Letter sb4 Prescriptions: - Reglan 10 mg Oral Tablet - take 1 tablet ORAL route every 6 hours . take 30 minutes before meals and at sb4 bedtime; 100 tablet; Refills: 0, Product Selection Permitted Signatures: Dispatcher [employer] EDMS Cathy Boyle RN RN ph Estefania Carlson RN RN db Colette Weiner PA-C PALatrell sb4 Corrections: (The following items were deleted from the chart) 14:02 14:02 CBC+H.LAB.BRZ ordered. EDMS EDMS 14:02 14:02 COMPREHENSIVE METABOLIC PANEL+C.LAB.BRZ ordered. EDMS EDMS 14:02 14:02 LIPASE+C.LAB.BRZ ordered. EDMS EDMS 14:02 14:02 Urinalysis+U.LAB.BRZ ordered. EDMS EDMS 16:01 16:01 Abdomen Pelvis W Con+CT.RAD.BRZ ordered. EDMS EDMS
[2024-10-16 19:00] VITALS: O2SAT 98
[2024-10-16 19:01] VITALS: BP 161/87; TEMP 98.4
== END 2024-10-16 18:15 | disposition home or self-care (01) ==
LOC: ER 13:36
DX: R53.1 Weakness (principal); R11.0 Nausea; E11.9 Type 2 diabetes mellitus without complications; I10 Essential (primary) hypertension; Z86.73 Personal history of transient ischemic attack (TIA), and cerebral infarction without residual deficits; Z95.1 Presence of aortocoronary bypass graft
CPT/HCPCS: 85025; 81001; 36415; 83690; 80053; 74177; Q9967; J7030

== ENCOUNTER 2024-10-25 21:28 | Inpatient (IN) | payer OTHER ==
[2024-10-25 22:27] LABS: Absolute Eosinophils 0.1 K/uL (0-0.5); Absolute Lymphocytes (CBC) 2.5 K/uL (0.7-4.9); Absolute Monocytes 0.7 K/uL (0.1-1.3); Absolute Neutrophil 3.8 K/uL (1.8-8.0); Basophils % 0.6 % (0-1.3); Eosinophils % 1.3 % (0-4.4); Hematocrit 37.7 % (36.0-45.0); Hemoglobin 12.8 g/dL (12.0-15.0); Lymphocytes % 34.6 % (15.3-44.8); MCH 29.4 pg (27.0-35.0); MCHC 33.9 g/dL (32.0-36.0); MCV 86.8 fL (80-100); MPV 7.8 fL (7.6-11.3); Monocytes % 10.3 % (3.3-12.3); Neutrophils % 53.2 % (41.7-73.7); Nucleated Red Blood Cells % 0.1 % (0-0); Platelets 226 thou/uL (152-406); RBC Red Blood Cell Count 4.35 M/uL (3.86-4.86); Red Cell Distribution Width 12.6 % (12.1-15.2)
[2024-10-25 22:45] LABS: Anion Gap 7.1 mEq/L (5.0-15.0); Magnesium 2.2 mg/dL (1.6-2.4); Potassium 4.1 mEq/L (3.5-5.1); Troponin High Sensitivity 7.4 pg/mL (<58.9)
[2024-10-25 22:54] LABS: PT Prothrombin Time 14.3 SECONDS (10-13.0); PTT, Activated Partial Thromb 30.8 SECONDS (27.2-37.4); Protime INR 1.27
[2024-10-25] MEDS ORDERED: METOCLOPRAMIDE 10 MG/2mL INJ ONE (23:37)
--- NOTE | 2024-10-25 23:45 | RAD REPORT ---
EXAM: CT Head Brain Wo Cont HISTORY: Dizziness;Headache COMPARISON: 09/25/2024 TECHNIQUE: Multiple contiguous axial images were obtained for a CT of the brain without contrast. Sag ittal and coronal reformats were performed. One or more of the following dose reduction techniques were used: Automated exposure control, adjus tment of the mA and kV according to patient size, and iterative reconstruction. Unless otherwise specified, incidental findings do not require dedicated imaging follow-up. FINDINGS: No evidence of hydrocephalus, intracranial hemorrhage, or extra-axial fluid collection. Focus of hypoattenuation in the left thalamus is stable. Advanced confluent periventricular and deep white matter hypodensities, nonspecific, but suggest chronic microvascular ischemic changes, stable. The calvarium is intact. The visualized paranasal sinuses and mastoid air cells are essentially clear . IMPRESSION: No evidence of acute intracranial abnormality.
--- NOTE | 2024-10-25 23:48 | RAD REPORT ---
EXAMINATION: CTA HEAD CLINICAL INDICATION: Female, 74 years old. HEADACHE TECHNIQUE: Axial CT images were obtained through the head after intravenous contrast utilizing angiog raphic protocol with 3D post-processing (maximum intensity projection images, volume rendered images and/or shaded surface rendered images). One or more of the following dose reduction technique s were used: Automated exposure control, adjustment of the mA and/or kV according to patient size, and/or iterative reconstruction. Unless otherwise specified, incidental findings do not require dedic ated imaging follow-up. COMPARISON: No prior exam. FINDINGS: ICA: The petrous, cavernous, and supraclinoid segments of the bilateral internal carotid arteries are normal. PRAVEENA: Anterior cerebral arteries are normal bilaterally. The anterior communicating artery is patent. MCA: Middle cerebral arteries are normal bilaterally. FARMWORKER BULBS: Multifocal mild to moderate narrowing along the right P1 and proximal P2 segments, and proximal to mid left P2 segment and its distal branches. Vertebrobasilar: The vertebral arteries are patent. The basilar artery is normal in appearance. 3D images confirm these findings. IMPRESSION: No evidence of large vessel occlusion or critical stenosis. Mild to moderate multifocal narrowing along the posterior cerebral arteries bilaterally.
--- NOTE | 2024-10-25 23:51 | RAD REPORT ---
EXAMINATION: CT Neck Angio CLINICAL INDICATION: Female, 74 years old. [facility] MA[facility] HEADACHE Bed Name: 16 TECHNIQUE: Axial CT images were obtained from the aortic arch to the skull base after intravenous con trast utilizing angiographic protocol. Multiplanar reformats, as well as 3D post-processing (maximum intensity projection images, volume rendered images and/or shaded surface rendered images) w ere generated and reviewed. One or more of the following dose reduction techniques were used: Automated exposure control, adjustment of the mA and/or kV according to patient size, and/or iterativ e reconstruction. Unless otherwise specified, incidental findings do not require dedicated imaging follow-up. COMPARISON: No prior exam. FINDINGS: AORTA: The imaged aortic arch is normal. Normal three-vessel configuration of the arch. CCA: No artifact The common carotid arteries are patent and normal in caliber. ICA/ECA: Bilateral internal and external carotid arteries are patent. There is no significant interna l carotid artery stenosis, with moderate atherosclerotic calcific plaque at the right bifurcation. Left carotid stent in place traversing the bifurcation, patent with no significant in-stent stenosis. VERTEBRAL: The cervical vertebral arteries are patent to the skull base. Vertebral arteries are codom inant. SOFT TISSUE: No significant neck soft tissue abnormalities. The visualized lung apices are clear. 3D images confirm these findings. IMPRESSION: No significant stenosis of the neck vessels is identified. Findings as above. NASCET criteria used to quantify ICA stenosis, with the following grading scheme: Mild 0-49% stenosis Moderate 50-69% stenosis Severe 70-99% stenosis Reference: [place] Symptomatic Carotid Endarterectomy Trial Collaborators; Yordy MCKEON, Rossy DW, Tracy RB, et al. Beneficial effect of carotid endarterectomy in symptomatic patients with high-grade carotid stenosis. N Engl J Med. 1990Feb 14;325(7):445-53.
--- NOTE | 2024-10-26 00:07 | ER ---
Nurse's Notes [facility] Name: Isidra Neff Age: 74 yrs Sex: Female : 1950 Arrival Date: 10/25/2024 Time: 21:28 Bed 16 Private MD: Diagnosis: Headache;Essential (primary) hypertension;Dizziness Presentation: 10/25 21:45 Chief complaint: Granddaughter reports headache, dizziness x 1 month with frequent dd2 falls. CT scan my PCP was negative, Headache worse today, with lt neck pain and elevated BP. Coronavirus screen: At this time, the client does not indicate any symptoms associated with coronavirus-19. Ebola Screen: No symptoms or risks identified at this time. Initial Sepsis Screen: Does the patient meet any 2 criteria? No. Patient's initial sepsis screen is negative. Does the patient have a suspected source of infection? No. Patient's initial sepsis screen is negative. Risk Assessment: Do you want to hurt yourself or someone else? Patient reports no desire to harm self or others. Onset of symptoms is unknown. 21:45 Method Of Arrival: Ambulatory dd2 21:45 Acuity: CL 3 dd2 Triage Assessment: 21:48 Headache History: The patient has had previous headaches. General: Appears in no dd2 apparent distress. uncomfortable, Behavior is calm, cooperative, appropriate for age. Pain: Complains of pain in left side of the back of head, left occipital area and left base of the skull Pain currently is 9 out of 10 on a pain scale. Pain began X1 MONTH AGO Also complains of DIZZY. EENT: No deficits noted. No signs and/or symptoms were reported regarding the EENT system. Neuro: Level of Consciousness is awake, alert, obeys commands, Oriented to person, place, time, situation, Appropriate for age Motor Assembly Supervisor are equal bilaterally Moves all extremities. Gait is steady, Speech is normal, Facial symmetry appears normal, Reports dizziness, headache in left parietal area, occipital area. Cardiovascular: Reports ELEVATED BP JVD is absent Patient's skin is warm and dry. Respiratory: Airway is patent Respiratory effort is even, unlabored, Respiratory pattern is regular, symmetrical. GI: No deficits noted. : No deficits noted. No signs and/or symptoms were reported regarding the genitourinary system. Derm: No deficits noted. No signs and/or symptoms reported regarding the dermatologic system. Musculoskeletal: Circulation, motion, and sensation intact. Range of motion: intact in all extremities, Reports pain in base of the skull, left occipital area, left base of the skull and left side of neck. Historical: - Allergies: 21:48 NKA; dd2 - PMHx: 21:48 CVA; Diabetes; Hypertension; Migraine; Dementia; dd2 - PSHx: 21:48 Cholecystectomy; triple bypass (en); dd2 - Immunization history:: Adult Immunizations up to date. - Infectious Disease History:: Denies. - Social history:: Smoking status: Patient denies any tobacco usage or history of. Screenin:10 [facility] ED Fall Risk Assessment (Adult) History of falling in the last 3 months, me1 including since admission Yes- physiologic fall (2 pts) Confusion or Disorientation No (0 pts) Intoxicated or Sedated No (0 pts) Impaired Gait No (0 pts) Mobility Assist Device Used No (0 pt) Altered Elimination No (0 pt) Score/Fall Risk Level 0 - 2 = Low Risk Maintained a safe environment, Provided non-skid footwear, Hourly rounding (assess needs \T\ fall precautionary measures) done. Abuse screen: Denies threats or abuse. Nutritional screening: No deficits noted. Tuberculosis screening: No symptoms or risk factors identified. Assessment: 22:10 General: Appears well groomed, well developed, well nourished, Behavior is calm, me1 cooperative, appropriate for age, Reports. General: Reports. Pain: Complains of pain in neck and scalp and base of the skull and left side of neck and face and left base of the skull and left occipital area and left side of the back of head Pain does not radiate. Pain currently is 9 out of 10 on a pain scale. Quality of pain is described as aching, Pain began gradually. 22:10 General: Reports Granddaughter reports headache, dizziness x 1 month with frequent me1 falls. CT scan my PCP was negative, Headache worse today, with lt neck pain and elevated BP. Pain: Is continuous. Neuro: Level of Consciousness is awake, alert, obeys commands, Oriented to person, place, time, situation, Appropriate for age Reports dizziness. Neuro: Reports headache. Cardiovascular: Patient's skin is warm and dry. Respiratory: Airway is patent Respiratory effort is even, unlabored, Respiratory pattern is regular, symmetrical. GI: No signs and/or symptoms were reported involving the gastrointestinal system. : No signs and/or symptoms were reported regarding the genitourinary system. EENT: No signs and/or symptoms were reported regarding the EENT system. Derm: Skin is intact, is healthy with good turgor, Skin is pink, warm \T\ dry. Musculoskeletal: No signs and/or symptoms reported regarding the musculoskeletal system. Vital Signs: 21:45 BP 195 / 94; Pulse 78; Resp 16; Temp 98.3; Pulse Ox 99% on R/A; Weight 63.5 kg; Height dd2 4 ft. 11 in. ; Pain 9/10; 21:52 BP 188 / 99; Pulse 76; Resp 16; Pulse Ox 99% on R/A; dd2 22:21 BP 217 / 99; Pulse 73; Resp 18; Temp 97.9; Pulse Ox 99% ; Weight 58.06 kg; Height 4 ft. hw 11 in. ; 23:00 BP 180 / 76; Pulse 70; Resp 12; Pulse Ox 100% ; me1 23:45 BP 174 / 93; Pulse 70; Resp 14; Pulse Ox 99% ; me1 10/26 00:15 BP 201 / 89; Pulse 72; Resp 16; Pulse Ox 99% on R/A; dd2 00:20 BP 200 / 89; Pulse 69; Resp 16; Pulse Ox 99% on R/A; dd2 00:40 BP 198 / 86; Pulse 68; Resp 16; Pulse Ox 100% on R/A; dd2 01:00 BP 202 / 85; Pulse 69; Resp 15; Pulse Ox 99% on R/A; dd2 01:10 BP 189 / 90; Pulse 69; Resp 16; Pulse Ox 100% on R/A; dd2 01:33 BP 189 / 87; Pulse 70; Resp 16; Pulse Ox 100% on R/A; dd2 02:00 BP 165 / 110; Pulse 69; Resp 16; Pulse Ox 99% on R/A; dd2 02:30 BP 194 / 95; Pulse 71; Resp 16; Pulse Ox 99% on R/A; dd2 03:30 BP 190 / 83; Pulse 69; Resp 17; Pulse Ox 100% on R/A; dd2 04:30 BP 169 / 78; Pulse 69; Resp 16; Pulse Ox 96% on R/A; dd2 05:00 BP 166 / 77; Pulse 69; Resp 15; Pulse Ox 97% on R/A; dd2 05:40 BP 150 / 89; Pulse 69; Resp 16; Pulse Ox 98% on R/A; dd2 10/25 22:21 Body Mass Index 25.85 (58.06 kg, 149.86 cm) 10/25 21:45 Pain Scale: Adult dd2 ED Course: 10/25 21:34 Patient arrived in ED. im 21:48 Triage completed. dd2 21:48 Arm band placed on right wrist. dd2 21:54 Shane Childress DO is Attending Physician. ms3 22:10 Patient has correct armband on for positive identification. Bed in low position. Call me1 light in reach. Side rails up X2. Provided Education on: POC. Verbalized understanding.. Client placed on continuous cardiac and pulse oximetry monitoring. NIBP monitoring applied. hall monitor on. Pulse ox on. NIBP on. 22:10 No provider procedures requiring assistance completed. me1 22:16 Inserted saline lock: 20 gauge in left antecubital area, using aseptic technique. Blood rg5 collected. Flushed with 10 mL NS. 22:21 Sabina Anguiano, ARYAN is Primary Nurse. me1 22:23 EKG done, by ED staff, reviewed by Shane Childress DO. hw 22:38 CT Head Angio In Process Unspecified. EDMS 22:38 CT Neck Angio In Process Unspecified. EDMS 22:38 CT Head Brain wo Cont In Process Unspecified. EDMS 10/26 00:06 Octavia Soto MD is Hospitalizing Provider. ms3 05:02 Patient admitted, IV remains in place. dd2 Administered Medications: 10/25 22:03 CANCELLED (Physician Discretion): [id number] mg IV at calculated rate once ms3 23:40 Drug: metoCLOPramide IVP 10 mg IVP once; over 1 to 2 minutes Route: IVP; Site: left me1 antecubital; 10/26 00:16 Follow up: Response: No adverse reaction dd2 00:19 Drug: Labetalol IV 10 mg IV at calculated rate once Route: IV; Rate: calculated rate; dd2 Site: left antecubital; 00:34 Follow up: IV Status: Completed infusion dd2 03:41 Drug: HYDROcodone-acetaminophen PO 5 mg-325 mg 1 tabs PO once Route: PO; dd2 04:11 Follow up: Response: No adverse reaction dd2 Medication: 10/25 22:10 VIS not applicable for this client. me1 Outcome: 10/26 00:07 Decision to Hospitalize by Provider. ms3 05:02 Admitted to ER Hold. Please see [facility] for further documentation. dd2 05:02 Condition: stable 05:02 Instructed on the need for admit, Demonstrated understanding of instructions, 11:09 Patient left the ED. ph Signatures: Dispatcher [employer] EDMS Cathy Boyle RN RN ph Shane Childress DO DO ms3 Ritika Lombardi Michelle RN RN me1 Yohannes Guajardo RN RN 5 KEITH BYRNES RN RN dd2 Dariela Velazquez Corrections: (The following items were deleted from the chart) 10/25 21:48 21:48 PMHx: stroke (Hypertension); dd2 dd2 22:39 21:45 Chief complaint: Granddaughter reports headache, dizziness x 1 month with me1 frequent falls. CT scan my PCP was negative, Headache worse today, with lt neck pain and elevated BP. dd2 22:44 22:10 Pain: Complains of pain in neck and scalp and base of the skull and left side of me1 neck and face and left base of the skull and left occipital area and left side of the back of head Pain does not radiate. Pain me1
--- NOTE | 2024-10-26 00:07 | EDPHYS ---
Physician Documentation [facility] Name: Isidar Neff Age: 74 yrs Sex: Female : 1950 Arrival Date: 10/25/2024 Time: 21:28 Bed 16 Private MD: ED Physician Shane Childress HPI: 10/25 22:03 This 74 yrs old Female presents to ER via Ambulatory with complaints of ms3 Headache, Neck Pain, Dizziness, High Blood Pressure. 22:03 74-year-old female with past medical history of CVA, diabetes, hypertension, migraines, ms3 dementia presents to the emergency department with her granddaughter for dizziness that has been ongoing for 1 week, headache that began this morning. Patient's granddaughter notes patient recently has had falls and headaches since that time. Today patient's blood pressure was noted to be higher than normal.. Historical: - Allergies: 21:48 NKA; dd2 - PMHx: 21:48 CVA; Diabetes; Hypertension; Migraine; Dementia; dd2 - PSHx: 21:48 Cholecystectomy; triple bypass (en); dd2 - Immunization history:: Adult Immunizations up to date. - Infectious Disease History:: Denies. - Social history:: Smoking status: Patient denies any tobacco usage or history of. ROS: 22:03 Constitutional: Negative for fever, and chills. Cardiovascular: Negative for chest ms3 pain, and palpitations. Respiratory: Negative for shortness of breath, cough, wheezing, and pleuritic chest pain, Abdomen/GI: Negative for abdominal pain, nausea, vomiting, diarrhea, and constipation, MS/Extremity: Negative for injury and deformity, Skin: Negative for injury, rash, and discoloration, 22:03 Neck: Positive for Left-sided neck pain, 22:03 Neuro: Positive for dizziness, headache, Exam: 22:03 Constitutional: This is a well developed, well nourished patient who is awake, alert, ms3 and in no acute distress. Cardiovascular: Regular rate and rhythm with a normal S1 and S2. No gallops, murmurs, or rubs. Normal PMI, no JVD. No pulse deficits. Respiratory: Lungs have equal breath sounds bilaterally, clear to auscultation and percussion. No rales, rhonchi or wheezes noted. No increased work of breathing, no retractions or nasal flaring. Abdomen/GI: Soft, non-tender, with normal bowel sounds. No distension or tympany. No guarding or rebound. No evidence of tenderness throughout. Skin: Warm, dry with normal turgor. Normal color with no rashes, no lesions, and no evidence of cellulitis. 22:03 Neuro: Orientation: is normal, Mentation: is normal, Cranial nerves: CN I not tested, CN II- XII are normal as tested, Cerebellar function: is grossly normal, Motor: is normal, Abnormal movements: there are no abnormal movements, 22:38 ECG was reviewed by the Attending Physician. ms3 Vital Signs: 21:45 BP 195 / 94; Pulse 78; Resp 16; Temp 98.3; Pulse Ox 99% on R/A; Weight 63.5 kg; Height dd2 4 ft. 11 in. ; Pain 9/10; 21:52 BP 188 / 99; Pulse 76; Resp 16; Pulse Ox 99% on R/A; dd2 22:21 BP 217 / 99; Pulse 73; Resp 18; Temp 97.9; Pulse Ox 99% ; Weight 58.06 kg; Height 4 ft. hw 11 in. ; 23:00 BP 180 / 76; Pulse 70; Resp 12; Pulse Ox 100% ; me1 23:45 BP 174 / 93; Pulse 70; Resp 14; Pulse Ox 99% ; me1 04 00:15 BP 201 / 89; Pulse 72; Resp 16; Pulse Ox 99% on R/A; dd2 00:20 BP 200 / 89; Pulse 69; Resp 16; Pulse Ox 99% on R/A; dd2 00:40 BP 198 / 86; Pulse 68; Resp 16; Pulse Ox 100% on R/A; dd2 01:00 BP 202 / 85; Pulse 69; Resp 15; Pulse Ox 99% on R/A; dd2 01:10 BP 189 / 90; Pulse 69; Resp 16; Pulse Ox 100% on R/A; dd2 01:33 BP 189 / 87; Pulse 70; Resp 16; Pulse Ox 100% on R/A; dd2 02:00 BP 165 / 110; Pulse 69; Resp 16; Pulse Ox 99% on R/A; dd2 02:30 BP 194 / 95; Pulse 71; Resp 16; Pulse Ox 99% on R/A; dd2 03:30 BP 190 / 83; Pulse 69; Resp 17; Pulse Ox 100% on R/A; dd2 04:30 BP 169 / 78; Pulse 69; Resp 16; Pulse Ox 96% on R/A; dd2 05:00 BP 166 / 77; Pulse 69; Resp 15; Pulse Ox 97% on R/A; dd2 05:40 BP 150 / 89; Pulse 69; Resp 16; Pulse Ox 98% on R/A; dd2 10/25 22:21 Body Mass Index 25.85 (58.06 kg, 149.86 cm) 10/25 21:45 Pain Scale: Adult dd2 MDM: 10/25 22:02 Medical Screening Exam initiated ms3 22:03 Differential diagnosis: intracerebral hemorrhage, migraine, subarachnoid bleed, tension ms3 headache, traumatic injuries, vasomotor headache. 10/26 03:39 Data reviewed: vital signs, nurses notes, lab test result(s), EKG, radiologic studies, ms3 and as a result, I will admit patient. Consideration of Admission/Observation Patient was admitted/placed on observation. Management of patient was discussed with the following: Sorter Packer: Dr Pedraza- Recommends SBP 160's-170's. I considered the following discharge prescriptions or medication management in the emergency department Medications were administered in the Emergency Department. See MAR. Independent interpretation of the following test(s) in the Emergency Department EKG: See my EKG interpretation above. Counseling: I had a detailed discussion with the patient and/or guardian regarding the historical points, exam findings, and any diagnostic results supporting the discharge/admit diagnosis, lab results, radiology results, the need for further work-up and treatment in the hospital. ED course: Discussed necessity for admission with patient's granddaughter and patient. They understand and agree with plan. All questions were answered.. 10/25 22:03 Order name: Basic Metabolic Panel; Complete Time: 23:22 ms3 10/25 22:03 Order name: CBC with Diff; Complete Time: 23:22 ms3 10/25 22:03 Order name: High Sensitivity Troponin; Complete Time: 23:22 ms3 10/25 22:03 Order name: Magnesium; Complete Time: 23:22 ms3 10/25 22:03 Order name: Protime (+inr); Complete Time: 23:22 ms3 10/25 22:03 Order name: Ptt, Activated; Complete Time: 23:22 ms3 10/25 22:39 Order name: Glucose, Ancillary Testing; Complete Time: 23:22 EDMS 10/26 03:40 Order name: CBC with Automated Diff EDMS 10/26 03:40 Order name: CBC with Automated Diff EDMS 10/26 03:40 Order name: Comprehensive Metabolic Panel EDMS 10/26 03:40 Order name: Comprehensive Metabolic Panel EDMS 10/25 22:03 Order name: CT Head Angio; Complete Time: 23:56 ms3 10/25 22:03 Order name: CT Neck Angio; Complete Time: 23:56 ms3 10/25 22:03 Order name: CT Head Brain wo Cont; Complete Time: 23:56 ms3 10/25 22:03 Order name: Accucheck; Complete Time: 22:31 ms3 10/25 22:03 Order name: Cardiac monitoring; Complete Time: 22:16 ms3 10/25 22:03 Order name: EKG - Nurse/Tech; Complete Time: 22:23 ms3 10/25 22:03 Order name: IV Saline Lock; Complete Time: 22:16 ms3 10/25 22:03 Order name: Labs collected and sent; Complete Time: 22:16 ms3 10/25 22:03 Order name: NPO; Complete Time: 22:21 ms3 10/25 22:03 Order name: O2 Per Protocol; Complete Time: 22:16 ms3 10/25 22:03 Order name: O2 Sat Monitoring; Complete Time: 22:16 ms3 10/25 22:03 Order name: Stroke Swallow Screen; Complete Time: 22:21 ms3 EC/25 22:38 Rate is 73 beats/min. Rhythm is regular. QRS [place] is Normal. OR interval is prolonged. ms3 QRS interval is normal. Clinical impression: NSR w/ Non-specific ST/T Changes. Interpreted by me. Reviewed by me. Administered Medications: 22:03 CANCELLED (Physician Discretion): [id number] mg IV at calculated rate once ms3 23:40 Drug: metoCLOPramide IVP 10 mg IVP once; over 1 to 2 minutes Route: IVP; Site: left me1 antecubital; 10/26 00:16 Follow up: Response: No adverse reaction dd2 00:19 Drug: Labetalol IV 10 mg IV at calculated rate once Route: IV; Rate: calculated rate; dd2 Site: left antecubital; 00:34 Follow up: IV Status: Completed infusion dd2 03:41 Drug: HYDROcodone-acetaminophen PO 5 mg-325 mg 1 tabs PO once Route: PO; dd2 04:11 Follow up: Response: No adverse reaction dd2 Disposition Summary: 10/26/24 00:07 Hospitalization Ordered Notes: Hospitalization Status: Observation ms3 Provider: Octavia Soto ms3 Condition: Stable ms3 Problem: new ms3 Symptoms: are unchanged ms3 Bed/Room Type: Standard ms3 Location: Telemetry/MedSurg (observation)(10/26/24 09:58) eb Room Assignment: 405(10/26/24 09:58) eb Diagnosis - Headache ms3 - Essential (primary) hypertension ms3 - Dizziness ms3 Forms: - Medication Reconciliation Form ms3 - SBAR form ms3 - Leadership Thank You Letter ms3 Signatures: Dispatcher [employer] EDMS Ursula Godwin, RN RN cg Silvia Krueger Shane Childress DO DO ms3 Sabina Anguiano RN RN me1 KEITH BYRNES RN RN dd2 Corrections: (The following items were deleted from the chart) 10/25 21:48 21:48 PMHx: stroke (Hypertension); dd2 dd2 22:03 22:03 BASIC METABOLIC PANEL+C.LAB.BRZ ordered. EDMS EDMS 22:03 22:03 CBC+H.LAB.BRZ ordered. EDMS EDMS 22:03 22:03 Troponin High Sensitivity+C.LAB.BRZ ordered. EDMS EDMS 22:03 22:03 MAGNESIUM+C.LAB.BRZ ordered. EDMS EDMS 22:03 22:03 PROTIME (+INR)+COAG.LAB.BRZ ordered. EDMS EDMS 22:03 22:03 PTT, ACTIVATED+COAG.LAB.BRZ ordered. EDMS EDMS 22:03 22:03 Labetalol IV 10 mg IV at calculated rate once ordered. ms3 ms3 22:03 22:03 Head Brain Wo Cont+CT.RAD.BRZ ordered. EDMS EDMS 10/26 00:22 00:07 Telemetry/MedSurg (observation) ms3 cg 00:22 00:07 ms3 cg 09:58 00:22 BR ER HOLD cg eb 09:58 00:22 ERHOLD- cg eb
[2024-10-26] MEDS ORDERED: LABETALOL 20 MG/4ML SYRINGE IV ONE (00:15)
[2024-10-26] MEDS ORDERED: HYDROCODONE/APAP 5/325 MG TAB ONE (03:38)
[2024-10-26 06:37] VITALS: BMI 25.7
[2024-10-26] MEDS: ASPIRIN EC 81 MG TAB PO ONE (09:26)
[2024-10-26] MEDS ORDERED: ONDANSETRON 4 MG/2 ML VIAL ONE (09:51)
[2024-10-26] MEDS: carvediloL 3.125 MG TAB PO SCH (10:00)
[2024-10-26] MEDS: ONDANSETRON 4 MG/2 ML VIAL IV PRN (10:03)
[2024-10-26] MEDS ORDERED: carvediloL 6.25 MG TAB ONE (10:13)
[2024-10-26] MEDS ORDERED: ASPIRIN EC 81 MG TAB PO ONE (10:13)
[2024-10-26 11:23] LABS: UR PROTEIN 6.7 mg/dL (<11.9); Urine Protein/Creatinine Ratio 0.14 ratio (<0.15)
[2024-10-26] MEDS: INSULIN REGULAR (HUMAN) 100 UNIT/ML SQ SCH (11:30)
--- NOTE | 2024-10-26 11:35 | HP ---
Date of Admission: 10/26/2024 Chief Complaint: Headache and weakness of left side. History Of Present Illness: This is a 74-year-old pleasant female patient who lives at home. Has history of chronic headache, which is mostly in the top part of her head, which is nothing new for her, but yesterday she started to have this different headache on the left side of her head involving her left frontoparietal and occipital region and that her headache settled down in the left occipital area and left posterior neck region. Headache got worse as the day progressed yesterday and her systolic blood pressure was around 198 at home also with that and she was also complaining of some impaired sensation to her left arm and left leg along with slight weakness of the left arm and left leg that started sometime during daytime yesterday. So, with all this complaint, she was brought into emergency room after she was evaluated in ER. Her CAT scan of the head was negative for any acute finding and I was contacted requesting admission to the hospital. When I saw her this morning, she was still lying in bed in the emergency room. Her granddaughter was with her at bedside. She denies any chest pain or palpitation. No fall or head injury lately. Allergies: NO KNOWN ALLERGIES. Medications: Aspirin 81 mg, she was asked to take daily, but she is only taking it 2 times a week as reported by the patient's granddaughter. Other medications include carvedilol 3.125 mg daily, Tresiba insulin 10 units subcutaneous injection daily at bedtime, pantoprazole 40 mg daily, Zofran 4 mg 3 times a day as needed for nausea and vomiting, Repatha injections, and Belsomra 20 mg daily. Review of Systems: LAND LAW EXAMINER: As mentioned above. All other systems reviewed and negative. Past Medical History: Significant for stroke in 2016 and 2018, senile dementia, type 2 diabetes mellitus, hypertension, hyperlipidemia, coronary artery disease, carotid artery stenosis on the left side, gastroesophageal reflux disease, prior history of gallstones and history of choledocholithiasis, history of recurrent UTI, anemia, anxiety, depression. Past Surgical History: Coronary artery bypass surgery in 2018, left carotid artery stent placement in 2016, cholecystectomy in 2019, . Family History: Father had coronary artery disease. Mother , had coronary artery disease, diabetes, hypertension. Social History: Negative for smoking, alcohol use. Physical Examination: Vital Signs: When I saw her, last temperature this morning was 98.1, pulse 66, respiratory rate 18, blood pressure 157/78, oxygen saturation 100% on room air. Height 4 feet 11 inches. Weight 127 pounds. General: Awake, alert, oriented, not in distress. HEENT: Head atraumatic, normocephalic. Conjunctivae nonerythematous. Sclerae white. Mouth, no thrush or edema noted. Ears/Nose, no mass, lesion, discharge noted. Neck: Supple. No JVD, lymph nodes, bruit, thyromegaly noted. Lungs: Bilateral good equal air entry. Clear to auscultation. No rhonchi. No rales. Heart: Normal heart sounds, no murmur or gallop. Abdomen: Soft, bowel sounds normal. No guarding, rigidity, tenderness, mass, hepatosplenomegaly, distention, or bruit noted. Extremities: No leg edema. No calf tenderness. Skin: No rash, ulcer, cellulitis. Lymphatics: No lymph node enlargement in neck, supraclavicular, infraclavicular region. LAND LAW EXAMINER: No facial asymmetry. Speech is normal. Her power is normal in both upper extremities but left lower extremity power is 4/5. Right lower extremity power is normal. Sensation intact to touch sensation in right upper and right lower extremities. Left upper extremity touch sensation is impaired and left lower extremity touch sensation is impaired as well. Chest: Unremarkable. External Genitalia: Deferred. Rectal: Deferred. Laboratory Data: WBC 7.20, hemoglobin 12.8, platelets 226. Sodium 137, potassium 4.1, chloride 102, bicarb 32, BUN 24, creatinine 1.14, glucose 164. Troponin 7.4. CAT scan of the head, no acute intracranial changes. CT angiogram of head and neck shows [id number] multifocal narrowing of the posterior cerebral arteries, bilateral. No evidence of any large vessel occlusion or critical stenosis. No significant stenosis of neck vessels. Impression: 1. Stroke with left-sided hemiparesis. 2. Hypertension. 3. Hyperlipidemia. 4. Coronary artery disease. 5. Left carotid artery stenosis. 6. Cerebral atherosclerosis. 7. Type 2 diabetes mellitus. 8. Senile dementia. 9. Anxiety. 10. Depression. 11. Gastroesophageal reflux disease. Plan: We will go ahead and admit the patient to hospital for further evaluation and management of this problem. The patient is appropriate for inpatient and is expected to spend two midnights in hospital. We will consult neurologist, Dr. Pedraza. The patient was out of window for any kind of thrombolytic therapy because of duration of the symptoms. We will consult Physical Therapy, Occupational Therapy. Give aspirin 81 mg to be taken on a daily basis. Folic acid 1 mg daily will be started, and we will start her on lisinopril 5 mg daily. Monitor blood pressure around 160 to 180 range to start with, and then after first few days, we will go ahead and advocate strict blood pressure control. The patient was not taking aspirin on a daily basis as suggested and she should take 81 mg aspirin daily. She takes Repatha injection for hyperlipidemia, which she should continue it. We will get a fasting lipid profile done tomorrow to see what her cholesterol looks like. I am not sure whether she is taking Repatha once a month or every 2 weeks, and this is prescribed by her appointment coordinator. So if she is taking once a week and if lipid profile is not optimally well-controlled, then she will need to go up on the dose to twice a week. For diabetes, we will continue her insulin 10 units at bedtime which is long-acting insulin and sliding scale insulin will be ordered. Fall precaution was ordered. DVT prophylaxis will be given using Lovenox. Continue her pantoprazole for gastroesophageal reflux disease, and no need for any further intervention. MRI per stroke protocol should be done, but unfortunately we will not be able to do it at the hospital until Monday morning, and all these details and plan of treatment discussed with the patient and the patient's granddaughter who was at bedside. 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 We will address that with appropriate medications. Total time spent 80 minutes including review of last office visit, record from 09/24/2024, communication with the emergency room physician, review of emergency room visit record, and performing today's evaluation and management. PRAVEENA/MODL Voice ID: [id number] [id number]
[2024-10-26 11:45] LABS: MA/CREAT RATIO 10.2 (< 30.0); UR MICROALBUMIN 0.5 mg/dL (< 1.9)
[2024-10-26] MEDS: carvediloL 3.125 MG TAB PO ONE (14:26)
[2024-10-26] MEDS: ENOXAPARIN 30 MG/0.3 ML SQ SCH (17:04)
[2024-10-26] MEDS: TRAMADOL HCL 50 MG TAB PO PRN (17:05)
[2024-10-26] MEDS: INSULIN GLARGINE 100 UNIT/ML SQ SCH (20:17)
[2024-10-26] MEDS: lisinopriL 5 MG TAB PO SCH (20:17)
[2024-10-27 06:13] LABS: Absolute Eosinophils 0.2 K/uL (0-0.5); Absolute Lymphocytes (CBC) 2.6 K/uL (0.7-4.9); Absolute Monocytes 0.9 K/uL (0.1-1.3); Absolute Neutrophil 3.7 K/uL (1.8-8.0); Basophils % 0.6 % (0-1.3); Eosinophils % 2.3 % (0-4.4); Hematocrit 37.9 % (36.0-45.0); Hemoglobin 13.1 g/dL (12.0-15.0); Lymphocytes % 35.6 % (15.3-44.8); MCH 30.3 pg (27.0-35.0); MCHC 34.6 g/dL (32.0-36.0); MCV 87.5 fL (80-100); MPV 8.3 fL (7.6-11.3); Monocytes % 11.7 % (3.3-12.3); Neutrophils % 49.8 % (41.7-73.7); Nucleated Red Blood Cells % 0.1 % (0-0); Platelets 223 thou/uL (152-406); RBC Red Blood Cell Count 4.33 M/uL (3.86-4.86); Red Cell Distribution Width 12.9 % (12.1-15.2)
[2024-10-27 06:29] LABS: AST/SGOT 15 U/L (15-37); Albumin 2.9 g/dL (3.4-5.0); Albumin/Globulin Ratio 0.8 (1.1-1.8); Alkaline Phosphatase 94 U/L (45-117); Anion Gap 6.3 mEq/L (5.0-15.0); BUN Blood Urea Nitrogen 14 mg/dL (7-18); Bicarbonate 33 mEq/L (21-32); Bilirubin Total 0.4 mg/dL (0.2-1.0); Globulin 3.6 g/dL (2.3-3.5); Glomerular Filtration Rate 61 ml/min (=/>90); Glucose Level 101 mg/dL (74-106); HDL Cholesterol 54 mg/dL (40-60); LDL Cholesterol, Calculated 119 mg/dL (<130); LDL Cholesterol,Calc NonReport 119; Potassium 4.3 mEq/L (3.5-5.1); Protein, Total 6.5 g/dL (6.4-8.2); Sodium Level 140 mEq/L (136-145)
[2024-10-27 06:49] LABS: ALT/SGPT < 14 U/L (13-56)
[2024-10-27] MEDS: ASPIRIN EC 81 MG TAB PO SCH (08:54)
[2024-10-27] MEDS: PANTOPRAZOLE 40MG TABLET PO SCH (08:54)
[2024-10-27] MEDS: FOLIC ACID 1 MG TABLET PO SCH (08:54)
--- NOTE | 2024-10-27 12:21 | PN ---
Date of Progress Note: 10/27/2024 Subjective: The patient was seen this morning for followup. She was lying in bed, not in distress. Daughter was with her at bedside. No new complaints or problems reported except headache, which is mostly in the left occipital and left neck region. Objective: Vital Signs: Reviewed. HEENT: Unremarkable. Lungs: Clear to auscultation. Heart: Sounds normal. Abdomen: Soft. Bowel sounds normal. No guarding, rigidity, tenderness, or distention. Extremities: No leg edema. Neuro: Unchanged. Laboratory Data: WBC 7.3, hemoglobin 13.1, platelets 223. Sodium 140, potassium 4.3, chloride 105, bicarb 33, BUN 14, creatinine 0.97, glucose 101. Liver function tests unremarkable. LDL 119, total cholesterol 203. Impression: 1. Stroke. 2. Hypertension. 3. Hyperlipidemia. 4. Diabetes mellitus. Plan: A1c is pending. We will continue current diabetes management. Blood pressure is much better today. Yesterday, she did require extra dose of carvedilol in the afternoon and as of last night, I have started her on lisinopril 5 mg daily at bedtime, which we will continue that. The patient's dewayne ghter was at bedside. Her medication list that appears in the computer entered by the nursing staff is not accurate and I have discussed these details with the patient's daughter. She informed me that the patient takes Repatha injection every 2 weeks and in the computer, it is listed once a week, whi ch is not accurate and multiple other medications are also coming up on the computer medication list, which she is probably not taking it. So, my instruction to daughter was that upon discharge from [facility], the patient should restart all her medication the way she did at home before with the exc eption that she was taking aspirin only 2 times a week and she must take aspirin 81 mg daily and add lisinopril as well as folic acid as prescribed. MRI will be done tomorrow and after that, we will de cide if we can possibly discharge her to go home tomorrow or not. PRAVEENA/MODL Voice ID: [id number] Report ID: [id number]
[2024-10-27] MEDS: SUVOREXANT 20 MG PO SCH (21:00)
[2024-10-28 10:11] VITALS: O2SAT 98
--- NOTE | 2024-10-28 11:24 | RAD REPORT ---
EXAMINATION: MRI BRAIN WITHOUT CONTRAST CLINICAL INDICATION: stroke TECHNIQUE: Multiplanar multisequence MR images of the brain were obtained without intravenous contras t. Unless otherwise specified, incidental findings do not require dedicated imaging follow-up. COMPARISON: 10/25/2024 FINDINGS: INTRACRANIAL: Diffusion-weighted images show no acute or early subacute infarction. There is moderate brain atrophy with advanced confluent T2/FLAIR hyperintensities in the periventricular and deep white matter regions, likely representing chronic microvascular ischemic changes. There is no mass ef fect or midline shift. No abnormal extraaxial fluid collection. VASCULATURE: Normal signal voids in the larger intracranial arteries and dural venous sinuses. SINUSES: Trace mastoid fluid bilaterally. BONE: The marrow signal pattern is within normal limits. IMPRESSION: Negative for acute CVA or other acute intracranial finding.
[2024-10-28] MEDS: ACETAMINOPHEN 500 MG TAB PO PRN (11:53)
--- NOTE | 2024-10-28 12:14 | EKG ---
Test Date: 2024-10-25 Test Time: 22:14:42 Electronic Sensing Equipment Assembler: SUYAPA MEASUREMENT RESULTS: Intervals: Rate: 73 VT: 210 QRSD: 94 QT: 410 QTc: 451 [place]: P: 20 VT: 210 QRS: -2 T: 16 INTERPRETIVE STATEMENTS: Sinus rhythm with 1st degree AV block Anterior infarct, age undetermined Abnormal ECG Compared to ECG 01/29/2024 10:51:28 First degree AV block now present Myocardial infarct finding still present Electronically Signed On 10-28-24 12:09:05 CDT by Nigel Starr
[2024-10-28 14:25] VITALS: BP 136/74; TEMP 98.4
--- NOTE | 2024-10-28 19:42 | CON ---
Reason For Consultation: Consultation called because of possible stroke and headache. History Of Present Illness: Ms. Neff is a 74-year-old patient with history of strokes, which remote with some residual left-sided weakness, strokes currently in 2018 and 2016. She has [id number] e cognitive impairment and other risk factors for stroke include diabetes, hypertension, dyslipidemia , coronary artery disease, and she has had carotid artery stenosis. She developed a slight different headache, mostly reported on top of her head and there was some left-sided head involvement as well. The headache eventually apparently moved mostly to the posterior region on the left and the back of her neck. She had elevated blood pressures close to 200 systolic from 198, and she had loss of sens ation on the left side including face, arm, and leg. She was seen in the Emergency Room at [facility]. CT scan of the head negative for any acute ischemic hemorrhagic changes. CT angiogram o f her head showed no evidence of large vessel occlusion or significant stenosis. CT angiogram of the neck also showed no large vessel stenosis of the internal and external carotid arteries bilaterally. There was a left carotid stent in place that traversed the bifurcation and there was mild arthroscl erotic calcific plaque at the right side bifurcation. Earlier today, brain MRI was done stroke stepan col showed no evidence of acute ischemic hemorrhagic stroke. The scan was remarkable for moderate-to -severe chronic small vessel ischemic disease involving in advanced and confluent manner to the periv entricular and deep white matter regions and again no evidence of an acute or early subacute infarct. She still has an ongoing headache, which has been poorly responsive to tramadol. She did receive D VT prophylaxis, aspirin and beta-flor along with management of her diabetes mellitus and hypertens vaughn management. Current blood pressure is 148/74 to 164/73. Past Medical History: Remarkable for multiple strokes, diabetes mellitus, hypertension, dyslipidemia , coronary artery disease. Past Surgical History: Remarkable for carotid stent placement on the left, cholecystectomy in 2019, coronary artery bypass in 2018. Family History: Positive for coronary artery disease in mother with diabetes, hypertension, coronary artery disease in father. Allergies: NO KNOWN DRUG ALLERGIES. Current Medications: Tylenol 500 mg every 6 hours as needed, aspirin 81 mg daily, Coreg 3.125 mg shayla ly, Lovenox 30 mg subcutaneously daily, folic acid 1 mg daily, Semglee insulin 10 units at bedtime, P rinivil 5 mg at bedtime, tramadol 25 mg every 6 hours as needed, Protonix 40 mg daily, and Zofran 4 m g every 8 hours as needed. Review of Systems: She does have mild pain in the left face and arm. Right shoulder pain potentially related to possibl e rotator cuff injury. Otherwise, no new positives on review. Physical Examination: Vital Signs: Blood pressure 148/74, pulse of 61, respiratory rate 18, temperature 98, oxygen saturat ion 98% on room air. Weight 127 pounds, height 4 feet 11 inches, BMI 25.1. General: Ms. Neff is lying comfortably in the room. Family at the bedside. Therapist also at the bedside. HEENT: She does appear normocephalic and atraumatic and no focal appearing changes that are obvious externally on the face, arm, and leg. Neuro: However, on neuro exam in the left arm, she is able to hold it up for count of 10 with mild d rift. There is some pain noted over in the right shoulder to palpation also in the left arm. There is a decreased sensation to touch in the left lower extremity. She is able to lift the leg up with a slight drift after count of 5 on the right side. She has a full elevation of the leg. She has exti nction noted and inability to sense light touch in the left leg compared to the right side and again in the left upper and right lower extremity. Coordination appears smooth and intact. Laboratory Studies: Blood sugars ranged from 108-131. Sodium 140, potassium 4.3, chloride 105, carb on dioxide is 33, creatinine 0.97, BUN 14. Hemoglobin A1c 6.6, calcium 8.9, AST 15, ALT less than 14 , alkaline phosphatase 94, total cholesterol 203, LDL cholesterol 119, HDL cholesterol 54, cholestero l HDL ratio is 3.76. She had a random urine microalbumin and 0.5 being normal. Urine creatinine nor mal at that point as well. Assessment: Ms. Neff is a 74-year-old patient with remote strokes, likely responsible for the left- sided sensory deficit and very mild weakness. She does have a headache that does appear to be more m igrainous in nature. It is not responsive to tramadol. She has multiple comorbidities, diabetes, hy pertension, dyslipidemia, and coronary artery disease and cerebral artery disease as well and she has had stent placements on the left in the carotid. Plan: Continue with aggressive management of hypertension, dyslipidemia, diabetes mellitus. May int roduce the CGRP receptor antagonist for abortive headache treatment as they do not increase the risk of stroke and these may include the Nurtec 75 mg as needed in addition to the Ubrelvy 100 mg or 50 mg doses. If the headaches are more frequent and 4 severe headaches monthly, may give the daily Qulipt a either 30 mg start or 60 mg daily as a migraine prophylaxis. Once discharged, she may follow up in clinic and an outpatient basis may receive medications as noted above. She should follow up with Dr Kendrick Soto for aggressive management of the comorbidities to reduce the risk of additional strokes. CAMPBELL/MITCHELL Voice ID: [id number] Report ID: [id number]
--- NOTE | 2024-10-28 23:22 | DS ---
Date of Discharge: 10/28/2024 Disposition: Discharged to go home. Physical Examination: HEENT: Unremarkable. Lungs: Clear to auscultation. Heart: Sounds normal. Abdomen: Soft. Bowel sounds normal. No guarding, rigidity, tenderness, distention. Extremities: No leg edema. Neuro: No focal neurological deficits. Laboratory Data: Upon admission, sodium 137, potassium 4.1, chloride 102, bicarb 32, BUN 24, creatin ine 1.14, glucose 164. Yesterday, sodium 140, potassium 4.3, chloride 105, bicarb 33, BUN 14, creati nine 0.97, glucose 101. Hemoglobin A1c yesterday 6.6. Liver function tests unremarkable. LDL cathleen sterol 119, total cholesterol 213. For CBC upon admission, white count 7.2, hemoglobin 12.8, platele ts 226. Yesterday, white count 7.3, hemoglobin 13.1, platelets 223. Discharge Medications And Instructions: 1. Continue all prior home medication. 2. Continue to take your carvedilol 3.125 mg take 1 tablet by mouth daily in morning. 3. Make sure to take your aspirin 81 mg 1 tablet by mouth daily with food. 4. Start following new medications and prescription was sent to her Pharmacy from office. a. Folic acid 1 mg take 1 tablet by mouth daily. b. Lisinopril 5 mg take 1 tablet by mouth daily at bedtime. 5. Follow up at my office next week. Hospital Course: This is a 74-year-old female patient, lives at home, was brought into emergency [place] with complaints of headache and weakness on the left side. Please see dictated H and P for more in formation. After the patient was evaluated in the emergency room, she was admitted to hospital with concerns about stroke with left-sided hemiparesis. The patient had weakness on the left side upon ad mission, and after she was evaluated, she was admitted to hospital. She was prescribed to take aspir in 81 mg daily, but the patient's granddaughter informed me that she was only taking it twice a week and not on a daily basis. She takes Repatha injection for cholesterol every 2 weeks as per my discus cassy with the patient's daughter and she was advised to continue that. During this hospitalization, her weakness has improved completely. She is able to ambulate and go to the bathroom independently a nd today on neurological exam, there was no more weakness. Her CAT scan of the brain done in emergen cy room was negative for any acute intracranial changes. CT angiogram of head and neck showed mild t o moderate multifocal narrowing of posterior cerebral arteries bilaterally. No evidence of any large vessel occlusion or critical stenosis. No significant stenosis of neck vessels. With all this, the patient was treated in the hospital. Her blood pressure was managed by adding lisinopril 5 mg at [facility] and this has actually helped to control it for a while. We also added folic acid 1 mg daily. Neurology consultation was requested from Dr. Pedraza. Overall, today the patient was discharged to go home in stable condition after an MRI of the brain was done which came back normal. No evidence of stroke and echocardiogram was done and I will follow up on the result on echocardiogram on outpati ent basis. Final Diagnoses: 1. TIA. 2. Cerebral atherosclerosis. 3. Hypertension. 4. Hyperlipidemia. 5. Coronary artery disease. 6. Left carotid artery stenosis. 7. Type 2 diabetes mellitus. 8. Senile dementia. 9. Anxiety. 10. Depression. 11. Gastroesophageal reflux disease. Total time spent 40 minutes. PRAVEENA/MODL Voice ID: [id number] Report ID: [id number]
--- NOTE | 2024-10-29 09:33 | ECHO ---
HEIGHT: 4 ft 11 in WEIGHT: 127 lb 7 oz DATE OF STUDY: 10/28/[address]: Geo Soto MD 2-DIMENSIONAL: YES M.MODE: YES DOPPLER: YES COLOR FLOW: YES TDS: PORTABLE: YES DEFINITY: BUBBLE STUDY: DIAGNOSIS: STROKE CARDIAC HISTORY: CATHERIZATION: NO SURGERY: NO PROSTHETIC VALVE: NO PACEMAKER: NO MEASUREMENTS (cm) DIASTOLIC (NORMALS) SYSTOLIC (NORMALS) IVSd 1.0 (0.6-1.2) LA Diam 3.3 (1.9-4.0) LVEF 60-65% LVIDd 2.6 (3.5-5.7) LVIDs 1.9 (2.0-3.5) %FS 25% LVPWd 1.3 (0.6-1.2) Ao Diam 2.4 (2.0-3.7) 2 DIMENSIONAL ASSESSMENT: RIGHT ATRIUM: NORMAL LEFT ATRIUM: NORMAL RIGHT VENTRICLE: NORMAL LEFT VENTRICLE: NORMAL TRICUSPID VALVE: MILD TRICUSPID REGURGITATION MITRAL VALVE: NORMAL PULMONIC VALVE: NORMAL AORTIC VALVE: NORMAL, TRACE MITRAL REGURGITATION PERICARDIAL EFFUSION: NONE AORTIC ROOT: NORMAL LEFT VENTRICULAR WALL MOTION: NORMAL DOPPLER/COLOR FLOW: NORMAL COMMENTS: 1. NORMAL LEFT VENTRICULAR SYSTOLIC FUNCTION, EJECTION FRACTION 60-65%, NORMAL WALL MOTION 2. NORMAL DIASTOLIC FUNCTION TECHNOLOGIST: LIZETT SERNA
== END 2024-10-28 14:46 | disposition home or self-care (01) | DRG 69 ==
LOC: ER 21:28 → ERHOLD 10-26 05:02 → OBSVTOIN 10-26 09:25 → 4TH 10-26 10:40
PROVIDERS: ADMIT Internal Medicine; ATTEND Internal Medicine
DX: G45.9 Transient cerebral ischemic attack, unspecified (principal); I69.354 Hemiplegia and hemiparesis following cerebral infarction affecting left non-dominant side; F03.93 Unspecified dementia, unspecified severity, with mood disturbance; F03.94 Unspecified dementia, unspecified severity, with anxiety; I10 Essential (primary) hypertension; K21.9 Gastro-esophageal reflux disease without esophagitis; E11.9 Type 2 diabetes mellitus without complications; I25.10 Atherosclerotic heart disease of native coronary artery without angina pectoris; Z95.1 Presence of aortocoronary bypass graft; Z91.81 History of falling; Z90.49 Acquired absence of other specified parts of digestive tract
CPT/HCPCS: 36415; 70450; 70496; 70498; 70551; 80048; 80053; 80061; 82043; 82570; 82947; 83036; 83735; 84156; 84484; 85025; 85610; 85730; 93005; 93306; 96374; 96375; 97116; 97161; 97165; 99285; G0378; J1650; J1815; J2405; J2765; Q9967

== ENCOUNTER 2025-02-20 18:30 | Observation (INO) | payer OTHER ==
[2025-02-20 20:14] VITALS: BMI 26.2
[2025-02-20] MEDS: ASPIRIN EC 81 MG TAB PO ONE (20:30)
[2025-02-20] MEDS: METOPROLOL TAR 25 MG TAB PO ONE (20:30)
[2025-02-20] MEDS: AMLODIPINE 5 MG TAB PO ONE (20:30)
[2025-02-20] MEDS: INSULIN REGULAR (HUMAN) 100 UNIT/ML SQ SCH (20:44)
[2025-02-20] MEDS ORDERED: NITROGLYCERIN 0.4 MG/TAB SL PRN (20:57)
[2025-02-20] MEDS ORDERED: ONDANSETRON 4 MG/2 ML VIAL IV PRN (20:57)
[2025-02-20 20:58] LABS: Absolute Lymphocytes (CBC) 2.1 K/uL (0.7-4.9); Hematocrit 35.0 % (36.0-45.0); Hemoglobin 12.0 g/dL (12.0-15.0); MCH 29.9 pg (27.0-35.0); MCHC 34.4 g/dL (32.0-36.0); MCV 86.8 fL (80-100); MPV 8.1 fL (7.6-11.3); Nucleated RBC Absolute Count 0.0 (0-0); Nucleated Red Blood Cells % 0.1 % (0-0); RBC Red Blood Cell Count 4.03 M/uL (3.86-4.86); White Blood Count 6.80 thou/uL (4.3-10.9)
[2025-02-20] MEDS ORDERED: ACETAMINOPHEN 500 MG TAB PO PRN (20:58)
--- NOTE | 2025-02-20 21:18 | RAD REPORT ---
EXAM: Chest Single View HISTORY: 74 years Female chest pain COMPARISON: 01/29/2024 FINDINGS: LUNGS/PLEURA: The lungs are clear. No pleural effusions or pneumothorax. No pulmonary edema. CARDIAC/MEDIASTINUM: The cardiac silhouette is within normal limits. UPPER ABDOMEN: No significant abnormality. BONES: Sternotomy. No acute abnormality. LINES/TUBES/OTHER: N/A IMPRESSION: No evidence of acute cardiopulmonary disease. No significant change from prior.
[2025-02-20 21:23] LABS: ALT/SGPT 15.0 U/L (13-56); AST/SGOT 17.0 U/L (15-37); Albumin 3.2 g/dL (3.4-5.0); Albumin/Globulin Ratio 1.0 (1.1-1.8); Alkaline Phosphatase 94.0 U/L (45-117); Anion Gap 6.5 mEq/L (5.0-15.0); BUN Blood Urea Nitrogen 22.0 mg/dL (7-18); Globulin 3.2 g/dL (2.3-3.5); Glucose Level 137.0 mg/dL (74-106); NT PRO-BNP 1797.0 pg/mL (<450); Potassium 4.5 mEq/L (3.5-5.1); Thyroid Stimulating Hormone 0.905 uIU/mL (0.358-3.740); Troponin High Sensitivity 8.3 pg/mL (<58.9)
[2025-02-21] MEDS: MORPHINE 2 MG/ML SYR IV PRN (04:26)
[2025-02-21] MEDS: AMLODIPINE 5 MG TAB PO ONE (05:37)
[2025-02-21] MEDS ORDERED: ONDANSETRON 4 MG (ODT) TAB PO PRN (07:54)
[2025-02-21] MEDS: FOLIC ACID 1 MG TABLET PO SCH (08:33)
[2025-02-21] MEDS: METOPROLOL XL 25 MG TAB PO SCH (08:33)
[2025-02-21] MEDS: ATOGEPANT 60 MG PO SCH (08:34)
[2025-02-21] MEDS: PANTOPRAZOLE 40MG TABLET PO SCH (08:35)
[2025-02-21] MEDS: NUEDEXTA PO SCH (08:35)
[2025-02-21] MEDS ORDERED: VALSARTAN 80 MG TAB PO SCH ×2 (09:00→21:00)
--- NOTE | 2025-02-21 09:06 | RAD REPORT ---
EXAM: CT Head Brain Wo Cont HISTORY: headache COMPARISON: 10/25/2024 TECHNIQUE: Multiple contiguous axial images were obtained for a CT of the brain without contrast. Sag ittal and coronal reformats were performed. One or more of the following dose reduction techniques were used: Automated exposure control, adjus tment of the mA and kV according to patient size, and iterative reconstruction. Unless otherwise specified, incidental findings do not require dedicated imaging follow-up. FINDINGS: No evidence of hydrocephalus, intracranial hemorrhage, or extra-axial fluid collection. Mild diffuse parenchymal brain atrophy with moderate periventricular and deep white matter chronic m icrovascular ischemic changes, stable. Left thalamic focus of near CSF density, could relate to sequelae of remote ischemia.. The calvarium is intact. The visualized paranasal sinuses and mastoid air cells are essentially clear . IMPRESSION: No evidence of acute intracranial abnormality. Stable chronic findings as above.
--- NOTE | 2025-02-21 12:57 | HP ---
Date of Admission: 02/20/2025 Chief Complaint: Chest pain, high blood pressure, tingling and numbness all over, and shortness of b reath. History Of Present Illness: This is a 74-year-old female patient, who was brought into office today by granddaughter who says that the patient's blood pressure has been elevated for last week to 2 week s and she is having intermittent complaints of tingling all over her body with some numbness and she is acting confused at times. She is also having intermittent chest pain and occasional dyspnea with activity. She is also having some headache associated with this complaints. All these problems has been going on for last 1 to 2 weeks and after I evaluated her, decision was made to admit her to hosp [facility] for further evaluation and management of this problems. Allergies: NO KNOWN ALLERGIES. Medications: List reviewed. Review of Systems: IMMUNOPATHOLOGIST: As mentioned above. Cardiovascular: As mentioned above. All other systems reviewed and negative. Past Medical History: Significant for prior history of stroke in 2015 and 2017, also has history of senile dementia, type 2 diabetes mellitus, hypertension, hyperlipidemia, coronary artery disease, lef t-sided carotid artery stenosis, gastroesophageal reflux disease, recurrent urinary tract infection, anemia, anxiety, depression. Past Surgical History: Significant for coronary artery bypass surgery in 2018, left carotid artery s tent in 2015, cholecystectomy in 2019, . Family History: Father had coronary artery disease. Mother had coronary artery disease, hypertensio n, and diabetes. Social History: Negative for smoking and alcohol use. Physical Examination: Vital Signs: Temperature 97.9, pulse 74, respiratory rate 17, blood pressure 180/83, oxygen saturati on 94%. Height 4 feet 11 inches, weight 130 pounds. General: Awake, alert, oriented, not in distress. HEENT: Head atraumatic, normocephalic. Conjunctivae nonerythematous. Sclerae white. Mouth, no thr ush or edema noted. Ears/Nose, no mass, lesion, discharge noted. Neck: Supple. No JVD, lymph nodes, bruit, thyromegaly noted. Lungs: Bilateral good equal air entry. Clear to auscultation. No rhonchi. No rales. Heart: Normal heart sounds, no murmur or gallop. Abdomen: Soft, bowel sounds normal. No guarding, rigidity, tenderness, mass, hepatosplenomegaly, dis tention, or bruit noted. Extremities: No leg edema. No calf tenderness. Skin: No rash, ulcer, cellulitis. Lymphatics: No lymph node enlargement in neck, supraclavicular, infraclavicular region. Neuro: No focal neurological deficit. Chest: Unremarkable. External Genitalia: Deferred. Rectal: Deferred. Laboratory Data: Sodium 140, potassium 4.5, chloride 108, bicarb 30, BUN 22, creatinine 1.26, glucos e 137, WBC 6.8, hemoglobin 12, platelets 219. Liver function tests unremarkable. Hemoglobin A1c 6.9 . Troponin 8.3. ProBNP 1797. TSH 0.905. EKG, no acute ST-T changes. Chest x-ray, no acute intrat horacic changes. Impression: 1. Chest pain. 2. Hypertension. 3. Hyperlipidemia. 4. Coronary artery disease. 5. Left-sided carotid artery stenosis. 6. Type 2 diabetes mellitus. 7. Senile dementia. 8. Gastroesophageal reflux disease. 9. Anxiety. 10. Depression. Plan: We will go ahead and admit the patient to hospital for further evaluation and management of th is problem. The patient will be admitted to telemetry for observation. The patient has been having intermittent chest pain and her troponin is normal. There is no evidence of any myocardial infarctio n. I feel like her biggest problem right now is uncontrolled blood pressure and we will go ahead and manage her hypertension with different medications and monitor blood pressure and make necessary adj ustment as we go on. For hyperlipidemia, the patient does not require any further intervention. Cor onary artery disease will not require any further intervention at this time. For senile dementia, xiang estrada takes her medications, sees neurologist regularly, no need for further intervention. For gastroeso phageal reflux disease, we will continue her medication per order. No need for further intervention. Total time spent 65 minutes including evaluation and management at office, making arrangements for di rect hospital admission, and discussions with family member regarding plan of treatment, and review o f prior office visit record. PRAVEENA/MODL Voice ID: [id number]
[2025-02-21 16:27] VITALS: BP 140/75; TEMP 98.1
[2025-02-21] MEDS ORDERED: CETIRIZINE HCL 5 MG TABLET PO SCH (21:00)
[2025-02-21] MEDS ORDERED: HOME MED 1 EA UNK (Olmesartan Medoxomil [Benicar] 20 MG Tablet) PO SCH (21:00)
[2025-02-21] MEDS ORDERED: HOME MED 1 EA UNK (Suvorexant [Belsomra] 20 MG Tablet) PO SCH (21:00)
[2025-02-21] MEDS ORDERED: ENSURE CLEAR 200 ML CAN PO SCH (21:00)
== END 2025-02-21 17:12 | disposition home or self-care (01) ==
LOC: 4TH 18:30
PROVIDERS: ADMIT Internal Medicine; ATTEND Internal Medicine
DX: R07.9 Chest pain, unspecified (principal); I25.10 Atherosclerotic heart disease of native coronary artery without angina pectoris; I10 Essential (primary) hypertension; R20.0 Anesthesia of skin; R06.02 Shortness of breath; R51.9 Headache, unspecified; F03.90 Unspecified dementia, unspecified severity, without behavioral disturbance, psychotic disturbance, mood disturbance, and anxiety; E11.9 Type 2 diabetes mellitus without complications; E78.5 Hyperlipidemia, unspecified; K21.9 Gastro-esophageal reflux disease without esophagitis; D64.9 Anemia, unspecified; F41.9 Anxiety disorder, unspecified; F32.A Depression, unspecified; Z86.73 Personal history of transient ischemic attack (TIA), and cerebral infarction without residual deficits; Z87.440 Personal history of urinary (tract) infections; Z95.5 Presence of coronary angioplasty implant and graft; Z95.1 Presence of aortocoronary bypass graft
CPT/HCPCS: 93005; 85025; 36415; 82947 ×4; 84443; 83036; 84484; 80053; 83880; 70450; 71045; G0379; G0378 ×2; J2270

== ENCOUNTER 2025-03-20 14:37 | Emergency (ER) | payer OTHER ==
[2025-03-20] MEDS ORDERED: NA CHLORIDE 0.9% 1,000 ML ONE (14:49)
--- NOTE | 2025-03-20 15:26 | RAD REPORT ---
EXAMINATION: Ct Stroke Brain Wo Cont CLINICAL INDICATION: Female, 74 years old.STROKE ALERT TECHNIQUE: Axial CT images from the skull base to the vertex without intravenous contrast. Coronal an d sagittal reformatted images were created from the data set. One or more of the following dose reduction techniques were used: Automated exposure control, adjustment of the mA and/or kV according to patient size, and/or iterative reconstruction. Unless otherwise specified, incidental findings do not require dedicated imaging follow-up. [id number]. COMPARISON: 02/21/2025 FINDINGS: INTRACRANIAL: No acute intracranial hemorrhage. No acute large vascular territory infarct. No hydroce phalus. No mass effect or midline shift. Severe chronic small vessel ischemic changes.Remote left thalamic infarct. VASCULATURE: No visualized abnormalities in the arteries or dural venous sinuses. SCALP/SKULL: No calvarial fracture identified. No acute soft tissue abnormality. SINUSES: The visualized paranasal sinuses are mostly clear. No significant mastoid fluid. IMPRESSION: No acute intracranial abnormality. Similar chronic changes as noted above. The findings were communicated to Dr. Cazares on 03/20/2025 3:24 PM.
[2025-03-20 15:28] LABS: Absolute Lymphocytes (CBC) 2.2 K/uL (0.7-4.9); Hematocrit 36.1 % (36.0-45.0); Hemoglobin 12.1 g/dL (12.0-15.0); MCH 29.6 pg (27.0-35.0); MCHC 33.5 g/dL (32.0-36.0); MCV 88.3 fL (80-100); MPV 7.7 fL (7.6-11.3); Nucleated RBC Absolute Count 0.0 (0-0); Nucleated Red Blood Cells % 0.0 % (0-0); RBC Red Blood Cell Count 4.09 M/uL (3.86-4.86); White Blood Count 6.90 thou/uL (4.3-10.9)
--- NOTE | 2025-03-20 15:32 | RAD REPORT ---
EXAMINATION: Neck Angio CLINICAL INDICATION: Female, 74 years old. NUMBNESS TECHNIQUE: Axial CT images were obtained from the aortic arch to the skull base after intravenous con trast utilizing angiographic protocol with 3D post-processing (maximum intensity projection images, volume rendered images and/or shaded surface rendered images). One or more of the following dose redu ction techniques were used: Automated exposure control, adjustment of the mA and/or kV according to patient size, and/or iterative reconstruction. Unless otherwise specified, incidental findings do not require dedicated imaging follow-up. [id number]. NASCET criteria used. Mild 0-49% stenosis Moderate 50-69% stenosis Severe 70-99% stenosis COMPARISON: 10/25/2024 FINDINGS: AORTA: Atherosclerosis. Severe stenosis at the origin of the left subclavian artery. RIGHT: - CCA: Atherosclerotic changes but no flow limiting stenosis. - ICA: Atherosclerotic changes but no flow limiting stenosis. - ECA: No flow limiting stenosis (>= 50%). No dissection. LEFT: - CCA: Moderate (50-69%) stenosis at the origin of the left common carotid artery. Left distal common carotid artery stent is patent. - ICA: Patent left proximal ICA stent. No ICA stenosis. - ECA: No flow limiting stenosis (>= 50%). No dissection. VERTEBRAL: Mild to moderate narrowing of the left vertebral artery at about the C5 level. SOFT TISSUE: Cervical spondylosis. Sternotomy. The visualized lung apices are clear. 3D images confirm these findings. IMPRESSION: 1. Moderate narrowing at the origin of the left common carotid artery. Patent left carotid artery jessica nt. 2. No flow-limiting stenosis involving the right carotid system. 3. Moderate focal stenosis of the left vertebral artery.
[2025-03-20 15:38] LABS: PT Prothrombin Time 14.5 SECONDS (10-13.0); PTT, Activated Partial Thromb 31.0 SECONDS (27.2-37.4); Protime INR 1.29
--- NOTE | 2025-03-20 15:45 | RAD REPORT ---
EXAMINATION: Head angio CLINICAL INDICATION: Female, 74 years old. CONFUSED TECHNIQUE: Axial CT images were obtained through the head after intravenous contrast utilizing angiog raphic protocol with 3D post-processing (maximum intensity projection images, volume rendered images and/or shaded surface rendered images). One or more of the following dose reduction technique s were used: Automated exposure control, adjustment of the mA and/or kV according to patient size, and/or iterative reconstruction. Unless otherwise specified, incidental findings do not require dedic ated imaging follow-up. COMPARISON: 10/25/2024 FINDINGS: RIGHT: ICA: Heavily calcified right ICA which appears at least moderately stenotic at the distal right timoteo us ICA and moderate narrowing of the right cavernous carotid. PRAVEENA: No aneurysm, stenosis, or occlusion. MCA: No aneurysm, stenosis, or occlusion. HEATER MECHANIC: Multifocal stenoses involving the right P1 and P2 segment HEATER MECHANIC, at least one of which is high-gra de.. LEFT: ICA: Atherosclerotic calcifications but no flow limiting stenosis. PRAVEENA: No aneurysm, stenosis, or occlusion. MCA: No aneurysm, stenosis, or occlusion. HEATER MECHANIC: Multifocal stenoses involving the left P1 and P2 HEATER MECHANIC which which is at most moderate.. Vertebrobasilar: The vertebral arteries are patent. The basilar artery is normal in appearance. 3D images confirm these findings. IMPRESSION: No large vessel occlusion or aneurysm. Heavily calcified bilateral ICAs with moderate narrowing of the distal right petrous/proximal caverno us segments. Multifocal stenoses of both posterior cerebral arteries which is high grade on the right and at least moderate on the left.
[2025-03-20 16:07] LABS: ALT/SGPT 19 U/L (13-56); AST/SGOT 16 U/L (15-37); Albumin 3.3 g/dL (3.4-5.0); Albumin/Globulin Ratio 1.1 (1.1-1.8); Alkaline Phosphatase 100 U/L (45-117); Anion Gap 6.6 mEq/L (5.0-15.0); BUN Blood Urea Nitrogen 28 mg/dL (7-18); Globulin 3.1 g/dL (2.3-3.5); Glucose Level 144 mg/dL (74-106); Magnesium 2.4 mg/dL (1.6-2.4); Potassium 5.6 mEq/L (3.5-5.1); Troponin High Sensitivity 6.1 pg/mL (<58.9)
[2025-03-20 16:08] LABS: Bilirubin Indirect, Calculated 0.2 mg/dL (0.2-0.8)
[2025-03-20 16:47] LABS: Urine Microscopic Reflex YN NO UMIC
--- NOTE | 2025-03-20 16:52 | EDPHYS ---
Physician Documentation [facility] Name: Isidra Neff Age: 74 yrs Sex: Female : 1950 Arrival Date: 03/20/2025 Time: 14:37 Bed 4 Private MD: ED Physician Johnna Cazares HPI: 03/20 16:54 This 74 yrs old Female presents to ER via Wheelchair with complaints of gb1 Numbness Of Arm, Numbness Of Mouth. 18:02 74-year-old female that went to see Dr. Heath and had some numbness in her left arm gb1 and her tongue was also numb. She has a history of multiple CVAs she has dementia and diabetes with history of hypertension and migraine headaches as well. No falls or any other weakness on the right side of her body. She doesn't have any slurred speech and otherwise doesn't have any headache or vision changes. She denies any acute trauma or fall. Her law firm consultant and her granddaughter at the bedside.. Historical: - Allergies: 14:54 NKA; ll1 - PMHx: 14:54 CVA; Dementia; Diabetes; Hypertension; Migraine; ll1 - PSHx: 14:54 Cholecystectomy; triple bypass; ll1 - Immunization history:: Adult Immunizations up to date. - Infectious Disease History:: Denies. - Social history:: Smoking status: Patient denies any tobacco usage or history of. Exam: 18:02 Constitutional: This is a well developed, well nourished patient who is awake, alert, gb1 and in no acute distress. Head/Face: Normocephalic, atraumatic. Eyes: Pupils equal round and reactive to light, extra-ocular motions intact. Lids and lashes normal. Conjunctiva and sclera are non-icteric and not injected. Cornea within normal limits. Periorbital areas with no swelling, redness, or edema. ENT: Nares patent. No nasal discharge, no septal abnormalities noted. Tympanic membranes are normal and external auditory canals are clear. Oropharynx with no redness, swelling, or masses, exudates, or evidence of obstruction, uvula midline. Mucous membranes moist. Neck: Trachea midline, no thyromegaly or masses palpated, and no cervical lymphadenopathy. Supple, full range of motion without nuchal rigidity, or vertebral point tenderness. No Meningismus. Chest/axilla: Normal chest wall appearance and motion. Nontender with no deformity. No lesions are appreciated. Cardiovascular: Regular rate and rhythm with a normal S1 and S2. No gallops, murmurs, or rubs. Normal PMI, no JVD. No pulse deficits. Respiratory: Lungs have equal breath sounds bilaterally, clear to auscultation and percussion. No rales, rhonchi or wheezes noted. No increased work of breathing, no retractions or nasal flaring. Abdomen/GI: Soft, non-tender, with normal bowel sounds. No distension or tympany. No guarding or rebound. No evidence of tenderness throughout. Back: No spinal tenderness. No costovertebral tenderness. Full range of motion. Skin: Warm, dry with normal turgor. Normal color with no rashes, no lesions, and no evidence of cellulitis. MS/ Extremity: Pulses equal, no cyanosis. Neurovascular intact. Full, normal range of motion. Neuro: Awake and alert, GCS 15, oriented to person, place, time, and situation. Cranial nerves II-XII grossly intact. Motor strength 5/5 in all extremities. Sensory grossly intact. Cerebellar exam normal. Normal gait. Vital Signs: 14:54 BP 140 / 88; Pulse 63; Resp 14; Temp 98.1; Pulse Ox 99% ; Weight 60.78 kg; Height 4 ft. ll1 9 in. ; Pain 9/10; 15:10 BP 139 / 79; Pulse 65; Resp 18; Pulse Ox 100% ; mb9 15:40 BP 141 / 79; Pulse 67; Resp 18; Pulse Ox 100% on R/A; mb9 16:41 BP 145 / 72; Pulse 62; Resp 18; Pulse Ox 100% on R/A; mb9 17:44 BP 151 / 90; Pulse 60; Resp 16; Pulse Ox 100% on R/A; mb9 14:54 Body Mass Index 29.00 (60.78 kg, 144.78 cm) ll1 14:54 Pain Scale: Adult ll1 NIH Stroke Scale Scores: 15:51 NIHSS Score: 1 mb9 MDM: 14:43 Medical Screening Exam initiated gb1 18:02 Data reviewed: vital signs, nurses notes, lab test result(s), radiologic studies. ED gb1 course: 74-year-old female with history of multiple CVAs presents with numbness of the left arm and numbness of her tongue. She doesn't have any dysarthria or any other neurological focal deficits. She is awake alert she did have an elevated potassium but on redraw it went from 5.6-5.3. She is not hypoglycemic and otherwise has had no trauma she has a negative stroke workup today here in the emergency department. She doesn't have a urinary tract infection there is no altered mental status. At this time I doubt a hypertensive emergency she does have increased risk of multiple ischemic events however now she is at her baseline. I have discussed the plan of care and discharge with her granddaughter and with the patient herself and they are compliant and agreeable with the discharge planning at this time. There is no indication for TNKase or any inpatient recommendation for emergent neurological evaluation.. 03/20 14:41 Order name: Basic Metabolic Panel; Complete Time: 16:50 gb1 03/20 14:41 Order name: CBC with Diff; Complete Time: 15:54 gb1 03/20 14:41 Order name: Hepatic Function; Complete Time: 16:50 gb1 03/20 14:41 Order name: High Sensitivity Troponin; Complete Time: 16:50 gb1 03/20 14:41 Order name: Magnesium; Complete Time: 16:50 gb1 03/20 14:41 Order name: Protime (+inr); Complete Time: 15:54 gb1 03/20 14:41 Order name: Ptt, Activated; Complete Time: 15:54 gb1 03/20 15:17 Order name: Glucose, Ancillary Testing; Complete Time: 15:54 EDMS 03/20 15:54 Order name: UA Rfx Dar Cult if indicated; Complete Time: 16:50 gb1 03/20 17:07 Order name: Basic Metabolic Panel EDMS 03/20 14:41 Order name: CT Head Angio; Complete Time: 15:54 gb1 03/20 14:41 Order name: CT Neck Angio; Complete Time: 15:54 gb1 03/20 14:41 Order name: CT Stroke Brain w/o Contrast; Complete Time: 15:54 gb1 03/20 14:41 Order name: Stroke CXR 1 View; Complete Time: 17:21 gb1 03/20 14:41 Order name: EKG; Complete Time: 14:42 gb1 03/20 14:41 Order name: Accucheck; Complete Time: 15:12 03/20 14:41 Order name: Cardiac monitoring; Complete Time: 14:52 03/20 14:41 Order name: EKG - Nurse/Tech; Complete Time: 14:52 03/20 14:41 Order name: IV Saline Lock; Complete Time: 15:17 03/20 14:41 Order name: Labs collected and sent; Complete Time: 15:17 [facility] 03/20 14:41 Order name: NPO; Complete Time: 14:54 03/20 14:41 Order name: O2 Per Protocol; Complete Time: 14:52 03/20 14:41 Order name: O2 Sat Monitoring; Complete Time: 14:52 [facility] 03/20 14:41 Order name: Stroke Swallow Screen; Complete Time: 14:54 gb1 Administered Medications: No medications were administered Disposition Summary: 03/20/25 18:02 Discharge Ordered Notes: Location: Home(03/20/25 18:02) gb1 Problem: an ongoing problem(03/20/25 18:02) gb1 Symptoms: are unchanged(03/20/25 18:02) gb1 Condition: Stable(03/20/25 18:02) gb1 Diagnosis - Weakness(03/20/25 18:02) gb1 - Age-related cognitive decline gb1 Followup: gb1 - With: Private Physician - When: - Reason: Further diagnostic work-up Discharge Instructions: - Discharge Summary Sheet gb1 - Weakness, [id number] gb1 - Deconditioning gb1 Forms: - Medication Reconciliation Form gb1 - Antibiotic Education gb1 - Prescription Opioid Use gb1 - Patient Portal Instructions gb1 - Leadership Thank You Letter gb1 NIH Stroke Scale - NIH Stroke Score Date: 03/20/2025 Time: 15:51 Total Score = 1 10. Dysarthria (speech clarity - read or repeat words) - 0(Normal) 11. Extinction and Inattention (visual/tactile/auditory/spatial/personal) - 0(No abnormality) 1a. Level of Consciousness (LOC) - 0(Alert) 1b. Level of Consciousness (LOC) (Month \T\ Age) - 0(Both) 1c. LOC Commands (Open \T\ Closes Eyes/Manufacturing Process Engineer) - 0(Both) 2. Best Gaze (Lateral Gaze Paresis) - 0(Normal) 3. Visual Field Loss - 0(No visual loss) 4. Facial Palsy - 0(Normal) 5a. Left Arm: Motor (10-second hold) - 0(No drift) 5b. Right Arm: Motor (10-second hold) - 0(No drift) 6a. Left Leg: Motor (5-second hold - always test supine) - 0(No drift) 6b. Right Leg: Motor (5-second hold - always test supine) - 0(No drift) 7. Limb Ataxia (finger/nose \T\ heel/ribeiro - test with eyes open) - 0(Absent) 8. Sensory Loss (pinprick arms/legs/face) - 1(Mild to moderate loss) 9. Best Language: Aphasia (description/naming/reading) - 0(No aphasia) Initials: mb9 Signatures: Dispatcher [employer] EDMS Calista Garcia RN RN ll1 Sherri Salgado RN RN mb9 Johnna Cazares MD MD gb1 Corrections: (The following items were deleted from the chart) 16:57 16:57 BASIC METABOLIC PANEL+C.LAB.BRZ ordered. EDMS EDMS 16:57 16:52 Home gb1 gb1 16:57 16:52 chronic gb1 gb1 16:57 16:52 have worsened gb1 gb1 16:57 16:52 Stable gb1 gb1 16:57 16:52 Facial weakness gb1 gb1 16:57 16:52 Weakness gb1 gb1 17:00 17:00 BASIC METABOLIC PANEL+C.LAB.BRZ ordered. EDMS EDMS
--- NOTE | 2025-03-20 16:52 | ER ---
Nurse's Notes [facility] Name: Isidra Neff Age: 74 yrs Sex: Female : 1950 Arrival Date: 03/20/2025 Time: 14:37 Bed 4 Private MD: Diagnosis: Weakness;Age-related cognitive decline Presentation: 03/20 14:54 Chief complaint: Patient states: Pain all over, ALVARADO included. Patient's son or daughter ll1 states: Confusion noted. Coronavirus screen: Client denies travel out of the [place] in the last 14 days. At this time, the client does not indicate any symptoms associated with coronavirus-19. Ebola Screen: Patient denies travel to an Ebola-affected area in the 21 days before illness onset. Initial Sepsis Screen: Does the patient meet any 2 criteria? No. Patient's initial sepsis screen is negative. Does the patient have a suspected source of infection? No. Patient's initial sepsis screen is negative. Risk Assessment: Do you want to hurt yourself or someone else? Patient reports no desire to harm self or others. Onset of symptoms was March 19, 2025. 14:54 Method Of Arrival: Wheelchair ll1 14:54 Acuity: CL 3 ll1 Historical: - Allergies: 14:54 NKA; ll1 - PMHx: 14:54 CVA; Dementia; Diabetes; Hypertension; Migraine; ll1 - PSHx: 14:54 Cholecystectomy; triple bypass; ll1 - Immunization history:: Adult Immunizations up to date. - Infectious Disease History:: Denies. - Social history:: Smoking status: Patient denies any tobacco usage or history of. Screenin:14 [facility] ED Fall Risk Assessment (Adult) History of falling in the last 3 months, mb9 including since admission No falls in past 3 months (0 pts) Confusion or Disorientation Yes (5 pts) Intoxicated or Sedated No (0 pts) Impaired Gait No (0 pts) Mobility Assist Device Used No (0 pt) Altered Elimination No (0 pt) Score/Fall Risk Level 0 - 2 = Low Risk Oriented to surroundings, Maintained a safe environment, Educated pt \T\ family on fall prevention, incl call for assistance when getting out of bed. [facility] ED Fall Risk Assessment (Adult) Score/Fall Risk Level 3 or more points = High Risk Oriented to surroundings, Maintained a safe environment, Educated pt \T\ family on fall prevention, incl call for assistance when getting out of bed. Abuse screen: Denies threats or abuse. Nutritional screening: No deficits noted. Tuberculosis screening: No symptoms or risk factors identified. 15:20 Sparkle Swallow Protocol Exclusion Criteria: Brief Cognitive Screen What is your name? mb9 Normal, Where are you right now? Normal, What year is it? Abnormal Oral Mechanism Examination Facial Symmetry: Normal, Motion: Normal, Lip Closure: Normal, Oral Mechanism Result: Normal. 3 oz Water Swallow Challenge: Pt able to drink all water without stopping, coughing, choking or throat clearing: Yes Result: PASS MD Notified: Johnna Cazares MD. Assessment: 15:03 Reassessment: This nurse assumed care of pt at this time. Pt family at bedside and mb9 states she usually complains of pain, but around 1400 today, she started having right arm and mouth numbness/tingling. Pt family states she is not acting like herself. Pt is alert to name, place, and situation. Code Stroke called. Pt taken to CT via stretcher. 15:12 General: Appears in no apparent distress. Behavior is calm, cooperative. Pain: Denies mb9 pain. Neuro: [place] Agitation-Sedation Scale (RASS): 0 - Alert and Calm Level of Consciousness is awake, obeys commands, Oriented to person, place, situation, Motor Block Mechanic are weak on right Moves all extremities. Speech is normal, Facial symmetry appears normal, Pupils are PERRLA, Numbness in right arm and mouth. Cardiovascular: Heart tones S1 S2 present Patient's skin is warm and dry. Respiratory: Airway is patent Respiratory effort is even, unlabored, Respiratory pattern is regular, symmetrical, Breath sounds are clear bilaterally. GI: No signs and/or symptoms were reported involving the gastrointestinal system. : No signs and/or symptoms were reported regarding the genitourinary system. EENT: No signs and/or symptoms were reported regarding the EENT system. Derm: Skin is pink, warm \T\ dry. Musculoskeletal: Range of motion: intact in all extremities. 16:41 Reassessment: No changes from previously documented assessment. Patient and/or family mb9 updated on plan of care and expected duration. Pain level reassessed. Patient is alert, oriented x 3, equal unlabored respirations, skin warm/dry/pink. Vital Signs: 14:54 BP 140 / 88; Pulse 63; Resp 14; Temp 98.1; Pulse Ox 99% ; Weight 60.78 kg; Height 4 ft. ll1 9 in. ; Pain 9/10; 15:10 BP 139 / 79; Pulse 65; Resp 18; Pulse Ox 100% ; mb9 15:40 BP 141 / 79; Pulse 67; Resp 18; Pulse Ox 100% on R/A; mb9 16:41 BP 145 / 72; Pulse 62; Resp 18; Pulse Ox 100% on R/A; mb9 17:44 BP 151 / 90; Pulse 60; Resp 16; Pulse Ox 100% on R/A; mb9 14:54 Body Mass Index 29.00 (60.78 kg, 144.78 cm) ll1 14:54 Pain Scale: Adult ll1 NIH Stroke Scale Scores: 15:51 NIHSS Score: 1 mb9 ED Course: 14:38 Patient arrived in ED. im 14:39 Johnna Cazares MD is Attending Physician. gb1 14:43 Sherri Salgado, ARYAN is Primary Nurse. mb9 14:53 EKG done, by ED staff, reviewed by Johnna Cazares MD. bc6 14:54 Arm band placed on Patient placed in an exam room, on a stretcher. ll1 14:56 Triage completed. ll1 15:14 Initial lab(s) drawn, by me, sent to lab. Inserted saline lock: 22 gauge in right mb9 antecubital area, using aseptic technique. Blood collected. Flushed with 10 mL NS. 15:14 Placed in gown. Bed in low position. Call light in reach. Side rails up X 1. Provided mb9 Education on: press call light if needing anything. Client placed on continuous cardiac and pulse oximetry monitoring. NIBP monitoring applied. court monitor on. Door closed. Noise minimized. Warm blanket given. Pillow given. 15:17 No provider procedures requiring assistance completed. mb9 15:17 Basic Metabolic Panel Sent. mb9 15:17 CBC with Diff Sent. mb9 15:17 High Sensitivity Troponin Sent. mb9 15:17 Magnesium Sent. mb9 15:17 Protime (+inr) Sent. mb9 15:17 Ptt, Activated Sent. mb9 15:22 CT Head Angio In Process Unspecified. EDMS 15:23 CT Neck Angio In Process Unspecified. EDMS 15:23 CT Stroke Brain w/o Contrast In Process Unspecified. EDMS 16:56 Stroke CXR 1 View In Process Unspecified. EDMS 18:10 IV discontinued, intact, bleeding controlled, No redness/swelling at site. Pressure mb9 dressing applied. Administered Medications: No medications were administered Medication: 15:17 VIS not applicable for this client. [email or web address] Outcome: 16:52 Discharge ordered by . gb1 18:02 Discharge ordered by . gb1 18:10 Discharged to home via wheelchair, with family, mb9 18:10 Condition: stable 18:10 Discharge instructions given to patient, family, Instructed on discharge instructions, follow up and referral plans. Demonstrated understanding of instructions, follow-up care, 18:10 Patient left the ED. [email or web address] NIH Stroke Scale - NIH Stroke Score Date: 03/20/2025 Time: 15:51 Total Score = 1 10. Dysarthria (speech clarity - read or repeat words) - 0(Normal) 11. Extinction and Inattention (visual/tactile/auditory/spatial/personal) - 0(No abnormality) 1a. Level of Consciousness (LOC) - 0(Alert) 1b. Level of Consciousness (LOC) (Month \T\ Age) - 0(Both) 1c. LOC Commands (Open \T\ Closes Eyes/Crown Pouncer) - 0(Both) 2. Best Gaze (Lateral Gaze Paresis) - 0(Normal) 3. Visual Field Loss - 0(No visual loss) 4. Facial Palsy - 0(Normal) 5a. Left Arm: Motor (10-second hold) - 0(No drift) 5b. Right Arm: Motor (10-second hold) - 0(No drift) 6a. Left Leg: Motor (5-second hold - always test supine) - 0(No drift) 6b. Right Leg: Motor (5-second hold - always test supine) - 0(No drift) 7. Limb Ataxia (finger/nose \T\ heel/ribeiro - test with eyes open) - 0(Absent) 8. Sensory Loss (pinprick arms/legs/face) - 1(Mild to moderate loss) 9. Best Language: Aphasia (description/naming/reading) - 0(No aphasia) Initials: lul Signatures: Dispatcher [employer] Calista Selby RN RN ll1 Sherri Salgado RN RN mb9 Breanna Edwards bc6 Ritika Lombardi Gina, MD MD gb1 Corrections: (The following items were deleted from the chart) 15:12 15:03 Reassessment: This nurse assumed care of pt at this time. Pt family at 9 bedside and states she usually complains of pain, but around 1400 today, she started having right arm and mouth numbness/tingling. Code Stroke called. Pt taken to CT via stretcher 9 15:51 15:27 BP 141 / 79; Pulse 67bpm; Resp 18bpm; Pulse Ox 100% RA; mb9 mb9 15:52 15:10 NIHSS Score: 3 9 9
--- NOTE | 2025-03-20 17:03 | RAD REPORT ---
EXAM: Chest Single View HISTORY: 74 years Female CONGESTION COMPARISON: 03/18/2025 FINDINGS: LUNGS/PLEURA: Emphysema. No consolidative airspace disease. No edema. Nonspecific prominence of the p ulmonary interstitium and possible bronchial wall thickening.. CARDIAC/MEDIASTINUM: Stable size and configuration. UPPER ABDOMEN: No significant abnormality. BONES: Sternotomy. No acute abnormality. LINES/TUBES/OTHER: N/A IMPRESSION: No consolidative pneumonia or pulmonary edema. Interstitial prominence and bronchial wall thickening could reflect a nonspecific bronchitis.
[2025-03-20 17:26] LABS: Anion Gap 6.3 mEq/L (5.0-15.0); BUN Blood Urea Nitrogen 22.0 mg/dL (7-18); Glucose Level 117.0 mg/dL (74-106); Potassium 5.3 mEq/L (3.5-5.1)
[2025-03-20 18:29] VITALS: TEMP 98.1
[2025-03-20 18:31] VITALS: O2SAT 100
[2025-03-20 18:34] VITALS: BP 151/90
== END 2025-03-20 18:10 | disposition home or self-care (01) ==
LOC: ER 14:37
DX: R53.1 Weakness (principal); R41.81 Age-related cognitive decline; I10 Essential (primary) hypertension; Z95.1 Presence of aortocoronary bypass graft; Z86.73 Personal history of transient ischemic attack (TIA), and cerebral infarction without residual deficits
CPT/HCPCS: 93005; 85025; 80048 ×2; 36415; 83735; 85610; 82947; 80076; 85730; 81003; 84484; 70496; 70498; 70450; 71045; 99285; Q9967; J7030